=== PATIENT | male | born 1945 | race Caucasian/White ===

== ENCOUNTER → 2017-06-16 11:23 | Outpatient (CLI) | payer MEDICARE, SELFPAY ==
[2017-06-16 13:08] LABS: PSA,Total - Annual Screen 3.41 ng/mL (0.00-4.00)
== END ==
PROVIDERS: Family Provider Family Medicine; PCP Family Medicine; Visit Provider Nurse Practitioner Adult Health
DX: Z12.5 Encounter for screening for malignant neoplasm of prostate (principal)
CPT/HCPCS: 36415; 84153; G0103

== ENCOUNTER → 2017-07-07 09:49 | Outpatient (CLI) | payer MEDICARE, SELFPAY ==
[2017-07-07 14:30] LABS: PSA,Total- Diagnostic 2.14 ng/mL (0.0-4.0)
== END ==
PROVIDERS: Family Provider Family Medicine; PCP Family Medicine; Visit Provider Nurse Practitioner Adult Health
DX: R97.20 Elevated prostate specific antigen [PSA] (principal)
CPT/HCPCS: 36415; 84153

== ENCOUNTER 2017-08-16 07:21 | Emergency (ER) | payer MEDICARE, SELFPAY ==
[2017-08-16 07:22] VITALS: BP 148/83; PULSE 76; RESP 17; TEMP 36.9; O2SAT 97; BMI 32.3
--- NOTE | 2017-08-16 07:33 | ED.RN ---
PT DENIES CP, SOB. LT CALF TEMPERATURE FEELS THE SAME THE RT LEG.
--- NOTE | 2017-08-16 07:35 | VDLE_ITS ---
Reason For Study: LLE SWELLING RIGHT LEFT CFV is compressible, spontaneous, phasic, GSV is normal. competent and demonstrates normal CFV is compressible, spontaneous, phasic, augmentation. competent, and demonstrates normal Procedure augmentation. Exam performed portable in ED. FV is compressible, spontaneous, phasic, The exam was diagnostic. competent and demonstrates normal A preliminary report was called and/or faxed augmentation. to ED. POP V is compressible, spontaneous, phasic, competent and demonstrates normal augmentation. T/P Trunk is compressible. PTV is compressible. LT PerV is compressible. Interpretation Summary Deep veins of the left lower extremity are patent and compressible segmentally. There is no evidence of left lower extremity deep vein thrombosis. Valvular competence appears intact within the proximal deep venous system on the left . The left greater saphenous vein appears patent and compressible segmentally. Ordering Physician: Alison Jacinto Referring Physician: Christelle Hernandez Performed By: Darline Newman, SANGEETA, RVT
--- NOTE | 2017-08-16 07:39 | ED.DCSUM_ITS ---
- ER Visit Summary Date of Service: 08/16/17 Chief Complaint: Left lower extremity pain History of Present Illness: The patient is a 72 M presenting with left lower extremity pain. Patient states this started yesterday. He has pain in his left calf with swelling. He denies any injury. He denies chest pain or shortness of breath. Denies recent travel. 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 He had arthroscopic knee surgery 2 months ago. Denies knee pain. Denies fever. Physical Examination: Vitals are stable. Patient is afebrile. Alert no acute distress. HEENT exam is unremarkable. Lungs are clear and equal bilaterally. Heart is regular rate and rhythm. Abdomen is soft nontender nondistended. Extremities left calf tenderness with mild swelling. Normal distal pulses. No warmth or erythema. Skin is warm and dry. No focal neurologic deficit. Remainder of exam is unremarkable. Emergency Department Course and Treatment: Ultrasound of the left lower extremity shows no evidence of DVT. Patient does state he does a lot of stretching. He is advised to ice and elevate. Advised to follow-up with his primary care physician. Advised to return to ED if worsening complaints. Disposition: Discharge home Impression: Left lower extremity pain This note was generated with [employer] dictation software. It may contain incorrect words, spelling, and punctuation that were not noted in review of the chart prior to signing ED Disposition - Plan for ED Patient: Chief Complaint: Lower Extremity Injury Referrals: Feliciano Vega MD [Primary Care Provider] -
--- NOTE | 2017-08-16 08:33 | ED.RN ---
PT AMBULATED TO ED ROOM FROM TRIAGE. WHILE IN ROOM 6 PT NEEDED TO USE THE RESTROOM, RN GAVE PT NONSLIP SOCKS. WAS IRRITATED BECAUSE PT WALKED TO THE RESTROOM. 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 THIS RN DID EXPLAIN TO THE PT THAT IF HE NEEDED A URINAL TO LET STAFF KNOW.
--- NOTE | 2017-08-16 08:41 | ED.RN ---
PT REFUSED A BLANKET AT THIS TIME. LET PT'S KNOW THAT THE BLANKETS ARE IN THE CABINET IF HE DECIDES HE NEEDS ONE, HOWEVER THIS NURSE DID JUST PUT A BLANKET ON THE BED RAIL.
[2017-08-16 08:47] VITALS: BP 144/79; PULSE 66; O2SAT 98
--- NOTE | 2017-08-16 09:07 | NURSING ---
[employer] CALLED [facility]. THEY ARE ON THEIR WAY
--- NOTE | 2017-08-16 09:15 | ED.RN ---
pt ambulated to the restroom. pt previously encourage to let staff know if he needed a urinal. pt did not ask for assistance to restroom or a urinal.
--- NOTE | 2017-08-16 09:36 | ED.RN ---
VOICE HER DISAPPOINTMENT THAT THEY ARE WAITING FOR [facility].
--- NOTE | 2017-08-16 09:54 | NURSING ---
[facility] IN ROOM
--- NOTE | 2017-08-16 11:26 | ED.DEP ---
ED Disposition - Plan for ED Patient: Chief Complaint: Lower Extremity Injury Instructions: ED Strain Muscle Ext Referrals: Feliciano Vega MD [Primary Care Provider] -
== END 2017-08-16 11:30 | disposition home or self-care (01) ==
PROVIDERS: Emergency Provider Emergency Medicine; Family Provider Family Medicine; PCP Family Medicine
DX: M79.662 Pain in left lower leg (principal); I11.0 Hypertensive heart disease with heart failure; I50.9 Heart failure, unspecified; E78.00 Pure hypercholesterolemia, unspecified; Z79.82 Long term (current) use of aspirin; Z79.899 Other long term (current) drug therapy
CPT/HCPCS: 93971; 99282

== ENCOUNTER → 2018-04-27 16:51 | Outpatient (CLI) | payer MEDICARE, SELFPAY ==
--- OUTSIDE RECORDS SUMMARY | 2018-06-30 04:33 | XMS RPT_ITS ---
:1945 Author Organization OH[facility] Care Team Providers Name Role Phone JAYLA FLORIAN Referring Unavailable JAYLA FLORIAN Attending Unavailable ESTEFANY ROME (GAL) Attending Unavailable JAYLA FLORIAN Referring Unavailable LINO CABELLO Admitting Unavailable LINO CABELLO Attending Unavailable JAYLA FLORIAN Referring Unavailable KARL PÉREZ Attending Unavailable KARL PÉREZ Referring Unavailable JAYLA FLORIAN Referring Unavailable JAYLA FLORIAN Attending Unavailable Christelle Hernandez Attending Unavailable Christelle Hernandez Referring Unavailable Christelle Hernandez Attending Unavailable Christelle Hernandez Referring Unavailable Shawntak, Virgie Primary Care Unavailable Christelle Hernandez Attending Unavailable Christelle Hernandez Referring Unavailable Shawntak, Virgie Primary Care Unavailable Christelle Hernandez Attending Unavailable Christelle Hernandez Referring Unavailable Kontak, Virgie Primary Care Unavailable Shawntak, Virgie Primary Care Unavailable Alison Jacinto Attending Unavailable PROBLEMS PROBLEMS DATE TYPE CONDITION / CODE ATTENDING STATUS SOURCE 04/09/2018 Active Encounter for NA Active [facility] screening for Main Junior malignant neoplasm Repository of prostate / Z12.5(ICD-10) 02/26/2011 Active Hematuria, NA Active [facility] unspecified / Main Junior R31.9(ICD-10) Repository 04/09/2018 Active Urinary tract NA Active [facility] infection, site not Main Junior specified / Repository N39.0(ICD-10) 05/20/2017 Active Encounter for DESTINEY, Active [facility] screening for LINO T Main Junior malignant neoplasm Repository of colon / Z12.11(ICD-10) 05/09/2017 Active Unknown / JAYLA FLORIAN Active [facility] UNK(Unknown) R Main Junior Repository 02/15/2013 Active Essential (primary) NA Active [facility] hypertension / Main Junior I10(ICD-10) Repository 08/12/2005 Active Mixed hyperlipidemia NA Active [facility] / E78.2(ICD-10) Main Junior Repository PROCEDURES PROCEDURES No Procedure Records FoundRESULTS RESULTS PROGRESS Observed: 04/28/2018 Status: COMPLETED Source: [place] 4:03 PM [facility] HNO ID: [id number] Author: Jayla Florian Service: (none) Author Type: Physician Type: Progress Notes Filed: 04/28/2018 4:11 PM Note Text: Chief Complaint Patient presents with: Yearly Exam HPI Marshal Blue is a 72 year old male who presents here today for follow-up of several problems. Hypertension. Getting along pretty well. adherent to current regimen without side effects from medication. No current symptoms. Patient denies any exertional chest pain, dyspnea, palpitations, syncope, orthopnea, edema or paroxysmal nocturnal dyspnea. He has been plagued with urinary symptoms, couple of urinary infections and 3 antibiotics now. He's had a visit with the nurse practitioner at [facility]'s urology office in [place]. Christelle Hernandez. She says his prostate feels okay. Had a urine culture that showed less than 50,000 Escherichia coli, another that showed skin ramona. His PSA was high on most recent check. There has been gross blood in the urine and he has a pending CT scan and cystoscopy as he understands. 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 Sleep apnea, stable Past medical history, appointments, medications, allergies reviewed. Previous Medical History PAST MEDICAL HISTORY Diagnosis Date - Achilles bursitis or tendinitis 05/11/01 - Allergic rhinitis, cause unspecified - Benign neoplasm of colon - Diverticulosis of colon (without mention of hemorrhage) - Essential hypertension, benign - Other and unspecified hyperlipidemia - Personal history of colonic polyps Colon polyps - Snoring - Unspecified asthma, with status asthmaticus Previous Surgical History PAST SURGICAL HISTORY Procedure Laterality Date - CARPAL TUNNEL Right 06/2015 - COLONOSCOP W/ OR W/O [facility] SPEC 05/16/03 Colonoscopy-polyps removed - COLONOSCOP W/ OR W/O [facility] SPEC 12/19/2011 Colonoscopy - COLONOSCOP W/ OR W/O [facility] SPEC 05/20/2017 adenomatous polyps, repeat in 5 years - COLONOSCOPY W/BX 08/04/06 - LASIK 2000 bilateral - OTHER 03/21/15 complete shoulder replacement R - REMOVAL OF TONSILS,<12 Y/O Tonsillectomy - VASECTOMY Bilateral 1988 Family History FAMILY HISTORY Problem Relation Age of Onset - Hypertension Mother - other (macular degeneration) Mother - Hypertension Father - Heart Father - other (macular degeneration) Father - other (glaucoma) Brother Patient Allergies ALLERGIES Allergen Reactions - Ciprofloxacin Swelling - Milk Rash Current Medications Current Outpatient Prescriptions on File Prior to Visit: simvastatin (ZOCOR) 40 mg tablet TAKE 1 TABLET BY MOUTH EVERYDAY AT BEDTIME losartan (COZAAR) 50 mg tablet Take 1 tablet by mouth once daily. B2/VIT A,C AND E/LUT/ZEAXANTH/MN (ICAPS ORAL) Take by mouth. psyllium Husk (FIBER-CAPS) 0.52 gram capsule Take 1 capsule by mouth once daily. ASPIRIN 81 MG TAB Take one(1) tablet daily. meloxicam (MOBIC) 15 mg tablet No current facility-administered medications on file prior to visit. Social History Social History Marital status: Spouse name: Ashlie Years of education: Number of children: 2 Occupational History Occupation Employer Comment [employer] Social History Main Topics Smoking status: Former Smoker Packs/day: 2.00 Years: 10.00 Types: Cigarettes Quit date: 04/07/1987 Smokeless tobacco: Never Used Alcohol use: Yes Comment: 1-2 drinks per month Drug use: No Sexual activity: Yes Partners with: Female Social History Narrative Retired. ROS: General: Feels well, no weight changes, fever, chills. HEENT: No sinus congestion, earache, sore throat. Cardiac: No chest pain, palpitations, shortness of breath Resp: No cough, wheeze. GI: No reflux symptoms, food intolerance, bowel changes. : See history of present illness MS: No pain or joint complaints. PHYSICAL EXAMINATION BP 127/77 (BP Site: Left Arm, BP Position: Sitting, BP Cuff Size: Large Adult) Pulse 67 Temp 36.1 ?C (96.9 ?F) Resp 17 Ht 185.4 cm (6' 1) Wt 113.4 kg (250 lb 1.6 oz) BMI 33.00 kg/m? General: Alert and oriented, no distress, pleasant and cooperative. Heart: Regular, normal S1 and S2, no murmurs, rubs, or gallops Lungs: Clear to auscultation bilaterally Abdomen: Benign Extremities: Feet/ankles without edema, posterior tibial pulses full and symmetrical Skin with numerous keratoses, none of these appear worrisome. Health Maintenance List ABDOMINAL AORTIC ANEURYSM SCREENING TOPIC due on 08/08/2011 ANNUAL PCP TEAM CHRONIC DISEASE VISIT due on 05/09/2018 BP CONTROLLED (<130/80) due on 04/28/2019 DIABETES SCREEN due on 04/09/2021 COLORECTAL CANCER SCREENING,SEE MODIFIER due on 05/20/2022 DTAP,TDAP,TD(4 - Td) due on 02/15/2023 LIPID SCREEN due on 04/09/2023 ADULT PREVNAR-13 Completed INFLUENZA Completed HEPATITIS C SCREENING Completed PNEUMOVAX AGE 65 AND OVER WITH 5YR LOOKBACK Completed Data reviewed Lab Results Component Value Date/Time CHOL 128 04/09/2018 10:43 AM HDL 27 (L) 04/09/2018 10:43 AM LDL 69 04/09/2018 10:43 AM HBA1C 5.9 (A) 04/28/2018 11:39 AM HBA1C 5.9 (H) 06/26/2016 09:54 AM PSA 4.23 (H) 04/09/2018 10:43 AM PSA 1.88 05/22/2016 03:49 PM Assessment/Plan: (R73.9) Hyperglycemia (primary encounter diagnosis) Comment: Not previously diagnosed with diabetes Plan: HEMOGLOBIN A1C (POC) The hemoglobin A1c as above, 5.9%, stable. He is cautioned to watch the carbohydrates. (I10) Essential hypertension, benign Comment: BP control is adequate on current regimen Plan: Hydrochlorothiazide 12.5 mg capsule Continue (R31.0) Gross hematuria Comment: Discussion on this in of his enlarged prostate, elevated PSA, urinary tract infection. Constellation of events suggests some urinary retention stagnating urine from an enlarged prostate. The blood in the urine must be investigated to rule out bladder and/or renal cell cancer. I concur with Dr. Johnson planned CT scan and cystoscopy Plan: Follow-up with urology (N40.1, N13.8) BPH with obstruction/lower urinary tract symptoms Comment: As above Plan: Follow through (R97.20) Elevated prostate specific antigen (PSA) Comment: As above, prostate cancer possible Plan: Keep follow-up with urology (G47.33) Obstructive sleep apnea Comment: Stable Plan: Maintain Rx (E78.2) Mixed hyperlipidemia Comment: Stable on medication Plan: Continue Signed Prescriptions Disp Refills Hydrochlorothiazide 12.5 mg capsule 90 capsule 3 Sig: Take 1 capsule by mouth once daily. THAI: No tamsulosin ER (FLOMAX) 0.4 mg cap 90 capsule 3 Sig: Take 1 capsule by mouth once daily. THAI: No RTO: Annual if all is well. Otherwise as needed based on symptoms. He is encouraged to his consider a flu shot. He has not had one and cannot really explain why Jayla Florian MD CNOV Observed: 04/28/2018 Status: COMPLETED Source: [place] 11:00 AM [facility] REPOSITORY Office Visit (FPWADS) MARSHAL BLUE ([id number]) 1945 M Date Time Provider Department 04/28/18 11:00 AM JAYLA FLORIAN During your visit today, we recorded the following information about you: Temperature Pulse Respiration Blood pressure 96.9 degrees 67/minute 17/minute 127/77 Weight Height 113.4 kg 1.854 m Jayla Florian MD 04/28/2018 4:11 PM Signed Chief Complaint Patient presents with: Yearly Exam HPI Marshal Blue is a 72 year old male who presents here today for follow-up of several problems. Hypertension. Getting along pretty well. adherent to current regimen without side effects from medication. No current symptoms. Patient denies any exertional chest pain, dyspnea, palpitations, syncope, orthopnea, edema or paroxysmal nocturnal dyspnea. He has been plagued with urinary symptoms, couple of urinary infections and 3 antibiotics now. He's had a visit with the nurse practitioner at [facility]'s urology office in [place]. Christelle Hernandez. She says his prostate feels okay. Had a urine culture that showed less than 50,000 Escherichia coli, another that showed skin ramona. His PSA was high on most recent check. There has been gross blood in the urine and he has a pending CT scan and cystoscopy as he understands. 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 Sleep apnea, stable Past medical history, appointments, medications, allergies reviewed. Previous Medical History PAST MEDICAL HISTORY Diagnosis Date - Achilles bursitis or tendinitis 05/11/01 - Allergic rhinitis, cause unspecified - Benign neoplasm of colon - Diverticulosis of colon (without mention of hemorrhage) - Essential hypertension, benign - Other and unspecified hyperlipidemia - Personal history of colonic polyps Colon polyps - Snoring - Unspecified asthma, with status asthmaticus Previous Surgical History PAST SURGICAL HISTORY Procedure Laterality Date - CARPAL TUNNEL Right 06/2015 - COLONOSCOP W/ OR W/O [facility] SPEC 05/16/03 Colonoscopy-polyps removed - COLONOSCOP W/ OR W/O [facility] SPEC 12/19/2011 Colonoscopy - COLONOSCOP W/ OR W/O [facility] SPEC 05/20/2017 adenomatous polyps, repeat in 5 years - COLONOSCOPY W/BX 08/04/06 - TAE 2000 bilateral - OTHER 03/21/15 complete shoulder replacement R - REMOVAL OF TONSILS,<12 Y/O Tonsillectomy - VASECTOMY Bilateral 1988 Family History FAMILY HISTORY Problem Relation Age of Onset - Hypertension Mother - other (macular degeneration) Mother - Hypertension Father - Heart Father - other (macular degeneration) Father - other (glaucoma) Brother Patient Allergies ALLERGIES Allergen Reactions - Ciprofloxacin Swelling - Milk Rash Current Medications Current Outpatient Prescriptions on File Prior to Visit: simvastatin (ZOCOR) 40 mg tablet TAKE 1 TABLET BY MOUTH EVERYDAY AT BEDTIME losartan (COZAAR) 50 mg tablet Take 1 tablet by mouth once daily. B2/VIT A,C AND E/LUT/ZEAXANTH/MN (ICAPS ORAL) Take by mouth. psyllium Husk (FIBER-CAPS) 0.52 gram capsule Take 1 capsule by mouth once daily. ASPIRIN 81 MG TAB Take one(1) tablet daily. meloxicam (MOBIC) 15 mg tablet No current facility-administered medications on file prior to visit. Social History Social History Marital status: Spouse name: Ashlie Years of education: Number of children: 2 Occupational History Occupation Employer Comment [employer] Social History Main Topics Smoking status: Former Smoker Packs/day: 2.00 Years: 10.00 Types: Cigarettes Quit date: 04/07/1987 Smokeless tobacco: Never Used Alcohol use: Yes Comment: 1-2 drinks per month Drug use: No Sexual activity: Yes Partners with: Female Social History Narrative Retired. ROS: General: Feels well, no weight changes, fever, chills. HEENT: No sinus congestion, earache, sore throat. Cardiac: No chest pain, palpitations, shortness of breath Resp: No cough, wheeze. GI: No reflux symptoms, food intolerance, bowel changes. : See history of present illness MS: No pain or joint complaints. PHYSICAL EXAMINATION BP 127/77 (BP Site: Left Arm, BP Position: Sitting, BP Cuff Size: Large Adult) Pulse 67 Temp 36.1 ?C (96.9 ?F) Resp 17 Ht 185.4 cm (6' 1) Wt 113.4 kg (250 lb 1.6 oz) BMI 33.00 kg/m? General: Alert and oriented, no distress, pleasant and cooperative. Heart: Regular, normal S1 and S2, no murmurs, rubs, or gallops Lungs: Clear to auscultation bilaterally Abdomen: Benign Extremities: Feet/ankles without edema, posterior tibial pulses full and symmetrical Skin with numerous keratoses, none of these appear worrisome. Health Maintenance List ABDOMINAL AORTIC ANEURYSM SCREENING TOPIC due on 08/08/2011 ANNUAL PCP TEAM CHRONIC DISEASE VISIT due on 05/09/2018 BP CONTROLLED (<130/80) due on 04/28/2019 DIABETES SCREEN due on 04/09/2021 COLORECTAL CANCER SCREENING,SEE MODIFIER due on 05/20/2022 DTAP,TDAP,TD(4 - Td) due on 02/15/2023 LIPID SCREEN due on 04/09/2023 ADULT PREVNAR-13 Completed INFLUENZA Completed HEPATITIS C SCREENING Completed PNEUMOVAX AGE 65 AND OVER WITH 5YR LOOKBACK Completed Data reviewed Lab Results Component Value Date/Time CHOL 128 04/09/2018 10:43 AM HDL 27 (L) 04/09/2018 10:43 AM LDL 69 04/09/2018 10:43 AM HBA1C 5.9 (A) 04/28/2018 11:39 AM HBA1C 5.9 (H) 06/26/2016 09:54 AM PSA 4.23 (H) 04/09/2018 10:43 AM PSA 1.88 05/22/2016 03:49 PM Assessment/Plan: (R73.9) Hyperglycemia (primary encounter diagnosis) Comment: Not previously diagnosed with diabetes Plan: HEMOGLOBIN A1C (POC) The hemoglobin A1c as above, 5.9%, stable. He is cautioned to watch the carbohydrates. (I10) Essential hypertension, benign Comment: BP control is adequate on current regimen Plan: Hydrochlorothiazide 12.5 mg capsule Continue (R31.0) Gross hematuria Comment: Discussion on this in of his enlarged prostate, elevated PSA, urinary tract infection. Constellation of events suggests some urinary retention stagnating urine from an enlarged prostate. The blood in the urine must be investigated to rule out bladder and/or renal cell cancer. I concur with Dr. Johnson planned CT scan and cystoscopy Plan: Follow-up with urology (N40.1, N13.8) BPH with obstruction/lower urinary tract symptoms Comment: As above Plan: Follow through (R97.20) Elevated prostate specific antigen (PSA) Comment: As above, prostate cancer possible Plan: Keep follow-up with urology (G47.33) Obstructive sleep apnea Comment: Stable Plan: Maintain Rx (E78.2) Mixed hyperlipidemia Comment: Stable on medication Plan: Continue Signed Prescriptions Disp Refills Hydrochlorothiazide 12.5 mg capsule 90 capsule 3 Sig: Take 1 capsule by mouth once daily. THAI: No tamsulosin ER (FLOMAX) 0.4 mg cap 90 capsule 3 Sig: Take 1 capsule by mouth once daily. THAI: No RTO: Annual if all is well. Otherwise as needed based on symptoms. He is encouraged to his consider a flu shot. He has not had one and cannot really explain why Jayla Florian MD Referring Provider: SELF [200] Allergies As of Date: 04/28/2018 Noted Allergy Reaction CIPROFLOXACIN 01/11/2015 7 - Swelling MILK 02/12/2005 2 - Rash Date Reviewed: 04/28/2018 Reviewed by: Magdalena Guadarrama Ma - Fully Assessed Reason for Visit: Yearly Exam [187] Primary Visit Diagnosis:Hyperglycemia [R73.9] Other Visit Diagnoses:Essential hypertension, benign [I10] Gross hematuria [R31.0] BPH with obstruction/lower urinary tract symptoms [N40.1, N13.8] Elevated prostate specific antigen (PSA) [R97.20] Obstructive sleep apnea [G47.33] Mixed hyperlipidemia [E78.2] Order(s):Hydrochlorothiazide 12.5 mg capsuleTake 1 capsule by mouth once daily.Disp: 90 capsuleRfl: 3 tamsulosin ER (FLOMAX) 0.4 mg capTake 1 capsule by mouth once daily.Disp: 90 capsuleRfl: 3 HEMOGLOBIN A1C (POC) [[id number]] Order #: [id number] #:[id number] Prescriptions as of 04/28/2018 Sig: HYDROCHLOROTHIAZIDE 12.5 MG C* Take 1 capsule by mouth once * TAMSULOSIN 0.4 MG CAPSULE Take 1 capsule by mouth once * SIMVASTATIN 40 MG TABLET TAKE 1 TABLET BY MOUTH EVERYD* LOSARTAN 50 MG TABLET Take 1 tablet by mouth once d* ICAPS ORAL Take by mouth. PSYLLIUM HUSK 0.52 GRAM CAPSU* Take 1 capsule by mouth once * * ASPIRIN 81 MG TABLET Take one(1) tablet daily. MELOXICAM 15 MG TABLET Problem List As Of Date 04/28/2018 Noted Resolved MIXED HYPERLIPIDEMIA [E78.2] INVALID FOR* Essential hypertension, benign [I10] INVALID FOR* More... PERS HX COLONIC POLYPS [Z86.010] INVALID FOR* ALLERGIC RHINITIS NOS [J30.9] INVALID FOR* IMPAIRED FASTING GLUCOSE [R73.01] INVALID FOR* Obstructive Sleep Apnea [G47.33] INVALID FOR* More... Screening for other and unspecified genitourina*INVALID FOR* BPH with obstruction/lower urinary tract sympto*INVALID FOR* Frequency [[id number]] INVALID FOR* Nocturia [R35.1] INVALID FOR* Prostatitis [N41.9] INVALID FOR* Straining on urination [R39.16] INVALID FOR* Urgency of urination [R39.15] INVALID FOR* Hematuria [R31.9] INVALID FOR* Arthritis of shoulder region, right, degenerati*INVALID FOR* Diverticulosis of colon (without mention of hem*INVALID FOR* Benign neoplasm of colon [D12.6] INVALID FOR* Urinary tract infection [N39.0] INVALID FOR* 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, N13.8] INVALID FOR* Elevated prostate specific antigen (PSA) [R97.2*INVALID FOR* Prescriptions ordered this encounter Disp Refills Start End HYDROCHLOROTHIAZIDE 12.5 MG CAPSULE 90 c* 3 04/28/2018 Route: ORAL Sig: Take 1 capsule by mouth once daily. TAMSULOSIN 0.4 MG CAPSULE 90 c* 3 04/28/2018 Route: ORAL Sig: Take 1 capsule by mouth once daily. Medications Discontinued During This Encounter Hydrochlorothiazide 12.5 mg capsule 90 c* 1 11/17/2017 04/28/2018 Sig: TAKE 1 CAPSULE BY MOUTH ONCE DAILY. Disc: Reason for discontinue is not on file. tamsulosin ER (FLOMAX) 0.4 mg cp24 90 c* 3 03/28/2017 04/28/2018 Sig: TAKE 1 CAPSULE EVERY DAY Disc: Reason for discontinue is not on file. Encounter Status:Closed by VIRGIE FLORIAN MD on 04/28/18 Observed: 04/27/2018 Status: F Source: [place] CULTURE, URINE 11:00 AM [facility] [place] REPOSITORY Urine Culture ORGANISM 1: Presumptive E. coli [place] Count 80,000-100,000 Presumptive E. coli: REACTION Ampicillin $ >=32 R Ampicillin/Sulbactam $ >=32 R Cefazolin $ 8 S Cefepime $ <=0.12 S Ceftazidime *NF <=1 S Ceftriaxone $ 0.5 S Ciprofloxacin $ <=0.25 S Ertapenim $$$ <=0.12 S ESBL NEG Gentamicin $ <=1 S Imipenem *NF <=0.25 S Levofloxacin $ <=0.12 S Nitrofurantoin $ <=16 S Piperacillin/Tazobactam $$ <=4 S Tobramycin $ <=1 S Trimethoprim/Sulfametho $ <=20 S (NF) indicates non-formulary drug at [facility]. Approval by Infectious Disease Specialist required before non-formulary drugs may be ordered and/or dispensed. Performed By: #### [id number] #### [facility] [address] [place], [address] OBSOLETE Observed: 04/22/2018 Status: COMPLETED Source: [place] 12:00 AM [facility] REPOSITORY Refill ([facility]) MARSHAL BLUE ([id number]) 1945 M Date Time Provider Department 04/22/18 JAYLA FLORIAN [facility] During your visit today, we recorded the following information about you: Magdalena Guadarrama Ma 04/22/2018 8:22 AM Signed Pharmacy verified in Epic Patient has been identified by name and date of : Yes Patient aware RX will be sent to pharmacy. No need to notify patient. Pharmacy phones for refill(s): Pending Prescriptions Disp Refills SIMVASTATIN 40 MG TABLET 90 tablet 1 Sig: TAKE 1 TABLET BY MOUTH EVERYDAY AT BEDTIME THAI: Yes Date of last office visit : 05/09/17 Date of next office visit : 04/28/18 Last 2 Encounter Wt Readings: Date: Wt: 04/02/2018 111.1 kg (245 lb) 03/22/2018 115.4 kg (254 lb 6.4 oz) Cholesterol: Triglyceride (mg/dL) Date Value 04/09/2018 160 HDL Cholesterol (mg/dL) Date Value 04/09/2018 27 LDL Cholesterol (mg/dL) Date Value 04/09/2018 69 ALT (U/L) Date Value 05/05/2017 48 Non HDL Cholesterol (mg/dL) Date Value 04/09/2018 101 Please advise. Magdalena Florian MD 04/23/2018 8:40 AM Signed The following approved medication requests have been transmitted electronically. Signed Prescriptions Disp Refills simvastatin (ZOCOR) 40 mg tablet 90 tablet 1 Sig: TAKE 1 TABLET BY MOUTH EVERYDAY AT BEDTIME THAI: No Authorizing Provider: JAYLA FLORIAN MD Allergies As of Date: 04/22/2018 Noted Allergy Reaction CIPROFLOXACIN 01/11/2015 7 - Swelling MILK 02/12/2005 2 - Rash Date Reviewed: 04/02/2018 Reviewed by: Maine Streeter LPN - Fully Assessed Reason for Visit: Refill Request [94] Visit Diagnosis:Mixed hyperlipidemia [E78.2] Order(s):simvastatin (ZOCOR) 40 mg tabletTAKE 1 TABLET BY MOUTH EVERYDAY AT BEDTIMEDisp: 90 tabletRfl: 1 Prescriptions as of 04/22/2018 Sig: SIMVASTATIN 40 MG TABLET TAKE 1 TABLET BY MOUTH EVERYD* LOSARTAN 50 MG TABLET Take 1 tablet by mouth once d* HYDROCHLOROTHIAZIDE 12.5 MG C* TAKE 1 CAPSULE BY MOUTH ONCE * MELOXICAM 15 MG TABLET TAMSULOSIN 0.4 MG CAPSULE TAKE 1 CAPSULE EVERY DAY ICAPS ORAL Take by mouth. PSYLLIUM HUSK 0.52 GRAM CAPSU* Take 1 capsule by mouth once * * ASPIRIN 81 MG TABLET Take one(1) tablet daily. Problem List As Of Date 04/22/2018 Noted Resolved MIXED HYPERLIPIDEMIA [E78.2] INVALID FOR* Essential hypertension, benign [I10] INVALID FOR* More... PERS HX COLONIC POLYPS [Z86.010] INVALID FOR* ALLERGIC RHINITIS NOS [J30.9] INVALID FOR* IMPAIRED FASTING GLUCOSE [R73.01] INVALID FOR* Obstructive Sleep Apnea [G47.33] INVALID FOR* More... Screening for other and unspecified genitourina*INVALID FOR* BPH with obstruction/lower urinary tract sympto*INVALID FOR* Frequency [[id number]] INVALID FOR* Nocturia [R35.1] INVALID FOR* Prostatitis [N41.9] INVALID FOR* Straining on urination [R39.16] INVALID FOR* Urgency of urination [R39.15] INVALID FOR* Hematuria [R31.9] INVALID FOR* Arthritis of shoulder region, right, degenerati*INVALID FOR* Diverticulosis of colon (without mention of hem*INVALID FOR* Benign neoplasm of colon [D12.6] INVALID FOR* Urinary tract infection [N39.0] INVALID FOR* 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, N13.8] INVALID FOR* Elevated prostate specific antigen (PSA) [R97.2*INVALID FOR* Prescriptions ordered this encounter Disp Refills Start End SIMVASTATIN 40 MG TABLET 90 t* 1 04/23/2018 Sig: TAKE 1 TABLET BY MOUTH EVERYDAY AT BEDTIME Medications Discontinued During This Encounter simvastatin (ZOCOR) 40 mg tablet 90 t* 1 10/17/2017 04/23/2018 Route: ORAL Sig: Take 1 tablet by mouth daily at bedtime. Disc: Reason for discontinue is not on file. Encounter Status:Closed by MAGDALENA GUADARRAMA MA on 04/23/18 BASIC METABOLIC PANL Collected: 04/09/2018 Status: F Source: [facility] 10:43 AM [facility] REPOSITORY TYPE CODE TESTS RESULT OUT OF REFERENCE UNITS RANGE LAB GLU 74-99 mg/dL High Glucose 116 Result Comment: The [place] Diabetes Association (ADA) provides guidance for cutoff values for fasting glucose and random glucose. The ADA defines fasting as no caloric intake for at least 8 hours. Fas ting plasma glucose results between 100 to 125 mg/dL indicate increased risk for diabetes (prediabetes). Fasting plasma glucose results greater than or equal to 126 mg/dL meet the criteria for diagnosis of diabetes. In the absence of unequivocal hyperglycemia, results should be confirmed by repeat testing. In a patient with classic symptoms of hyperglycemia or hyperglycemic crisis, random plasma glucose results greater than or equal to 200 mg/dL meet the criteria for diagnosis of diabetes. Reference: Standards of Medical Care in Diabetes 2016, [place] [employer] Association. Diabetes Care. 2016.39(Suppl 1). LAB BUN 9-24 mg/dL BUN 22 LAB CRET 0.73-1.22 mg/dL Creatinine 1.09 LAB NA 136-144 mmol/L Sodium 136 LAB K 3.7-5.1 mmol/L Potassium 4.2 LAB CL 97-105 mmol/L Chloride 100 LAB CO2 22-30 mmol/L CO2 25 LAB AGAP 9-18 mmol/L Anion Gap 11 LAB CA 8.5-10.2 mg/dL Calcium, Total 10.1 LAB GFRAA eGFR- Amer. >60 LAB GFRNAA . eGFR-All Other Races >60 Result Comment: eGFR (Estimated GFR) Units of measure: mL/min/1.73 meters squared eGFR is derived from the reexpressed MDRD Study equation using the following parameters: serum creatinine, age, gender and race. The creatinine assay has been calibrated to be traceable to IDMS. An eGFR <60 mL/min/1.73m2 for >3 months is consistent with chronic kidney disease. Refer to KDOQI guidelines for clinical interpretation. In patients with unstable renal function, e.g. those with acute kidney injury, the eGFR may not accurately reflect actual GFR. Performed By: #### BMP #### [facility] [address] [address] LIPID PANEL, BASIC Collected: 04/09/2018 Status: F Source: [place] 10:43 AM [facility] REPOSITORY TYPE CODE TESTS RESULT OUT OF REFERENCE UNITS RANGE LAB CHOL <200 mg/dL Cholesterol 128 Result Comment: <200 mg/dL, Desirable 200-239 mg/dL, Borderline high >239 mg/dL, High LAB TRIGLY <150 mg/dL Triglyceride High 160 Result Comment: <150 mg/dL, Normal 150-199 mg/dL, Borderline high 200-499 mg/dL, High >499 mg/dL, Very high LAB HDL >39 mg/dL HDL-Cholesterol Low 27 Result Comment: 40-59 mg/dL, Acceptable >59 mg/dL, High: Negative risk factor for coronary heart disease <40 mg/dL, Low: Positive risk factor for coronary heart disease LAB LDL <100 mg/dL LDL-Cholesterol 69 Result Comment: <100 mg/dL, Optimal 100-129 mg/dL, Near optimal/above optimal 130-159 mg/dL, Borderline high 160-189 mg/dL, High >189 mg/dL, Very high Secondary prevention optimal LDL Cholesterol levels are recommended to be < 70 mg/dL LAB NONHDL <130 mg/dL Non HDL Cholesterol 101 Result Comment: <130 mg/dL, Optimal 130-159 mg/dL, Near optimal/above optimal 160-189 mg/dL, Borderline high 190-219 mg/dL, High >219 mg/dL, Very high Secondary prevention optimal non HDL Cholesterol levels are recommended to be < 100 mg/dL LAB FT hrs Fasting Time 14 LAB VLDL <30 mg/dL High VLDL Cholesterol 32 LAB TCHDL <5.10 TC:HDL Ratio 4.74 LAB LDLHDL <2.54 High LDL:HDL Ratio 2.56 Result Comment: Reference: 1. National Cholesterol Education Program ATP III Guideline At-A-Glance Quick Desk Reference: National Heart, Lung, and Blood [place]. National Institutes of Health. 2001: NIH Publication No. 01-3305. 2. An International Atherosclerosis Society position paper: global recommendations for the management of dyslipidemia: executive summary, Atherosclerosis. 2014: 232(2):410-413. Performed By: #### LIPB, PSAS1 #### [facility] [address], [place] [address] PSA, SCREENING Collected: 04/09/2018 Status: F Source: [place] 10:[address] [facility] REPOSITORY TYPE CODE TESTS RESULT OUT OF REFERENCE UNITS RANGE LAB PSAS 0.00-2.59 ng/mL PSA, High Screening 4.23 Result Comment: Total PSA test methodology used is the Electrochemiluminescence Immunoassay. For an individual patient, the significance of a PSA level should be interpreted in a broad clinical context, including age, race, family history, digital rectal exam, prostate size, results of prior te sting (prostate biopsy, free PSA, PCA3), and use of 5-alpha reductase inhibitors. Considering the high incidence of asymptomatic cancer in the general population that may not pose an ultimate risk to a patient, the decision to recommend urological evaluation or prostate biopsy should be individualized after consideration of all these factors. REFERENCE: Justo Mullen M.D., M.P.H., Virgil Bourne M.D., Ph.D., Asif Ortiz M.D., Deanna Ramos M.P.H., Carey Riley Sc.D. Effect of Verification Bias on Screening for Prostate Cancer by Measurement of Prostatic Specific Antigen. N Engl J Med 2003,349:335-42. Performed By: #### LIPB, PSAS1 #### [facility] [employer] [address] [place], [place] [address] Observed: 04/02/2018 Status: F Source: [place] URINE CULTURE 12:47 PM [facility] REPOSITORY Sp. Request/Comment: - Best Practice Alert: To ensure optimal transport conditions and accurate culture results transfer urine specimens to childs top C and S preservative tube. Culture Result - <10,000 CFU/ml Lactose positive gram negative bacilli --> ABNORMAL ALERT Insignificant colony count. No further workup. --> ABNORMAL ALERT Performed By: #### URCUL #### [facility] [employer] [employer] [address] [address] PROGRESS Observed: 04/02/2018 Status: COMPLETED Source: [place] 12:17 PM [facility] REPOSITORY HNO ID: [id number] Author: Karl Pérez Service: (none) Author Type: Physician Type: Progress Notes Filed: 04/02/2018 12:39 PM Note Text: This note was created using Syncbakriter. 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 He had a history of prostatitis and recurrent urinary tract infection. He followed with Dr. Barakat/Natacha Hernandez for [facility]. He tended to have urinary tract infection after sinus infections. He was treated [address] Ortiz for sinus infection with amoxicillin. [place] [facility] [place] urinary tract infection symptoms. Culture was positive for E. Coli. 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 B2/VIT A,C AND E/LUT/ZEAXANTH/MN (ICAPS ORAL) Take by mouth. Hydrochlorothiazide 12.5 mg capsule TAKE 1 CAPSULE BY MOUTH ONCE DAILY. losartan (COZAAR) 50 mg tablet Take 1 tablet by mouth once daily. psyllium Husk (FIBER-CAPS) 0.52 gram capsule Take 1 capsule by mouth once daily. simvastatin (ZOCOR) 40 mg tablet Take 1 tablet by mouth daily at bedtime. tamsulosin ER (FLOMAX) 0.4 mg cp24 TAKE 1 CAPSULE EVERY DAY meloxicam (MOBIC) 15 mg tablet No current facility-administered medications for this visit. Review of Systems Constitutional: Negative. HENT: Negative. Gastrointestinal: Negative. Genitourinary: See HPI. Objective BP 136/80 (BP Site: Left Arm, BP Position: Sitting, BP Cuff Size: Large Adult) Pulse (!) 56 Temp 36.8 ?C (98.2 ?F) (Temporal Artery) Resp 12 Wt 111.1 kg (245 lb) BMI 32.32 kg/m? Physical Exam Constitutional: No distress. Abdominal: Soft. There is no tenderness. Genitourinary: Testes normal and penis normal. Component Latest Ref Rng AND Units 04/02/2018 GLUCOSE UA (POCT) Negative mg/dL Negative BILIRUBIN UA (POCT) Negative Negative KETONE UA (POCT) Negative mg/dL Negative SPECIFIC GRAVITY UA (POCT) 1.005 - 1.030 1.025 HEMOGLOBIN/BLOOD UA (POCT) Negative Large (A) PH UA (POCT) 4.5 - 8.0 5.5 PROTEIN UA (POCT) Negative mg/dL Trace (A) UROBILINOGEN UA (POCT) Normal E.U./dL 0.2 NITRITE UA (POCT) Negative Negative LEUKOCYTES UA (POCT) Negative Large (A) COLOR UA (POCT) Yellow CLARITY UA (POCT) Clear Assessment and Plan 1. Urinary tract infection without hematuria, site unspecified - ICD9: 599.0, ICD10: N39.0 (primary diagnosis) recurrent - UA DIP B/O - URINE CULTURE - UA DIP, URINE (POC) - BASIC METABOLIC PNL - SULFAMETHOXAZOLE 800 MG-TRIMETHOPRIM 160 MG TABLET Shared Medical Decision Making was done: Benefits: Medication may help UTI and prostatitis. Risks: Possible side effects were discussed including hyperkalemia. Possible interactions: with losartan. Warnings: n/a. Options: other antibiotics. Cost: generic. Duration: 14 days. - See UROLOGY sooner. 2. Hematuria, unspecified type - ICD9: 599.70, ICD10: R31.9 - URINE CULTURE - UA DIP, URINE (POC) - BASIC METABOLIC PNL - SULFAMETHOXAZOLE 800 MG-TRIMETHOPRIM 160 MG TABLET 3. Essential hypertension, benign - ICD9: 401.1, ICD10: I10 Informed of LOSARTAN recall. See printed instructions or information. Karl Pérez MD CNOV Observed: 04/02/2018 Status: COMPLETED Source: [place] 10:40 AM [facility] REPOSITORY Office Visit (INTMWS) MARSHAL BLUE ([id number]) 1945 M Date Time Provider Department 04/02/18 10:40 AM KARL PÉREZ INTMWS During your visit today, we recorded the following information about you: Temperature Pulse Respiration Blood pressure 98.2 degrees 56/minute 12/minute 136/80 Weight 111.1 kg Karl Pérez MD 04/02/2018 12:39 PM Signed This note was created using NoteWriter. 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 He had a history of prostatitis and recurrent urinary tract infection. He followed with Dr. Barakat/Natacha Hernandez for [facility]. He tended to have urinary tract infection after sinus infections. He was treated [address] Ortiz for sinus infection with amoxicillin. He then [place] [facility] [place] urinary tract infection symptoms. Culture was positive for E. Coli. 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 B2/VIT A,C AND E/LUT/ZEAXANTH/MN (ICAPS ORAL) Take by mouth. Hydrochlorothiazide 12.5 mg capsule TAKE 1 CAPSULE BY MOUTH ONCE DAILY. losartan (COZAAR) 50 mg tablet Take 1 tablet by mouth once daily. psyllium Husk (FIBER-CAPS) 0.52 gram capsule Take 1 capsule by mouth once daily. simvastatin (ZOCOR) 40 mg tablet Take 1 tablet by mouth daily at bedtime. tamsulosin ER (FLOMAX) 0.4 mg cp24 TAKE 1 CAPSULE EVERY DAY meloxicam (MOBIC) 15 mg tablet No current facility-administered medications for this visit. Review of Systems Constitutional: Negative. HENT: Negative. Gastrointestinal: Negative. Genitourinary: See HPI. Objective BP 136/80 (BP Site: Left Arm, BP Position: Sitting, BP Cuff Size: Large Adult) Pulse (!) 56 Temp 36.8 ?C (98.2 ?F) (Temporal Artery) Resp 12 Wt 111.1 kg (245 lb) BMI 32.32 kg/m? Physical Exam Constitutional: No distress. Abdominal: Soft. There is no tenderness. Genitourinary: Testes normal and penis normal. Component Latest Ref Rng AND Units 04/02/2018 GLUCOSE UA (POCT) Negative mg/dL Negative BILIRUBIN UA (POCT) Negative Negative KETONE UA (POCT) Negative mg/dL Negative SPECIFIC GRAVITY UA (POCT) 1.005 - 1.030 1.025 HEMOGLOBIN/BLOOD UA (POCT) Negative Large (A) PH UA (POCT) 4.5 - 8.0 5.5 PROTEIN UA (POCT) Negative mg/dL Trace (A) UROBILINOGEN UA (POCT) Normal E.U./dL 0.2 NITRITE UA (POCT) Negative Negative LEUKOCYTES UA (POCT) Negative Large (A) COLOR UA (POCT) Yellow CLARITY UA (POCT) Clear Assessment and Plan 1. Urinary tract infection without hematuria, site unspecified - ICD9: 599.0, ICD10: N39.0 (primary diagnosis) recurrent - UA DIP B/O - URINE CULTURE - UA DIP, URINE (POC) - BASIC METABOLIC PNL - SULFAMETHOXAZOLE 800 MG-TRIMETHOPRIM 160 MG TABLET Shared Medical Decision Making was done: Benefits: Medication may help UTI and prostatitis. Risks: Possible side effects were discussed including hyperkalemia. Possible interactions: with losartan. Warnings: n/a. Options: other antibiotics. Cost: generic. Duration: 14 days. - See UROLOGY sooner. 2. Hematuria, unspecified type - ICD9: 599.70, ICD10: R31.9 - URINE CULTURE - UA DIP, URINE (POC) - BASIC METABOLIC PNL - SULFAMETHOXAZOLE 800 MG-TRIMETHOPRIM 160 MG TABLET 3. Essential hypertension, benign - ICD9: 401.1, ICD10: I10 Informed of LOSARTAN recall. See printed instructions or information. MD Karl He MD 04/02/2018 12:33 PM Addendum See Aidee Degroot sooner for blood in urine, recurrent urinary tract infection. Follow a low potassium diet while on antibiotic as this can interact with losartan. Check with your pharmacy if you are affected by losartan recall. Referring Provider: SELF [[id number]] Allergies As of Date: 04/02/2018 Noted Allergy Reaction CIPROFLOXACIN 01/11/2015 7 - Swelling MILK 02/12/2005 2 - Rash Date Reviewed: 04/02/2018 Reviewed by: Maine Streeter LPN - Fully Assessed Reason for Visit: Recheck [92] Primary Visit Diagnosis:Urinary tract infection without hematuria, site unspecified [N39.0] Other Visit Diagnoses:Hematuria, unspecified type [R31.9] Essential hypertension, benign [I10] Order(s):UA DIP B/O [[id number]] Order #: [id number] URINE CULTURE [SQURCUL] Order #: [id number] UA DIP, URINE (POC) [[id number]] Order #: [id number]. #:[id number] BASIC METABOLIC PNL [SQBMP] Order #: [id number] FUTURE sulfamethoxazole-trimethoprim (BACTRIM DS) 800-160 mg per tabletTake 1 tablet by mouth twice daily for 14 days.Disp: 28 tabletRfl: 0 Prescriptions as of 04/02/2018 Sig: * ASPIRIN 81 MG TABLET Take one(1) tablet daily. ICAPS ORAL Take by mouth. HYDROCHLOROTHIAZIDE 12.5 MG C* TAKE 1 CAPSULE BY MOUTH ONCE * LOSARTAN 50 MG TABLET Take 1 tablet by mouth once d* PSYLLIUM HUSK 0.52 GRAM CAPSU* Take 1 capsule by mouth once * SIMVASTATIN 40 MG TABLET Take 1 tablet by mouth daily * TAMSULOSIN 0.4 MG CAPSULE TAKE 1 CAPSULE EVERY DAY MELOXICAM 15 MG TABLET SULFAMETHOXAZOLE 800 MG-TRIME* Take 1 tablet by mouth twice * Problem List As Of Date 04/02/2018 Noted Resolved MIXED HYPERLIPIDEMIA [E78.2] INVALID FOR* Essential hypertension, benign [I10] INVALID FOR* More... PERS HX COLONIC POLYPS [Z86.010] INVALID FOR* ALLERGIC RHINITIS NOS [J30.9] INVALID FOR* IMPAIRED FASTING GLUCOSE [R73.01] INVALID FOR* Obstructive Sleep Apnea [G47.33] INVALID FOR* More... Screening for other and unspecified genitourina*INVALID FOR* BPH with obstruction/lower urinary tract sympto*INVALID FOR* Frequency [CYJ5199] INVALID FOR* Nocturia [R35.1] INVALID FOR* Prostatitis [N41.9] INVALID FOR* Straining on urination [R39.16] INVALID FOR* Urgency of urination [R39.15] INVALID FOR* Hematuria [R31.9] INVALID FOR* Arthritis of shoulder region, right, degenerati*INVALID FOR* Diverticulosis of colon (without mention of hem*INVALID FOR* Benign neoplasm of colon [D12.6] INVALID FOR* Urinary tract infection [N39.0] INVALID FOR* 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, N13.8] INVALID FOR* Elevated prostate specific antigen (PSA) [R97.2*INVALID FOR* Other instructions from your clinician: See Aidee Degroot soonbaldo for blood in urine, recurrent urinary tract infection. Follow a low potassium diet while on antibiotic as this can interact with losartan. Check with your pharmacy if you are affected by losartan recall. Prescriptions ordered this encounter Disp Refills Start End SULFAMETHOXAZOLE 800 MG-TRIMETHOPRIM* 28 t* 0 04/02/2018 04/16/2018 Cmt: Ok to give generic equivalent Route: ORAL Sig: Take 1 tablet by mouth twice daily for 14 days. Encounter Status:Closed by KARL PÉREZ MD on 04/02/18 Observed: 03/22/2018 Status: F Source: [place] URINE CULTURE 10:20 AM [facility] REPOSITORY Sp. Request/Comment: - Specimen received in preservative Culture Result - 10,000 - <50,000 CFU/ml Escherichia coli --> ABNORMAL ALERT ORGANISM: Escherichia coli METHOD: Minimum inhibitory concentration(Vitek) Antibiotic Interp MEERA Status Ampicillin RESISTANT >=32 F Gentamicin SUSCEPTIBLE <=1 F Trimeth sulfameth SUSCEPTIBLE <=20 F Cefazolin SUSCEPTIBLE 8 F CLSI breakpoints for therapy of uncomplicated UTI's due to E.coli, K.pneumoniae, and P.mirabilis were applied and may be used to predict the activity of oral agents(cefaclor, cefdinir, cefpodoxime, cefp rozil, cefuroxime, cephalexin, loracarbef). Ciprofloxacin SUSCEPTIBLE <=0.25 F Nitrofurantoin SUSCEPTIBLE <=16 F Cefepime SUSCEPTIBLE <=1 F Piperacillin/Tazobac SUSCEPTIBLE <=4 F Ampicillin Sulbact RESISTANT >=32 F Ceftriaxone SUSCEPTIBLE <=1 F Meropenem SUSCEPTIBLE <=0.25 F Ertapenem SUSCEPTIBLE <=0.5 F Performed By: #### URCUL #### [facility] [address] [address] PROGRESS Observed: 03/22/2018 Status: COMPLETED Source: [place] 10:05 AM [facility] REPOSITORY HNO ID: [id number] Author: Kim Singer Service: (none) Author Type: Nurse Practitioner Type: Progress Notes Filed: 03/22/2018 10:22 AM Note Text: Subjective The history is provided by the patient. No health aid was used. 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 This started 2 months ago. He is also having post nasal drainage. He is also having burning and frequency with urination, and small amounts. He taken amoxicillin with short term relief of the sinus infection since . This was prescribed by Dr. Ortiz. He states voiding is painful, sinus pressure when leaning forward. He has h/o sinusisitis, allergic rhinitis, and asthma BP 130/84 Pulse 77 Temp 37.7 ?C (99.8 ?F) (Tympanic) Resp 16 Wt 115.4 kg (254 lb 6.4 oz) BMI 33.56 kg/m? PAST MEDICAL HISTORY Diagnosis Date - Achilles bursitis or tendinitis 05/11/01 - Allergic rhinitis, cause unspecified - Benign neoplasm of colon - Diverticulosis of colon (without mention of hemorrhage) - Essential hypertension, benign - Other and unspecified hyperlipidemia - Personal history of colonic polyps Colon polyps - Snoring - Unspecified asthma, with status asthmaticus I have confirmed and edited as necessary, the [facility] Review of Systems Constitutional: Negative for chills and fever. HENT: Positive for congestion and sinus pain. Negative for ear pain and sore throat. Respiratory: Positive for cough (from post nasal drip). Negative for sputum production, shortness of breath and wheezing. Gastrointestinal: Negative for abdominal pain. Genitourinary: Positive for dysuria, frequency and urgency. Negative for flank pain and hematuria. Musculoskeletal: Negative for myalgias. Neurological: Negative for headaches (sinus). Objective Physical Exam Constitutional: He is well-developed, well-nourished, and in no distress. HENT: Head: Normocephalic and atraumatic. Right Ear: Tympanic membrane, external ear and ear canal normal. Left Ear: Tympanic membrane, external ear and ear canal normal. Nose: Mucosal edema and rhinorrhea present. Right sinus exhibits maxillary sinus tenderness. Right sinus exhibits no frontal sinus tenderness. Left sinus exhibits maxillary sinus tenderness. Left sinus exhibits no frontal sinus tenderness. Mouth/Throat: Uvula is midline and mucous membranes are normal. Posterior oropharyngeal edema and posterior oropharyngeal erythema present. No oropharyngeal exudate or tonsillar abscesses. Cardiovascular: Normal rate, regular rhythm and normal heart sounds. Pulmonary/Chest: Effort normal and breath sounds normal. He has no decreased breath sounds. He has no wheezes. He has no rhonchi. He has no rales. Abdominal: Soft. Normal appearance and bowel sounds are normal. He exhibits no abdominal bruit, no pulsatile midline mass and no mass. There is no hepatosplenomegaly. There is no tenderness. There is no rigidity, no rebound, no guarding, no CVA tenderness, no tenderness at McBurney's point and negative Contreras's sign. Lymphadenopathy: Head (right side): No submental, no submandibular, no tonsillar and no preauricular adenopathy present. Head (left side): No submental, no submandibular, no tonsillar and no preauricular adenopathy present. He has no cervical adenopathy. Right cervical: No superficial cervical adenopathy present. Left cervical: No superficial cervical adenopathy present. Nursing note and vitals reviewed. Component Latest Ref Rng AND Units 03/22/2018 GLUCOSE UA (POCT) Negative mg/dL Negative BILIRUBIN UA (POCT) Negative Small (A) KETONE UA (POCT) Negative mg/dL 15 (A) SPECIFIC GRAVITY UA (POCT) 1.005 - 1.030 >=1.030 HEMOGLOBIN/BLOOD UA (POCT) Negative Large (A) PH UA (POCT) 4.5 - 8.0 5.5 PROTEIN UA (POCT) Negative mg/dL >=300 (A) UROBILINOGEN UA (POCT) Normal E.U./dL 0.2 NITRITE UA (POCT) Negative Positive (A) LEUKOCYTES UA (POCT) Negative Small (A) COLOR UA (POCT) Dark yellow CLARITY UA (POCT) Clear ASSESSMENT/PLAN: 1. Acute lower UTI - ICD9: 599.0, ICD10: N39.0 (primary diagnosis) acute - Send urine for culture - Begin treatment with Keflex for 10 days (placed on keflex for uti and sinusitis) - Patient education for prevention given - CEPHALEXIN 500 MG CAPSULE 2. Dysuria - ICD9: 788.1, ICD10: R30.0 Urinary tract infection (UTI) We will send the urine for culture, which shows us what organism, if any, we are treating. If we need to change the antibiotic coverage, you will receive a call in 48-72 hours. * Seek medical care immediately, call 911, or go to ER if you have high fevers, severe flank or low back pain, blood in your urine. * Follow up with primary care provider if symptoms persist or worsen. - UA DIP, URINE (POC) - URINE CULTURE 3. Acute non-recurrent maxillary sinusitis - ICD9: 461.0, ICD10: J01.00 - Will begin treatment with as per antibiotic as written, see orders - Stop amoxicillin, start keflex - Supportive care with plenty of fluids, rest, and analgesia prn. - -Increase fluid intake. Try to drink at least 8 glasses of non caffeinated fluids daily. --Rest as much as possible. -Do the nasal saline irrigation at least 2 x day to relieve nasal mucous and congestion: brands include Jose Med, Simply saline, [place] nasal spray, or even the generic store brand one is ok. Take the entire course of antibiotics as prescribed. DO NOT stop taking it early, even if you are feeling better. -Practice good hygiene, wash hands frequently. -Monitor for signs of worsening infection: increased temperature, pain in face, ear pain or headaches or increase in nasal congestion/mucous that is not improving. -Educated patient on side effects of medication. - CEPHALEXIN 500 MG CAPSULE Flonase 1 spray each nostril two times a day. Diagnosis and treatment plan were discussed and questions were answered to the patient's satisfaction. Pt acknowledged understanding of concepts and follow up plan. Specific signs and symptoms that would indicate the need for higher level of care were discussed in detail warranting prompt ER evaluation. Kim Singer APRN.VAISHNAVI CNOV Observed: 03/22/2018 Status: COMPLETED Source: [place] 9:45 AM [facility] REPOSITORY Office Visit ([facility]) MARSHAL BLUE ([id number]) 1945 M Date Time Provider Department 03/22/18 9:45 AM KIM SINGER (VAISHNAVI) [facility] During your visit today, we recorded the following information about you: Temperature Pulse Respiration Blood pressure 99.8 degrees 77/minute 16/minute 130/84 Weight 115.4 kg Kim Singer APRN.CNP 03/22/2018 10:22 AM Signed Subjective The history is provided by the patient. No health aid was used. 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 This started 2 months ago. He is also having post nasal drainage. He is also having burning and frequency with urination, and small amounts. He taken amoxicillin with short term relief of the sinus infection since . This was prescribed by Dr. Ortiz. He states voiding is painful, sinus pressure when leaning forward. He has h/o sinusisitis, allergic rhinitis, and asthma BP 130/84 Pulse 77 Temp 37.7 ?C (99.8 ?F) (Tympanic) Resp 16 Wt 115.4 kg (254 lb 6.4 oz) BMI 33.56 kg/m? PAST MEDICAL HISTORY Diagnosis Date - Achilles bursitis or tendinitis 05/11/01 - Allergic rhinitis, cause unspecified - Benign neoplasm of colon - Diverticulosis of colon (without mention of hemorrhage) - Essential hypertension, benign - Other and unspecified hyperlipidemia - Personal history of colonic polyps Colon polyps - Snoring - Unspecified asthma, with status asthmaticus I have confirmed and edited as necessary, the [facility] Review of Systems Constitutional: Negative for chills and fever. HENT: Positive for congestion and sinus pain. Negative for ear pain and sore throat. Respiratory: Positive for cough (from post nasal drip). Negative for sputum production, shortness of breath and wheezing. Gastrointestinal: Negative for abdominal pain. Genitourinary: Positive for dysuria, frequency and urgency. Negative for flank pain and hematuria. Musculoskeletal: Negative for myalgias. Neurological: Negative for headaches (sinus). Objective Physical Exam Constitutional: He is well-developed, well-nourished, and in no distress. HENT: Head: Normocephalic and atraumatic. Right Ear: Tympanic membrane, external ear and ear canal normal. Left Ear: Tympanic membrane, external ear and ear canal normal. Nose: Mucosal edema and rhinorrhea present. Right sinus exhibits maxillary sinus tenderness. Right sinus exhibits no frontal sinus tenderness. Left sinus exhibits maxillary sinus tenderness. Left sinus exhibits no frontal sinus tenderness. Mouth/Throat: Uvula is midline and mucous membranes are normal. Posterior oropharyngeal edema and posterior oropharyngeal erythema present. No oropharyngeal exudate or tonsillar abscesses. Cardiovascular: Normal rate, regular rhythm and normal heart sounds. Pulmonary/Chest: Effort normal and breath sounds normal. He has no decreased breath sounds. He has no wheezes. He has no rhonchi. He has no rales. Abdominal: Soft. Normal appearance and bowel sounds are normal. He exhibits no abdominal bruit, no pulsatile midline mass and no mass. There is no hepatosplenomegaly. There is no tenderness. There is no rigidity, no rebound, no guarding, no CVA tenderness, no tenderness at McBurney's point and negative Contreras's sign. Lymphadenopathy: Head (right side): No submental, no submandibular, no tonsillar and no preauricular adenopathy present. Head (left side): No submental, no submandibular, no tonsillar and no preauricular adenopathy present. He has no cervical adenopathy. Right cervical: No superficial cervical adenopathy present. Left cervical: No superficial cervical adenopathy present. Nursing note and vitals reviewed. Component Latest Ref Rng AND Units 03/22/2018 GLUCOSE UA (POCT) Negative mg/dL Negative BILIRUBIN UA (POCT) Negative Small (A) KETONE UA (POCT) Negative mg/dL 15 (A) SPECIFIC GRAVITY UA (POCT) 1.005 - 1.030 >=1.030 HEMOGLOBIN/BLOOD UA (POCT) Negative Large (A) PH UA (POCT) 4.5 - 8.0 5.5 PROTEIN UA (POCT) Negative mg/dL >=300 (A) UROBILINOGEN UA (POCT) Normal E.U./dL 0.2 NITRITE UA (POCT) Negative Positive (A) LEUKOCYTES UA (POCT) Negative Small (A) COLOR UA (POCT) Dark yellow CLARITY UA (POCT) Clear ASSESSMENT/PLAN: 1. Acute lower UTI - ICD9: 599.0, ICD10: N39.0 (primary diagnosis) acute - Send urine for culture - Begin treatment with Keflex for 10 days (placed on keflex for uti and sinusitis) - Patient education for prevention given - CEPHALEXIN 500 MG CAPSULE 2. Dysuria - ICD9: 788.1, ICD10: R30.0 Urinary tract infection (UTI) We will send the urine for culture, which shows us what organism, if any, we are treating. If we need to change the antibiotic coverage, you will receive a call in 48-72 hours. * Seek medical care immediately, call 911, or go to ER if you have high fevers, severe flank or low back pain, blood in your urine. * Follow up with primary care provider if symptoms persist or worsen. - UA DIP, URINE (POC) - URINE CULTURE 3. Acute non-recurrent maxillary sinusitis - ICD9: 461.0, ICD10: J01.00 - Will begin treatment with as per antibiotic as written, see orders - Stop amoxicillin, start keflex - Supportive care with plenty of fluids, rest, and analgesia prn. - -Increase fluid intake. Try to drink at least 8 glasses of non caffeinated fluids daily. --Rest as much as possible. -Do the nasal saline irrigation at least 2 x day to relieve nasal mucous and congestion: brands include Jose Med, Simply saline, Anson nasal spray, or even the generic store brand one is ok. Take the entire course of antibiotics as prescribed. DO NOT stop taking it early, even if you are feeling better. -Practice good hygiene, wash hands frequently. -Monitor for signs of worsening infection: increased temperature, pain in face, ear pain or headaches or increase in nasal congestion/mucous that is not improving. -Educated patient on side effects of medication. - CEPHALEXIN 500 MG CAPSULE Flonase 1 spray each nostril two times a day. Diagnosis and treatment plan were discussed and questions were answered to the patient's satisfaction. Pt acknowledged understanding of concepts and follow up plan. Specific signs and symptoms that would indicate the need for higher level of care were discussed in detail warranting prompt ER evaluation. Kim Singer APRN.VAISHNAVI Singer APRN.CNP 03/22/2018 10:15 AM Signed ASSESSMENT/PLAN: 1. Acute lower UTI - ICD9: 599.0, ICD10: N39.0 (primary diagnosis) acute - Send urine for culture - Begin treatment with Keflex for 10 days - Patient education for prevention given - CEPHALEXIN 500 MG CAPSULE 2. Dysuria - ICD9: 788.1, ICD10: R30.0 Urinary tract infection (UTI) We will send the urine for culture, which shows us what organism, if any, we are treating. If we need to change the antibiotic coverage, you will receive a call in 48-72 hours. * Seek medical care immediately, call 911, or go to ER if you have high fevers, severe flank or low back pain, blood in your urine. * Follow up with primary care provider if symptoms persist or worsen. - UA DIP, URINE (POC) - URINE CULTURE 3. Acute non-recurrent maxillary sinusitis - ICD9: 461.0, ICD10: J01.00 - Will begin treatment with as per antibiotic as written, see orders - Stop amoxicillin, start keflex - Supportive care with plenty of fluids, rest, and analgesia prn. - -Increase fluid intake. Try to drink at least 8 glasses of non caffeinated fluids daily. --Rest as much as possible. -Do the nasal saline irrigation at least 2 x day to relieve nasal mucous and congestion: brands include Jose Med, Simply saline, Anson nasal spray, or even the generic store brand one is ok. Take the entire course of antibiotics as prescribed. DO NOT stop taking it early, even if you are feeling better. -Practice good hygiene, wash hands frequently. -Monitor for signs of worsening infection: increased temperature, pain in face, ear pain or headaches or increase in nasal congestion/mucous that is not improving. -Educated patient on side effects of medication. - CEPHALEXIN 500 MG CAPSULE Flonase 1 spray each nostril two times a day. Referring Provider: SELF [200] Allergies As of Date: 03/22/2018 Noted Allergy Reaction CIPROFLOXACIN 01/11/2015 7 - Swelling MILK 02/12/2005 2 - Rash Date Reviewed: 03/22/2018 Reviewed by: Kim BaSpaulding Rehabilitation HospitalChuck Singer - Fully Assessed Reason for Visit: Sinus Problem [99] UTI [116] Primary Visit Diagnosis:Acute lower UTI [N39.0] Other Visit Diagnoses:Dysuria [R30.0] Acute non-recurrent maxillary sinusitis [J01.00] Order(s):UA DIP, URINE (POC) [[id number]] Order #: [id number]. #:[id number] URINE CULTURE [SQURCUL] Order #: [id number] cephALEXin (KEFLEX) 500 mg capsuleTake 1 capsule by mouth three times daily for 10 days.Disp: 30 capsuleRfl: 0 Prescriptions as of 03/22/2018 Sig: * ASPIRIN 81 MG TABLET Take one(1) tablet daily. ICAPS ORAL Take by mouth. HYDROCHLOROTHIAZIDE 12.5 MG C* TAKE 1 CAPSULE BY MOUTH ONCE * LOSARTAN 50 MG TABLET Take 1 tablet by mouth once d* MELOXICAM 15 MG TABLET PSYLLIUM HUSK 0.52 GRAM CAPSU* Take 1 capsule by mouth once * SIMVASTATIN 40 MG TABLET Take 1 tablet by mouth daily * TAMSULOSIN 0.4 MG CAPSULE TAKE 1 CAPSULE EVERY DAY CEPHALEXIN 500 MG CAPSULE Take 1 capsule by mouth three* Problem List As Of Date 03/22/2018 Noted Resolved MIXED HYPERLIPIDEMIA [E78.2] INVALID FOR* Essential hypertension, benign [I10] INVALID FOR* More... PERS HX COLONIC POLYPS [Z86.010] INVALID FOR* ALLERGIC RHINITIS NOS [J30.9] INVALID FOR* IMPAIRED FASTING GLUCOSE [R73.01] INVALID FOR* Obstructive Sleep Apnea [G47.33] INVALID FOR* More... 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 Acute lower UTI - ICD9: 599.0, ICD10: N39.0 (primary diagnosis) acute - Send urine for culture - Begin treatment with Keflex for 10 days - Patient education for prevention given - CEPHALEXIN 500 MG CAPSULE 2. Dysuria - ICD9: 788.1, ICD10: R30.0 Urinary tract infection (UTI) We will send the urine for culture, which shows us what organism, if any, we are treating. If we need to change the antibiotic coverage, you will receive a call in 48-72 hours. * Seek medical care immediately, call 911, or go to ER if you have high fevers, severe flank or low back pain, blood in your urine. * Follow up with primary care provider if symptoms persist or worsen. - UA DIP, URINE (POC) - URINE CULTURE 3. Acute non-recurrent maxillary sinusitis - ICD9: 461.0, ICD10: J01.00 - Will begin treatment with as per antibiotic as written, see orders - Stop amoxicillin, start keflex - Supportive care with plenty of fluids, rest, and analgesia prn. - -Increase fluid intake. Try to drink at least 8 glasses of non caffeinated fluids daily. --Rest as much as possible. -Do the nasal saline irrigation at least 2 x day to relieve nasal mucous and congestion: brands include Jose Med, Simply saline, Anson nasal spray, or even the generic store brand one is ok. Take the entire course of antibiotics as prescribed. DO NOT stop taking it early, even if you are feeling better. -Practice good hygiene, wash hands frequently. -Monitor for signs of worsening infection: increased temperature, pain in face, ear pain or headaches or increase in nasal congestion/mucous that is not improving. -Educated patient on side effects of medication. - CEPHALEXIN 500 MG CAPSULE Flonase 1 spray each nostril two times a day. Prescriptions ordered this encounter Disp Refills Start End CEPHALEXIN 500 MG CAPSULE 20 c* 0 03/22/2018 03/22/2018 Route: ORAL Sig: Take 1 capsule by mouth twice daily for 10 days. Disc: Changing Therapy/Dosage Form CEPHALEXIN 500 MG CAPSULE 30 c* 0 03/22/2018 04/01/2018 Route: ORAL Sig: Take 1 capsule by mouth three times daily for 10 days. Medications Discontinued During This Encounter cephALEXin (KEFLEX) 500 mg capsule 20 c* 0 03/22/2018 03/22/2018 Route: ORAL Sig: Take 1 capsule by mouth twice daily for 10 days. Disc: Changing Therapy/Dosage Form Encounter Status:Closed by KIM SINGER CNP on 03/22/18 PROGRESS Observed: 12/08/2017 Status: COMPLETED Source: [place] 1:03 PM [facility] REPOSITORY O ID: [id number] Author: Shawna Avelar) Service: (none) Author Type: Nurse Practitioner Type: Progress Notes Filed: 12/08/2017 1:24 PM Note Text: Subjective HPI HPI Marshal Blue is a 72 year old male who presents today for CC of sinus congestion, drainage, ear pain. This started over weeks ago. Has tried otc medications without relief. Symptoms are worsened by nothing. Risk factors hx of sinus infection. PAST MEDICAL HISTORY Diagnosis Date - Achilles bursitis or tendinitis 05/11/01 - Allergic rhinitis, cause unspecified - Benign neoplasm of colon - Diverticulosis of colon (without mention of hemorrhage) - Essential hypertension, benign - Other and unspecified hyperlipidemia - Personal history of colonic polyps Colon polyps - Snoring - Unspecified asthma, with status asthmaticus PAST SURGICAL HISTORY Procedure Laterality Date - CARPAL TUNNEL Right 06/2015 - COLONOSCOP W/ OR W/O [facility] SPEC 05/16/03 Colonoscopy-polyps removed - COLONOSCOP W/ OR W/O [facility]RS SPEC 12/19/2011 Colonoscopy - COLONOSCOP W/ OR W/O [facility] SPEC 05/20/2017 adenomatous polyps, repeat in 5 years - COLONOSCOPY W/BX 08/04/06 - LASIK 2000 bilateral - OTHER 03/21/15 complete shoulder replacement R - REMOVAL OF TONSILS,<12 Y/O Tonsillectomy - VASECTOMY Bilateral 1988 ALLERGIES Ciprofloxacin; Milk MEDICATIONS Hydrochlorothiazide 12.5 mg capsule TAKE 1 CAPSULE BY MOUTH ONCE DAILY. simvastatin (ZOCOR) 40 mg tablet Take 1 tablet by mouth daily at bedtime. tamsulosin ER (FLOMAX) 0.4 mg cp24 TAKE 1 CAPSULE EVERY DAY losartan (COZAAR) 50 mg tablet TAKE 1 TABLET BY MOUTH ONCE DAILY. B2/VIT A,C AND E/LUT/ZEAXANTH/MN (ICAPS ORAL) Take by mouth. psyllium Husk (FIBER-CAPS) 0.52 gram capsule Take 1 capsule by mouth once daily. ASPIRIN 81 MG TAB Take one(1) tablet daily. benzonatate (TESSALON PERLE) 100 mg capsule Take 1-2 capsules by mouth three times daily as needed. meloxicam (MOBIC) 15 mg tablet FAMILY HISTORY Problem Relation Age of Onset - Hypertension Mother - other (macular degeneration) Mother - Hypertension Father - Heart Father - other (macular degeneration) Father - other (glaucoma) Brother Social History Substance Use Topics - Smoking status: Former Smoker Packs/day: 2.00 Years: 10.00 Types: Cigarettes Quit date: 04/07/1987 - Smokeless tobacco: Never Used - Alcohol use Yes Comment: 1-2 drinks per month Review of Systems Constitutional: Negative for chills, fever and weight loss. HENT: Positive for congestion. Negative for ear pain, nosebleeds and sore throat. Respiratory: Negative for cough, shortness of breath and wheezing. Musculoskeletal: Negative for neck pain. Objective Blood pressure 120/68, pulse 76, temperature 36.4 ?C (97.5 ?F), temperature source Tympanic, resp. rate 16, weight 108.9 kg (240 lb). Physical Exam Constitutional: He is oriented to person, place, and time and well-developed, well-nourished, and in no distress. Non-toxic appearance. He does not have a sickly appearance. No distress. HENT: Head: Normocephalic and atraumatic. Right Ear: Hearing, external ear and ear canal normal. Tympanic membrane is erythematous. Tympanic membrane is not perforated and not bulging. Left Ear: Hearing, external ear and ear canal normal. Tympanic membrane is erythematous. Tympanic membrane is not perforated and not bulging. Nose: Nose normal. Mouth/Throat: Uvula is midline, oropharynx is clear and moist and mucous membranes are normal. Eyes: Pupils are equal, round, and reactive to light. Conjunctivae and lids are normal. Right eye exhibits no discharge. Left eye exhibits no discharge. No scleral icterus. Neck: Trachea normal and normal range of motion. Neck supple. Cardiovascular: Normal rate, regular rhythm and normal heart sounds. Pulmonary/Chest: Effort normal and breath sounds normal. Lymphadenopathy: He has no cervical adenopathy. Neurological: He is alert and oriented to person, place, and time. Skin: No rash noted. He is not diaphoretic. ASSESSMENT/PLAN: 1. Bacterial sinusitis - ICD9: 473.9, 041.9, ICD10: J32.9, B96.89 - Will begin treatment with Augmentin 875 mg PO BID for 10 days - Supportive care with plenty of fluids, rest, and analgesia prn. - Follow up in 3-5 days if symptoms persist or worsen. -discussed use of nasal steroid - AMOXICILLIN 875 MG-POTASSIUM CLAVULANATE 125 MG TABLET Prescription instructions reviewed with patient as applicable. Patient advised if symptoms do not improve or if symptoms worsen sooner, to contact the office for further evaluation by their primary care physician. Potential red flag symptoms discussed with the patient. Reviewed appropriate action plan to take if red flag symptoms occur. Patient agreeable to treatment plan. Shawna Reid APRN.CNP CNOV Observed: 12/08/2017 Status: COMPLETED Source: [place] 12:30 PM [facility] REPOSITORY Office Visit ([facility]) MIRZAMARSHAL Jacqueline ([id number]) 1945 M Date Time Provider Department 12/08/17 12:30 PM SHAWNA REID (VAISHNAVI) [facility] During your visit today, we recorded the following information about you: Temperature Pulse Respiration Blood pressure 97.5 degrees 76/minute 16/minute 120/68 Weight 108.9 kg Shawna Reid APRN.CNP 12/08/2017 1:24 PM Signed Subjective HPI HPI Marshal Blue is a 72 year old male who presents today for CC of sinus congestion, drainage, ear pain. This started over weeks ago. Has tried otc medications without relief. Symptoms are worsened by nothing. Risk factors hx of sinus infection. PAST MEDICAL HISTORY Diagnosis Date - Achilles bursitis or tendinitis 05/11/01 - Allergic rhinitis, cause unspecified - Benign neoplasm of colon - Diverticulosis of colon (without mention of hemorrhage) - Essential hypertension, benign - Other and unspecified hyperlipidemia - Personal history of colonic polyps Colon polyps - Snoring - Unspecified asthma, with status asthmaticus PAST SURGICAL HISTORY Procedure Laterality Date - CARPAL TUNNEL Right 06/2015 - COLONOSCOP W/ OR W/O [facility] SPEC 05/16/03 Colonoscopy-polyps removed - COLONOSCOP W/ OR W/O [facility] SPEC 12/19/2011 Colonoscopy - COLONOSCOP W/ OR W/O BRS SPEC 05/20/2017 adenomatous polyps, repeat in 5 years - COLONOSCOPY W/BX 08/04/06 - LASIK 2000 bilateral - OTHER 03/21/15 complete shoulder replacement R - REMOVAL OF TONSILS,<12 Y/O Tonsillectomy - VASECTOMY Bilateral 1988 ALLERGIES Ciprofloxacin; Milk MEDICATIONS Hydrochlorothiazide 12.5 mg capsule TAKE 1 CAPSULE BY MOUTH ONCE DAILY. simvastatin (ZOCOR) 40 mg tablet Take 1 tablet by mouth daily at bedtime. tamsulosin ER (FLOMAX) 0.4 mg cp24 TAKE 1 CAPSULE EVERY DAY losartan (COZAAR) 50 mg tablet TAKE 1 TABLET BY MOUTH ONCE DAILY. B2/VIT A,C AND E/LUT/ZEAXANTH/MN (ICAPS ORAL) Take by mouth. psyllium Husk (FIBER-CAPS) 0.52 gram capsule Take 1 capsule by mouth once daily. ASPIRIN 81 MG TAB Take one(1) tablet daily. benzonatate (TESSALON PERLE) 100 mg capsule Take 1-2 capsules by mouth three times daily as needed. meloxicam (MOBIC) 15 mg tablet FAMILY HISTORY Problem Relation Age of Onset - Hypertension Mother - other (macular degeneration) Mother - Hypertension Father - Heart Father - other (macular degeneration) Father - other (glaucoma) Brother Social History Substance Use Topics - Smoking status: Former Smoker Packs/day: 2.00 Years: 10.00 Types: Cigarettes Quit date: 04/07/1987 - Smokeless tobacco: Never Used - Alcohol use Yes Comment: 1-2 drinks per month Review of Systems Constitutional: Negative for chills, fever and weight loss. HENT: Positive for congestion. Negative for ear pain, nosebleeds and sore throat. Respiratory: Negative for cough, shortness of breath and wheezing. Musculoskeletal: Negative for neck pain. Objective Blood pressure 120/68, pulse 76, temperature 36.4 ?C (97.5 ?F), temperature source Tympanic, resp. rate 16, weight 108.9 kg (240 lb). Physical Exam Constitutional: He is oriented to person, place, and time and well-developed, well-nourished, and in no distress. Non-toxic appearance. He does not have a sickly appearance. No distress. HENT: Head: Normocephalic and atraumatic. Right Ear: Hearing, external ear and ear canal normal. Tympanic membrane is erythematous. Tympanic membrane is not perforated and not bulging. Left Ear: Hearing, external ear and ear canal normal. Tympanic membrane is erythematous. Tympanic membrane is not perforated and not bulging. Nose: Nose normal. Mouth/Throat: Uvula is midline, oropharynx is clear and moist and mucous membranes are normal. Eyes: Pupils are equal, round, and reactive to light. Conjunctivae and lids are normal. Right eye exhibits no discharge. Left eye exhibits no discharge. No scleral icterus. Neck: Trachea normal and normal range of motion. Neck supple. Cardiovascular: Normal rate, regular rhythm and normal heart sounds. Pulmonary/Chest: Effort normal and breath sounds normal. Lymphadenopathy: He has no cervical adenopathy. Neurological: He is alert and oriented to person, place, and time. Skin: No rash noted. He is not diaphoretic. ASSESSMENT/PLAN: 1. Bacterial sinusitis - ICD9: 473.9, 041.9, ICD10: J32.9, B96.89 - Will begin treatment with Augmentin 875 mg PO BID for 10 days - Supportive care with plenty of fluids, rest, and analgesia prn. - Follow up in 3-5 days if symptoms persist or worsen. -discussed use of nasal steroid - AMOXICILLIN 875 MG-POTASSIUM CLAVULANATE 125 MG TABLET Prescription instructions reviewed with patient as applicable. Patient advised if symptoms do not improve or if symptoms worsen sooner, to contact the office for further evaluation by their primary care physician. Potential red flag symptoms discussed with the patient. Reviewed appropriate action plan to take if red flag symptoms occur. Patient agreeable to treatment plan. Shawna Reid APRN.VAISHNAVI Reid APRN.CNP 12/08/2017 1:21 PM Signed SINUSITIS: You have sinusitis, an infection of the sinus cavities around the nose. This infection usually follows a respiratory illness; it can also be related to allergies, changes in atmospheric pressure (flying, diving), or anything that blocks nasal drainage. Symptoms include: headache, facial pain, a thick nasal discharge, congestion, and cough. The treatment includes antibiotic therapy, increasing oral fluids, and pain medication if needed. Nose spray decongestants (Afrin, Chang- Synephrine) and oral decongestants may be needed to reduce congestion and drainage. Rarely the sinus must be irrigated to remove the infected material. Sinusitis can lead to serious complications by spreading to other areas such as the eye or brain. Please call your doctor or return here right away if you have any of the following more serious symptoms: - Unusual swelling around the eye or trouble seeing. - Increasing pain, severe headache, or toothache. - Nausea, vomiting, or unusual drowsiness. Referring Provider: SELF [200] Allergies As of Date: 12/08/2017 Noted Allergy Reaction CIPROFLOXACIN 01/11/2015 7 - Swelling MILK 02/12/2005 2 - Rash Date Reviewed: 12/08/2017 Reviewed by: Shawna (Field Trainer) - Fully Assessed Reason for Visit: Nasal Congestion [235] Cmt: drainage, ears plugged x 1 week Primary Visit Diagnosis:Bacterial sinusitis [J32.9, B96.89] Order(s):amoxicillin-clavulanic acid (AUGMENTIN) 875-125 mg per tabletTake 1 tablet by mouth twice daily for 10 days.Disp: 20 tabletRfl: 0 Prescriptions as of 12/08/2017 Sig: HYDROCHLOROTHIAZIDE 12.5 MG C* TAKE 1 CAPSULE BY MOUTH ONCE * SIMVASTATIN 40 MG TABLET Take 1 tablet by mouth daily * TAMSULOSIN 0.4 MG CAPSULE TAKE 1 CAPSULE EVERY DAY LOSARTAN 50 MG TABLET TAKE 1 TABLET BY MOUTH ONCE D* ICAPS ORAL Take by mouth. PSYLLIUM HUSK 0.52 GRAM CAPSU* Take 1 capsule by mouth once * * ASPIRIN 81 MG TABLET Take one(1) tablet daily. AMOXICILLIN 875 MG-POTASSIUM * Take 1 tablet by mouth twice * MELOXICAM 15 MG TABLET Problem List As Of Date 12/08/2017 Noted Resolved MIXED HYPERLIPIDEMIA [E78.2] INVALID FOR* Essential hypertension, benign [I10] INVALID FOR* More... PERS HX COLONIC POLYPS [Z86.010] INVALID FOR* ALLERGIC RHINITIS NOS [J30.9] INVALID FOR* IMPAIRED FASTING GLUCOSE [R73.01] INVALID FOR* Obstructive Sleep Apnea [G47.33] INVALID FOR* More... Screening for other and unspecified genitourina*INVALID FOR* BPH with obstruction/lower urinary tract sympto*INVALID FOR* Frequency [BSM9805] INVALID FOR* Nocturia [R35.1] INVALID FOR* Prostatitis [N41.9] INVALID FOR* Straining on urination [R39.16] INVALID FOR* Urgency of urination [R39.15] INVALID FOR* Hematuria [R31.9] INVALID FOR* Arthritis of shoulder region, right, degenerati*INVALID FOR* Diverticulosis of colon (without mention of hem*INVALID FOR* Benign neoplasm of colon [D12.6] INVALID FOR* Urinary tract infection [N39.0] INVALID FOR* 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, N13.8] INVALID FOR* Elevated prostate specific antigen (PSA) [R97.2*INVALID FOR* Other instructions from your clinician: SINUSITIS: You have sinusitis, an infection of the sinus cavities around the nose. This infection usually follows a respiratory illness; it can also be related to allergies, changes in atmospheric pressure (flying, diving), or anything that blocks nasal drainage. Symptoms include: headache, facial pain, a thick nasal discharge, congestion, and cough. The treatment includes antibiotic therapy, increasing oral fluids, and pain medication if needed. Nose spray decongestants (Afrin, Chang-Synephrine) and oral decongestants may be needed to reduce congestion and drainage. Rarely the sinus must be irrigated to remove the infected material. Sinusitis can lead to serious complications by spreading to other areas such as the eye or brain. Please call your doctor or return here right away if you have any of the following more serious symptoms: - Unusual swelling around the eye or trouble seeing. - Increasing pain, severe headache, or toothache. - Nausea, vomiting, or unusual drowsiness. Prescriptions ordered this encounter Disp Refills Start End AMOXICILLIN 875 MG-POTASSIUM CLAVULA* 20 t* 0 12/08/2017 12/18/2017 Route: ORAL Sig: Take 1 tablet by mouth twice daily for 10 days. Medications Discontinued During This Encounter benzonatate (TESSALON PERLE) 100 mg * 30 c* 0 05/21/2017 12/08/2017 Route: ORAL Sig: Take 1-2 capsules by mouth three times daily as needed. Patient not taking: Reported on 12/08/2017 Disc: Reason for discontinue is not on file. Encounter Status:Closed by SHAWNA REID CNP on 12/08/17 VENOUS DUPLEX LOWER Observed: 08/16/2017 Status: F Source: [place] EXTREMITY 7:13 PM [facility] [place] REPOSITORY [facility] Cardiovascular Services [address] [address] Venous Duplex US, Unilateral 08/16/17956 MR#: [id number] Acct: [id number] Name: MARSHAL BLUE Rep #: [id number] : 1945 72 From: Toy Rivera MD Attending Dr: Status: DEP ER Ordering Dr: Alison Jacinto MD Date: 08/16/17 Location: ED Sex: M C Admitted: Reason For Study: LLE SWELLING RIGHT LEFT CFV is compressible, spontaneous, phasic, GSV is normal. competent and demonstrates normal CFV is compressible, spontaneous, phasic, augmentation. competent, and demonstrates normal Procedure augmentation. Exam performed portable in ED. FV is compressible, spontaneous, phasic, The exam was diagnostic. competent and demonstrates normal A preliminary report was called and/or faxed augmentation. to ED. POP V is compressible, spontaneous, phasic, competent and demonstrates normal augmentation. T/P Trunk is compressible. PTV is compressible. LT PerV is compressible. Interpretation Summary Deep veins of the left lower extremity are patent and compressible segmentally. There is no evidence of left lower extremity deep vein thrombosis. Valvular competence appears intact within the proximal deep venous system on the left . The left greater saphenous vein appears patent and compressible segmentally. Ordering Physician: Alison Jacinto Referring Physician: Christelle Hernandez Performed By: Darline Newman, MARLOCS, RVT 08/16/171912 Date Toy Rivera MD CC: Alison Jacinto MD; Virgie Florian MD Date Dictated: 08/16/1757 Date Transcribed: 08/16/171912 Visualization Developer: Signed EMERGENCY DEPARTMENT Observed: 08/16/2017 Status: F Source: [place] SUMMARY 3:48 PM [facility] [place] REPOSITORY [facility] Medical Records Department [address] [place] [address] Emergency Department Summary 08/16/17 0737 MR#: [id number] Acct: [id number] Name: MARSHAL BLUE Rep #: [id number] : 1945 72 From: Alison Jacinto MD PCP: Virgie Florian MD Status: DEP ER - ER Visit Summary Date of Service: 08/16/17 Chief Complaint: Left lower extremity pain History of Present Illness: The patient is a 72 M presenting with left lower extremity pain. Patient states this started yesterday. He has pain in his left calf with swelling. He denies any injury. He denies chest pain or shortness of breath. Denies recent travel. 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 He had arthroscopic knee surgery 2 months ago. Denies knee pain. Denies fever. Physical Examination: Vitals are stable. Patient is afebrile. Alert no acute distress. HEENT exam is unremarkable. Lungs are clear and equal bilaterally. Heart is regular rate and rhythm. Abdomen is soft nontender nondistended. Extremities left calf tenderness with mild swelling. Normal distal pulses. No warmth or erythema. Skin is warm and dry. No focal neurologic deficit. Remainder of exam is unremarkable. Emergency Department Course and Treatment: Ultrasound of the left lower extremity shows no evidence of DVT. Patient does state he does a lot of stretching. He is advised to ice and elevate. Advised to follow-up with his primary care physician. Advised to return to ED if worsening complaints. Disposition: Discharge home Impression: Left lower extremity pain This note was generated with nuevoStage dictation software. It may contain incorrect words, spelling, and punctuation that were not noted in review of the chart prior to signing ED Disposition - Plan for ED Patient: Chief Complaint: Lower Extremity Injury Referrals: Virgie Florian MD [Primary Care Provider] - What to do if you have Problems For any increased pain, shortness of breath, bleeding, nausea or vomiting, chest pain, or any unexpected problems, contact your Primary Care Provider. Call [facility] ([phone]) or report to the closest Emergency Room. Call 911 if necessary. 08/16/17 1548 <Electronically signed by Alison Jacinto MD> Date Alison Jacinto MD Cosigner Signature (If Indicated): Date CC: Virgie Florian MD DISCHARGE INSTRUCTION Observed: 08/16/2017 Status: F Source: [place] 11:26 AM [facility] [place] REPOSITORY [facility] Medical Records Department [address] [place] [address] Discharge Instruction 08/16/171125 MR#: [id number] Acct: [id number] Name: MARSHAL BLUE Rep #: [id number] : 1945 72 From: Alison Jacinto MD PCP: Virgie Florian MD Status: REG ER ED Disposition - Plan for ED Patient: Chief Complaint: Lower Extremity Injury Instructions: ED Strain Muscle Ext Referrals: Virgie Florian MD [Primary Care Provider] - What to do if you have Problems For any increased pain, shortness of breath, bleeding, nausea or vomiting, chest pain, or any unexpected problems, contact your Primary Care Provider. Call [facility] ([phone]) or report to the closest Emergency Room. Call 911 if necessary. 08/16/17 1126 <Electronically signed by Alison Jacinto MD> Date Alison Jacinto MD Cosigner Signature (If Indicated): Date CC: Virgie Florian MD PSA,TOTAL- DIAGNOSTIC Collected: 07/07/2017 Status: F Source: [place] 9:55 AM [facility] [place] REPOSITORY TYPE CODE TESTS RESULT OUT OF RANGE REFERENCE UNITS LAB L501.9940 0.0-4.0 ng/mL PSA, Normal DIAGNOSTIC 2.14 Result Comment: This test was performed using the TPSA assay method for the Know[employer]ent chemistry system. Values obtained with different assay methods cannot be used interchangably. When changing PSA assays in the course of monitoring a patient, additional sequential testing should be carried out to confirm baseline values. Performed By: #### L501.9940 #### [facility] [address] [place], [address] PROGRESS Observed: 06/16/2017 Status: COMPLETED Source: [place] 12:27 PM [facility] HNO ID: [id number] Author: Kim Singer Service: (none) Author Type: Nurse Practitioner Type: Progress Notes Filed: 06/16/2017 12:46 PM Note Text: Subjective The history is provided by the patient. No health aid was used. HPI Marshal Blue is a 71 year old male who presents today for CC of no relief of sinus pressure. This started in May, he took Augmentin with 90% relief per patient. He is still having facial pain, on left, funny smell and taste to nasal drainage. Symptoms are worsened by lying down or bending down. He has tried no other treatment or medication. Risk factors none known. PMH sinusitis in past month BP 130/96 Pulse 68 Temp 36.4 ?C (97.5 ?F) (Left Tympanic) Resp 18 Wt 114.3 kg (252 lb) BMI 33.25 kg/m2 - recheck bp, 130/88 ALLERGIES Allergen Reactions - Ciprofloxacin Swelling - Milk Rash ACTIVE PROBLEM LIST Mixed Hyperlipidemia Essential Hypertension, Benign Personal History of Colonic Polyps Allergic Rhinitis, Cause Unspecified Impaired Fasting Glucose Obstructive Sleep Apnea Screening for Other and Unspecified Genitourinary Condition Bph With Obstruction/Lower Urinary Tract Symptoms Frequency Nocturia Prostatitis Straining On Urination Urgency of Urination Hematuria Arthritis of Shoulder Region, Right, Degenerative Diverticulosis of Colon (Without Mention of Hemorrhage) Benign Neoplasm of Colon Urinary Tract Infection Bph With Urinary Obstruction Elevated Prostate Specific Antigen (Psa) Family History Problem Relation Age of Onset - Hypertension Mother - macular degeneration [OTHER] Mother - Hypertension Father - Heart Father - macular degeneration [OTHER] Father - glaucoma [OTHER] Brother Social History Marital status: Spouse name: Ashlie Years of education: Number of children: 2 Occupational History Occupation Employer Comment [employer] Social History Main Topics Smoking status: Former Smoker Packs/day: 2.00 Years: 10.00 Types: Cigarettes Quit date: 04/07/1987 Smokeless status: Never Used Alcohol use: Yes Comment: 1-2 drinks per month Drug use: No Sexual activity: Yes Partners with: Female Social History Narrative Retired. Review of Systems Constitutional: Negative. Negative for chills, fever and malaise/fatigue. HENT: Positive for congestion and sinus pain. Negative for ear pain and sore throat. Post nasal drainage Respiratory: Negative for cough, sputum production, shortness of breath and wheezing. Cardiovascular: Negative for chest pain. Musculoskeletal: Negative for myalgias. Skin: Negative for rash. Neurological: Positive for headaches (sinus). Objective Physical Exam Constitutional: He is well-developed, well-nourished, and in no distress. HENT: Head: Normocephalic and atraumatic. Right Ear: External ear and ear canal normal. Tympanic membrane is not injected, not erythematous, not retracted and not bulging. A middle ear effusion (serous) is present. Left Ear: External ear and ear canal normal. Tympanic membrane is not injected, not erythematous, not retracted and not bulging. A middle ear effusion (serous) is present. Nose: Mucosal edema and rhinorrhea present. Right sinus exhibits maxillary sinus tenderness and frontal sinus tenderness. Left sinus exhibits maxillary sinus tenderness and frontal sinus tenderness. Mouth/Throat: Uvula is midline and mucous membranes are normal. Posterior oropharyngeal erythema present. No oropharyngeal exudate, posterior oropharyngeal edema or tonsillar abscesses. Eyes: Conjunctivae and EOM are normal. Pupils are equal, round, and reactive to light. Neck: Normal range of motion. Cardiovascular: Normal rate, regular rhythm and normal heart sounds. Pulmonary/Chest: Effort normal and breath sounds normal. No respiratory distress. He has no decreased breath sounds. He has no wheezes. He has no rhonchi. He has no rales. Lymphadenopathy: Head (right side): No submental, no submandibular, no tonsillar, no preauricular and no posterior auricular adenopathy present. Head (left side): No submental, no submandibular, no tonsillar, no preauricular and no posterior auricular adenopathy present. He has no cervical adenopathy. Right cervical: No posterior cervical adenopathy present. Left cervical: No posterior cervical adenopathy present. Right: No supraclavicular adenopathy present. Left: No supraclavicular adenopathy present. Skin: Skin is warm and dry. Psychiatric: Affect normal. Nursing note and vitals reviewed. ASSESSMENT/PLAN: 1. Acute recurrent pansinusitis - ICD9: 461.8, ICD10: J01.41 - Will begin treatment with Doxycline - The patient should also be given warm salt water gargles, throat lozenges and/or OTC throat spray as needed for the first 5- 7 days of treatment. - Supportive care with plenty of fluids, rest, and analgesia prn. - Follow up in one week if symptoms persist or worsen. - -Increase fluid intake. Try to drink at least 8 glasses of non caffeinated fluids daily. --Rest as much as possible. -Do the nasal saline irrigation at least 2 x day to relieve nasal mucous and congestion: brands include Jose Med, Simply saline, Anson nasal spray, or even the generic store brand one is ok. Take the entire course of antibiotics as prescribed. DO NOT stop taking it early, even if you are feeling better. -Practice good hygiene, wash hands frequently. -Monitor for signs of worsening infection: increased temperature, pain in face, ear pain or headaches or increase in nasal congestion/mucous that is not improving. -Educated patient on side effects of medication. Zyrtec 10 mg By mouth daily at bedtime Flonase or Nasonex 1 spray each nostril two times a day. - DOXYCYCLINE MONOHYDRATE 100 MG CAPSULE You can take an OTC probiotic such as Culturelle or Align to help with stomach upset/loose stool that you may get as a side effect of the antibiotic, don't take at the same time of antibiotic. * Seek medical care immediately, call 911, go to ER if you have chest pain, difficulty breathing, shortness of breath, inability to swallow. Diagnosis and treatment plan were discussed and questions were answered to the patient's satisfaction. Pt acknowledged understanding of concepts and follow up plan. Specific signs and symptoms that would indicate the need for higher level of care were discussed in detail warranting prompt ER evaluation. Kim Singer CNP CNOV Observed: 06/16/2017 Status: COMPLETED Source: [place] 12:00 PM [facility] REPOSITORY Office Visit ([facility]) MARSHAL BLUE ([id number]) 1945 M Date Time Provider Department 06/16/17 12:00 PM KIM SINGER (VAISHNAVI) [facility] During your visit today, we recorded the following information about you: Temperature Pulse Respiration Blood pressure 97.5 degrees 68/minute 18/minute 130/96 Weight 114.3 kg Kim Singer CNP 06/16/2017 12:46 PM Signed Subjective The history is provided by the patient. No health aid was used. HPI Marshal Blue is a 71 year old male who presents today for CC of no relief of sinus pressure. This started in May, he took Augmentin with 90% relief per patient. He is still having facial pain, on left, funny smell and taste to nasal drainage. Symptoms are worsened by lying down or bending down. He has tried no other treatment or medication. Risk factors none known. PMH sinusitis in past month BP 130/96 Pulse 68 Temp 36.4 ?C (97.5 ?F) (Left Tympanic) Resp 18 Wt 114.3 kg (252 lb) BMI 33.25 kg/m2 - recheck bp, 130/88 ALLERGIES Allergen Reactions - Ciprofloxacin Swelling - Milk Rash ACTIVE PROBLEM LIST Mixed Hyperlipidemia Essential Hypertension, Benign Personal History of Colonic Polyps Allergic Rhinitis, Cause Unspecified Impaired Fasting Glucose Obstructive Sleep Apnea Screening for Other and Unspecified Genitourinary Condition Bph With Obstruction/Lower Urinary Tract Symptoms Frequency Nocturia Prostatitis Straining On Urination Urgency of Urination Hematuria Arthritis of Shoulder Region, Right, Degenerative Diverticulosis of Colon (Without Mention of Hemorrhage) Benign Neoplasm of Colon Urinary Tract Infection Bph With Urinary Obstruction Elevated Prostate Specific Antigen (Psa) Family History Problem Relation Age of Onset - Hypertension Mother - macular degeneration [OTHER] Mother - Hypertension Father - Heart Father - macular degeneration [OTHER] Father - glaucoma [OTHER] Brother Social History Marital status: Spouse name: Ashlie Years of education: Number of children: 2 Occupational History Occupation Employer Comment [employer] Social History Main Topics Smoking status: Former Smoker Packs/day: 2.00 Years: 10.00 Types: Cigarettes Quit date: 04/07/1987 Smokeless status: Never Used Alcohol use: Yes Comment: 1-2 drinks per month Drug use: No Sexual activity: Yes Partners with: Female Social History Narrative Retired. Review of Systems Constitutional: Negative. Negative for chills, fever and malaise/fatigue. HENT: Positive for congestion and sinus pain. Negative for ear pain and sore throat. Post nasal drainage Respiratory: Negative for cough, sputum production, shortness of breath and wheezing. Cardiovascular: Negative for chest pain. Musculoskeletal: Negative for myalgias. Skin: Negative for rash. Neurological: Positive for headaches (sinus). Objective Physical Exam Constitutional: He is well-developed, well-nourished, and in no distress. HENT: Head: Normocephalic and atraumatic. Right Ear: External ear and ear canal normal. Tympanic membrane is not injected, not erythematous, not retracted and not bulging. A middle ear effusion (serous) is present. Left Ear: External ear and ear canal normal. Tympanic membrane is not injected, not erythematous, not retracted and not bulging. A middle ear effusion (serous) is present. Nose: Mucosal edema and rhinorrhea present. Right sinus exhibits maxillary sinus tenderness and frontal sinus tenderness. Left sinus exhibits maxillary sinus tenderness and frontal sinus tenderness. Mouth/Throat: Uvula is midline and mucous membranes are normal. Posterior oropharyngeal erythema present. No oropharyngeal exudate, posterior oropharyngeal edema or tonsillar abscesses. Eyes: Conjunctivae and EOM are normal. Pupils are equal, round, and reactive to light. Neck: Normal range of motion. Cardiovascular: Normal rate, regular rhythm and normal heart sounds. Pulmonary/Chest: Effort normal and breath sounds normal. No respiratory distress. He has no decreased breath sounds. He has no wheezes. He has no rhonchi. He has no rales. Lymphadenopathy: Head (right side): No submental, no submandibular, no tonsillar, no preauricular and no posterior auricular adenopathy present. Head (left side): No submental, no submandibular, no tonsillar, no preauricular and no posterior auricular adenopathy present. He has no cervical adenopathy. Right cervical: No posterior cervical adenopathy present. Left cervical: No posterior cervical adenopathy present. Right: No supraclavicular adenopathy present. Left: No supraclavicular adenopathy present. Skin: Skin is warm and dry. Psychiatric: Affect normal. Nursing note and vitals reviewed. ASSESSMENT/PLAN: 1. Acute recurrent pansinusitis - ICD9: 461.8, ICD10: J01.41 - Will begin treatment with Doxycline - The patient should also be given warm salt water gargles, throat lozenges and/or OTC throat spray as needed for the first 5-7 days of treatment. - Supportive care with plenty of fluids, rest, and analgesia prn. - Follow up in one week if symptoms persist or worsen. - -Increase fluid intake. Try to drink at least 8 glasses of non caffeinated fluids daily. --Rest as much as possible. -Do the nasal saline irrigation at least 2 x day to relieve nasal mucous and congestion: brands include Jose Med, Simply saline, Anson nasal spray, or even the generic store brand one is ok. Take the entire course of antibiotics as prescribed. DO NOT stop taking it early, even if you are feeling better. -Practice good hygiene, wash hands frequently. -Monitor for signs of worsening infection: increased temperature, pain in face, ear pain or headaches or increase in nasal congestion/mucous that is not improving. -Educated patient on side effects of medication. Zyrtec 10 mg By mouth daily at bedtime Flonase or Nasonex 1 spray each nostril two times a day. - DOXYCYCLINE MONOHYDRATE 100 MG CAPSULE You can take an OTC probiotic such as Culturelle or Align to help with stomach upset/loose stool that you may get as a side effect of the antibiotic, don't take at the same time of antibiotic. * Seek medical care immediately, call 911, go to ER if you have chest pain, difficulty breathing, shortness of breath, inability to swallow. Diagnosis and treatment plan were discussed and questions were answered to the patient's satisfaction. Pt acknowledged understanding of concepts and follow up plan. Specific signs and symptoms that would indicate the need for higher level of care were discussed in detail warranting prompt ER evaluation. VAISHNAVI Palomino CNP 06/16/2017 12:36 PM Signed ASSESSMENT/PLAN: 1. Acute recurrent pansinusitis - ICD9: 461.8, ICD10: J01.41 - Will begin treatment with Doxycline - The patient should also be given warm salt water gargles, throat lozenges and/or OTC throat spray as needed for the first 5-7 days of treatment. - Supportive care with plenty of fluids, rest, and analgesia prn. - Follow up in one week if symptoms persist or worsen. - -Increase fluid intake. Try to drink at least 8 glasses of non caffeinated fluids daily. --Rest as much as possible. -Do the nasal saline irrigation at least 2 x day to relieve nasal mucous and congestion: brands include Jose Med, Simply saline, Anson nasal spray, or even the generic store brand one is ok. Take the entire course of antibiotics as prescribed. DO NOT stop taking it early, even if you are feeling better. -Practice good hygiene, wash hands frequently. -Monitor for signs of worsening infection: increased temperature, pain in face, ear pain or headaches or increase in nasal congestion/mucous that is not improving. -Educated patient on side effects of medication. Zyrtec 10 mg By mouth daily at bedtime Flonase or Nasonex 1 spray each nostril two times a day. - DOXYCYCLINE MONOHYDRATE 100 MG CAPSULE You can take an OTC probiotic such as Culturelle or Align to help with stomach upset/loose stool that you may get as a side effect of the antibiotic, don't take at the same time of antibiotic. * Seek medical care immediately, call 911, go to ER if you have chest pain, difficulty breathing, shortness of breath, inability to swallow. Referring Provider: SELF [[id number]] Allergies As of Date: 06/16/2017 Noted Allergy Reaction CIPROFLOXACIN 01/11/2015 7 - Swelling MILK 02/12/2005 2 - Rash Date Reviewed: 06/16/2017 Reviewed by: Kim Singer - Fully Assessed Reason for Visit: Sinus Infection,frequent/recurring [1167] Primary Visit Diagnosis:Acute recurrent pansinusitis [J01.41] Order(s):doxycycline monohydrate (MONODOX) 100 mg capsuleTake 1 capsule by mouth twice daily for 10 days.Disp: 20 capsuleRfl: 0 Prescriptions as of 06/16/2017 Sig: DOXYCYCLINE MONOHYDRATE 100 M* Take 1 capsule by mouth twice* BENZONATATE 100 MG CAPSULE Take 1-2 capsules by mouth th* MELOXICAM 15 MG TABLET SIMVASTATIN 40 MG TABLET TAKE 1 TABLET BY MOUTH DAILY * HYDROCHLOROTHIAZIDE 12.5 MG C* TAKE 1 CAPSULE BY MOUTH ONCE * TAMSULOSIN 0.4 MG CAPSULE TAKE 1 CAPSULE EVERY DAY LOSARTAN 50 MG TABLET TAKE 1 TABLET BY MOUTH ONCE D* ICAPS ORAL Take by mouth. PSYLLIUM HUSK 0.52 GRAM CAPSU* Take 1 capsule by mouth once * * ASPIRIN 81 MG TABLET Take one(1) tablet daily. Problem List As Of Date 06/16/2017 Noted Resolved MIXED HYPERLIPIDEMIA [E78.2] INVALID FOR* Essential hypertension, benign [I10] INVALID FOR* More... PERS HX COLONIC POLYPS [Z86.010] INVALID FOR* ALLERGIC RHINITIS NOS [J30.9] INVALID FOR* IMPAIRED FASTING GLUCOSE [R73.01] INVALID FOR* Obstructive Sleep Apnea [G47.33] INVALID FOR* More... 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 Acute recurrent pansinusitis - ICD9: 461.8, ICD10: J01.41 - Will begin treatment with Doxycline - The patient should also be given warm salt water gargles, throat lozenges and/or OTC throat spray as needed for the first 5-7 days of treatment. - Supportive care with plenty of fluids, rest, and analgesia prn. - Follow up in one week if symptoms persist or worsen. - -Increase fluid intake. Try to drink at least 8 glasses of non caffeinated fluids daily. --Rest as much as possible. -Do the nasal saline irrigation at least 2 x day to relieve nasal mucous and congestion: brands include Jose Med, Simply saline, [place]son nasal spray, or even the generic store brand one is ok. Take the entire course of antibiotics as prescribed. DO NOT stop taking it early, even if you are feeling better. -Practice good hygiene, wash hands frequently. -Monitor for signs of worsening infection: increased temperature, pain in face, ear pain or headaches or increase in nasal congestion/mucous that is not improving. -Educated patient on side effects of medication. Zyrtec 10 mg By mouth daily at bedtime Flonase or Nasonex 1 spray each nostril two times a day. - DOXYCYCLINE MONOHYDRATE 100 MG CAPSULE You can take an OTC probiotic such as Culturelle or Align to help with stomach upset/loose stool that you may get as a side effect of the antibiotic, don't take at the same time of antibiotic. * Seek medical care immediately, call 911, go to ER if you have chest pain, difficulty breathing, shortness of breath, inability to swallow. Prescriptions ordered this encounter Disp Refills Start End DOXYCYCLINE MONOHYDRATE 100 MG CAPSU* 20 c* 0 06/16/2017 06/26/2017 Route: ORAL Sig: Take 1 capsule by mouth twice daily for 10 days. Encounter Status:Closed by KIM SINGER CNP on 06/16/17 PSA,TOTAL - ANNUAL Collected: 06/16/2017 Status: F Source: [place] SCREEN 11:30 AM [facility] [place] REPOSITORY TYPE CODE TESTS RESULT OUT OF RANGE REFERENCE UNITS LAB L501.9910 0.00-4.00 ng/mL Normal PSA,TOT 3.41 SCREEN Result Comment: This test was performed using the TPSA assay method for the [employer] chemistry system. Values obtained with different assay methods cannot be used interchangably. When changing PSA assays in the course of monitoring a patient, additional sequential testing should be carried out to confirm baseline values. Performed By: #### [id number] #### [facility] [address] [place], [address] PROGRESS Observed: 05/21/2017 Status: COMPLETED Source: [place] 11:01 AM [facility] REPOSITORY HNO ID: [id number] Author: Edson (Vaishnavi) Umm Service: (none) Author Type: Nurse Practitioner Type: Progress Notes Filed: 05/21/2017 1:21 PM Note Text: HPI Patient is a reliable 71 year old male here today for a 3 week day history of nasal congestion, cough and sore throat. Patient states cough is worse in the morning and at night. States throat pain is worse in the morning and at night. Denies know fever. Has tried OTC medications with little relief. Nothing makes it better. Feels like it is getting worse. No other concerns at this time. Review of Systems Constitutional: Positive for chills and malaise/fatigue. Negative for fever. HENT: Positive for congestion, ear pain and sore throat. Respiratory: Positive for cough. Negative for sputum production, shortness of breath and wheezing. Cardiovascular: Negative. Gastrointestinal: Negative for nausea and vomiting. Musculoskeletal: Negative for myalgias. Neurological: Positive for headaches (sinus pressure). Endo/Heme/Allergies: Negative for environmental allergies. All other systems reviewed and are negative. PAST MEDICAL HISTORY Diagnosis Date - Achilles bursitis or tendinitis 05/11/01 - Allergic rhinitis, cause unspecified - Benign neoplasm of colon - Diverticulosis of colon (without mention of hemorrhage) - Essential hypertension, benign - Other and unspecified hyperlipidemia - Personal history of colonic polyps Colon polyps - Snoring - Unspecified asthma, with status asthmaticus PAST SURGICAL HISTORY Procedure Laterality Date - CARPAL TUNNEL Right 06/2015 - COLONOSCOP W/ OR W/O BRS SPEC 05/16/03 Colonoscopy-polyps removed - COLONOSCOP W/ OR W/O BRSH SPEC 12/19/2011 Colonoscopy - COLONOSCOP W/ OR W/O BRS SPEC 05/20/2017 Colonoscopy - COLONOSCOPY W/BX 08/04/06 - LASIK 2000 bilateral - OTHER 03/21/15 complete shoulder replacement R - REMOVAL OF TONSILS,<12 Y/O Tonsillectomy - VASECTOMY Bilateral 1989 ALLERGIES Ciprofloxacin; Milk MEDICATIONS meloxicam (MOBIC) 15 mg tablet simvastatin (ZOCOR) 40 mg tablet TAKE 1 TABLET BY MOUTH DAILY AT BEDTIME. Hydrochlorothiazide 12.5 mg capsule TAKE 1 CAPSULE BY MOUTH ONCE DAILY. tamsulosin ER (FLOMAX) 0.4 mg cp24 TAKE 1 CAPSULE EVERY DAY losartan (COZAAR) 50 mg tablet TAKE 1 TABLET BY MOUTH ONCE DAILY. B2/VIT A,C AND E/LUT/ZEAXANTH/MN (ICAPS ORAL) Take by mouth. psyllium Husk (FIBER-CAPS) 0.52 gram capsule Take 1 capsule by mouth once daily. ASPIRIN 81 MG TAB Take one(1) tablet daily. FAMILY HISTORY Problem Relation Age of Onset - Hypertension Mother - macular degeneration [OTHER] Mother - Hypertension Father - Heart Father - macular degeneration [OTHER] Father - glaucoma [OTHER] Brother Social History Substance Use Topics - Smoking status: Former Smoker Packs/day: 2.00 Years: 10.00 Types: Cigarettes Quit date: 04/07/1987 - Smokeless tobacco: Never Used - Alcohol use Yes Comment: 1-2 drinks per month BP 130/78 Pulse 70 Temp 37 ?C (98.6 ?F) (Tympanic) Resp 16 Wt 112.9 kg (249 lb) BMI 32.85 kg/m2 Physical Exam Constitutional: He is well-developed, well-nourished, and in no distress. Vital signs are normal. Mildly ill. HENT: Head: Normocephalic and atraumatic. Right Ear: Tympanic membrane, external ear and ear canal normal. Left Ear: Tympanic membrane, external ear and ear canal normal. Nose: Mucosal edema and rhinorrhea present. Right sinus exhibits maxillary sinus tenderness and frontal sinus tenderness. Left sinus exhibits maxillary sinus tenderness and frontal sinus tenderness. Mouth/Throat: Uvula is midline, oropharynx is clear and moist and mucous membranes are normal. No oropharyngeal exudate, posterior oropharyngeal edema or posterior oropharyngeal erythema. Neck: Neck supple. Cardiovascular: Normal rate, regular rhythm and normal heart sounds. Pulmonary/Chest: Effort normal and breath sounds normal. He has no wheezes. He has no rales. Lymphadenopathy: Head (right side): No submental, no submandibular and no tonsillar adenopathy present. Head (left side): No submental, no submandibular and no tonsillar adenopathy present. He has no cervical adenopathy. Submandibular fullness. Neurological: He is alert. Skin: Skin is warm and dry. Nursing note and vitals reviewed. ASSESSMENT/PLAN: 1. Acute sinusitis, recurrence not specified, unspecified location - ICD9: 461.9, ICD10: J01.90 - Will begin treatment with as per antibiotic as written, see orders - The patient should also be given OTC cough and cold meds as needed and warm salt water gargles, throat lozenges and/or OTC throat spray as needed for the first 5-7 days of treatment. - Supportive care with plenty of fluids, rest, and analgesia prn. - Follow up in 3-5 days if symptoms persist or worsen. - AMOXICILLIN 875 MG-POTASSIUM CLAVULANATE 125 MG TABLET - BENZONATATE 100 MG CAPSULE Prescription instructions reviewed with patient as applicable. Patient advised if symptoms do not improve or if symptoms worsen sooner, to contact their primary care physician. Potential red flag symptoms discussed with the patient. Reviewed appropriate action plan to take if red flag symptoms occur. Patient agreeable to treatment plan. Edson Salomon CNP NURSING PROG Observed: 05/20/2017 Status: COMPLETED Source: [place] 7:50 AM [facility] REPOSITORY HNO ID: [id number] Author: Zena Davies RN Service: Nursing Author Type: Registered Nurse Type: Nursing Progress Note Filed: 05/20/2017 7:58 AM Note Text: Home via wheelchair with . NURSING PROG Observed: 05/20/2017 Status: COMPLETED Source: [place] 7:50 AM [facility] REPOSITORY HNO ID: [id number] Author: Zena Davies RN Service: Nursing Author Type: Registered Nurse Type: Nursing Progress Note Filed: 05/20/2017 8:00 AM Note Text: Patient did not experience a fall prior to discharge. Patient did not experience a burn prior to discharge. Zena Davies RN NURSING PROG Observed: 05/20/2017 Status: COMPLETED Source: [place] 7:43 AM [facility] REPOSITORY HNO ID: [id number] Author: Zena Davies RN Service: Nursing Author Type: Registered Nurse Type: Nursing Progress Note Filed: 05/20/2017 7:44 AM Note Text: Dressing to go home, at his side. NURSING PROG Observed: 05/20/2017 Status: COMPLETED Source: [place] 7:40 AM [facility] REPOSITORY HNO ID: [id number] Author: Zena BaRn) TRINY Davies Service: Nursing Author Type: Registered Nurse Type: Nursing Progress Note Filed: 05/20/2017 7:43 AM Note Text: Dr to visit patient, no complaints, all safety maintained. PT ED Observed: 05/20/2017 Status: COMPLETED Source: [place] 7:32 AM [facility] REPOSITORY HNO ID: [id number] Author: Zena BaRn) TRINY Davies Service: Nursing Author Type: Registered Nurse Type: Patient Education Filed: 05/20/2017 7:33 AM Note Text: POST OP LEARNING RESPONSE INSTRUCTION PROVIDED TO: Patient and family member METHOD OF INSTRUCTION: Individual instruction Written instruction - handouts Verbal instruction PATIENT / FAMILY RESPONSE: Information received as demonstrated by interest and questions FOLLOW-UP PLAN: Patient instructed to call with any further issues SUPPLEMENTAL MATERIAL: None REFERRAL (RECOMMENDATION): None Electronically Signed By: Zena Davies RN In Department: AMBULATORY SURGERY PT ED Observed: 05/20/2017 Status: COMPLETED Source: [place] 7:10 AM [facility] REPOSITORY HNO ID: [id number] Author: Zena BaRn) TRINY Davies Service: Nursing Author Type: Registered Nurse Type: Patient Education Filed: 05/20/2017 7:32 AM Note Text: Received in recovery room, abd soft, resting left side, no complaints , all safety maintained. NURSING PROG Observed: 05/20/2017 Status: COMPLETED Source: [place] 7:09 AM [facility] REPOSITORY HNO ID: [id number] Author: Silke BaRnChuck Paniagua RN Service: Nursing Author Type: Registered Nurse Type: Nursing Progress Note Filed: 05/20/2017 7:09 AM Note Text: Preoperative order for IV Antibiotic Prophylaxis is N/A. Patient did not experience a fall within the Intraoperative procedural area. Patient did not experience a burn within the Intraoperative procedural area. Silke Paniagua RN NURSING PROG Observed: 05/20/2017 Status: COMPLETED Source: [place] 6:42 AM [facility] REPOSITORY HNO ID: [id number] Author: Glenny BaRnChuck Linares RN Service: (none) Author Type: Registered Nurse Type: Nursing Progress Note Filed: 05/20/2017 6:43 AM Note Text: [facility] PRE-OP NURSING HAND OFF NOTE SBAR Hand off given to Silke Paniagua RN. Hand off was communicated verbally and at the patient's bedside and all questions were answered. FALLS/QUINTERO Patient did not experience a fall within the Preoperative area. Patient did not experience a burn within the Preoperative area. Glenny Linares RN HISTORY PHYSICAL Observed: 05/20/2017 Status: COMPLETED Source: [place] 6:39 AM [facility] REPOSITORY HNO ID: [id number] Author: Lino Cabello Service: General Surgery Author Type: Physician Type: HANDP Filed: 05/20/2017 6:39 AM Note Text: HISTORY AND PHYSICAL ? Marshal Blue 1945 ? REFERRING PHYSICIAN: Jayla Florian MD ? CHIEF COMPLAINT: Post Op (Consult colonoscopy) ? HPI: The patient is a 71 year old male referred for endoscopy. Marshal notes a personal history of colon polyps and is due for follow-up screening colonoscopy, last was done by Dr. Contreras in 2011 with adenomatous polyps removed at that time. He denies any change in bowel habits, weight changes, blood in stools, black tarry stools or abdominal pain. He denies any family history of colon issues. The patient notes no history of upper GI complaints. He denies any problems with sedation in the past. ? ? ? PAST?MEDICAL?HISTORY PAST MEDICAL HISTORY Diagnosis Date - Achilles bursitis or tendinitis 05/11/01 - Allergic rhinitis, cause unspecified ? - Benign neoplasm of colon ? - Diverticulosis of colon (without mention of hemorrhage) ? - Essential hypertension, benign ? - Other and unspecified hyperlipidemia ? - Personal history of colonic polyps ? ? Colon polyps - Unspecified asthma, with status asthmaticus ? ? ? PAST?SURGICAL?HISTORY PAST SURGICAL HISTORY Procedure Laterality Date - CARPAL TUNNEL Right 06/2015 - COLONOSCOP W/ OR W/O BRSH SPEC ? 05/16/03 ? Colonoscopy-polyps removed - COLONOSCOP W/ OR W/O BRSH SPEC ? 12/19/2011 ? Colonoscopy - COLONOSCOPY W/BX ? 08/04/06 - LASIK ? 1999 ? bilateral - OTHER ? 03/21/15 ? complete shoulder replacement R - REMOVAL OF TONSILS,<12 Y/O ? ? ? Tonsillectomy - VASECTOMY Bilateral 1988 ? ? ? CURRENT?MEDICATIONS ? Current Outpatient Prescriptions: simvastatin (ZOCOR) 40 mg tablet TAKE 1 TABLET BY MOUTH DAILY AT BEDTIME. Hydrochlorothiazide 12.5 mg capsule TAKE 1 CAPSULE BY MOUTH ONCE DAILY. tamsulosin ER (FLOMAX) 0.4 mg cp24 TAKE 1 CAPSULE EVERY DAY losartan (COZAAR) 50 mg tablet TAKE 1 TABLET BY MOUTH ONCE DAILY. B2/VIT A,C AND E/LUT/ZEAXANTH/MN (ICAPS ORAL) Take by mouth. psyllium Husk (FIBER-CAPS) 0.52 gram capsule Take 1 capsule by mouth once daily. ASPIRIN 81 MG TAB Take one(1) tablet daily. meloxicam (MOBIC) 15 mg tablet ? ? No current facility-administered medications for this visit. ? ALLERGIES: Ciprofloxacin; Milk ? PERSONAL HISTORY: SOCIAL?HISTORY Social History Marital status: Spouse name: Ashlie Years of education: Number of children: 2 ? Occupational History Occupation Employer Comment [employer] ? Social History Main Topics Smoking status: Former Smoker Packs/day: 2.00 Years: 10.00 Types: Cigarettes Quit date: 04/07/1987 Smokeless status: Never Used Alcohol use: Yes Comment: 1-2 drinks per month Drug use: No Sexual activity: Yes Partners with: Female ? Social History Narrative Retired. ? ? FAMILY HISTORY: FAMILY?HISTORY FAMILY HISTORY Problem Relation Age of Onset - Hypertension Father ? - Heart Father ? - Hypertension Mother ? - glaucoma [Other] [OTHER] Brother ? - macular degeneration [Other] [OTHER] Mother ? - macular degeneration [Other] [OTHER] Father ? REVIEW OF SYSTEMS GENERAL: No weight loss, malaise or fevers HEENT: Negative for frequent or significant headaches, No changes in hearing or vision, no nose bleeds or other nasal problems NECK: Negative for lumps, goiter, pain and significant neck swelling GI: No nausea, vomiting, or diarrhea SKIN: Negative for lesions, rash, and itching ? PHYSICAL EXAMINATION: ? General: The patient is 71 year old male, well nourished, well hydrated in no acute distress. The patient is oriented to time, place, and person. ? VITALS: Blood pressure 148/82, pulse 68. There is no height or weight on file to calculate BMI. ? HEENT: Normal cephalic, ataumatic, pupils are equally round, sclera are anicteric, mucous membranes are moist, oropharynx is clear. Neck has no masses, asymmetry or lymphadenopathy. ? Respiratory: Clear to auscultation and percussion. Normal respiratory excursion and pattern. ? Cardiac: Examination is regular rate and rhythm. ? Abdominal exam: Soft, nontender, with no palpable masses. No hepatosplenomegaly. No palpable hernias. ? Rectal exam: exam deferred ? Extremities: no clubbing, cyanosis or edema. No adenopathy. ? Other: ? LABORATORY VALUES: As Noted ? RADIOLOGIC STUDIES: As Noted ? Assessment IMPRESSION: encounter for screening colonoscopy ? PLAN: We will plan for screening colonoscopy with one of the surgeons. We discussed the risks and benefits of the planned endoscopy. I have informed the patient that complications can occur including failure to complete the endoscopy and perforation. The patient had the opportunity to ask questions concerning the planned endoscopy. My staff has also explained the procedure to the patient in understandable terms and has given the patient printed material concerning the procedure. The patient freely consents to surgery. ? I plan to use golytely bowel preparation for endoscopy-orders placed by PCP ? Diagnoses: (Z12.11) Encounter for screening for malignant neoplasm of colon (primary encounter diagnosis) ? My findings have been communicated to Dr. Florian via shared medical record. This note will be forwarded to Dr. Jayla Florian MD. ?? Return to Clinic: The patient is instructed to follow-up with me 1 week post operatively. ? I spent 25 minutes in the visit, with more than 50% of the total osve-ze-euim time of the visit in counseling / coordination of care Estefany Rome PA-C PT ED Observed: 05/20/2017 Status: COMPLETED Source: [place] 6:[address] [facility] REPOSITORY HNO ID: [id number] Author: Glenny Mckeon) TRINY Linares Service: (none) Author Type: Registered Nurse Type: Patient Education Filed: 05/20/2017 6:19 AM Note Text: Discharge Instructions were reviewed pre-operatively with the patient. All questions and concerns were addressed. Glenny Linares RN PRE OP LEARNING ASSESSMENT PROCEDURE/SURGERY: GI PROCEDURES: Colonoscopy READINESS TO LEARN COGNITIVE ABILITY: Alert and oriented MOTIVATION TO LEARN: Interested FAMILY SUPPORT: Unable to assess - Family not present PATIENT LEARNS BEST BY: Multiple Methods FACTORS AFFECTING LEARNING: None PHYSICAL LIMITATIONS AFFECTING LEARNING: None Electronically Signed By: Glenny Linares RN In Department: AMBULATORY SURGERY SURGICAL PATHOLOGY Observed: 05/20/2017 Status: F Source: [place] 12:[address] [facility] REPOSITORY Specimen originated from [facility] Specimen #: [id number] Submitting Physician: LINO CABELLO ([id number]) FINAL DIAGNOSIS 1. Colon, cecum, polypectomy - Tubular adenoma. 2. Colon, sigmoid, polypectomy - Tubular adenoma. /gp 05/22/2017 Randy Silver M.D. (Electronic Signature) SPECIMEN SUBMITTED A: CECUM POLYP B: SIGMOID COLON POLYP CLINICAL DATA Z12.11 HOT SNARE GROSS DESCRIPTION A. Received in formalin is one piece of casillas, soft tissue measuring 0.4 x 0.2 x 0.2 cm. Totally submitted in one cassette. B. Received in formalin are three pieces of casillas, soft tissue aggregating to 0.7 x 0.2 x 0.1 cm. Totally submitted in one cassette. Gross examination performed at [facility], [address] [place] [address] 05/20/2017 10:25:10 PM Date of Report: 05/22/2017 Date of Procedure: 05/20/2017 Date of Receipt: 05/20/2017 Submitted by: LINO CABELLO ([id number]) Location: [facility] Diagnostic interpretation performed at [place] [address]. PROGRESS Observed: 05/15/2017 Status: COMPLETED Source: [place] 9:[address] [facility] REPOSITORY HNO ID: [id number] Author: Estefany Rome (Pa) Service: (none) Author Type: Physician Milieu Technician Type: Progress Notes Filed: 05/15/2017 2:57 PM Note Text: HISTORY AND PHYSICAL Marshal Blue 1945 REFERRING PHYSICIAN: Jayla Florian MD CHIEF COMPLAINT: Post Op (Consult colonoscopy) HPI: The patient is a 71 year old male referred for endoscopy. Marshal notes a personal history of colon polyps and is due for follow-up screening colonoscopy, last was done by Dr. Contreras in 2011 with adenomatous polyps removed at that time. He denies any change in bowel habits, weight changes, blood in stools, black tarry stools or abdominal pain. He denies any family history of colon issues. The patient notes no history of upper GI complaints. He denies any problems with sedation in the past. PAST MEDICAL HISTORY Diagnosis Date - Achilles bursitis or tendinitis 05/11/01 - Allergic rhinitis, cause unspecified - Benign neoplasm of colon - Diverticulosis of colon (without mention of hemorrhage) - Essential hypertension, benign - Other and unspecified hyperlipidemia - Personal history of colonic polyps Colon polyps - Unspecified asthma, with status asthmaticus PAST SURGICAL HISTORY Procedure Laterality Date - CARPAL TUNNEL Right 06/2015 - COLONOSCOP W/ OR W/O [facility] SPEC 05/16/03 Colonoscopy-polyps removed - COLONOSCOP W/ OR W/O [facility] SPEC 12/19/2011 Colonoscopy - COLONOSCOPY W/BX 08/04/06 - LASIK 2000 bilateral - OTHER 03/21/15 complete shoulder replacement R - REMOVAL OF TONSILS,<12 Y/O Tonsillectomy - VASECTOMY Bilateral 1988 Current Outpatient Prescriptions: simvastatin (ZOCOR) 40 mg tablet TAKE 1 TABLET BY MOUTH DAILY AT BEDTIME. Hydrochlorothiazide 12.5 mg capsule TAKE 1 CAPSULE BY MOUTH ONCE DAILY. tamsulosin ER (FLOMAX) 0.4 mg cp24 TAKE 1 CAPSULE EVERY DAY losartan (COZAAR) 50 mg tablet TAKE 1 TABLET BY MOUTH ONCE DAILY. B2/VIT A,C AND E/LUT/ZEAXANTH/MN (ICAPS ORAL) Take by mouth. psyllium Husk (FIBER-CAPS) 0.52 gram capsule Take 1 capsule by mouth once daily. ASPIRIN 81 MG TAB Take one(1) tablet daily. meloxicam (MOBIC) 15 mg tablet No current facility-administered medications for this visit. ALLERGIES: Ciprofloxacin; Milk PERSONAL HISTORY: Social History Marital status: Spouse name: Ashlie Years of education: Number of children: 2 Occupational History Occupation Employer Comment [employer] Social History Main Topics Smoking status: Former Smoker Packs/day: 2.00 Years: 10.00 Types: Cigarettes Quit date: 04/07/1987 Smokeless status: Never Used Alcohol use: Yes Comment: 1-2 drinks per month Drug use: No Sexual activity: Yes Partners with: Female Social History Narrative Retired. FAMILY HISTORY: FAMILY HISTORY Problem Relation Age of Onset - Hypertension Father - Heart Father - Hypertension Mother - glaucoma [Other] [OTHER] Brother - macular degeneration [Other] [OTHER] Mother - macular degeneration [Other] [OTHER] Father REVIEW OF SYSTEMS GENERAL: No weight loss, malaise or fevers HEENT: Negative for frequent or significant headaches, No changes in hearing or vision, no nose bleeds or other nasal problems NECK: Negative for lumps, goiter, pain and significant neck swelling GI: No nausea, vomiting, or diarrhea SKIN: Negative for lesions, rash, and itching PHYSICAL EXAMINATION: General: The patient is 71 year old male, well nourished, well hydrated in no acute distress. The patient is oriented to time, place, and person. VITALS: Blood pressure 148/82, pulse 68. There is no height or weight on file to calculate BMI. HEENT: Normal cephalic, ataumatic, pupils are equally round, sclera are anicteric, mucous membranes are moist, oropharynx is clear. Neck has no masses, asymmetry or lymphadenopathy. Respiratory: Clear to auscultation and percussion. Normal respiratory excursion and pattern. Cardiac: Examination is regular rate and rhythm. Abdominal exam: Soft, nontender, with no palpable masses. No hepatosplenomegaly. No palpable hernias. Rectal exam: exam deferred Extremities: no clubbing, cyanosis or edema. No adenopathy. Other: LABORATORY VALUES: As Noted RADIOLOGIC STUDIES: As Noted Assessment IMPRESSION: encounter for screening colonoscopy PLAN: We will plan for screening colonoscopy with one of the surgeons. We discussed the risks and benefits of the planned endoscopy. I have informed the patient that complications can occur including failure to complete the endoscopy and perforation. The patient had the opportunity to ask questions concerning the planned endoscopy. My staff has also explained the procedure to the patient in understandable terms and has given the patient printed material concerning the procedure. The patient freely consents to surgery. I plan to use golytely bowel preparation for endoscopy-orders placed by PCP Diagnoses: (Z12.11) Encounter for screening for malignant neoplasm of colon (primary encounter diagnosis) My findings have been communicated to Dr. Florian via shared medical record. This note will be forwarded to Dr. Jayla Florian MD. Return to Clinic: The patient is instructed to follow-up with me 1 week post operatively. I spent 25 minutes in the visit, with more than 50% of the total [id number]-ao-rfnx time of the visit in counseling / coordination of care Estefany Rome PA-C HOSP Observed: 05/15/2017 Status: COMPLETED Source: [place] 12:00 AM [facility] REPOSITORY Patient:Marshal Blue MRN: <[id number]> Height:6' 1(1.854 m) Weight:259 lb 0.7 oz (117.5 kg) Outpatient Medications as of 05/20/17: meloxicam (MOBIC) 15 mg tablet simvastatin (ZOCOR) 40 mg tablet Hydrochlorothiazide 12.5 mg capsule tamsulosin ER (FLOMAX) 0.4 mg cp24 losartan (COZAAR) 50 mg tablet B2/VIT A,C AND E/LUT/ZEAXANTH/MN (ICAPS ORAL) psyllium Husk (FIBER-CAPS) 0.52 gram capsule ASPIRIN 81 MG TAB Admission/Clinic Administered Medications as of 05/20/17: lactated ringers infusion Problem List: Mixed hyperlipidemia [E78.2] Essential hypertension, benign [I10] Personal history of colonic polyps [Z86.010] Allergic rhinitis, cause unspecified [J30.9] Impaired fasting glucose [R73.01] Obstructive sleep apnea [G47.33] Screening for other and unspecified genitourinary condition [Z13.89] BPH with obstruction/lower urinary tract symptoms [N40.1, N13.8] Frequency [FGN4395] Nocturia [R35.1] Prostatitis [N41.9] Straining on urination [R39.16] Urgency of urination [R39.15] Hematuria [R31.9] Arthritis of shoulder region, right, 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] Diverticulosis of colon (without mention of hemorrhage) [K57.30] Benign neoplasm of colon [D12.6] Urinary tract infection [N39.0] 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, N13.8] Elevated prostate specific antigen (PSA) [R97.20] Allergies: Ciprofloxacin Milk Date Verified: 05/20/17 Lab Values Lab Value Units Date High Low POTA* 4.2 mmol/L 05/05/2017 5.1 3.7 Progress Notes ([facility]): Mo Juarez Surg Coord 05/15/2017 2:29 PM Signed 05-20-2017 Patient scheduled colon ASC Mo Juarez Surg Coord Progress Notes ([facility]): Estefany Rome PA-C 05/15/2017 2:57 PM Signed HISTORY AND PHYSICAL Marshal Phillips Mirza 1945 REFERRING PHYSICIAN: Jayla Florian MD CHIEF COMPLAINT: Post Op (Consult colonoscopy) HPI: The patient is a 71 year old male referred for endoscopy. Marshal notes a personal history of colon polyps and is due for follow-up screening colonoscopy, last was done by Dr. Contreras in 2011 with adenomatous polyps removed at that time. He denies any change in bowel habits, weight changes, blood in stools, black tarry stools or abdominal pain. He denies any family history of colon issues. The patient notes no history of upper GI complaints. He denies any problems with sedation in the past. PAST MEDICAL HISTORY Diagnosis Date - Achilles bursitis or tendinitis 05/11/01 - Allergic rhinitis, cause unspecified - Benign neoplasm of colon - Diverticulosis of colon (without mention of hemorrhage) - Essential hypertension, benign - Other and unspecified hyperlipidemia - Personal history of colonic polyps Colon polyps - Unspecified asthma, with status asthmaticus PAST SURGICAL HISTORY Procedure Laterality Date - CARPAL TUNNEL Right 06/2015 - COLONOSCOP W/ OR W/O [facility] SPEC 05/16/03 Colonoscopy-polyps removed - COLONOSCOP W/ OR W/O [facility] SPEC 12/19/2011 Colonoscopy - COLONOSCOPY W/BX 08/04/06 - LASIK 1999 bilateral - OTHER 03/21/15 complete shoulder replacement R - REMOVAL OF TONSILS,<12 Y/O Tonsillectomy - VASECTOMY Bilateral 1988 Current Outpatient Prescriptions: simvastatin (ZOCOR) 40 mg tablet TAKE 1 TABLET BY MOUTH DAILY AT BEDTIME. Hydrochlorothiazide 12.5 mg capsule TAKE 1 CAPSULE BY MOUTH ONCE DAILY. tamsulosin ER (FLOMAX) 0.4 mg cp24 TAKE 1 CAPSULE EVERY DAY losartan (COZAAR) 50 mg tablet TAKE 1 TABLET BY MOUTH ONCE DAILY. B2/VIT A,C AND E/LUT/ZEAXANTH/MN (ICAPS ORAL) Take by mouth. psyllium Husk (FIBER-CAPS) 0.52 gram capsule Take 1 capsule by mouth once daily. ASPIRIN 81 MG TAB Take one(1) tablet daily. meloxicam (MOBIC) 15 mg tablet No current facility-administered medications for this visit. ALLERGIES: Ciprofloxacin; Milk PERSONAL HISTORY: Social History Marital status: Spouse name: Ashlie Years of education: Number of children: 2 Occupational History Occupation Employer Comment [employer] Social History Main Topics Smoking status: Former Smoker Packs/day: 2.00 Years: 10.00 Types: Cigarettes Quit date: 04/07/1987 Smokeless status: Never Used Alcohol use: Yes Comment: 1-2 drinks per month Drug use: No Sexual activity: Yes Partners with: Female Social History Narrative Retired. FAMILY HISTORY: FAMILY HISTORY Problem Relation Age of Onset - Hypertension Father - Heart Father - Hypertension Mother - glaucoma [Other] [OTHER] Brother - macular degeneration [Other] [OTHER] Mother - macular degeneration [Other] [OTHER] Father REVIEW OF SYSTEMS GENERAL: No weight loss, malaise or fevers HEENT: Negative for frequent or significant headaches, No changes in hearing or vision, no nose bleeds or other nasal problems NECK: Negative for lumps, goiter, pain and significant neck swelling GI: No nausea, vomiting, or diarrhea SKIN: Negative for lesions, rash, and itching PHYSICAL EXAMINATION: General: The patient is 71 year old male, well nourished, well hydrated in no acute distress. The patient is oriented to time, place, and person. VITALS: Blood pressure 148/82, pulse 68. There is no height or weight on file to calculate BMI. HEENT: Normal cephalic, ataumatic, pupils are equally round, sclera are anicteric, mucous membranes are moist, oropharynx is clear. Neck has no masses, asymmetry or lymphadenopathy. Respiratory: Clear to auscultation and percussion. Normal respiratory excursion and pattern. Cardiac: Examination is regular rate and rhythm. Abdominal exam: Soft, nontender, with no palpable masses. No hepatosplenomegaly. No palpable hernias. Rectal exam: exam deferred Extremities: no clubbing, cyanosis or edema. No adenopathy. Other: LABORATORY VALUES: As Noted RADIOLOGIC STUDIES: As Noted Assessment IMPRESSION: encounter for screening colonoscopy PLAN: We will plan for screening colonoscopy with one of the surgeons. We discussed the risks and benefits of the planned endoscopy. I have informed the patient that complications can occur including failure to complete the endoscopy and perforation. The patient had the opportunity to ask questions concerning the planned endoscopy. My staff has also explained the procedure to the patient in understandable terms and has given the patient printed material concerning the procedure. The patient freely consents to surgery. I plan to use golytely bowel preparation for endoscopy-orders placed by PCP Diagnoses: (Z12.11) Encounter for screening for malignant neoplasm of colon (primary encounter diagnosis) My findings have been communicated to Dr. Florian via shared medical record. This note will be forwarded to Dr. Jayla Florian MD. Return to Clinic: The patient is instructed to follow-up with me 1 week post operatively. I spent 25 minutes in the visit, with more than 50% of the total lvfr-va-zsnb time of the visit in counseling / coordination of care Estefany Rome PA-C PROGRESS Observed: 05/12/2017 Status: COMPLETED Source: [place] 2:02 PM [facility] REPOSITORY HNO ID: [id number] Author: Grazyna Conway Service: (none) Author Type: (none) Type: Progress Notes Filed: 05/12/2017 2:16 PM Note Text: Scheduled patient for a colonoscopy consult with Estefany Rome on 05/15/2017 Grazyna Conway PROGRESS Observed: 05/09/2017 Status: COMPLETED Source: [place] 11:05 AM [facility] REPOSITORY HNO ID: [id number] Author: Nick Merino Service: (none) Author Type: (none) Type: Progress Notes Filed: 05/12/2017 7:38 AM Note Text: PROGRESS Observed: 05/09/2017 Status: COMPLETED Source: [place] 10:43 AM [facility] REPOSITORY HNO ID: [id number] Author: Nick Merino Service: (none) Author Type: (none) Type: Progress Notes Filed: 05/12/2017 7:38 AM Note Text: WSTR OPEN ACCESS QUESTIONNAIRE 1. Are you or could you be ? No 2. Are you currently having any stomach/gastrointestinal issues at this time such as constipation, diarrhea, abdominal pain, rectal bleeding etc? No 3. Do you have an implanted device such as a defibrillator, pacemaker, Cardiac Stent or deep brain stimulation device? No 4. Do you have any new or past cardiac (heart) or pulmonary (lung) issues? No 5. Is the patient's BMI 40 or greater? No:Body mass index is 34.17 kg/(m2).. Last Wt 05/09/17 : 117.5 kg (259 lb) Last Ht 05/09/17 : 185.4 cm (6' 1) 6. Have you had difficulty with prior sedations or complications with other procedures? No 7. Have you had difficulty with anesthesia previously re: ? Difficult intubation? No ? Other difficulty or allergic reaction to anesthesia other than post op N/V? No 8. Do you currently use oxygen or a breathing machine at night? Yes / use of CPAP at night 9. Do you take any narcotics, depression or anti-Anxiety medications or 3 or more prescription drugs on a daily basis? Yes / zocor, hydrochlorithiazide, flomax, losartan 10. Do you use any illegal or recreational drugs? No 11. Have you been hospitalized in the past 6 weeks? No 12. Are you on dialysis or have Chronic Kidney Disease? No 13. Have you been diagnosed with chronic liver disease such as hepatitis or cirrhosis? No 14. Do you have a seizure disorder? No 15. Do you have difficulty swallowing? No 16. Do you have ulcerative colitis or Crohn's disease? No 17. Do you take any Blood thinners, including Aspirin or fish oil? YES:baby aspirin daily 18. Do you have any blood disorders (re:hemophiliac)? No 19. Are you Diabetic? No 20. Any other important health information we should be made aware of prior to your colonoscopy? No Checklist: Prior to closing the encounter: ? Complete questionnaire: Yes ? Confirm Prep order has been Ordered/Pended: Yes. ? Patient's procedure could be delayed if not given the script for the prep. Please ensure the prep is escripted to pharmacy or printed. Instructions for the prep will print upon filing or pending this smartset. ? Please send all open access questionnaires to [facility] Sched Pool #[id number] PROGRESS Observed: 05/09/2017 Status: COMPLETED Source: [place] 10:[address] [facility] REPOSITORY HNO ID: [id number] Author: Jayla Florian Service: (none) Author Type: Physician Type: Progress Notes Filed: 05/12/2017 7:38 AM Note Text: Chief Complaint Patient presents with: Physical: cough, sore throat, back pain, congestion - 2 days HPI Marshal Blue is a 71 year old male who presents here today for annual physical. He feels ill past few days. Stuffy head. [facility] chills. Arthroscopic surgery on the L knee. Meniscal tear. Dr Aguilar. BPH> Dr Gonzalez moved. Symptoms controlled. Due for colonoscopy , agreeable to f/u for this. 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 Preop clearance. He's had no problems with anesthtetic. Patient denies any exertional chest pain, dyspnea, palpitations, syncope, orthopnea, edema or paroxysmal nocturnal dyspnea. Past medical history, appointments, medications, allergies reviewed. Previous Medical History PAST MEDICAL HISTORY Diagnosis Date - Achilles bursitis or tendinitis 05/11/01 - Allergic rhinitis, cause unspecified - Benign neoplasm of colon - Diverticulosis of colon (without mention of hemorrhage) - Essential hypertension, benign - Other and unspecified hyperlipidemia - Personal history of colonic polyps Colon polyps - Unspecified asthma, with status asthmaticus Previous Surgical History PAST SURGICAL HISTORY Procedure Laterality Date - COLONOSCOP W/ OR W/O [facility] SPEC 05/16/03 Colonoscopy-polyps removed - COLONOSCOP W/ OR W/O [facility] SPE[facility] 12/19/2011 Colonoscopy - COLONOSCOPY W/BX 08/04/06 - LASIK 2000 bilateral - OTHER 03/21/15 complete shoulder replacement R - REMOVAL OF TONSILS,<12 Y/O Tonsillectomy - VASECTOMY Bilateral 1988 Family History FAMILY HISTORY Problem Relation Age of Onset - Hypertension Father - Heart Father - Hypertension Mother - glaucoma [Other] [OTHER] Brother - macular degeneration [Other] [OTHER] Mother - macular degeneration [Other] [OTHER] Father Patient Allergies ALLERGIES Allergen Reactions - Ciprofloxacin Swelling - Milk Rash Current Medications Current Outpatient Prescriptions on File Prior to Visit: simvastatin (ZOCOR) 40 mg tablet TAKE 1 TABLET BY MOUTH DAILY AT BEDTIME. Hydrochlorothiazide 12.5 mg capsule TAKE 1 CAPSULE BY MOUTH ONCE DAILY. tamsulosin ER (FLOMAX) 0.4 mg cp24 TAKE 1 CAPSULE EVERY DAY losartan (COZAAR) 50 mg tablet TAKE 1 TABLET BY MOUTH ONCE DAILY. B2/VIT A,C AND E/LUT/ZEAXANTH/MN (ICAPS ORAL) Take by mouth. psyllium Husk (FIBER-CAPS) 0.52 gram capsule Take 1 capsule by mouth once daily. ASPIRIN 81 MG TAB Take one(1) tablet daily. No current facility-administered medications on file prior to visit. Social History Social History Marital status: Spouse name: Ashlie Years of education: Number of children: 2 Occupational History Occupation Employer Comment [employer] Social History Main Topics Smoking status: Former Smoker Packs/day: 2.00 Years: 10.00 Types: Cigarettes Quit date: 04/07/1987 Smokeless status: Never Used Alcohol use: Yes Comment: 1-2 drinks per month Drug use: No Sexual activity: Yes Partners with: Female Social History Narrative Retired. ROS: General: Feels well, no weight changes, fever, chills. HEENT: See HPI. sinus congestion, no earache, sl sore throat. Cardiac: No chest pain, palpitations, shortness of breath Resp: sl cough, no wheeze. GI: No reflux symptoms, food intolerance, bowel changes. : No urinary frequency, dysuria. MS: see HPI L knee. No other pain or joint complaints. PHYSICAL EXAMINATION BP 139/64 Pulse 80 Ht 185.4 cm (6' 1) Wt 117.5 kg (259 lb) SpO2 98% BMI 34.17 kg/m2 General: Alert and oriented, no distress, pleasant and cooperative. Ears normal. Throat and pharynx normal. Neck supple. No adenopathy or masses in the neck or supraclavicular regions. Sinuses non tender. Clear post nasal drainage. Heart: Regular, normal S1 and S2, no murmurs, rubs, or gallops Lungs: Clear to auscultation bilaterally Abdomen: Benign Extremities: Feet/ankles without edema, posterior tibial pulses full and symmetrical Health Maintenance List INFLUENZA(1) due on 12/06/2016 COLORECTAL CANCER SCREENING,SEE MODIFIER due on 12/18/2016 DIABETES SCREEN due on 05/05/2020 LIPID SCREEN due on 05/05/2022 TETANUS due on 02/15/2023 PROSTATE CANCER SCREENING DISCUSSION Completed ADULT PREVNAR-13 Completed HEPATITIS C SCREENING Completed PNEUMOVAX AGE 65 AND OVER WITH 5YR LOOKBACK Completed Data reviewed Lab Results Component Value Date/Time CHOL 138 05/05/2017 09:49 AM HDL 25 (L) 05/05/2017 09:49 AM LDL 74 05/05/2017 09:49 AM HBA1C 5.9 (H) 06/26/2016 09:54 AM PSA 1.88 05/22/2016 03:49 PM Assessment/Plan: (M23.207) Old tear of meniscus of left knee, unspecified meniscus, unspecified tear type (primary encounter diagnosis) Comment: surgery pending Plan: ok for surgery (I10) Essential hypertension, benign Comment: well controlled. Plan: ECG COMPLETE W INTERPRETATION (E78.2) Mixed hyperlipidemia Comment: well controlled. Low hdl Plan: (J06.9) URI, acute Comment: viral , should be self limited. Plan: he'll advise if not resolving (Z12.11) Special screening for malignant neoplasms, colon Comment: due Plan: COLONOSCOPY SCRN NOT HIGH RISK He'll secheudle for this after radha (Z01.818) Preoperative clearance Comment: recent labs, EKG OK Plan: OK surgery Signed Prescriptions Disp Refills peg 3350-electrolytes (COLYTE) 240-22.72-6.72 -5.84 gram solution 4000 mL 0 Sig: Take 4,000 mL by mouth one time only for 1 dose. RTO: routine f/u Jayla Florian MD CNOV Observed: 05/09/2017 Status: COMPLETED Source: [place] 10:00 AM [facility] REPOSITORY Office Visit (FPWADS) MARSHAL BLUE ([id number]) 1945 M Date Time Provider Department 05/09/17 10:00 AM JAYLA FLORIAN During your visit today, we recorded the following information about you: Pulse Blood pressure Weight Height 80/minute 139/64 117.5 kg 1.854 m Jayla Florian MD 05/12/2017 7:38 AM Signed Chief Complaint Patient presents with: Physical: cough, sore throat, back pain, congestion - 2 days HPI Marshal Blue is a 71 year old male who presents here today for annual physical. He feels ill past few days. Stuffy head. [facility] chills. Arthroscopic surgery on the L knee. Meniscal tear. Dr Aguilar. BPHANDgt; Dr Gonzalez moved. Symptoms controlled. Due for colonoscopy , agreeable to f/u for this. 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 Preop clearance. He's had no problems with anesthtetic. Patient denies any exertional chest pain, dyspnea, palpitations, syncope, orthopnea, edema or paroxysmal nocturnal dyspnea. Past medical history, appointments, medications, allergies reviewed. Previous Medical History PAST MEDICAL HISTORY Diagnosis Date - Achilles bursitis or tendinitis 05/11/01 - Allergic rhinitis, cause unspecified - Benign neoplasm of colon - Diverticulosis of colon (without mention of hemorrhage) - Essential hypertension, benign - Other and unspecified hyperlipidemia - Personal history of colonic polyps Colon polyps - Unspecified asthma, with status asthmaticus Previous Surgical History PAST SURGICAL HISTORY Procedure Laterality Date - COLONOSCOP W/ OR W/O [facility] SPEC 05/16/03 Colonoscopy-polyps removed - COLONOSCOP W/ OR W/O [facility] SPEC 12/19/2011 Colonoscopy - COLONOSCOPY W/BX 08/04/06 - LASIK 2000 bilateral - OTHER 03/21/15 complete shoulder replacement R - REMOVAL OF TONSILS,ANDlt;13 Y/O Tonsillectomy - VASECTOMY Bilateral 1988 Family History FAMILY HISTORY Problem Relation Age of Onset - Hypertension Father - Heart Father - Hypertension Mother - glaucoma [Other] [OTHER] Brother - macular degeneration [Other] [OTHER] Mother - macular degeneration [Other] [OTHER] Father Patient Allergies ALLERGIES Allergen Reactions - Ciprofloxacin Swelling - Milk Rash Current Medications Current Outpatient Prescriptions on File Prior to Visit: simvastatin (ZOCOR) 40 mg tablet TAKE 1 TABLET BY MOUTH DAILY AT BEDTIME. Hydrochlorothiazide 12.5 mg capsule TAKE 1 CAPSULE BY MOUTH ONCE DAILY. tamsulosin ER (FLOMAX) 0.4 mg cp24 TAKE 1 CAPSULE EVERY DAY losartan (COZAAR) 50 mg tablet TAKE 1 TABLET BY MOUTH ONCE DAILY. B2/VIT A,C ANDamp; E/LUT/ZEAXANTH/MN (ICAPS ORAL) Take by mouth. psyllium Husk (FIBER-CAPS) 0.52 gram capsule Take 1 capsule by mouth once daily. ASPIRIN 81 MG TAB Take one(1) tablet daily. No current facility-administered medications on file prior to visit. Social History Social History Marital status: Spouse name: Ashlie Years of education: Number of children: 2 Occupational History Occupation Employer Comment [employer] Social History Main Topics Smoking status: Former Smoker Packs/day: 2.00 Years: 10.00 Types: Cigarettes Quit date: 04/07/1987 Smokeless status: Never Used Alcohol use: Yes Comment: 1-2 drinks per month Drug use: No Sexual activity: Yes Partners with: Female Social History Narrative Retired. ROS: General: Feels well, no weight changes, fever, chills. HEENT: See HPI. sinus congestion, no earache, sl sore throat. Cardiac: No chest pain, palpitations, shortness of breath Resp: sl cough, no wheeze. GI: No reflux symptoms, food intolerance, bowel changes. : No urinary frequency, dysuria. MS: see HPI L knee. No other pain or joint complaints. PHYSICAL EXAMINATION BP 139/64 Pulse 80 Ht 185.4 cm (6' 1ANDquot;) Wt 117.5 kg (259 lb) SpO2 98% BMI 34.17 kg/m2 General: Alert and oriented, no distress, pleasant and cooperative. Ears normal. Throat and pharynx normal. Neck supple. No adenopathy or masses in the neck or supraclavicular regions. Sinuses non tender. Clear post nasal drainage. Heart: Regular, normal S1 and S2, no murmurs, rubs, or gallops Lungs: Clear to auscultation bilaterally Abdomen: Benign Extremities: Feet/ankles without edema, posterior tibial pulses full and symmetrical Health Maintenance List INFLUENZA(1) due on 12/06/2016 COLORECTAL CANCER SCREENING,SEE MODIFIER due on 12/18/2016 DIABETES SCREEN due on 05/05/2020 LIPID SCREEN due on 05/05/2022 TETANUS due on 02/15/2023 PROSTATE CANCER SCREENING DISCUSSION Completed ADULT PREVNAR-13 Completed HEPATITIS C SCREENING Completed PNEUMOVAX AGE 65 AND OVER WITH 5YR LOOKBACK Completed Data reviewed Lab Results Component Value Date/Time CHOL 138 05/05/2017 09:49 AM HDL 25 (L) 05/05/2017 09:49 AM LDL 74 05/05/2017 09:49 AM HBA1C 5.9 (H) 06/26/2016 09:54 AM PSA 1.88 05/22/2016 03:49 PM Assessment/Plan: (M23.207) Old tear of meniscus of left knee, unspecified meniscus, unspecified tear type (primary encounter diagnosis) Comment: surgery pending Plan: ok for surgery (I10) Essential hypertension, benign Comment: well controlled. Plan: ECG COMPLETE W INTERPRETATION (E78.2) Mixed hyperlipidemia Comment: well controlled. Low hdl Plan: (J06.9) URI, acute Comment: viral , should be self limited. Plan: he'll advise if not resolving (Z12.11) Special screening for malignant neoplasms, colon Comment: due Plan: COLONOSCOPY SCRN NOT HIGH RISK He'll secheudle for this after radha (Z01.818) Preoperative clearance Comment: recent labs, EKG OK Plan: OK surgery Signed Prescriptions Disp Refills peg 3350-electrolytes (COLYTE) 240-22.72-6.72 -5.84 gram solution 4000 mL 0 Sig: Take 4,000 mL by mouth one time only for 1 dose. RTO: routine f/u MD Nick Weir 05/12/2017 7:38 AM Signed [facility] OPEN ACCESS QUESTIONNAIRE 1. Are you or could you be ? No 2. Are you currently having any stomach/gastrointestinal issues at this time such as constipation, diarrhea, abdominal pain, rectal bleeding etc? No 3. Do you have an implanted device such as a defibrillator, pacemaker, Cardiac Stent or deep brain stimulation device? No 4. Do you have any new or past cardiac (heart) or pulmonary (lung) issues? No 5. Is the patient's BMI 40 or greater? No:Body mass index is 34.17 kg/(m2).. Last Wt 05/09/17 : 117.5 kg (259 lb) Last Ht 05/09/17 : 185.4 cm (6' 1ANDquot;) 6. Have you had difficulty with prior sedations or complications with other procedures? No 7. Have you had difficulty with anesthesia previously re: ? Difficult intubation? No ? Other difficulty or allergic reaction to anesthesia other than post op N/V? No 8. Do you currently use oxygen or a breathing machine at night? Yes / use of CPAP at night 9. Do you take any narcotics, depression or anti-Anxiety medications or 3 or more prescription drugs on a daily basis? Yes / zocor, hydrochlorithiazide, flomax, losartan 10. Do you use any illegal or recreational drugs? No 11. Have you been hospitalized in the past 6 weeks? No 12. Are you on dialysis or have Chronic Kidney Disease? No 13. Have you been diagnosed with chronic liver disease such as hepatitis or cirrhosis? No 14. Do you have a seizure disorder? No 15. Do you have difficulty swallowing? No 16. Do you have ulcerative colitis or Crohn's disease? No 17. Do you take any Blood thinners, including Aspirin or fish oil? YES:baby aspirin daily 18. Do you have any blood disorders (re:hemophiliac)? No 19. Are you Diabetic? No 20. Any other important health information we should be made aware of prior to your colonoscopy? No Checklist: Prior to closing the encounter: ? Complete questionnaire: Yes ? Confirm Prep order has been Ordered/Pended: Yes. ? Patient's procedure could be delayed if not given the script for the prep. Please ensure the prep is escripted to pharmacy or printed. Instructions for the prep will print upon filing or pending this smartset. ? Please send all open access questionnaires to [facility] Sched Pool #[id number] Nick Merino 05/09/2017 11:05 AM Addendum Health Information For Patients and the Community How to Prepare for Your Colonoscopy Using Golytely, Nulytely, Trilyte or Colyte Preparations IMPORTANT - Please Read These Instructions at Least 2 Weeks Before Your Colonoscopy [facility] Instructions: ?Your bowel must be empty so that your doctor can clearly view your colon. Follow all of the instructions in this handout EXACTLY as they are written. If you do NOT follow the directions for when to start drinking the bowel preparation (see next page), your colonoscopy WILL be cancelled. ?Do NOT eat any solid food the ENTIRE day before your colonoscopy. ?Buy your bowel preparation at least 5 days before your colonoscopy. ?Do NOT mix the solution until the day before your colonoscopy. Designated Flow Manager on the Day of Your Exam A responsible family member or friend MUST come with you to your colonoscopy and REMAIN in the endoscopy area until you are discharged! You are NOT ALLOWED to drive, take a taxi or bus, or leave the Endoscopy Center ALONE. If you do not have a responsible hole digger truck driver (family member or friend) with you to take you home, your exam cannot be done with sedation and will be cancelled. Medications Some of the medicines you take may need to be stopped or adjusted before your colonoscopy. You MUST call the doctor who ordered any of the following medicines at least 2 weeks before your colonoscopy. ?Blood thinners -- such as Coumadin? (warfarin), Plavix? (clopidogrel), Ticlid? (ticlopidine hydrochloride), Agrylin? (anagrelide), Xarelto? (Rivaroxaban), Pradaxa? (Dabigatran), Eliquis? (Apixaban), and Effient? (Prasugrel). ?Insulin or diabetes pills. Please call the doctor that monitors your glucose levels. Your insulin dosage may need to be adjusted due to the diet restrictions required with this bowel preparation. (Please bring your diabetes medicines with you on the day of your procedure.) If you take aspirin, take it and ALL other medications prescribed by your doctor. On the day of your colonoscopy, take your medications with a sip of water. Revised 05/2016 1 Five (5) Days Before Your Colonoscopy ?Do NOT take medicines that stop diarrhea -- such as Imodium?, Kaopectate?, or Pepto Bismol?. ?Do NOT take fiber supplements -- such as Metamucil?, Citrucel?, or Perdiem?. ?Do NOT take products that contain iron -- such as multi-vitamins -- (the label lists what is in the products). ?Do NOT take vitamin E. Buy the prescription bowel preparation solution at your local pharmacy or drugstore pharmacy. Three (3) Days Before Your Colonoscopy Do NOT eat high-fiber foods -- such as popcorn, beans, seeds (flax, sunflower, quinoa), multigrain bread, nuts, salad/vegetables, or fresh and dried fruit. One (1) Day Before Your Colonoscopy Only drink clear liquids the ENTIRE DAY before your colonoscopy. Do NOT eat any solid foods. Drink at least 8 ounces of clear liquids every hour after waking up. The clear liquids you can drink include: ?water, apple, or white grape juice; broth; coffee or tea (without milk or creamer); clear carbonated beverages such as bharti onur or lemon-kotlik soda; Gatorade? or other sports drinks (not red); Gerson-Aid? or other flavored drinks (not red). You may eat plain jello or other gelatins (not red) or popsicles (not red). Do NOT drink alcohol on the day before or the day of the procedure. 2 Revised 05/2016 When to Mix and Drink Your Bowel Prep Follow the instructions on the label. After mixing, place the solution in the refrigerator for a couple of hours before drinking. You may add the flavor packet that came with the bowel preparation. DO NOT add ice, sugar or any flavorings to the solution. Evening Before Your Colonoscopy ?Start drinking the bowel preparation at 6 PM the evening before your colonoscopy. Drink an 8-oz glass of bowel preparation every 10 minutes. You must finish drinking the solution by 9 PM the night before your scheduled procedure. ?You may continue to drink clear liquids only until midnight. Do NOT eat or drink ANYTHING after midnight the night before your procedure or your procedure may be cancelled. This is for your safety and will reduce the risk of having any food or liquid in your stomach move into your lungs (aspiration) during a procedure. If you take aspirin, take it and ALL other prescribed medicines with a sip of water on the day of your colonoscopy. Contact Information: If you are unable to keep your appointment or have any questions about the instructions, please call the facility where the procedure is being performed. Call between the hours of 8:00 AM and 5:00 PM. If you are calling after 5:00 PM, please call Nurse security controls assessor at [phone]. [facility] [address] [address] Index # [id number] Revised 05/2016 3 Colonoscopy Procedure Overview Please Read Prior to the Procedure What is a Colonoscopy A colonoscopy is an outpatient procedure in which the inside of the large intestine (colon and rectum) is examined. A colonoscopy is commonly used to evaluate gastrointestinal symptoms, such as rectal and intestinal bleeding, abdominal pain, or changes in bowel habits. Colonoscopies are also performed in individuals without symptoms to check for colorectal polyps or cancer. A screening colonoscopy is recommended for anyone 50 years of age and older, and for anyone with parents, siblings or children with a history of colorectal cancer or polyps. What Happens Before a Colonoscopy To have a successful colonoscopy, your bowel must be empty so that your physician can clearly view the colon. To do this, it is very important to read and follow all of the instructions given to you at least 2 weeks BEFORE your exam. If your bowel is not empty, your colonoscopy will not be successful and may have to be repeated. If you feel nauseated or vomit while taking the bowel preparation, wait 30 minutes before drinking more fluid and start with small sips of solution. Some activity (such as walking) or a few soda crackers may help decrease the nausea you are feeling. If the nausea persists, please contact nurse data processing consultant at [phone]. You may experience skin irritation around the anus due to the passage of liquid stools. To prevent and treat skin irritation, you should: ?Apply Vaseline? or Desitin? ointment to the skin around the anus before drinking the bowel preparation medications. These products can be purchased at any drugstore. ?Wipe the skin after each bowel movement with disposable wet wipes instead of toilet paper. These are found in the toilet paper area of the store. ?Sit in a bathtub filled with warm water for 10 to 15 minutes after you finish passing a stool; after soaking, blot the skin dry with a soft cloth, apply Vaseline? or Desitin? ointment to the anal area, and place a cotton ball just outside your anus to absorb leaking fluid. What Happens During a Colonoscopy During a colonoscopy, an experienced physician uses a colonoscope (a long, flexible instrument about 1/2 inch in diameter) to view the lining of the colon. The colonoscope is inserted into the rectum and advanced through the large intestine. If necessary during a colonoscopy, small amounts of tissue can be removed for analysis (a biopsy) and polyps can be identified and entirely removed. In many cases, a colonoscopy allows accurate diagnosis and treatment of colorectal problems without the need for a major operation. Revised 05/2016 5 ?You are asked to wear a hospital gown and an IV will be started. ?You are given a pain reliever and a sedative intravenously (in your vein). You will feel relaxed and somewhat drowsy. ?You will lie on your left side, with your knees drawn up towards your chest. ?A small amount of air is used to expand the colon so the physician can see the colon sherman. ?You may feel mild cramping during the procedure. Cramping can be reduced by taking slow, deep breaths. ?The colonoscope is slowly withdrawn while the lining of your bowel is carefully examined. ?The procedure lasts from 30 minutes to 1 hour. What Happens After a Colonoscopy ?You will stay in a recovery room for observation until you are ready for discharge. ?You may feel some cramping or a sensation of having gas, but this quickly passes. ?If sedation has been given, a responsible family member or friend must drive you home. ?Avoid alcohol, driving, and operating machinery for 24 hours following the procedure. ?Unless otherwise instructed, you may immediately return to your normal diet. We recommend you wait until the day after your procedure to resume normal activities. ?If polyps were removed or a biopsy was taken, the physician performing your colonoscopy will tell you when it is safe to resume taking your blood thinners. ?If a biopsy was taken or a polyp was removed, you may notice a little amount of rectal bleeding for 1 to 2 days after the procedure. If you have a large amount of rectal bleeding, high or persistent fevers, or severe abdominal pain within the next 2 weeks, please go to your local emergency room and call the physician who performed your exam. 6 Revised 05/2016 ?Copyright 1940-0539 The [facility]. All rights reserved. Revised 05/2016 Health Information For Patients and the Community How to Prepare for Your Colonoscopy Using Golytely, Nulytely, Trilyte or Colyte Preparations IMPORTANT - Please Read These Instructions at Least 2 Weeks Before Your Colonoscopy [facility] Instructions: ?Your bowel must be empty so that your doctor can clearly view your colon. Follow all of the instructions in this handout EXACTLY as they are written. If you do NOT follow the directions for when to start drinking the bowel preparation (see next page), your colonoscopy WILL be cancelled. ?Do NOT eat any solid food the ENTIRE day before your colonoscopy. ?Buy your bowel preparation at least 5 days before your colonoscopy. ?Do NOT mix the solution until the day before your colonoscopy. Designated Flow Manager on the Day of Your Exam A responsible family member or friend MUST come with you to your colonoscopy and REMAIN in the endoscopy area until you are discharged! You are NOT ALLOWED to drive, take a taxi or bus, or leave the Endoscopy Center ALONE. If you do not have a responsible hole digger truck driver (family member or friend) with you to take you home, your exam cannot be done with sedation and will be cancelled. Medications Some of the medicines you take may need to be stopped or adjusted before your colonoscopy. You MUST call the doctor who ordered any of the following medicines at least 2 weeks before your colonoscopy. ?Blood thinners -- such as Coumadin? (warfarin), Plavix? (clopidogrel), Ticlid? (ticlopidine hydrochloride), Agrylin? (anagrelide), Xarelto? (Rivaroxaban), Pradaxa? (Dabigatran), Eliquis? (Apixaban), and Effient? (Prasugrel). ?Insulin or diabetes pills. Please call the doctor that monitors your glucose levels. Your insulin dosage may need to be adjusted due to the diet restrictions required with this bowel preparation. (Please bring your diabetes medicines with you on the day of your procedure.) If you take aspirin, take it and ALL other medications prescribed by your doctor. On the day of your colonoscopy, take your medications with a sip of water. Revised 05/2016 1 Five (5) Days Before Your Colonoscopy ?Do NOT take medicines that stop diarrhea -- such as Imodium?, Kaopectate?, or Pepto Bismol?. ?Do NOT take fiber supplements -- such as Metamucil?, Citrucel?, or Perdiem?. ?Do NOT take products that contain iron -- such as multi-vitamins -- (the label lists what is in the products). ?Do NOT take vitamin E. Buy the prescription bowel preparation solution at your local pharmacy or drugstore pharmacy. Three (3) Days Before Your Colonoscopy Do NOT eat high-fiber foods -- such as popcorn, beans, seeds (flax, sunflower, quinoa), multigrain bread, nuts, salad/vegetables, or fresh and dried fruit. One (1) Day Before Your Colonoscopy Only drink clear liquids the ENTIRE DAY before your colonoscopy. Do NOT eat any solid foods. Drink at least 8 ounces of clear liquids every hour after waking up. The clear liquids you can drink include: ?water, apple, or white grape juice; broth; coffee or tea (without milk or creamer); clear carbonated beverages such as bharti onur or lemon-kotlik soda; Gatorade? or other sports drinks (not red); Gerson-Aid? or other flavored drinks (not red). You may eat plain jello or other gelatins (not red) or popsicles (not red). Do NOT drink alcohol on the day before or the day of the procedure. 2 Revised 05/2016 When to Mix and Drink Your Bowel Prep Follow the instructions on the label. After mixing, place the solution in the refrigerator for a couple of hours before drinking. You may add the flavor packet that came with the bowel preparation. DO NOT add ice, sugar or any flavorings to the solution. Evening Before Your Colonoscopy ?Start drinking the bowel preparation at 6 PM the evening before your colonoscopy. Drink an 8-oz glass of bowel preparation every 10 minutes. You must finish drinking the solution by 9 PM the night before your scheduled procedure. ?You may continue to drink clear liquids only until midnight. Do NOT eat or drink ANYTHING after midnight the night before your procedure or your procedure may be cancelled. This is for your safety and will reduce the risk of having any food or liquid in your stomach move into your lungs (aspiration) during a procedure. If you take aspirin, take it and ALL other prescribed medicines with a sip of water on the day of your colonoscopy. Contact Information: If you are unable to keep your appointment or have any questions about the instructions, please call the facility where the procedure is being performed. Call between the hours of 8:00 AM and 5:00 PM. If you are calling after 5:00 PM, please call Nurse security controls assessor at [phone]. [facility] [address] [address] Index # [id number] Revised 05/2016 3 Colonoscopy Procedure Overview Please Read Prior to the Procedure What is a Colonoscopy A colonoscopy is an outpatient procedure in which the inside of the large intestine (colon and rectum) is examined. A colonoscopy is commonly used to evaluate gastrointestinal symptoms, such as rectal and intestinal bleeding, abdominal pain, or changes in bowel habits. Colonoscopies are also performed in individuals without symptoms to check for colorectal polyps or cancer. A screening colonoscopy is recommended for anyone 50 years of age and older, and for anyone with parents, siblings or children with a history of colorectal cancer or polyps. What Happens Before a Colonoscopy To have a successful colonoscopy, your bowel must be empty so that your physician can clearly view the colon. To do this, it is very important to read and follow all of the instructions given to you at least 2 weeks BEFORE your exam. If your bowel is not empty, your colonoscopy will not be successful and may have to be repeated. If you feel nauseated or vomit while taking the bowel preparation, wait 30 minutes before drinking more fluid and start with small sips of solution. Some activity (such as walking) or a few soda crackers may help decrease the nausea you are feeling. If the nausea persists, please contact nurse data processing consultant at [phone]. You may experience skin irritation around the anus due to the passage of liquid stools. To prevent and treat skin irritation, you should: ?Apply Vaseline? or Desitin? ointment to the skin around the anus before drinking the bowel preparation medications. These products can be purchased at any drugstore. ?Wipe the skin after each bowel movement with disposable wet wipes instead of toilet paper. These are found in the toilet paper area of the store. ?Sit in a bathtub filled with warm water for 10 to 15 minutes after you finish passing a stool; after soaking, blot the skin dry with a soft cloth, apply Vaseline? or Desitin? ointment to the anal area, and place a cotton ball just outside your anus to absorb leaking fluid. What Happens During a Colonoscopy During a colonoscopy, an experienced physician uses a colonoscope (a long, flexible instrument about 1/2 inch in diameter) to view the lining of the colon. The colonoscope is inserted into the rectum and advanced through the large intestine. If necessary during a colonoscopy, small amounts of tissue can be removed for analysis (a biopsy) and polyps can be identified and entirely removed. In many cases, a colonoscopy allows accurate diagnosis and treatment of colorectal problems without the need for a major operation. Revised 05/2016 5 ?You are asked to wear a hospital gown and an IV will be started. ?You are given a pain reliever and a sedative intravenously (in your vein). You will feel relaxed and somewhat drowsy. ?You will lie on your left side, with your knees drawn up towards your chest. ?A small amount of air is used to expand the colon so the physician can see the colon sherman. ?You may feel mild cramping during the procedure. Cramping can be reduced by taking slow, deep breaths. ?The colonoscope is slowly withdrawn while the lining of your bowel is carefully examined. ?The procedure lasts from 30 minutes to 1 hour. What Happens After a Colonoscopy ?You will stay in a recovery room for observation until you are ready for discharge. ?You may feel some cramping or a sensation of having gas, but this quickly passes. ?If sedation has been given, a responsible family member or friend must drive you home. ?Avoid alcohol, driving, and operating machinery for 24 hours following the procedure. ?Unless otherwise instructed, you may immediately return to your normal diet. We recommend you wait until the day after your procedure to resume normal activities. ?If polyps were removed or a biopsy was taken, the physician performing your colonoscopy will tell you when it is safe to resume taking your blood thinners. ?If a biopsy was taken or a polyp was removed, you may notice a little amount of rectal bleeding for 1 to 2 days after the procedure. If you have a large amount of rectal bleeding, high or persistent fevers, or severe abdominal pain within the next 2 weeks, please go to your local emergency room and call the physician who performed your exam. 6 Revised 05/2016 ?Copyright [id number] The [facility]. All rights reserved. Revised 05/2016 Health Information For Patients and the Community How to Prepare for Your Colonoscopy Using Golytely, Nulytely, Trilyte or Colyte Preparations IMPORTANT - Please Read These Instructions at Least 2 Weeks Before Your Colonoscopy [facility] Instructions: ?Your bowel must be empty so that your doctor can clearly view your colon. Follow all of the instructions in this handout EXACTLY as they are written. If you do NOT follow the directions for when to start drinking the bowel preparation (see next page), your colonoscopy WILL be cancelled. ?Do NOT eat any solid food the ENTIRE day before your colonoscopy. ?Buy your bowel preparation at least 5 days before your colonoscopy. ?Do NOT mix the solution until the day before your colonoscopy. Designated Flow Manager on the Day of Your Exam A responsible family member or friend MUST come with you to your colonoscopy and REMAIN in the endoscopy area until you are discharged! You are NOT ALLOWED to drive, take a taxi or bus, or leave the Endoscopy Center ALONE. If you do not have a responsible hole digger truck driver (family member or friend) with you to take you home, your exam cannot be done with sedation and will be cancelled. Medications Some of the medicines you take may need to be stopped or adjusted before your colonoscopy. You MUST call the doctor who ordered any of the following medicines at least 2 weeks before your colonoscopy. ?Blood thinners -- such as Coumadin? (warfarin), Plavix? (clopidogrel), Ticlid? (ticlopidine hydrochloride), Agrylin? (anagrelide), Xarelto? (Rivaroxaban), Pradaxa? (Dabigatran), Eliquis? (Apixaban), and Effient? (Prasugrel). ?Insulin or diabetes pills. Please call the doctor that monitors your glucose levels. Your insulin dosage may need to be adjusted due to the diet restrictions required with this bowel preparation. (Please bring your diabetes medicines with you on the day of your procedure.) If you take aspirin, take it and ALL other medications prescribed by your doctor. On the day of your colonoscopy, take your medications with a sip of water. Revised 05/2016 1 Five (5) Days Before Your Colonoscopy ?Do NOT take medicines that stop diarrhea -- such as Imodium?, Kaopectate?, or Pepto Bismol?. ?Do NOT take fiber supplements -- such as Metamucil?, Citrucel?, or Perdiem?. ?Do NOT take products that contain iron -- such as multi-vitamins -- (the label lists what is in the products). ?Do NOT take vitamin E. Buy the prescription bowel preparation solution at your local pharmacy or drugstore pharmacy. Three (3) Days Before Your Colonoscopy Do NOT eat high-fiber foods -- such as popcorn, beans, seeds (flax, sunflower, quinoa), multigrain bread, nuts, salad/vegetables, or fresh and dried fruit. One (1) Day Before Your Colonoscopy Only drink clear liquids the ENTIRE DAY before your colonoscopy. Do NOT eat any solid foods. Drink at least 8 ounces of clear liquids every hour after waking up. The clear liquids you can drink include: ?water, apple, or white grape juice; broth; coffee or tea (without milk or creamer); clear carbonated beverages such as bharti onur or lemon-kotlik soda; Gatorade? or other sports drinks (not red); Gerson-Aid? or other flavored drinks (not red). You may eat plain jello or other gelatins (not red) or popsicles (not red). Do NOT drink alcohol on the day before or the day of the procedure. 2 Revised 05/2016 When to Mix and Drink Your Bowel Prep Follow the instructions on the label. After mixing, place the solution in the refrigerator for a couple of hours before drinking. You may add the flavor packet that came with the bowel preparation. DO NOT add ice, sugar or any flavorings to the solution. Evening Before Your Colonoscopy ?Start drinking the bowel preparation at 6 PM the evening before your colonoscopy. Drink an 8-oz glass of bowel preparation every 10 minutes. You must finish drinking the solution by 9 PM the night before your scheduled procedure. ?You may continue to drink clear liquids only until midnight. Do NOT eat or drink ANYTHING after midnight the night before your procedure or your procedure may be cancelled. This is for your safety and will reduce the risk of having any food or liquid in your stomach move into your lungs (aspiration) during a procedure. If you take aspirin, take it and ALL other prescribed medicines with a sip of water on the day of your colonoscopy. Contact Information: If you are unable to keep your appointment or have any questions about the instructions, please call the facility where the procedure is being performed. Call between the hours of 8:00 AM and 5:00 PM. If you are calling after 5:00 PM, please call Nurse security controls assessor at [phone]. [facility] [address] [place] [id number] Index # [id number] Revised 05/2016 3 Colonoscopy Procedure Overview Please Read Prior to the Procedure What is a Colonoscopy A colonoscopy is an outpatient procedure in which the inside of the large intestine (colon and rectum) is examined. A colonoscopy is commonly used to evaluate gastrointestinal symptoms, such as rectal and intestinal bleeding, abdominal pain, or changes in bowel habits. Colonoscopies are also performed in individuals without symptoms to check for colorectal polyps or cancer. A screening colonoscopy is recommended for anyone 50 years of age and older, and for anyone with parents, siblings or children with a history of colorectal cancer or polyps. What Happens Before a Colonoscopy To have a successful colonoscopy, your bowel must be empty so that your physician can clearly view the colon. To do this, it is very important to read and follow all of the instructions given to you at least 2 weeks BEFORE your exam. If your bowel is not empty, your colonoscopy will not be successful and may have to be repeated. If you feel nauseated or vomit while taking the bowel preparation, wait 30 minutes before drinking more fluid and start with small sips of solution. Some activity (such as walking) or a few soda crackers may help decrease the nausea you are feeling. If the nausea persists, please contact nurse data processing consultant at [phone]. You may experience skin irritation around the anus due to the passage of liquid stools. To prevent and treat skin irritation, you should: ?Apply Vaseline? or Desitin? ointment to the skin around the anus before drinking the bowel preparation medications. These products can be purchased at any drugstore. ?Wipe the skin after each bowel movement with disposable wet wipes instead of toilet paper. These are found in the toilet paper area of the store. ?Sit in a bathtub filled with warm water for 10 to 15 minutes after you finish passing a stool; after soaking, blot the skin dry with a soft cloth, apply Vaseline? or Desitin? ointment to the anal area, and place a cotton ball just outside your anus to absorb leaking fluid. What Happens During a Colonoscopy During a colonoscopy, an experienced physician uses a colonoscope (a long, flexible instrument about 1/2 inch in diameter) to view the lining of the colon. The colonoscope is inserted into the rectum and advanced through the large intestine. If necessary during a colonoscopy, small amounts of tissue can be removed for analysis (a biopsy) and polyps can be identified and entirely removed. In many cases, a colonoscopy allows accurate diagnosis and treatment of colorectal problems without the need for a major operation. Revised 05/2016 5 ?You are asked to wear a hospital gown and an IV will be started. ?You are given a pain reliever and a sedative intravenously (in your vein). You will feel relaxed and somewhat drowsy. ?You will lie on your left side, with your knees drawn up towards your chest. ?A small amount of air is used to expand the colon so the physician can see the colon sherman. ?You may feel mild cramping during the procedure. Cramping can be reduced by taking slow, deep breaths. ?The colonoscope is slowly withdrawn while the lining of your bowel is carefully examined. ?The procedure lasts from 30 minutes to 1 hour. What Happens After a Colonoscopy ?You will stay in a recovery room for observation until you are ready for discharge. ?You may feel some cramping or a sensation of having gas, but this quickly passes. ?If sedation has been given, a responsible family member or friend must drive you home. ?Avoid alcohol, driving, and operating machinery for 24 hours following the procedure. ?Unless otherwise instructed, you may immediately return to your normal diet. We recommend you wait until the day after your procedure to resume normal activities. ?If polyps were removed or a biopsy was taken, the physician performing your colonoscopy will tell you when it is safe to resume taking your blood thinners. ?If a biopsy was taken or a polyp was removed, you may notice a little amount of rectal bleeding for 1 to 2 days after the procedure. If you have a large amount of rectal bleeding, high or persistent fevers, or severe abdominal pain within the next 2 weeks, please go to your local emergency room and call the physician who performed your exam. 6 Revised 05/2016 ?Copyright 6060-3184 [facility]. All rights reserved. Revised 05/2016 Nick Merino 05/12/2017 7:38 AM Signed Grazyna Conway 05/12/2017 2:16 PM Signed Scheduled patient for a colonoscopy consult with Estefany Rome on 05/15/2017 Grazyna Conway Referring Provider: SELF [[id number]] Allergies As of Date: 05/09/2017 Noted Allergy Reaction CIPROFLOXACIN 01/11/2015 7 - Swelling MILK 02/12/2005 2 - Rash Date Reviewed: 05/09/2017 Reviewed by: Nick Merino - Fully Assessed Reason for Visit: Physical [83] Cmt: cough, sore throat, back pain, congestion - 2 days Reason For Visit History Recorded Primary Visit Diagnosis:Old tear of meniscus of left knee, unspecified meniscus, unspecified tear type [M23.207] Other Visit Diagnoses:Essential hypertension, benign [I10] Mixed hyperlipidemia [E78.2] URI, acute [J06.9] Special screening for malignant neoplasms, colon [Z12.11] Preoperative clearance [Z01.818] Order(s):ECG COMPLETE W INTERPRETATION [ECG01] Order #: [id number] FUTURE [] peg 3350-electrolytes (COLYTE) 240-22.72-6.72 -5.84 gram solutionTake 4,000 mL by mouth one time only for 1 dose.Disp: 4000 mLRfl: 0 COLONOSCOPY SCRN NOT HIGH RISK [[id number]] Order #: [id number] FUTURE COLONOSCOPY SCRN NOT HIGH RISK [[id number]] Order #: [id number]. #:[id number] DIAGNOSTIC (FOR REMOTE [facility] USE) [SQRPSA] Order #: [id number] Prescriptions as of 05/09/2017 Sig: SIMVASTATIN 40 MG TABLET TAKE 1 TABLET BY MOUTH DAILY * HYDROCHLOROTHIAZIDE 12.5 MG C* TAKE 1 CAPSULE BY MOUTH ONCE * TAMSULOSIN 0.4 MG CAPSULE TAKE 1 CAPSULE EVERY DAY LOSARTAN 50 MG TABLET TAKE 1 TABLET BY MOUTH ONCE D* ICAPS ORAL Take by mouth. PSYLLIUM HUSK 0.52 GRAM CAPSU* Take 1 capsule by mouth once * * ASPIRIN 81 MG TABLET Take one(1) tablet daily. PEG 3350 240 GRAM-ELECTROLYTE* Take 4,000 mL by mouth one ti* Problem List As Of Date 05/09/2017 Noted Resolved MIXED HYPERLIPIDEMIA [E78.2] INVALID FOR* Essential hypertension, benign [I10] INVALID FOR* More... PERS HX COLONIC POLYPS [Z86.010] INVALID FOR* ALLERGIC RHINITIS NOS [J30.9] INVALID FOR* IMPAIRED FASTING GLUCOSE [R73.01] INVALID FOR* Obstructive Sleep Apnea [G47.33] INVALID FOR* More... 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 Follow all of the instructions in this handout EXACTLY as they are written. If you do NOT follow the directions for when to start drinking the bowel preparation (see next page), your colonoscopy WILL be cancelled. ?Do NOT eat any solid food the ENTIRE day before your colonoscopy. ?Buy your bowel preparation at least 5 days before your colonoscopy. ?Do NOT mix the solution until the day before your colonoscopy. Designated Flow Manager on the Day of Your Exam A responsible family member or friend MUST come with you to your colonoscopy and REMAIN in the endoscopy area until you are discharged! You are NOT ALLOWED to drive, take a taxi or bus, or leave the Endoscopy Center ALONE. If you do not have a responsible hole digger truck driver (family member or friend) with you to take you home, your exam cannot be done with sedation and will be cancelled. Medications Some of the medicines you take may need to be stopped or adjusted before your colonoscopy. You MUST call the doctor who ordered any of the following medicines at least 2 weeks before your colonoscopy. ?Blood thinners -- such as Coumadin? (warfarin), Plavix? (clopidogrel), Ticlid? (ticlopidine hydrochloride), Agrylin? (anagrelide), Xarelto? (Rivaroxaban), Pradaxa? (Dabigatran), Eliquis? (Apixaban), and Effient? (Prasugrel). ?Insulin or diabetes pills. Please call the doctor that monitors your glucose levels. Your insulin dosage may need to be adjusted due to the diet restrictions required with this bowel preparation. (Please bring your diabetes medicines with you on the day of your procedure.) If you take aspirin, take it and ALL other medications prescribed by your doctor. On the day of your colonoscopy, take your medications with a sip of water. Revised 05/2016 1 Five (5) Days Before Your Colonoscopy ?Do NOT take medicines that stop diarrhea -- such as Imodium?, Kaopectate?, or Pepto Bismol?. ?Do NOT take fiber supplements -- such as Metamucil?, Citrucel?, or Perdiem?. ?Do NOT take products that contain iron -- such as multi- vitamins -- (the label lists what is in the products). ?Do NOT take vitamin E. Buy the prescription bowel preparation solution at your local pharmacy or drugstore pharmacy. Three (3) Days Before Your Colonoscopy Do NOT eat high-fiber foods -- such as popcorn, beans, seeds (flax, sunflower, quinoa), multigrain bread, nuts, salad/vegetables, or fresh and dried fruit. One (1) Day Before Your Colonoscopy Only drink clear liquids the ENTIRE DAY before your colonoscopy. Do NOT eat any solid foods. Drink at least 8 ounces of clear liquids every hour after waking up. The clear liquids you can drink include: ?water, apple, or white grape juice; broth; coffee or tea (without milk or creamer); clear carbonated beverages such as bharti onur or lemon-kotlik soda; Gatorade? or other sports drinks (not red); Gerson-Aid? or other flavored drinks (not red). You may eat plain jello or other gelatins (not red) or popsicles (not red). Do NOT drink alcohol on the day before or the day of the procedure. 2 Revised 05/2016 When to Mix and Drink Your Bowel Prep Follow the instructions on the label. After mixing, place the solution in the refrigerator for a couple of hours before drinking. You may add the flavor packet that came with the bowel preparation. DO NOT add ice, sugar or any flavorings to the solution. Evening Before Your Colonoscopy ?Start drinking the bowel preparation at 6 PM the evening before your colonoscopy. Drink an 8-oz glass of bowel preparation every 10 minutes. You must finish drinking the solution by 9 PM the night before your scheduled procedure. ?You may continue to drink clear liquids only until midnight. Do NOT eat or drink ANYTHING after midnight the night before your procedure or your procedure may be cancelled. This is for your safety and will reduce the risk of having any food or liquid in your stomach move into your lungs (aspiration) during a procedure. If you take aspirin, take it and ALL other prescribed medicines with a sip of water on the day of your colonoscopy. Contact Information: If you are unable to keep your appointment or have any questions about the instructions, please call the facility where the procedure is being performed. Call between the hours of 8:00 AM and 5:00 PM. If you are calling after 5:00 PM, please call Nurse security controls assessor at [phone]. [facility] [address] [address] Index # [id number] Revised 05/2016 3 Colonoscopy Procedure Overview Please Read Prior to the Procedure What is a Colonoscopy A colonoscopy is an outpatient procedure in which the inside of the large intestine (colon and rectum) is examined. A colonoscopy is commonly used to evaluate gastrointestinal symptoms, such as rectal and intestinal bleeding, abdominal pain, or changes in bowel habits. Colonoscopies are also performed in individuals without symptoms to check for colorectal polyps or cancer. A screening colonoscopy is recommended for anyone 50 years of age and older, and for anyone with parents, siblings or children with a history of colorectal cancer or polyps. What Happens Before a Colonoscopy To have a successful colonoscopy, your bowel must be empty so that your physician can clearly view the colon. To do this, it is very important to read and follow all of the instructions given to you at least 2 weeks BEFORE your exam. If your bowel is not empty, your colonoscopy will not be successful and may have to be repeated. If you feel nauseated or vomit while taking the bowel preparation, wait 30 minutes before drinking more fluid and start with small sips of solution. Some activity (such as walking) or a few soda crackers may help decrease the nausea you are feeling. If the nausea persists, please contact nurse data processing consultant at [phone]. You may experience skin irritation around the anus due to the passage of liquid stools. To prevent and treat skin irritation, you should: ?Apply Vaseline? or Desitin? ointment to the skin around the anus before drinking the bowel preparation medications. These products can be purchased at any drugstore. ?Wipe the skin after each bowel movement with disposable wet wipes instead of toilet paper. These are found in the toilet paper area of the store. ?Sit in a bathtub filled with warm water for 10 to 15 minutes after you finish passing a stool; after soaking, blot the skin dry with a soft cloth, apply Vaseline? or Desitin? ointment to the anal area, and place a cotton ball just outside your anus to absorb leaking fluid. What Happens During a Colonoscopy During a colonoscopy, an experienced physician uses a colonoscope (a long, flexible instrument about 1/2 inch in diameter) to view the lining of the colon. The colonoscope is inserted into the rectum and advanced through the large intestine. If necessary during a colonoscopy, small amounts of tissue can be removed for analysis (a biopsy) and polyps can be identified and entirely removed. In many cases, a colonoscopy allows accurate diagnosis and treatment of colorectal problems without the need for a major operation. Revised 05/2016 5 ?You are asked to wear a hospital gown and an IV will be started. ?You are given a pain reliever and a sedative intravenously (in your vein). You will feel relaxed and somewhat drowsy. ?You will lie on your left side, with your knees drawn up towards your chest. ?A small amount of air is used to expand the colon so the physician can see the colon sherman. ?You may feel mild cramping during the procedure. Cramping can be reduced by taking slow, deep breaths. ?The colonoscope is slowly withdrawn while the lining of your bowel is carefully examined. ?The procedure lasts from 30 minutes to 1 hour. What Happens After a Colonoscopy ?You will stay in a recovery room for observation until you are ready for discharge. ?You may feel some cramping or a sensation of having gas, but this quickly passes. ?If sedation has been given, a responsible family member or friend must drive you home. ?Avoid alcohol, driving, and operating machinery for 24 hours following the procedure. ?Unless otherwise instructed, you may immediately return to your normal diet. We recommend you wait until the day after your procedure to resume normal activities. ?If polyps were removed or a biopsy was taken, the physician performing your colonoscopy will tell you when it is safe to resume taking your blood thinners. ?If a biopsy was taken or a polyp was removed, you may notice a little amount of rectal bleeding for 1 to 2 days after the procedure. If you have a large amount of rectal bleeding, high or persistent fevers, or severe abdominal pain within the next 2 weeks, please go to your local emergency room and call the physician who performed your exam. 6 Revised 05/2016 ?Copyright 4590-1819 [facility]. All rights reserved. Revised 05/2016 Health Information For Patients and the Community How to Prepare for Your Colonoscopy Using Golytely, Nulytely, Trilyte or Colyte Preparations IMPORTANT - Please Read These Instructions at Least 2 Weeks Before Your Colonoscopy [facility] Instructions: ?Your bowel must be empty so that your doctor can clearly view your colon. Follow all of the instructions in this handout EXACTLY as they are written. If you do NOT follow the directions for when to start drinking the bowel preparation (see next page), your colonoscopy WILL be cancelled. ?Do NOT eat any solid food the ENTIRE day before your colonoscopy. ?Buy your bowel preparation at least 5 days before your colonoscopy. ?Do NOT mix the solution until the day before your colonoscopy. Designated Flow Manager on the Day of Your Exam A responsible family member or friend MUST come with you to your colonoscopy and REMAIN in the endoscopy area until you are discharged! You are NOT ALLOWED to drive, take a taxi or bus, or leave the [facility] Center ALONE. If you do not have a responsible hole digger truck driver (family member or friend) with you to take you home, your exam cannot be done with sedation and will be cancelled. Medications Some of the medicines you take may need to be stopped or adjusted before your colonoscopy. You MUST call the doctor who ordered any of the following medicines at least 2 weeks before your colonoscopy. ?Blood thinners -- such as Coumadin? (warfarin), Plavix? (clopidogrel), Ticlid? (ticlopidine hydrochloride), Agrylin? (anagrelide), Xarelto? (Rivaroxaban), Pradaxa? (Dabigatran), Eliquis? (Apixaban), and Effient? (Prasugrel). ?Insulin or diabetes pills. Please call the doctor that monitors your glucose levels. Your insulin dosage may need to be adjusted due to the diet restrictions required with this bowel preparation. (Please bring your diabetes medicines with you on the day of your procedure.) If you take aspirin, take it and ALL other medications prescribed by your doctor. On the day of your colonoscopy, take your medications with a sip of water. Revised 05/2016 1 Five (5) Days Before Your Colonoscopy ?Do NOT take medicines that stop diarrhea -- such as Imodium?, Kaopectate?, or Pepto Bismol?. ?Do NOT take fiber supplements -- such as Metamucil?, Citrucel?, or Perdiem?. ?Do NOT take products that contain iron -- such as multi- vitamins -- (the label lists what is in the products). ?Do NOT take vitamin E. Buy the prescription bowel preparation solution at your local pharmacy or drugstore pharmacy. Three (3) Days Before Your Colonoscopy Do NOT eat high-fiber foods -- such as popcorn, beans, seeds (flax, sunflower, quinoa), multigrain bread, nuts, salad/vegetables, or fresh and dried fruit. One (1) Day Before Your Colonoscopy Only drink clear liquids the ENTIRE DAY before your colonoscopy. Do NOT eat any solid foods. Drink at least 8 ounces of clear liquids every hour after waking up. The clear liquids you can drink include: ?water, apple, or white grape juice; broth; coffee or tea (without milk or creamer); clear carbonated beverages such as bharti onur or lemon-kotlik soda; Gatorade? or other sports drinks (not red); Gerson-Aid? or other flavored drinks (not red). You may eat plain jello or other gelatins (not red) or popsicles (not red). Do NOT drink alcohol on the day before or the day of the procedure. 2 Revised 05/2016 When to Mix and Drink Your Bowel Prep Follow the instructions on the label. After mixing, place the solution in the refrigerator for a couple of hours before drinking. You may add the flavor packet that came with the bowel preparation. DO NOT add ice, sugar or any flavorings to the solution. Evening Before Your Colonoscopy ?Start drinking the bowel preparation at 6 PM the evening before your colonoscopy. Drink an 8-oz glass of bowel preparation every 10 minutes. You must finish drinking the solution by 9 PM the night before your scheduled procedure. ?You may continue to drink clear liquids only until midnight. Do NOT eat or drink ANYTHING after midnight the night before your procedure or your procedure may be cancelled. This is for your safety and will reduce the risk of having any food or liquid in your stomach move into your lungs (aspiration) during a procedure. If you take aspirin, take it and ALL other prescribed medicines with a sip of water on the day of your colonoscopy. Contact Information: If you are unable to keep your appointment or have any questions about the instructions, please call the facility where the procedure is being performed. Call between the hours of 8:00 AM and 5:00 PM. If you are calling after 5:00 PM, please call Nurse security controls assessor at [phone]. [facility] [address] [address] Index # [id number] Revised 05/2016 3 Colonoscopy Procedure Overview Please Read Prior to the Procedure What is a Colonoscopy A colonoscopy is an outpatient procedure in which the inside of the large intestine (colon and rectum) is examined. A colonoscopy is commonly used to evaluate gastrointestinal symptoms, such as rectal and intestinal bleeding, abdominal pain, or changes in bowel habits. Colonoscopies are also performed in individuals without symptoms to check for colorectal polyps or cancer. A screening colonoscopy is recommended for anyone 50 years of age and older, and for anyone with parents, siblings or children with a history of colorectal cancer or polyps. What Happens Before a Colonoscopy To have a successful colonoscopy, your bowel must be empty so that your physician can clearly view the colon. To do this, it is very important to read and follow all of the instructions given to you at least 2 weeks BEFORE your exam. If your bowel is not empty, your colonoscopy will not be successful and may have to be repeated. If you feel nauseated or vomit while taking the bowel preparation, wait 30 minutes before drinking more fluid and start with small sips of solution. Some activity (such as walking) or a few soda crackers may help decrease the nausea you are feeling. If the nausea persists, please contact nurse data processing consultant at [phone]. You may experience skin irritation around the anus due to the passage of liquid stools. To prevent and treat skin irritation, you should: ?Apply Vaseline? or Desitin? ointment to the skin around the anus before drinking the bowel preparation medications. These products can be purchased at any drugstore. ?Wipe the skin after each bowel movement with disposable wet wipes instead of toilet paper. These are found in the toilet paper area of the store. ?Sit in a bathtub filled with warm water for 10 to 15 minutes after you finish passing a stool; after soaking, blot the skin dry with a soft cloth, apply Vaseline? or Desitin? ointment to the anal area, and place a cotton ball just outside your anus to absorb leaking fluid. What Happens During a Colonoscopy During a colonoscopy, an experienced physician uses a colonoscope (a long, flexible instrument about 1/2 inch in diameter) to view the lining of the colon. The colonoscope is inserted into the rectum and advanced through the large intestine. If necessary during a colonoscopy, small amounts of tissue can be removed for analysis (a biopsy) and polyps can be identified and entirely removed. In many cases, a colonoscopy allows accurate diagnosis and treatment of colorectal problems without the need for a major operation. Revised 05/2016 5 ?You are asked to wear a hospital gown and an IV will be started. ?You are given a pain reliever and a sedative intravenously (in your vein). You will feel relaxed and somewhat drowsy. ?You will lie on your left side, with your knees drawn up towards your chest. ?A small amount of air is used to expand the colon so the physician can see the colon sherman. ?You may feel mild cramping during the procedure. Cramping can be reduced by taking slow, deep breaths. ?The colonoscope is slowly withdrawn while the lining of your bowel is carefully examined. ?The procedure lasts from 30 minutes to 1 hour. What Happens After a Colonoscopy ?You will stay in a recovery room for observation until you are ready for discharge. ?You may feel some cramping or a sensation of having gas, but this quickly passes. ?If sedation has been given, a responsible family member or friend must drive you home. ?Avoid alcohol, driving, and operating machinery for 24 hours following the procedure. ?Unless otherwise instructed, you may immediately return to your normal diet. We recommend you wait until the day after your procedure to resume normal activities. ?If polyps were removed or a biopsy was taken, the physician performing your colonoscopy will tell you when it is safe to resume taking your blood thinners. ?If a biopsy was taken or a polyp was removed, you may notice a little amount of rectal bleeding for 1 to 2 days after the procedure. If you have a large amount of rectal bleeding, high or persistent fevers, or severe abdominal pain within the next 2 weeks, please go to your local emergency room and call the physician who performed your exam. 6 Revised 05/2016 ?Copyright 6544-8029 [facility]. All rights reserved. Revised 05/2016 Health Information For Patients and the Community How to Prepare for Your Colonoscopy Using Golytely, Nulytely, Trilyte or Colyte Preparations IMPORTANT - Please Read These Instructions at Least 2 Weeks Before Your Colonoscopy [place] Instructions: ?Your bowel must be empty so that your doctor can clearly view your colon. Follow all of the instructions in this handout EXACTLY as they are written. If you do NOT follow the directions for when to start drinking the bowel preparation (see next page), your colonoscopy WILL be cancelled. ?Do NOT eat any solid food the ENTIRE day before your colonoscopy. ?Buy your bowel preparation at least 5 days before your colonoscopy. ?Do NOT mix the solution until the day before your colonoscopy. Designated Flow Manager on the Day of Your Exam A responsible family member or friend MUST come with you to your colonoscopy and REMAIN in the endoscopy area until you are discharged! You are NOT ALLOWED to drive, take a taxi or bus, or leave the Endoscopy Center ALONE. If you do not have a responsible hole digger truck driver (family member or friend) with you to take you home, your exam cannot be done with sedation and will be cancelled. Medications Some of the medicines you take may need to be stopped or adjusted before your colonoscopy. You MUST call the doctor who ordered any of the following medicines at least 2 weeks before your colonoscopy. ?Blood thinners -- such as Coumadin? (warfarin), Plavix? (clopidogrel), Ticlid? (ticlopidine hydrochloride), Agrylin? (anagrelide), Xarelto? (Rivaroxaban), Pradaxa? (Dabigatran), Eliquis? (Apixaban), and Effient? (Prasugrel). ?Insulin or diabetes pills. Please call the doctor that monitors your glucose levels. Your insulin dosage may need to be adjusted due to the diet restrictions required with this bowel preparation. (Please bring your diabetes medicines with you on the day of your procedure.) If you take aspirin, take it and ALL other medications prescribed by your doctor. On the day of your colonoscopy, take your medications with a sip of water. Revised 05/2016 1 Five (5) Days Before Your Colonoscopy ?Do NOT take medicines that stop diarrhea -- such as Imodium?, Kaopectate?, or Pepto Bismol?. ?Do NOT take fiber supplements -- such as Metamucil?, Citrucel?, or Perdiem?. ?Do NOT take products that contain iron -- such as multi- vitamins -- (the label lists what is in the products). ?Do NOT take vitamin E. Buy the prescription bowel preparation solution at your local pharmacy or drugstore pharmacy. Three (3) Days Before Your Colonoscopy Do NOT eat high-fiber foods -- such as popcorn, beans, seeds (flax, sunflower, quinoa), multigrain bread, nuts, salad/vegetables, or fresh and dried fruit. One (1) Day Before Your Colonoscopy Only drink clear liquids the ENTIRE DAY before your colonoscopy. Do NOT eat any solid foods. Drink at least 8 ounces of clear liquids every hour after waking up. The clear liquids you can drink include: ?water, apple, or white grape juice; broth; coffee or tea (without milk or creamer); clear carbonated beverages such as bharti onur or lemon-kotlik soda; Gatorade? or other sports drinks (not red); Gerson-Aid? or other flavored drinks (not red). You may eat plain jello or other gelatins (not red) or popsicles (not red). Do NOT drink alcohol on the day before or the day of the procedure. 2 Revised 05/2016 When to Mix and Drink Your Bowel Prep Follow the instructions on the label. After mixing, place the solution in the refrigerator for a couple of hours before drinking. You may add the flavor packet that came with the bowel preparation. DO NOT add ice, sugar or any flavorings to the solution. Evening Before Your Colonoscopy ?Start drinking the bowel preparation at 6 PM the evening before your colonoscopy. Drink an 8-oz glass of bowel preparation every 10 minutes. You must finish drinking the solution by 9 PM the night before your scheduled procedure. ?You may continue to drink clear liquids only until midnight. Do NOT eat or drink ANYTHING after midnight the night before your procedure or your procedure may be cancelled. This is for your safety and will reduce the risk of having any food or liquid in your stomach move into your lungs (aspiration) during a procedure. If you take aspirin, take it and ALL other prescribed medicines with a sip of water on the day of your colonoscopy. Contact Information: If you are unable to keep your appointment or have any questions about the instructions, please call the facility where the procedure is being performed. Call between the hours of 8:00 AM and 5:00 PM. If you are calling after 5:00 PM, please call Nurse security controls assessor at [phone]. [facility] [address] [address] Index # [id number] Revised 05/2016 3 Colonoscopy Procedure Overview Please Read Prior to the Procedure What is a Colonoscopy A colonoscopy is an outpatient procedure in which the inside of the large intestine (colon and rectum) is examined. A colonoscopy is commonly used to evaluate gastrointestinal symptoms, such as rectal and intestinal bleeding, abdominal pain, or changes in bowel habits. Colonoscopies are also performed in individuals without symptoms to check for colorectal polyps or cancer. A screening colonoscopy is recommended for anyone 50 years of age and older, and for anyone with parents, siblings or children with a history of colorectal cancer or polyps. What Happens Before a Colonoscopy To have a successful colonoscopy, your bowel must be empty so that your physician can clearly view the colon. To do this, it is very important to read and follow all of the instructions given to you at least 2 weeks BEFORE your exam. If your bowel is not empty, your colonoscopy will not be successful and may have to be repeated. If you feel nauseated or vomit while taking the bowel preparation, wait 30 minutes before drinking more fluid and start with small sips of solution. Some activity (such as walking) or a few soda crackers may help decrease the nausea you are feeling. If the nausea persists, please contact nurse data processing consultant at [phone]. You may experience skin irritation around the anus due to the passage of liquid stools. To prevent and treat skin irritation, you should: ?Apply Vaseline? or Desitin? ointment to the skin around the anus before drinking the bowel preparation medications. These products can be purchased at any drugstore. ?Wipe the skin after each bowel movement with disposable wet wipes instead of toilet paper. These are found in the toilet paper area of the store. ?Sit in a bathtub filled with warm water for 10 to 15 minutes after you finish passing a stool; after soaking, blot the skin dry with a soft cloth, apply Vaseline? or Desitin? ointment to the anal area, and place a cotton ball just outside your anus to absorb leaking fluid. What Happens During a Colonoscopy During a colonoscopy, an experienced physician uses a colonoscope (a long, flexible instrument about 1/2 inch in diameter) to view the lining of the colon. The colonoscope is inserted into the rectum and advanced through the large intestine. If necessary during a colonoscopy, small amounts of tissue can be removed for analysis (a biopsy) and polyps can be identified and entirely removed. In many cases, a colonoscopy allows accurate diagnosis and treatment of colorectal problems without the need for a major operation. Revised 05/2016 5 ?You are asked to wear a hospital gown and an IV will be started. ?You are given a pain reliever and a sedative intravenously (in your vein). You will feel relaxed and somewhat drowsy. ?You will lie on your left side, with your knees drawn up towards your chest. ?A small amount of air is used to expand the colon so the physician can see the colon sherman. ?You may feel mild cramping during the procedure. Cramping can be reduced by taking slow, deep breaths. ?The colonoscope is slowly withdrawn while the lining of your bowel is carefully examined. ?The procedure lasts from 30 minutes to 1 hour. What Happens After a Colonoscopy ?You will stay in a recovery room for observation until you are ready for discharge. ?You may feel some cramping or a sensation of having gas, but this quickly passes. ?If sedation has been given, a responsible family member or friend must drive you home. ?Avoid alcohol, driving, and operating machinery for 24 hours following the procedure. ?Unless otherwise instructed, you may immediately return to your normal diet. We recommend you wait until the day after your procedure to resume normal activities. ?If polyps were removed or a biopsy was taken, the physician performing your colonoscopy will tell you when it is safe to resume taking your blood thinners. ?If a biopsy was taken or a polyp was removed, you may notice a little amount of rectal bleeding for 1 to 2 days after the procedure. If you have a large amount of rectal bleeding, high or persistent fevers, or severe abdominal pain within the next 2 weeks, please go to your local emergency room and call the physician who performed your exam. 6 Revised 05/2016 ?Copyright 7204-3336 [facility]. All rights reserved. Revised 05/2016 Prescriptions ordered this encounter Disp Refills Start End PEG 3350 240 GRAM-ELECTROLYTES 22.72* 4000* 0 05/09/2017 05/09/2017 Route: ORAL Sig: Take 4,000 mL by mouth one time only for 1 dose. Follow-up and Disposition History Recorded Encounter Status:Closed by VIRGIE FLORIAN MD on 05/12/17 COMP METABOLIC PANEL Collected: 05/05/2017 Status: F Source: LARAMIE 9:[address] [facility] REPOSITORY TYPE CODE TESTS RESULT OUT OF REFERENCE UNITS RANGE LAB TP 6.3-8.0 g/dL Protein, Total 7.9 LAB ALB 3.9-4.9 g/dL Albumin 4.7 LAB CA 8.5-10.2 mg/dL Calcium, Total 9.9 LAB TBIL 0.2-1.3 mg/dL Bilirubin, Total 0.7 LAB ALKP 36-108 U/L Alkaline Phosphatase 64 LAB AST 14-40 U/L AST 24 LAB GLU 74-99 mg/dL Glucose High 125 Result Comment: The [place] Diabetes Association (ADA) provides guidance for cutoff values for fasting glucose and random glucose. The ADA defines fasting as no caloric intake for at least 8 hours. Fas ting plasma glucose results between 100 to 125 mg/dL indicate increased risk for diabetes (prediabetes). Fasting plasma glucose results greater than or equal to 126 mg/dL meet the criteria for diagnosis of diabetes. In the absence of unequivocal hyperglycemia, results should be confirmed by repeat testing. In a patient with classic symptoms of hyperglycemia or hyperglycemic crisis, random plasma glucose results greater than or equal to 200 mg/dL meet the criteria for diagnosis of diabetes. Reference: Standards of Medical Care in Diabetes 2016, [place] Diabetes Association. Diabetes Care. 2016.39(Suppl 1). LAB BUN 9-24 mg/dL BUN 18 LAB CRET 0.73-1.22 mg/dL Creatinine 0.91 LAB NA 136-144 mmol/L Sodium 137 LAB K 3.7-5.1 mmol/L Potassium 4.2 LAB CL 97-105 mmol/L Chloride 100 LAB CO2 22-30 mmol/L CO2 24 LAB AGAP 9-18 mmol/L Anion Gap 13 LAB ALT 10-54 U/L ALT 48 LAB GFRAA eGFR- Amer. >60 LAB GFRNAA . eGFR-All Other Races >60 Result Comment: eGFR (Estimated GFR) Units of measure: mL/min/1.73 meters squared eGFR is derived from the reexpressed MDRD Study equation using the following parameters: serum creatinine, age, gender and race. The creatinine assay has been calibrated to be traceable to IDMS. An eGFR <60 mL/min/1.73m2 for >3 months is consistent with chronic kidney disease. Refer to KDOQI guidelines for clinical interpretation. In patients with unstable renal function, e.g. those with acute kidney injury, the eGFR may not accurately reflect actual GFR. Performed By: #### CMP, LIPB #### [facility] [address] [address] LIPID PANEL, BASIC Collected: 05/05/2017 Status: F Source: [place]ARAMIE 9:[address] [facility] REPOSITORY TYPE CODE TESTS RESULT OUT OF REFERENCE UNITS RANGE LAB CHOL <200 mg/dL Cholesterol 138 Result Comment: <200 mg/dL, Desirable 200-239 mg/dL, Borderline high >239 mg/dL, High LAB TRIGLY <150 mg/dL Triglyceride High 197 Result Comment: <150 mg/dL, Normal 150-199 mg/dL, Borderline high 200-499 mg/dL, High >499 mg/dL, Very high LAB HDL >39 mg/dL HDL-Cholesterol Low 25 Result Comment: 40-59 mg/dL, Acceptable >59 mg/dL, High: Negative risk factor for coronary heart disease <40 mg/dL, Low: Positive risk factor for coronary heart disease LAB LDL <100 mg/dL LDL-Cholesterol 74 Result Comment: <100 mg/dL, Optimal 100-129 mg/dL, Near optimal/above optimal 130-159 mg/dL, Borderline high 160-189 mg/dL, High >189 mg/dL, Very high Secondary prevention optimal LDL Cholesterol levels are recommended to be < 70 mg/dL LAB NONHDL <130 mg/dL Non HDL Cholesterol 113 Result Comment: <130 mg/dL, Optimal 130-159 mg/dL, Near optimal/above optimal 160-189 mg/dL, Borderline high 190-219 mg/dL, High >219 mg/dL, Very high Secondary prevention optimal non HDL Cholesterol levels are recommended to be < 100 mg/dL LAB FT hrs Fasting Time 12 LAB VLDL <30 mg/dL High VLDL Cholesterol 39 LAB TCHDL <5.10 High TC:HDL Ratio 5.52 LAB LDLHDL <2.54 High LDL:HDL Ratio 2.96 Result Comment: Reference: 1. National Cholesterol Education Program ATP III Guideline At-A-Glance Quick Desk Reference: National Heart, Lung, and Blood [place]. National Institutes of Health. 2001: NIH Publication No. 01-3305. 2. An International Atherosclerosis Society position paper: global recommendations for the management of dyslipidemia: executive summary, Atherosclerosis. 2014: 232(2):410-413. Performed By: #### CMP, LIPB #### [facility] [address] [address] ALLERGIES ALLERGIES DATE TYPE / CODE NAME / CODE REACTION SEVERITY SOURCE 08/16/2017 Drug ciprofloxacin Swelling Unknown [place] Allergy/416 HCl/[id number](RXNO Community 392890([facility] ED CT) Repository 08/16/2017 Drug Milk Containing Other Unknown [place] Allergy/416 Products/[id number] Community 810853([facility] ED CT) Repository 08/16/2017 Drug ciprofloxacin/F0060 Swelling Unknown [place] Allergy/416 45845(RXNORM) Community 288345([facility] ED CT) Repository 01/11/2015 DRUG CIPROFLOXACIN SWELLING [facility] INGREDI/419 Main [place] 407142([facility] Repository ED CT) 02/12/2005 Animal/4201 CATS ITCHING [facility] [address]([facility] D CT) Repository 02/12/2005 Food/462792 MILK RASH [facility] 000([facility] CT) Repository ENCOUNTERS ENCOUNTERS ADMIT/DISCHARGE ACCOUNT ADMITTING ENCOUNTER LOCATION SOURCE NUMBER CLASS 04/30/2018 [id number] Ambulatory [facility] ing:CT Repository 04/28/2018/04/29/19 [id number] Ambulatory [address] Main Junior Repository 04/27/2018 [id number] Ambulatory [facility] ing:LABSPEC Repository 04/09/2018/04/09/19 [id number] Ambulatory [place] [facility] Main Junior Repository 04/09/2018/04/09/19 [id number] Ambulatory [place] [facility] Main Junior Repository 04/02/2018/04/03/20 [id number] Ambulatory [address] Main Junior Repository 03/22/2018/03/24/20 [id number] Ambulatory [address] Junior Repository 12/08/2017/12/11/19 [id number] Ambulatory [address] Repository 08/16/2017/08/17/19 [id number] Emergency [address] ing:ED Repository 07/07/2017 [id number] Ambulatory [facility] ing:LAB Repository 06/16/2017/06/18/19 [id number] Ambulatory [address] Main Junior Repository 06/16/2017 [id number] Ambulatory [facility] ing:LAB Repository 05/21/2017/05/21/19 [id number] Ambulatory [address] Junior Repository 05/20/2017/05/20/19 [id number] DESTINEY Ambulatory [address] Main Junior Repository 05/15/2017/05/16/19 [id number] Ambulatory [address] Main Junior Repository 05/09/2017/05/12/19 [id number] Ambulatory [address] Main Junior Repository 05/05/2017/05/05/19 [id number] Ambulatory [address] Repository PAYERS PAYERS ENCOUNTER GUARANTOR PAYER SUBSCRIBER SOURCE 04/30/2018 MARSHAL [id number] Insurance:ASYA RODRIGUEZ: Community [place] MEDICARE [place]icy [id number] Number: Repository [id number]: [phone]) [id number] [phone] () Date:8028-26-22WW [id number] [place] [address]TP: 04/30/2018 Secondary NOT GIVENUNK [place] Insurance:SELF PAY [facility] Number: Effective Repository Date:2018-04-27 04/27/2018 MARSHAL D Primary MARSHAL D [place] [id number] Insurance:ANTHEM ELFRANCEDOB: Community [place] MEDICARE PPOPolicy [id number] Number: Repository [phone]: [phone]) [id number] [phone] () Date:6170-20-67NT [address], [place] [address]BS: 04/27/2018 Secondary NOT GIVENUNK [place] Insurance:SELF PAY [facility] Number: Effective Repository Date:2018-04-27 08/16/2017 MARSHAL D Primary MARSHAL D [place] [id number] Insurance:ANTHEM ELFRANCEDOB: Community [place] MEDICARE [facility] [id number] Number: Repository [phone]: [phone]) [id number] [phone] () Date:4337-67-01YX [id number] [place] [address] 16[address]LL: 08/16/2017 Secondary NOT GIVENUNK [place] Insurance:SELF PAY [facility] Number: Effective Repository Date:2017-08-16 07/07/2017 MARSHAL D Primary MARSHAL D [place] [id number] Insurance:ANTHEM MIRZADOB: Community [place] MEDICARE OPolicy [id number] Number: Repository [phone]: [phone]) [id number] [phone] () Date:0970-42-83ED [id number] [place] [address]YP: 07/07/2017 Secondary NOT GIVENUNK [place] Insurance:SELF PAY [facility] Number: Effective Repository Date:2017-07-07 06/16/2017 Marshal [id number] Primary Marshal ElgesDOB: [place] Insurance:ANTHEM [id number] [place] [facility] PPOPolicy Hospital [id number]: [phone] Number: Repository [phone] (HP) [id number] Date:2694-13-57[address], [place] [address]YR: 06/16/2017 Secondary NOT GIVENUNK [place] Insurance:SELF PAY [facility] Number: Effective Repository Date:2017-06-16
== END ==
PROVIDERS: Referring Provider Nurse Practitioner Adult Health; Visit Provider Nurse Practitioner Adult Health
DX: R31.9 Hematuria, unspecified (principal)
CPT/HCPCS: 87086; 87088; 87186

== ENCOUNTER → 2018-06-23 11:02 | Outpatient (CLI) | payer MEDICARE, SELFPAY ==
[2018-06-23 11:42] LABS: PSA,Total- Diagnostic 3.69 ng/mL (0.0-4.0)
== END ==
PROVIDERS: Family Provider Family Medicine; PCP Family Medicine; Referring Provider Nurse Practitioner Adult Health; Visit Provider Nurse Practitioner Adult Health
DX: R97.20 Elevated prostate specific antigen [PSA] (principal)
CPT/HCPCS: 36415; 84153

== ENCOUNTER → 2018-07-15 | Outpatient (CLI) | payer MEDICARE, SELFPAY | END | disposition home or self-care (01) | LOC: LABSPEC 15:44 | PROVIDERS: Family Provider Family Medicine; PCP Family Medicine; Referring Provider Otolaryngology Otolaryngology/Facial Plastic Surgery; Visit Provider Otolaryngology Otolaryngology/Facial Plastic Surgery | DX: J32.9 Chronic sinusitis, unspecified (principal) | CPT/HCPCS: 87070; 87205 ==

== ENCOUNTER → 2018-07-29 | Outpatient (CLI) | payer MEDICARE, SELFPAY | END | disposition home or self-care (01) | LOC: LAB 12:34 | PROVIDERS: Family Provider Family Medicine; PCP Family Medicine; Referring Provider Nurse Practitioner Adult Health; Visit Provider Nurse Practitioner Adult Health | DX: R31.9 Hematuria, unspecified (principal) | CPT/HCPCS: 87086 ==

== ENCOUNTER → 2018-08-03 | Outpatient (CLI) | payer MEDICARE, SELFPAY ==
--- NOTE | 2018-08-03 07:23 | CT_ITS ---
STUDY: CT ABDOMEN AND PELVIS WITH AND WITHOUT CONTRAST REASON FOR EXAM: Male, 72 years old. Gross hematuria. Increasing urinary tract infections in the last 2 years. RADIATION DOSAGE (If Supplied By Facility): CTDIvol = ( 30.02 ) mGy, DLP = ( 4010.01 ) mGycm TECHNIQUE: Transaxial images were obtained from the dome of the diaphragm to the symphysis pubis without oral contrast. 100mL IV Isovue 300 was administered. Sagittal and coronal images were reconstructed. Individualized dose optimization techniques were used for this CT. COMPARISON: Prior comparison studies are not available for review at this time. FINDINGS: The visualized lung bases are unremarkable. The visualized portions of the heart are within normal limits. Normal liver. Normal gallbladder and extrahepatic biliary system. Normal spleen. Normal pancreas. Normal bilateral adrenal glands. There is a right-sided renal cyst measuring approximately 3.3 cm in greatest dimension. Normal left kidney. Normal visualized stomach. There is no evidence for dilated bowel, ascites or pneumoperitoneum. Small bowel has a grossly normal appearance. Also stool is visible in the ascending colon and transverse colon with relative nondistention of the ascending colon. There are scattered colonic diverticula. There is mild abnormal thickening of the sherman of sigmoid colon possibly related to diverticulosis. The appendix is visualized and appears normal. There is mild atherosclerotic calcification of the abdominal aorta with elongation and tortuosity, but without a demonstrated aneurysm. Normal inferior vena cava. Normal retroperitoneum. Normal urinary bladder. There is enlargement of the prostate gland. Normal abdominal wall. There are diffuse degenerative changes of the visualized lumbar spine. CT/CT Abd/Pelvis W/WO Contrast IMPRESSION: 1. No CT evidence of acute intra-abdominal disease. 2. Right-sided renal cyst. 3. Mild enlargement of the prostate. Electronically Signed: Andreina Juarez MD at 20:39 EDT , Service support ,
[2018-08-03 07:45] LABS: EGFR FINGERSTICK > 60.0000 mL/min (>60)
== END | disposition home or self-care (01) ==
PROVIDERS: Family Provider Family Medicine; PCP Family Medicine; Referring Provider Nurse Practitioner Adult Health; Visit Provider Nurse Practitioner Adult Health
DX: R31.9 Hematuria, unspecified (principal)
CPT/HCPCS: 74178; Q9967

== ENCOUNTER → 2018-08-10 | Outpatient (CLI) | payer MEDICARE, SELFPAY ==
--- NOTE | 2018-08-10 12:21 | EKG12_ITS ---
Test Reason : PRE-OP Blood Pressure : / mmHG Vent. Rate : 057 BPM Atrial Rate : 057 BPM P-R Int : 164 ms QRS Dur : 102 ms QT Int : 406 ms P-R-T Axes : 039 016 026 degrees QTc Int : 395 ms Sinus bradycardia Otherwise normal ECG Confirmed by AZUL JOSHUA, PHUONG ([id number]), website/blog editor ESTEFANY MOSQUERA ([id number]) on 08/11/2018 1:34:50 PM Referred By: Twan Barakat Confirmed By:PHUONG LIANG MD
[2018-08-10 12:28] LABS: Hemoglobin 14.6 g/dl (13.0-16.5); Mean Corp Hgb Conc 33.2 g/gl (32-36); Mean Corpuscular Hgb 29.9 pg (27.0-32.0); Mean Corpuscular Volume 90.2 fL (80-94); Mean Platelet Vol. 10.2 fl (6.2-12.0); Platelet Count 252 K/mm3 (150-450); RBC Distribution Width CV 13.7 % (11.6-14.6); RBC Distribution Width SD 44.9 fl (35.1-43.9); Red Blood Count 4.88 M/mm3 (4.6-6.2); White Blood Count 9.8 K/mm3 (4.4-11.0)
[2018-08-10 12:29] LABS: Scan Indicated on CBC? Y/N NO
[2018-08-10 12:58] LABS: Anion Gap 2 (5-15); BUN 21 mg/dL (7-18); BUN/Creat Ratio 23.3 RATIO (10-20); Calcium,Total 9.5 mg/dL (8.5-10.1); Chloride 107 mmol/L (98-107); EST Glomerular Filtration Rate 88 mL/min (>60); Est Glom Filt Rate - Afr Amer 107 mL/min (>60); Glucose 109 mg/dL (74-106); Potassium 4.3 mmol/L (3.5-5.1); Sodium Level 138 mmol/L (136-145)
== END | disposition home or self-care (01) ==
LOC: LAB 12:02
PROVIDERS: Family Provider Family Medicine; PCP Family Medicine; Referring Provider Urology; Visit Provider Urology
DX: N20.0 Calculus of kidney (principal)
CPT/HCPCS: 36415; 80048; 85027; 93005

== ENCOUNTER 2019-09-09 12:10 | Emergency (ER) | payer MEDICARE, SELFPAY ==
[2019-09-09 12:13] VITALS: BP 126/81; PULSE 62; RESP 17; TEMP 36.5; O2SAT 97; O2SAT 98; BMI 32.3
--- NOTE | 2019-09-09 12:35 | EKG12_ITS ---
Test Reason : SOB Blood Pressure : / mmHG Vent. Rate : 052 BPM Atrial Rate : 052 BPM P-R Int : 182 ms QRS Dur : 100 ms QT Int : 412 ms P-R-T Axes : 033 003 013 degrees QTc Int : 383 ms Sinus bradycardia Otherwise normal ECG Confirmed by AZUL JOSHUA, PHUONG ([id number]), legal editor ESTEFANY MOSQUERA ([id number]) on 09/13/2019 1:33:45 PM Referred By: KARLA Confirmed By:PHUONG LIANG MD
--- NOTE | 2019-09-09 13:08 | ED.DCSUM_ITS ---
History of Present Illness Chief Complaint: Shortness of Breath Informant: Patient Onset: Weeks Activity at onset: Exertion Timing: Intermittent Quality: Dyspnea on exertion. Negative for: Orthopnea, PND, Wheezing Current Severity: Mild Maximum Severity: Moderate Worsened by: Exertion Relieved by: Rest Narrative: Patient is a 74-year-old male with history of hypertension, AIXA, hyperlipidemia and BPH presenting with worsening shortness of breath. Patient states for the past month or so he has had progressively worsening dyspnea on exertion. States it began a year he was going to the gym regularly and was able to ride a bike hard for 30 minutes not get winded. He states now he can even walk up a ramp without starting to feel out of breath. He also feels that there is a tightness in his chest. He denies any swelling of his legs. He denies any history of DVT or PE. He denies any associated chest pain. He denies any wheezing. He is also concerned because his was diagnosed with pneumonia 1 week ago. He is not sure if he might be carrier or something else going on. He denies any associated orthopnea. He denies any fever or chills. He notes he has had a little bit of a dry cough that was worse today. It is nonproductive. No other complaints at this time. He did have a x-ray by his PCP yesterday was not sure what it showed. Past Medical History - Allergies and Home Meds Allergies/Adverse Reactions: Allergies ciprofloxacin [From Cipro] Allergy (Verified 09/09/19 12:11) Swelling ciprofloxacin HCl [From Cipro] Allergy (Verified 09/09/19 12:11) Swelling Milk Containing Products Adverse Reaction (Verified 09/09/19 12:11) Other ECZEMA Primary Care Physician: Feliciano Vega MD [Primary Care Provider] - Past Medical History: - - AIXA, hypertension, hyperlipidemia, BPH Surgical History: noncontributory Smoking Status: Former smoker Review of Systems General: Denies: Chills, Fever, Sweats Eyes: Denies: Visual changes - bilaterally, Diplopia ENT: Denies: Rhinorrhea, Sore throat Cardiovascular: Denies: Chest pain, Palpitations Respiratory: Reports: Dyspnea, Cough, Dyspnea on exertion. Denies: Sputum, Orthopnea, Paroxysmal nocturnal dyspnea Gastrointestinal: Denies: Abdominal pain, Nausea, Vomiting, Diarrhea, Melena, Hematochezia Genitourinary: Denies: Dysuria, Hematuria, Frequency Musculoskeletal: Denies: Back pain, Extremity Pain Skin: Denies: Rash, Wounds Neurological: Denies: Headache, Weakness, Numbness Physical Exam Vital Signs/Narrative: Vital Signs Temp Pulse Resp BP Pulse Ox 09/09/19 12:13 97.7 F L 62 17 126/81 H 97 Inital Vital Signs reviewed: Yes General: Well nourished, Well developed, No Acute Distress Head: Normocephalic, Atraumatic Eyes: Perrl, EOMI ENT: Moist mucous membranes, No rhinorrhea, TM's clear Neck: Supple, Nontender, No JVD Cardiovascular: Regular rate, Regular rhythm, No murmurs Respiratory: No distress, CTA bilaterally, Chest nontender. Negative for: Rales, Rhonchi, Wheezing, Decreased Air Movement, Chest tenderness Abdomen: Soft, Nontender, Nondistended, Normal bowel sounds Back: Nontender, Normal Inspection Extremities: Nontender, No edema. Negative for: Edema Skin: Normal color, No rash Neurological: Alert, Oriented x3, Cranial nerves II-XII grossly intact, Normal Strength, Normal Sensation Psychological: Normal affect, Normal Mood Diagnostic/Tx/Re-eval Chest X-Ray - ED: 1 View, Read by ED Physician, Read by Radiologist, No Acute Disease Clinical Impression(s) from Imaging Studies Chest X-Ray 09/09/19 13:15 IMPRESSION: No acute abnormality is seen. Electronically Signed: Arya Yeimi, at 13:34 EDT , Service support , Laboratory Data 09/09/19 09/09/19 09/09/19 13:41 13:41 13:41 WBC 8.8 RBC 4.59 L Hgb 13.6 Hct 41.8 MCV 91.1 MCH 29.6 MCHC 32.5 RDW Std Deviation 46.1 H RDW Coeff of Angelica 13.7 Plt Count 265 MPV 10.4 Immature Gran % (Auto) 0.300 Neut % (Auto) 56.6 Lymph % (Auto) 29.0 [place] % (Auto) 10.2 H Eos % (Auto) 3.4 Baso % (Auto) 0.5 Absolute Neuts (auto) 5.0 Absolute Lymphs (auto) 2.56 Nucleated RBC % 0 D-Dimer Quant (PE/DVT) 0.35 Sodium 139 Potassium 4.0 Chloride 107 Carbon Dioxide 27.0 Anion Gap 5 BUN 21 H Creatinine 0.86 Estim Creat Clear Calc 86.46 Est GFR (MDRD) Af Amer 112 Est GFR (MDRD) Non-Af 92 BUN/Creatinine Ratio 24.3 H Glucose 111 H Calcium 9.5 Troponin I < 0.015 - Rhythm Strip Rhythm Strip: Sinus Rhythm Rate: 52 Ectopy: None - EKG Initial EKG Interpretation: Sinus Bradycardia, - - Sinus bradycardia at a rate of 52Normal intervalsNormal axisNonspecific T wave inversion lead IIICompared to prior EKG on 08/10/2018 patient has no acute changes - Medical Decision Making Patient is a 74-year-old male presenting with worsening dyspnea on exertion. Physical exam is benign. He has normal vital signs. He does not have any desaturation with ambulation. No wheezing, crackles or other findings on physical exam. No signs of fluid overload. Because patient is over the age of 50 I did check a d-dimer as I cannot PERC him out. Given that his has had pneumonia and he has now developed a cough I did consult O who approved a COVID swab. This is pending. Chest x-ray does not show any acute infiltrate. Dimer is negative. Troponin is negative. No significant electrolyte abnormalities or abnormalities with CBC. I am not sure exactly what is causing his symptoms however I think he is stable for outpatient follow-up. Patient is counseled that he will require an outpatient stress test likely and needs to discuss his symptoms with his primary care doctor. I do not think he requires admission at this time. As long as his BN P comes back in a normal range patient will be discharged home. His COVID swab is still pending. Patient is agreeable this plan. Patient is counseled on signs and symptoms requiring return to the emergency room. Patient verbalizes agreement and understand this plan. Patient discharged home in stable and improved condition. ED Disposition - Plan for ED Patient: Disposition: Home or Assisted Living Diagnosis: Dyspnea, Person under investigation for COVID-19 Instructions: ED Dyspnea Referrals: Feliciano Vega MD [Primary Care Provider] - Additional Instructions: Please follow up with with your primary care doctor for further evaluate of your shortness of breath. Your COVID test is pending. There is no signs of infection or pneumonia at this time. No signs of a blood clot or acute strain on the heart. Please self quarantine while your COVID test is running. Please discuss possibility of a stress test with your primary care doctor for further evaluation of your shortness of breath.
--- NOTE | 2019-09-09 13:15 | RAD_ITS ---
STUDY: X-RAY CHEST REASON FOR EXAM: Male, 74 years old. SOB X1 MONTH TECHNIQUE: Single AP portable view of the chest. COMPARISON: None. FINDINGS: The lungs are clear and expanded. There is no demonstrated pleural abnormality. Normal size heart. Normal mediastinum and nikkie. Normal visualized pulmonary arteries. There is atherosclerotic calcification of the aortic arch with tortuosity. There are diffuse degenerative changes of the visualized thoracic spine. Prior right shoulder replacement. Degenerative changes of the left shoulder joint. There is no demonstrated abnormality of the visualized soft tissue structures of the upper abdomen. RAD/Chest 1 View (Portable) IMPRESSION: No acute abnormality is seen. Electronically Signed: Arya Jalloh, at 13:34 EDT , Service support ,
[2019-09-09 13:47] VITALS: BP 126/81; PULSE 62; RESP 17; TEMP 36.5; O2SAT 100; O2SAT 98
[2019-09-09 13:48] VITALS: O2SAT 100
[2019-09-09 14:00] LABS: Absolute Lymphocyte Count 2.56 X10^3/uL (0.83-4.51); Basophil# 0.04 X10^3/uL; Basophil% 0.5 % (0-1); Eosinophils% 3.4 % (0-5); Hematocrit 41.8 % (40-54); Hemoglobin 13.6 g/dL (13.0-16.5); Lymphocyte # 2.56 X10^3/ul (4.0); Mean Corp Hgb Conc 32.5 g/dL (32-36); Mean Corpuscular Hgb 29.6 pg (27.0-32.0); Mean Corpuscular Volume 91.1 fL (80-94); Mean Platelet Vol. 10.4 fl (6.2-12.0); Monocyte% 10.2 % (0-10); NRBC Flagged by Analyzer 0 % (0-5); Neutrophil # 5.01 X10^3/uL (2.7-7.7); Neutrophil % 56.6 % (47-70); Platelet Count 265 K/mm3 (150-450); RBC Distribution Width CV 13.7 % (11.6-14.6); RBC Distribution Width SD 46.1 fl (35.1-43.9); Red Blood Count 4.59 M/mm3 (4.6-6.2); White Blood Count 8.8 K/mm3 (4.4-11.0)
[2019-09-09 14:07] LABS: D-Dimer Quantitative (DVT/PE) 0.35 FEU/ug/m (0.27-0.49)
[2019-09-09 14:12] LABS: Anion Gap 5 (5-15); BUN 21 mg/dL (7-18); BUN/Creat Ratio 24.3 RATIO (10-20); Calcium,Total 9.5 mg/dL (8.5-10.1); Chloride 107 mmol/L (98-107); Creatinine, Serum 0.86 mg/dL (0.70-1.30); EST Glomerular Filtration Rate 92 mL/min (>60); Est Glom Filt Rate - Afr Amer 112 mL/min (>60); Estimated Creatinine Clearance 86.46 ml/min; Glucose 111 mg/dL (74-106); Sodium Level 139 mmol/L (136-145)
[2019-09-09 14:24] LABS: BNP,B-Type NATRIURETIC PEPTIDE 42.9 pg/mL (0-100)
[2019-09-09 14:41] VITALS: BP 118/74; PULSE 61; RESP 18; O2SAT 98
== END 2019-09-09 14:43 | disposition home or self-care (01) ==
PROVIDERS: Emergency Provider Emergency Medicine; PCP Family Medicine
DX: R06.00 Dyspnea, unspecified (principal); E78.5 Hyperlipidemia, unspecified; N40.0 Benign prostatic hyperplasia without lower urinary tract symptoms; G47.33 Obstructive sleep apnea (adult) (pediatric); I10 Essential (primary) hypertension; Z79.899 Other long term (current) drug therapy; Z87.891 Personal history of nicotine dependence; Z20.828 Contact with and (suspected) exposure to other viral communicable diseases
CPT/HCPCS: 71045; 80048; 83880; 84484; 85025; 85379; 87635; 93005; 99285; G2023; A4216; U0003

== ENCOUNTER → 2019-10-25 | Outpatient (CLI) | payer MEDICARE, SELFPAY ==
[2019-10-25 12:59] LABS: PSA,Total- Diagnostic 1.41 ng/mL (0.0-4.0)
== END | disposition home or self-care (01) ==
LOC: LAB 12:02
PROVIDERS: PCP Family Medicine; Referring Provider Urology; Visit Provider Urology
DX: R97.20 Elevated prostate specific antigen [PSA] (principal)
CPT/HCPCS: 36415; 84153

== ENCOUNTER → 2020-11-07 10:54 | Outpatient (CLI) | payer MEDICARE, SELFPAY ==
[2020-11-07 11:57] LABS: PSA,Total - Annual Screen 0.99 ng/mL (0.00-4.00)
== END ==
PROVIDERS: PCP Family Medicine; Visit Provider Nurse Practitioner Adult Health
DX: Z12.5 Encounter for screening for malignant neoplasm of prostate (principal)
CPT/HCPCS: 36415; 84153; G0103

== ENCOUNTER → 2021-11-13 | Outpatient (CLI) | payer MEDICARE, SELFPAY ==
[2021-11-13 12:03] LABS: PSA,Total- Diagnostic 1.02 ng/mL (0.0-4.0)
== END | disposition home or self-care (01) ==
LOC: LAB 11:03
PROVIDERS: PCP Family Medicine; Visit Provider Urology
DX: N40.1 Benign prostatic hyperplasia with lower urinary tract symptoms (principal)
CPT/HCPCS: 36415; 84153

== ENCOUNTER → 2021-11-23 | Outpatient (CLI) | payer MEDICARE, SELFPAY ==
--- NOTE | 2021-11-23 13:35 | CT_ITS ---
STUDY: CT ABDOMEN AND PELVIS WITHOUT CONTRAST REASON FOR EXAM: Male, 76 years old. HEMATURIA, UNSPECIFIED RADIATION DOSAGE (If Supplied By Facility): CTDIvol = ( 18.77 ) mGy, DLP = ( 1027.25 ) mGycm TECHNIQUE: Transaxial images were obtained from the dome of the diaphragm to the symphysis pubis without oral contrast, and without intravenous contrast. Sagittal and coronal images were reconstructed. Individualized dose optimization techniques were used for this CT. COMPARISON: Comparison is made with prior study dated 08/03/2018. FINDINGS: The visualized lung bases are unremarkable. Coronary artery calcification. Normal liver. The gallbladder is contracted. Normal spleen. Normal pancreas. Normal bilateral adrenal glands. There is a 3.2 cm cyst in the lateral midportion of the right kidney. There is a 6.4 mm nonobstructive calculus in the midpole calyx of the right kidney posteriorly. This also evidence of a 1.1 cm calculus in the lower pole calyx of the right kidney. There is a 3.6 cm x 3.8 cm solid mass arising from the inferior medial aspect of the right kidney. Correlation with IV contrast and/or ultrasound recommended. Mild degree of left hydronephrosis due to a 5 mm calculus in the proximal portion of the left ureter. Normal visualized stomach. Normal small intestine. There are multiple colonic diverticula consistent with diverticulosis. The appendix is visualized and appears normal. There is diffuse atherosclerotic calcification of the abdominal aorta and its major visceral branches, without a demonstrated aneurysm. Normal inferior vena cava. There is borderline retroperitoneal lymphadenopathy with enlarged nodes no greater than 10mm in the short axis diameter. Normal urinary bladder. There is enlargement of the prostate gland. Prostate measures 3.5 cm x 5.1 cm. This causes indentation of the bladder base. Normal abdominal wall. There are diffuse degenerative changes of the visualized lumbar spine. CT/Abdomen/Pelvis without Cont IMPRESSION: 5 mm calculus in the proximal portion of the left ureter causing mild degree of left hydronephrosis. Nonobstructive right intrarenal calculi. Solid mass in the anterior medial portion of the left kidney. Correlation with the enhanced CT scan or ultrasound is recommended. Electronically Signed: Arya Jalloh MD at 14:00 EDT ,
== END | disposition home or self-care (01) ==
LOC: CT 13:31
PROVIDERS: PCP Family Medicine; Visit Provider Urology
DX: R31.9 Hematuria, unspecified (principal)
CPT/HCPCS: 74176

== ENCOUNTER → 2021-11-27 | Outpatient (CLI) | payer MEDICARE, SELFPAY ==
--- NOTE | 2021-11-27 10:21 | RAD_ITS ---
STUDY: X-RAY - ABDOMEN/PELVIS REASON FOR EXAM: Male, 76 years old. Urinary calculi. TECHNIQUE: Two AP supine views of the abdomen and pelvis. COMPARISON: CT the abdomen and pelvis, 11/23/2021. FINDINGS: Normal visualized lung bases. There is an unremarkable bowel gas pattern. There is no demonstrated free abdominal air. The visualized liver, spleen and kidneys are grossly normal in size and morphology. Patency is a calcification in the mid to lower calyx of the right kidney. The small or more superior calcification is thought obscured by bowel gas. The left UPJ calculus is not appreciated in. It is not seen along the course of the ureter. Stable phleboliths in the pelvis. Stable degenerative changes lumbar spine RAD/Abdomen Single View IMPRESSION: Visualization of the larger right renal calculus. The smaller calculus in the upper pole of the right kidney as well as the left UPJ calculus are not visualized. Electronically Signed: Gabriel Fowler DO at 21:47 EDT ,
== END | disposition home or self-care (01) ==
LOC: RAD 10:06
PROVIDERS: PCP Family Medicine; Referring Provider Urology; Visit Provider Urology
DX: N20.2 Calculus of kidney with calculus of ureter (principal); Z87.442 Personal history of urinary calculi
CPT/HCPCS: 74018

== ENCOUNTER 2021-11-28 12:39 | Day surgery (SDC) | payer MEDICARE, SELFPAY ==
[2021-11-28 13:12] VITALS: BP 126/79; PULSE 71; RESP 16; TEMP 36.5; O2SAT 96; BMI 31.6
[2021-11-28] MEDS: Lactated Ringers 1,000 ML 15 ML IV ×2 (13:22→15:32)
[2021-11-28] MEDS: Cefazolin 2 GM in 0.9% Normal Saline 100 ML IV (15:46)
--- NOTE | 2021-11-28 16:25 | PCM.HP.STD ---
HPI - General General Date of Service: 11/28/21 Chief Complaint: Left kidney stones HPI Narrative MARSHAL BLUE, is a 76 M who presents severe left renal colic and peers have a stone in the distal ureter a plan for shockwave lithotripsy and stent placement left side [facility] Medical History (Updated 11/27/21 @ 13:14 by Haritha Santamaria) Arthritis Asthma Back pain CPAP (continuous positive airway pressure) dependence Former smoker High cholesterol History of rheumatic fever Hx of open-angle glaucoma Hypertension Sleep apnea Wears hearing aid Wears partial dentures Home Medications hydrochlorothiazide 12.5 mg capsule 12.5 mg PO DAILY 03/08/15 [History Last Taken 08/16/17] simvastatin 40 mg tablet 40 mg PO QHS 03/08/15 [History Last Taken 08/15/17] tamsulosin 0.4 mg capsule 0.4 mg PO DAILY 03/08/15 [History Last Taken 08/16/17] acetaminophen 325 mg tablet (Tylenol) 650 mg PO Q6H PRN PRN PAIN ##0 03/22/15 [Rx Last Taken 08/16/17] finasteride 5 mg tablet 5 mg PO DAILY 09/09/19 [History Last Taken Unknown] sertraline 25 mg tablet 25 mg PO DAILY 09/09/19 [History Last Taken Unknown] ascorbic acid (vitamin C) 500 mg tablet (Vitamin C) 500 mg PO DAILY 11/27/21 [History Last Taken Unknown] cholecalciferol (vitamin D3) 25 mcg (1,000 unit) tablet (Vitamin D3) 25 mcg PO DAILY 11/27/21 [History Last Taken Unknown] losartan 50 mg tablet 50 mg PO DAILY 11/27/21 [History Last Taken 11/28/21 50 mg] lutein 20 mg tablet 20 mg PO DAILY 11/27/21 [History Last Taken Unknown] omega-3 fatty acids 1,000 mg PO DAILY 11/27/21 [History Last Taken Unknown] vitamins A,C,B-jdww-qsgdmv 14,320 unit-226 mg-200 unit capsule (PreserVision AREDS) 1 cap PO BID 11/27/21 [History Last Taken Unknown] allopurinol 100 mg tablet 100 mg PO DAILY #30 tabs 11/28/21 [Rx Last Taken Unknown] cephalexin 500 mg tablet 500 mg PO TID #15 tabs 11/28/21 [Rx Last Taken Unknown] ibuprofen 600 mg tablet 600 mg PO Q6H PRN fever or pain #20 tabs 11/28/21 [Rx Last Taken Unknown] potassium citrate 15 mEq (1,620 mg) tablet,extended release (Urocit-K 15) 30 meq PO BID #60 tabs 11/28/21 [Rx Last Taken Unknown] Allergy/AdvReac Type Severity Reaction Status Date / Time ciprofloxacin [From Cipro] Allergy Swelling Verified 11/28/21 13:11 ciprofloxacin HCl Allergy Swelling Verified 11/28/21 13:11 [From Cipro] Milk Containing Products AdvReac Other Verified 11/28/21 13:11 Surgical History (Updated 11/27/21 @ 13:14 by Haritha Santamaria) History of carpal tunnel surgery of right wrist History of total shoulder replacement History of vasectomy Hx of colonoscopy Hx of cystostomy Hx of knee surgery Hx of LASIK Hx of sinus surgery Hx of tonsillectomy Social History Smoking Status: Former smoker Vital Signs Vital Signs Vital Signs: 11/28/21 13:12 11/28/21 13:12 Temperature 97.7 F L Temperature Source Temporal Pulse Rate 71 Respiratory Rate 16 Respiratory Pattern Normal Blood Pressure 126/79 H Blood Pressure Mean 94 Blood Pressure Source Monitor Blood Pressure Position Sitting Blood Pressure Location Left Arm Pulse Ox 96 Oxygen Delivery Method Room Air Weight Weight: 109 kg Body Mass Index (BMI) 31.6
--- NOTE | 2021-11-28 16:26 | DCINST_ITS ---
Discharge Instructions Diet Discharge Diet: No restrictions, Light diet - advance as tolerated and Soft diet Activity Discharge Activity: Return to Normal Activity Follow Up Care Test Results: Test results from this visit will be discussed in further detail at your follow- up appointment, if applicable. Discharge Plan Admission Primary Reason for Your Visit: kidney stones left side Attending Provider: Twan Barakat Primary Care Provider: Feliciano Vega Discharge Orders/Prescriptions Prescriptions: New potassium citrate [Urocit-K 15] 15 mEq tablet extended release 30 meq PO BID Qty: 60 11RF allopurinol 100 mg tablet 100 mg PO DAILY Qty: 30 11RF ibuprofen 600 mg tablet 600 mg PO Q6H PRN (Reason: fever or pain) Qty: 20 0RF cephalexin 500 mg tablet 500 mg PO TID Qty: 15 0RF No Action simvastatin 40 MG tablet 40 mg PO QHS Label Comments: cholesterol tamsulosin 0.4 MG capsule 0.4 mg PO DAILY Label Comments: urine flow hydrochlorothiazide 12.5 MG capsule 12.5 mg PO DAILY Label Comments: blood pressure acetaminophen [Tylenol] 325 MG tablet 650 mg PO Q6H PRN PRN (Reason: PAIN) Qty: 0 0RF Label Comments: pain sertraline 25 MG tablet 25 mg PO DAILY finasteride 5 MG tablet 5 mg PO DAILY losartan 50 mg tablet 50 mg PO DAILY ascorbic acid (vitamin C) [Vitamin C] 500 mg Tablet 500 mg PO DAILY Fish Oil Capsule 1,000 mg PO DAILY cholecalciferol (vitamin D3) [Vitamin D3] 25 mcg (1,000 unit) Tablet 25 mcg PO DAILY PreserVision AREDS 14,320-226-200 [id number] Capsule 1 cap PO BID lutein 20 mg Tablet 20 mg PO DAILY Rx Instructions: give with meal/snack Referrals / Follow Up: Feliciano Vega MD [Primary Care Provider] - Twan Barakat MD [Med Staff - Active Staff] - Disposition Disposition (needs filled in before D/C Order can be placed): Home, Self Care
--- NOTE | 2021-11-28 16:26 | PCM.OPRPT ---
Report of Operation Date of Procedure: 11/28/21 Pre-Operative Diagnosis: Left ureteral calculi suspected uric acid stones Post-Operative Diagnosis: Same Surgery/Procedure Performed:: Cystoscopy left stent placement and left ESWL Description of Surgical Findings:: Patient presents to the hospital for treatment of a kidney stone with shockwave lithotripsy. In the preoperative area and x-ray was done to confirm the location of the stone, very difficult to see suspect left uric acid stones. The x-ray was reviewed and the stone location was reviewed. In the preoperative setting I spoke with the patient regarding the treatment of the stone how the treatment would be conducted and the expectations after surgery. The patient understands there is a risk of bleeding and infection. Also discussed the very rare risk of hematoma or damage to the kidney. We also discussed the risk that the shockwave machine will fail to break the stone adequately and that the patient may need other surgical procedures. We also discussed the possibility that the patient may need a stent after the procedure. After reviewing the procedure with the patient, the patient is signed the consent form all the patient's questions were addressed and was taken back to the operating room for treatment of a kidney stone. Patient was taken back to the operating room, patient was identified by the nursing staff, we identified the side of the treatment and the patient side of treatment had been marked by my initials. The patient underwent general anesthetic and was placed supine on the lithotripter table. We then used fluoroscopy to identify the location of the stone in the distal left ureter. The urethra and genitals were prepped and draped in usual sterile fashion. Using a 21 [place] rigid cystourethroscope the entire length of the urethra was normal then went into the bladder. Identified the trigone the left and right ureteral orifice. I then cannulated the Left orifice, I could feel the stones in the distal left ureter, appeare to looke like uric acid stone, I then advanced a wire up into the kidney. I then backloaded a 5 [place] open ended catheter over the wire and injected contrast to delineate the anatomy. After the retrograde was performed I then used fluoroscopic images and guidance to advanced a wire up into the kidney and over the 0.038 glidewire I advanced a 6 [place] by 26 cm double pigtail stent. I then pulled the 0.038 Glidewire off and the stent coiled in the kidney bladder good position. The bladder was then drained.We then positioned the patient under the lithotripter and we used triangulation technique to identify the location of the stone in the distal left ureter and then we made sure that the stone was engaged in the F2 focal point of F2 Donier lithoprior machine. Once the patient was positioned appropriately and the stone was identified and placed in the F2 focal point of the lithotripter machine we then proceeded with shockwave lithotripsy. In the beginning the shockwave was delivered at a rate of 90 shocks per minute, we monitor the EKG for any ectopy. The power was slowly increased to 5 kV and subsequently at the 7 kV. We then proceeded with the treatment we move the therapy had around during the treatment to make sure the stone stayed in the F2 focal point during the entire treatment and after 3000 shockwaves were delivered to the stone under fluoroscopic guidance the treatment was completed. The patient was given instructions to call the office to make an a follow-up appointment with an xray to evaluate the success of the treatment, pateint understands that its possible the stones may need another procedure.At this point the patient's anesthetic was reversed patient was extubated and taken back to the PACU in stable condition. I will see him next week for cysto stent removal, also plan to get a repeat CT scan because of concern about a mass in the right kidney seen on recent ct scan. Surgeon: Twan Barakat Type of Anesthesia: General Drains: stent left Admit VTE Documentation VTE Present on Admission: No VTE Mechan Device Prophylaxis: SCD's
[2021-11-28 17:00] VITALS: BP 126/79; BP 149/79; PULSE 61; RESP 12; TEMP 36.2; O2SAT 92
[2021-11-28 17:15] VITALS: BP 126/79; BP 141/69; PULSE 56; RESP 16; O2SAT 96
[2021-11-28 17:30] VITALS: BP 126/79; BP 148/69; PULSE 60; RESP 16; TEMP 36.6; O2SAT 96
[2021-11-28 17:56] VITALS: BP 126/79
== END 2021-11-28 17:57 | disposition home or self-care (01) ==
LOC: SDC 12:40 → AC 12:41
PROVIDERS: PCP Family Medicine; Referring Provider Urology; Visit Provider Urology
PROC: (CPT 50590; principal; 2021-11-28 14:35)
DX: N20.2 Calculus of kidney with calculus of ureter (principal); I10 Essential (primary) hypertension; E78.00 Pure hypercholesterolemia, unspecified; G47.30 Sleep apnea, unspecified; Z79.899 Other long term (current) drug therapy; Z87.891 Personal history of nicotine dependence
CPT/HCPCS: 00873; J7120; C1726; C1769; C2617; J2405

== ENCOUNTER → 2021-12-03 | Outpatient (CLI) | payer MEDICARE, SELFPAY ==
--- NOTE | 2021-12-03 12:48 | CT_ITS ---
STUDY: CT ABDOMEN AND PELVIS WITH CONTRAST REASON FOR EXAM: Male, 76 years old. Right renal carcinoma. Hypertension. RADIATION DOSAGE (If Supplied By Facility): CTDIvol = ( 18.21 ) mGy, DLP = ( 1251.35 ) mGycm TECHNIQUE: Transaxial images were obtained from the dome of the diaphragm to the symphysis pubis without oral contrast. IV 100mL [id number]-[id number] was administered. Sagittal and coronal images were reconstructed. Individualized dose optimization techniques were used for this CT. COMPARISON: Comparison is made with prior study dated 11/23/2021. FINDINGS: The visualized lung bases are unremarkable. Coronary artery calcification. There is decreased attenuation of the liver consistent with steatosis. Normal gallbladder and extrahepatic biliary system. Normal spleen. Normal pancreas. Normal bilateral adrenal glands. There is a 3.2 cm x 3.3 cm x 3.6 cm heterogeneous enhancing mass in the inferior medial aspect of the right kidney. Stable 3.4 cm x 3.7 cm cyst in the anterior lateral aspect of the right kidney. Stable appearance of the right intrarenal nonobstructive calculi. There is evidence of a left-sided double-J stent catheter with the proximal tip in the left renal pelvis and distal tip in the urinary bladder. Mild degree of left hydronephrosis. Normal visualized stomach. Normal small intestine. There are multiple colonic diverticula consistent with diverticulosis. The appendix is visualized and appears normal. There is diffuse atherosclerotic calcification of the abdominal aorta and its major visceral branches, without a demonstrated aneurysm. Normal inferior vena cava. Normal retroperitoneum. Normal urinary bladder. There is enlargement of the prostate gland. It measures 4.7 cm x 5.7 cm. This causes indentation of the bladder base. Normal abdominal wall. There are diffuse degenerative changes of the visualized lumbar spine. CT/Abdomen/Pelvis W IV Cont ONLY IMPRESSION: 3.2 cm x 3.3 cm x 3.6 cm heterogeneous enhancing mass in the inferior medial aspect of the right kidney. A neoplastic process should be ruled out. Stable right renal cyst and nonobstructive intrarenal calculi. A left-sided double-J stent catheter is seen. Mild degree of left hydronephrosis. Prostatic enlargement. Electronically Signed: Arya Jalloh MD at 13:40 EDT ,
[2021-12-03 13:16] LABS: CREATININE FINGERSTICK < 0.9 mg/dL (0.70-1.30)
== END | disposition home or self-care (01) ==
LOC: CT 12:46
PROVIDERS: PCP Family Medicine; Referring Provider Urology; Visit Provider Urology
DX: D49.511 Neoplasm of unspecified behavior of right kidney (principal)
CPT/HCPCS: 74177; Q9967

== ENCOUNTER 2022-01-04 18:36 | Inpatient (IN) | payer MEDICARE, SELFPAY ==
[2021-12-27 11:18] LABS: Hematocrit 40.2 % (40-54); Hemoglobin 13.6 g/dL (13.0-16.5); Mean Corp Hgb Conc 33.8 g/dL (32-36); Mean Corpuscular Hgb 30.2 pg (27.0-32.0); Mean Corpuscular Volume 89.3 fL (80-94); Mean Platelet Vol. 10.4 fl (6.2-12.0); Platelet Count 236 K/mm3 (150-450); RBC Distribution Width SD 45.3 fl (35.1-43.9); White Blood Count 9.2 K/mm3 (4.4-11.0)
[2021-12-27 11:45] LABS: Anion Gap 7 (5-15); BUN 17 mg/dL (7-18); BUN/Creat Ratio 18.1 RATIO (10-20); Calcium,Total 9.6 mg/dL (8.5-10.1); Chloride 106 mmol/L (98-107); Creatinine, Serum 0.94 mg/dL (0.70-1.30); EST Glomerular Filtration Rate 83 mL/min (>60); Est Glom Filt Rate - Afr Amer 100 mL/min (>60); Glucose 127 mg/dL (74-106); Sodium Level 138 mmol/L (136-145)
[2022-01-04] VITALS (11 sets, daily range): BP systolic 112–182; BP diastolic 57–86; PULSE 56–105; RESP 4–16; TEMP 35.8–36.9; O2SAT 44–100; BMI 32.1; BMI 32.9
--- NOTE | 2022-01-04 | IMM_PTH ---
PATIENT: MARSHAL BLUE LOC: MS3 U#:[id number] AGE/SX: 76/M ROOM: [place] RE01/04/[address]: Dr. Twan Barakat MD : 1945 BED: 1 DIS: 01/08/2022 SPEC #: [id number] RECD: 01/08/22 13:44 STATUS: ITZ REQ #: [id number] SLICK: 01/04/22 00:[address]: Twan Barakat DEPT: IMMUNOHISTOCHEMISTRY RECD BY: Prachi Chacon ENTERED: 01/08/22 13:46 SP TYPE: IMMUNO OTHR DR: Dr. Feliciano Vega MD Tissues: Right kidney Procedures: RCC (add) E-CAD (initial) CD10 (add) CK20 (add) CK7 (add) Vimentin (add) Pankeratin (add) S-100 (add) PHYSICIAN & INSTITUTION [address] [address] SPECIMEN INFORMATION: Tissue Source: Right kidney tumor and stones Clinical Info: Neoplasm of right kidney Specimen Number: [id number] #5 CPT code: 59277, 34128 x7 METHODOLOGY: Deparaffinized sections of prefer/formalin-fixed tissue or PAP/DQ stained slides are incubated with monoclonal/polyclonal antibodies/oligonucleotide probes. Localization is made via biotin free immunoperoxidase method. Appropriate controls are performed and reacted as expected. Results on target cell population are indicated in the following table: RESULTS: ANTIBODY / CLONE RESULT Block 5 E-Cad (ECH-6) positive AE1-3 (AE1/AE3/PCK26) positive CK7 (OV-TL12/30) negative CK20 (KS20.8) negative Vimentin (V9) negative S-100 (4C4.9) negative RCC (PN-15) negative CD10 (56C6) negative These tests were developed and their performance characteristics determined by [facility]. They may not have been cleared or approved by the U.S. Food and Drug Administration. The FDA has determined that such clearance or approval is not necessary. The above immunohistochemical/dualISH markers are ordered and reviewed by the Pathologist. INTERPRETATION: Right kidney, partial nephrectomy: Consistent with oncocytoma. AM:ольга 01/10/2022 Case has been reviewed in consultation with Dr. Amin who concurs with the above diagnosis. IDC:ERMA
[2022-01-04] MEDS: Lactated Ringers 1,000 ML 15 ML IV ×2 (11:36→15:00)
--- NOTE | 2022-01-04 12:03 | HP.PCM_ITS ---
HPI - General General Date of Service: 01/04/22 HPI Narrative MARSHAL BLUE, is a 76 M who presents for a right partial nephrectomy. [facility] Medical History (Updated 12/26/21 @ 11:17 by Ngoc Gandara) Arthritis Asthma Back pain Cancer CPAP (continuous positive airway pressure) dependence Former smoker High cholesterol History of rheumatic fever Hx of open-angle glaucoma Hypertension Wears hearing aid Wears partial dentures Home Medications hydrochlorothiazide 12.5 mg capsule 12.5 mg PO DAILY 03/08/15 [History Last Taken 01/03/22] simvastatin 40 mg tablet 40 mg PO QHS 03/08/15 [History Last Taken 01/03/22] tamsulosin 0.4 mg capsule 0.4 mg PO DAILY 03/08/15 [History Last Taken 01/03/22] acetaminophen 325 mg tablet (Tylenol) 650 mg PO Q6H PRN PRN PAIN ##0 03/22/15 [Rx Last Taken 01/03/22] finasteride 5 mg tablet 5 mg PO DAILY 09/09/19 [History Last Taken 01/03/22] sertraline 25 mg tablet 25 mg PO DAILY 09/09/19 [History Last Taken 01/03/22] ascorbic acid (vitamin C) 500 mg tablet (Vitamin C) 500 mg PO DAILY 11/27/21 [History Last Taken 01/03/22] cholecalciferol (vitamin D3) 25 mcg (1,000 unit) tablet (Vitamin D3) 25 mcg PO DAILY 11/27/21 [History Last Taken 01/03/22] losartan 50 mg tablet 50 mg PO DAILY 11/27/21 [History Last Taken 01/04/22 08:30] lutein 20 mg tablet 20 mg PO DAILY 11/27/21 [History Last Taken 01/03/22] omega-3 fatty acids 1,000 mg PO DAILY 11/27/21 [History Last Taken 01/03/22] vitamins A,C,R-jvpq-amvwwo 14,320 unit-226 mg-200 unit capsule (PreserVision AREDS) 1 cap PO BID 11/27/21 [History Last Taken 01/03/22] allopurinol 100 mg tablet 100 mg PO DAILY #30 tabs 11/28/21 [Rx Last Taken 01/03/22] ibuprofen 600 mg tablet 600 mg PO Q6H PRN fever or pain #20 tabs 11/28/21 [Rx Last Taken 01/03/22] potassium citrate 15 mEq (1,620 mg) tablet,extended release (Urocit-K 15) 30 meq PO BID #60 tabs 11/28/21 [Rx Last Taken 01/03/22] Allergy/AdvReac Type Severity Reaction Status Date / Time ciprofloxacin [From Cipro] Allergy Swelling Verified 01/04/22 11:25 ciprofloxacin HCl Allergy Swelling Verified 01/04/22 11:25 [From Cipro] Milk Containing Products AdvReac Other Verified 01/04/22 11:25 Surgical History (Updated 12/26/21 @ 11:17 by Ngoc Gandara) History of carpal tunnel surgery of right wrist History of total shoulder replacement History of ureteroscopy History of vasectomy Hx of colonoscopy Hx of cystostomy Hx of knee surgery Hx of LASIK Hx of oral surgery Hx of sinus surgery Hx of tonsillectomy Social History Smoking Status: Former smoker Vital Signs Vital Signs Vital Signs: 01/04/22 11:26 01/04/22 11:26 Temperature 98.1 F Temperature Source Temporal Pulse Rate 56 L Respiratory Rate 16 Respiratory Pattern Normal Blood Pressure 127/57 H Blood Pressure Mean 80 Blood Pressure Source Monitor Blood Pressure Position Semi-Fowlers Pulse Ox 100 Oxygen Delivery Method Room Air Weight Weight: 110.4 kg Body Mass Index (BMI) 32.1 Results Lab / Micro Data Result Diagrams: 12/27/21 10:28 12/27/21 10:28 Labs: Laboratory Results - last 24 hr 12/27/21 10:30: Blood Type Cancelled, A1 Antigen Typing Cancelled, Rho(D) Type Cancelled, Antibody Screen Cancelled, Crossmatch See Detail
--- NOTE | 2022-01-04 12:56 | DCINST_ITS ---
Discharge Instructions Diet Discharge Diet: No restrictions, Light diet - advance as tolerated and Soft diet Activity Discharge Activity: Return to Normal Activity, May Not Drive and May Shower Follow Up Care Please Follow Up With: Twan Barakat MD When: 2 weeks for follow up Test Results: Test results from this visit will be discussed in further detail at your follow- up appointment, if applicable. Discharge Plan Admission Primary Reason for Your Visit: partial nephrectomy Attending Provider: Twan Barakat Primary Care Provider: Feliciano Vega Instructions Patient Instructions: Nephrectomy Dc Discharge Orders/Prescriptions Prescriptions: New oxycodone-acetaminophen 5-325 mg tablet 1 tab PO Q4H PRN (Reason: pain) 7 Days Qty: 20 0RF docusate sodium [Colace] 100 mg capsule 100 mg PO BID Qty: 20 0RF Continued simvastatin 40 MG tablet 40 mg PO QHS Label Comments: cholesterol tamsulosin 0.4 MG capsule 0.4 mg PO DAILY Label Comments: urine flow hydrochlorothiazide 12.5 MG capsule 12.5 mg PO DAILY Label Comments: blood pressure acetaminophen [Tylenol] 325 MG tablet 650 mg PO Q6H PRN PRN (Reason: PAIN) Qty: 0 0RF Label Comments: pain sertraline 25 MG tablet 25 mg PO DAILY finasteride 5 MG tablet 5 mg PO DAILY losartan 50 mg tablet 50 mg PO DAILY ascorbic acid (vitamin C) [Vitamin C] 500 mg Tablet 500 mg PO DAILY omega-3 fatty acids Capsule 1,000 mg PO DAILY cholecalciferol (vitamin D3) [Vitamin D3] 25 mcg (1,000 unit) Tablet 25 mcg PO DAILY PreserVision AREDS 14,320-226-200 zbnr-kg-wrwj Capsule 1 cap PO BID lutein 20 mg Tablet 20 mg PO DAILY Rx Instructions: give with meal/snack potassium citrate [Urocit-K 15] 15 mEq tablet extended release 30 meq PO BID Qty: 60 11RF allopurinol 100 mg tablet 100 mg PO DAILY Qty: 30 11RF ibuprofen 600 mg tablet 600 mg PO Q6H PRN (Reason: fever or pain) Qty: 20 0RF Referrals / Follow Up: Feliciano Vega MD [Primary Care Provider] - Twan Barakat MD [Med Staff - Active Staff] - Disposition Disposition (needs filled in before D/C Order can be placed): Home, Self Care
--- NOTE | 2022-01-04 13:00 | KI_PTH ---
PATIENT: MARSHAL BLUE LOC: MS3 U#:[id number] AGE/SX: 76/M ROOM: [facility] [place] RE01/04/[address]: Dr. Twan Barakat MD : 1945 BED: 1 DIS: 01/08/2022 SPEC #: [id number] RECD: 01/07/22 11:09 STATUS: ITZ FRENCH #: [id number] SLICK: 01/04/22 13:[address]: Twan Barakat DEPT: SURGICAL PATHOLOGY RECD BY: Laly Kerr ENTERED: 01/07/22 13:21 SP TYPE: KIDNEY BX OTHR DR: Dr. Feliciano Vega MD Tissues: Kidney, NOS Procedures: Surgery Specimen Level V HEADER OPERATION: Laparoscopic robotic right partial nephrectomy PRE-OP DIAGNOSIS: Neoplasm of right kidney TISSUE SUBMITTED: Right kidney tumor and stones MICROSCOPIC DIAGNOSIS Right kidney, partial nephrectomy: Oncocytic neoplasm consistent with oncocytoma. See comment. AM:ольга 01/08/2022 COMMENT Immunohistochemistry ([id number]) supports the above diagnosis. The lesion appears to have been completely excised. Case has been reviewed in consultation with Dr. Amin who concurs with the above diagnosis. IDC:ERMA MICROSCOPIC DESCRIPTION Slides are reviewed. GROSS DESCRIPTION Received in fixative is one container labeled with the patient's name and designated right kidney tumor and stones. The specimen consists of a partial nephrectomy specimen weighing 32 gm and measuring 6 x 3.5 x 3 cm. The specimen is partially sectioned. The resection margins are inked as follows: capsular surface with perirenal adipose tissue ? black, renal parenchymal margin ? blue. Sections reveal a hemorrhagic mass measuring 4 x 3 x 2.5 cm. The mass appears to be completely excised. No stones are identified in the container. Bookkeeping Machine Mechanic sections are submitted in six cassettes. / ERMA:ольга 01/07/2022 TC:1 CPT: 79841
[2022-01-04] MEDS: Cefazolin 2 GM in 0.9% Normal Saline 100 ML IV (13:04)
--- NOTE | 2022-01-04 18:15 | PCM.OPRPT ---
Report of Operation Date of Procedure: 01/04/22 Pre-Operative Diagnosis: Right renal mass and also right kidney stones Surgery/Procedure Performed:: Laparoscopic robotic assisted partial nephrectomy, and also open pyelolithotomy removal of stones from kidney Description of Surgical Findings:: Is a 76-year-old male presented to my office for follow-up on his kidney stones when in reviewing of his CAT scan he was found to have a mass in the right kidney and slowly enlarging this mass was recognized on prior CAT scan we discussed that. Recommended we proceed with a robotic partial nephrectomy at the same time I anticipate that I can get into the collecting system and he is got several stones in the right kidney were also remove the stones at the same time if possible. Patient was taken back to the operating room at a smooth induction of general anesthesia he was placed supine on the table he underwent endotracheal intubation Metz catheter was placed he had secured IV access. He was then placed in lateral flank position for approach to the left kidney robotically. I made a small incision in the abdomen and inflated the peritoneal cavity with CO2 gas placed my camera trocar right arm trocar left arm trocar and second left arm trocar I then placed an air seal port we then used sharp scissors to dissect some adhesions on the anterior abdominal wall that is causing blockage of the visualization visualization of the ports once these were removed and then I docked the robot. Patient had a lot of intraperitoneal fat did make the case somewhat difficult for started off by reflecting the colon off the kidney reflecting the colon off the sidewall once was done successfully mobilized the colon completely off the right kidney then I identified the ureter I then went lower down to this and identified the gonadal vessel I did not take the gonadal vessel but I then then elevated the kidney up and then using the fourth arm to hold the kidney up I slowly dissected toward the hilum took a long time to go to the hilum because a lot of fat tissue very careful dissection try to make sure that I do not injure any critical structures eventually I found the renal vein and renal artery I dissected out the renal artery and renal vein completely I put a vessel loop around the renal artery. After the hilum was dissected out I then went up with a ultrasound and went to the kidney and started ultrasound in the kidney but he had a lot of fat in the kidney a lot of dense fat that was adhered to the kidney very difficult to dissect this fat off the kidney took a long time to dissect the fat off the kidney to find the kidney parenchyma and then the tumor was in quite a difficult location it was posterior and it was a midpole and the tumor went as deep to the collecting system. Eventually after long dissection and mobilized entire kidney I was able to find the tumor and then I marked out the edges and then marked out my approach for removing this tumor the artery was clamped with 2 vessels and then I resected around the edges of the tumor using a margin went deep as I was going deep I got into the collecting system as expected I came across 2 stones the 1 stone was about 16 mm in size and the other stone was about 8 mm in size both the stones were removed. One of the stones was lost in the abdomen. I told the family about the stone that was lost in the abdomen no consequence of that told the patient there is no reason to worry about that. We then resected the tumor completely put the tumor in an Endo Catch bag and then put the other stone that we did still have an Endo Catch bag and then we proceeded with the closure of the site that was resected I closed the collecting system with a 3-0 Vicryl and then I closed the site of the resection with bolsters using 0 Vicryl 0 Vicryl reknot free technique bolstering to make sure that we closed the site also making sure that I did not injure the ureter or any other critical critical structures I was near the area is very close to the hilum as I was reclosing the kidney. After the closure was done clamp time was about 30 minutes I then unclamped the renal artery good blood flow to the kidney was seen and there was no bleeding from the resection site. We then irrigated copiously sucked out fluid from the abdomen there was about a 350 cc blood loss. We then extracted the tumor and the stone from the umbilicus and then we closed all the ports I did leave a drain in next to the kidney because at the close a collecting system just in case there was a urine leak the patient anesthetic was reversed he was taken back to PACU in good condition I went spoke to the family let them know about the resection of the tumor the tumor was removed completely also of note I removed both the kidney stones from his kidney. IV fluids about 2500 L of crystalloid 350 of blood loss. In the case was about 4 hours long. Surgeon: Twan Barakat Type of Anesthesia: General Specimen's removed: tumor and stones Drains: KINGSLEY metz Admit VTE Documentation VTE Present on Admission: No VTE Mechan Device Prophylaxis: SCD's VTE Pharm Prophylaxis ordered?: No
[2022-01-04] MEDS: 0.9% Saline Lock 10 ML Syringe IV (20:36)
[2022-01-04] MEDS: Ondansetron 4 MG/2 ML Vial IV (20:36)
[2022-01-04] MEDS: Lactated Ringers 1,000 ML 150 ML IV (20:43)
[2022-01-04] MEDS: Acetaminophen 325 MG Tablet PO (21:58)
[2022-01-04] MEDS: Tamsulosin HCl 0.4 MG Capsule PO (21:59)
[2022-01-04] MEDS: Atorvastatin Calcium 20 MG Tablet PO (22:00)
[2022-01-04] MEDS: Docusate Sodium 100 MG Capsule 200 MG PO (22:00)
[2022-01-04] MEDS: Multivitamin (Healthy Eyes) Capsule 1 CAP PO (22:00)
[2022-01-05] VITALS (9 sets, daily range): BP systolic 102–113; BP diastolic 58–67; PULSE 78–87; RESP 16–18; TEMP 36.4–36.9; O2SAT 91–97
[2022-01-05] MEDS: 0.9% Saline Lock 10 ML Syringe IV (00:20)
[2022-01-05] MEDS: Ketorolac 15 MG/ML Vial IV ×2 (00:20→05:53)
[2022-01-05] MEDS: Lactated Ringers 1,000 ML 150 ML IV (03:47)
[2022-01-05 04:23] LABS: Hemoglobin 10.2 g/dL (13.0-16.5); Mean Corp Hgb Conc 32.9 g/dL (32-36); Mean Corpuscular Hgb 29.8 pg (27.0-32.0); Mean Corpuscular Volume 90.6 fL (80-94); Mean Platelet Vol. 10.2 fl (6.2-12.0); Platelet Count 298 K/mm3 (150-450); RBC Distribution Width SD 45.9 fl (35.1-43.9); Red Blood Count 3.42 M/mm3 (4.6-6.2); White Blood Count 14.1 K/mm3 (4.4-11.0)
[2022-01-05 04:36] LABS: Anion Gap 9 (5-15); BUN 20 mg/dL (7-18); BUN/Creat Ratio 12.8 RATIO (10-20); Calcium,Total 8.7 mg/dL (8.5-10.1); Chloride 106 mmol/L (98-107); Creatinine, Serum 1.56 mg/dL (0.70-1.30); EST Glomerular Filtration Rate 46 mL/min (>60); Est Glom Filt Rate - Afr Amer 56 mL/min (>60); Estimated Creatinine Clearance 46.24 ml/min; Glucose 174 mg/dL (74-106); Potassium 4.8 mmol/L (3.5-5.1); Sodium Level 138 mmol/L (136-145)
[2022-01-05] MEDS: Acetaminophen 325 MG Tablet PO (05:56)
--- NOTE | 2022-01-05 08:17 | PN.URO_ITS ---
Subjective Subjective Status post right partial nephrectomy for very deep complicated tumor at the resected tumor and also at the close the collecting system he does have blood in the urine which is expected surgical drain is in place mostly oozing around it for now we will watch it but if it continues I may put a stitch to reinforce it to stop the oozing around the drain. Probably would advance him to full liquid diet today out of bed walking a little bit and and there is room may be. Clinically stable. Objective Data Objective Data Vital Signs: Vital Signs Temp Pulse Resp BP Pulse Ox O2 Del Method O2 Flow Rate 98.0 F 87 18 102/60 95 Room Air 3 01/05/22 07:50 01/05/22 07:50 01/05/22 07:50 01/05/22 07:50 01/05/22 07:50 01/05/22 07:50 01/05/22 07:40 Oxygen Flow Rate (L/min) 3 Oxygen Delivery Method Room Air Weight: 113.2 kg Body Mass Index (BMI) 32.9 Intake & Output: Intake and Output for Last 24 Hours 01/03/22 01/04/22 01/05/22 23:59 23:59 23:59 Intake Total 1110 / 1110 1000 / 1000 Output Total 435 / 815 780 / 780 Balance 675 / 295 220 / 220 Lab / Micro Data Result Diagrams: 01/05/22 04:17 01/05/22 04:17 Labs: Laboratory Results - last 24 hr 12/27/21 10:30: Blood Type Cancelled, A1 Antigen Typing Cancelled, Rho(D) Type Cancelled, Antibody Screen Cancelled, Crossmatch See Detail 01/05/22 04:17: WBC 14.1 H, RBC 3.42 L, Hgb 10.2 L, Hct 31.0 L, MCV 90.6, MCH 29 .8, MCHC 32.9, RDW Std Deviation 45.9 H, RDW Coeff of Angelica 14.0, Plt Count 298, MPV 10.2 01/05/22 04:17: Sodium 138, Potassium 4.8, Chloride 106, Carbon Dioxide 23.0, Anion Gap 9, BUN 20 H, Creatinine 1.56 H, Estim Creat Clear Calc 46.24, Est GFR (MDRD) Af Amer 56 L, Est GFR (MDRD) Non-Af 46 L, BUN/Creatinine Ratio 12.8, Glucose 174 H, Calcium 8.7 Physical Exam Const alert and oriented x3 General Appearance: cooperative HEENT normocephalic, head/scalp atraumatic, EAC's normal and TM's normal bilaterally Eyes PERRL and EOMs intact bilaterally Pupil: sluggish Neck no lymphadenopathy, supple and no JVD General: trachea midline Lymph Lymphatic: no lymphadenopathy noted, lymphedema and lymphadenopathy Resp normal respiratory effort, normal air movement and clear to auscultation bilaterally Cardio regular rate, regular rhythm and peripheral pulses 2+ throughout GI soft to palpation, non-tender and non-distended Extremity normal capillary refill and no clubbing, cyanosis or edema General Extremity: no tenderness to palpation of joints or extremities Skin no rashes or lesions noted General Skin Exam: turgor normal Lesions: no lesions Rashes: no rashes Neuro CN's II-XII intact bilaterally Speech: speech normal Motor Exam: strength 5/5 throughout; Negative for general weakness Psych thought process normal, cooperative and affect normal Appearance: appropriate
[2022-01-05] MEDS: HYDROcodone Bitartrate/Apap 5/325 Tablet PO ×2 (10:24→21:00)
[2022-01-05] MEDS: Lactated Ringers 1,000 ML 125 ML IV ×2 (10:24→16:48)
[2022-01-05] MEDS: Sertraline 50 MG Tablet 25 MG PO (10:28)
[2022-01-05] MEDS: Allopurinol 100 MG Tablet PO (10:29)
[2022-01-05] MEDS: Multivitamin (Healthy Eyes) Capsule 1 CAP PO ×2 (10:29→21:00)
[2022-01-05] MEDS: Docusate Sodium 100 MG Capsule 200 MG PO ×2 (10:29→21:00)
--- NOTE | 2022-01-05 13:00 | CASEMGMT ---
RN MELODY Assessment: Face to Face with pt for initial transition planning/care coordination assessment. RN CM introduced self and role at [facility], pt voices understanding and consents to assessment. Pt is A/O x4 and answers all questions appropriately at this time. present at bedside and did not like RN CM asking questions. Care providers, pharmacy, and demographics verified/updated. Admitting Dx: lap robotic partial nephrectomy PCP:Gary Specialists:Yuval, uro; Angel, pulm; Ben, ENT Preferred Pharmacy: [facility] Insurance: [employer] [facility] Prescription Benefit: yes LW/HPOA: Pt states she is the DPOA and she does not want it on file at [facility] as this is personal matters. Confirmed with her that she was speaking of DPOA for healthcare and she states she was. LNOK: Ashlie Jj, Living Arrangements: Pt lives with in a single story house with 2-3 steps to enter without a rail. Pt reports he is I in ADL's and denies concerns at home. Transportation: Pt drives self and denies concerns with transportation. DME/HHC/SNF: Pt has a CPAP at home, denies hx of HHC or SNF stays. Pt states no concerns with going home at time of dc. Pt states no further concerns/needs. CM to follow. Advised pt to ask CM if any further question/concerns/needs arise, voices understanding. Pt Goal: Home Plan: Home
[2022-01-05] MEDS: Tamsulosin HCl 0.4 MG Capsule PO (16:48)
[2022-01-05] MEDS: Atorvastatin Calcium 20 MG Tablet PO (21:00)
[2022-01-06] VITALS (8 sets, daily range): BP systolic 101–137; BP diastolic 61–77; PULSE 77–95; RESP 18; TEMP 36.8–37.4; O2SAT 92–98
[2022-01-06] MEDS: Lactated Ringers 1,000 ML 125 ML IV (00:07)
[2022-01-06 05:18] LABS: Hemoglobin 7.4 g/dL (13.0-16.5); Mean Corp Hgb Conc 32.2 g/dL (32-36); Mean Corpuscular Hgb 29.5 pg (27.0-32.0); Mean Corpuscular Volume 91.6 fL (80-94); Mean Platelet Vol. 10.8 fl (6.2-12.0); Platelet Count 195 K/mm3 (150-450); RBC Distribution Width CV 14.3 % (11.6-14.6); RBC Distribution Width SD 47.4 fl (35.1-43.9); Red Blood Count 2.51 M/mm3 (4.6-6.2); White Blood Count 12.8 K/mm3 (4.4-11.0)
[2022-01-06 05:40] LABS: Anion Gap 6 (5-15); BUN 23 mg/dL (7-18); BUN/Creat Ratio 14.3 RATIO (10-20); Calcium,Total 8.8 mg/dL (8.5-10.1); Chloride 105 mmol/L (98-107); Creatinine, Serum 1.61 mg/dL (0.70-1.30); EST Glomerular Filtration Rate 45 mL/min (>60); Est Glom Filt Rate - Afr Amer 54 mL/min (>60); Glucose 141 mg/dL (74-106); Potassium 4.5 mmol/L (3.5-5.1); Sodium Level 138 mmol/L (136-145)
--- NOTE | 2022-01-06 08:07 | PCM.PN.GU ---
Subjective Subjective Postoperative day #2, KINGSLEY out is still a little high low bloody but decreasing, urine output is good, hemoglobin is low this is a little bit of surgical anemia and some delusional anemia from those IV fluids aggressive hydration. Passing gas. Will advance to regular diet, Hep-Lock IV fluids, DC Preston, out of bed and ambulate, may look at meds to see which one to hold for his blood pressure. Objective Data Objective Data Vital Signs: Vital Signs Temp Pulse Resp BP Pulse Ox O2 Del Method O2 Flow Rate 98.3 F 77 18 101/61 94 Nasal Cannula 2 01/06/22 05:00 01/06/22 05:00 01/06/22 05:00 01/06/22 05:00 01/06/22 05:00 01/06/22 05:00 01/06/22 05:00 Oxygen Flow Rate (L/min) 2 Oxygen Delivery Method Nasal Cannula Weight: 113.2 kg Body Mass Index (BMI) 32.9 Intake & Output: Intake and Output for Last 24 Hours 01/04/22 01/05/22 01/06/22 23:59 23:59 23:59 Intake Total 1110 / 1110 4198.5 / 4798.5 Output Total 435 / 815 1480 / 2585 2265 / 2265 Balance 675 / 295 2718.5 / 2213.5 -253.92 / -253.92 Lab / Micro Data Result Diagrams: 01/06/22 04:35 01/06/22 04:35 Labs: Laboratory Results - last 24 hr 01/06/22 04:35: WBC 12.8 H, RBC 2.51 L, Hgb 7.4 L, Hct 23.0 L, MCV 91.6, MCH 29.5, MCHC 32.2, RDW Std Deviation 47.4 H, RDW Coeff of Angelica 14.3, Plt Count 195, MPV 10.8 01/06/22 04:35: Sodium 138, Potassium 4.5, Chloride 105, Carbon Dioxide 27.0, Anion Gap 6, BUN 23 H, Creatinine 1.61 H, Estim Creat Clear Calc 44.80, Est GFR (MDRD) Af Amer 54 L, Est GFR (MDRD) Non-Af 45 L, BUN/Creatinine Ratio 14.3, Glucose 141 H, Calcium 8.8
[2022-01-06] MEDS: Docusate Sodium 100 MG Capsule 200 MG PO ×2 (11:22→21:45)
[2022-01-06] MEDS: Allopurinol 100 MG Tablet PO (11:23)
[2022-01-06] MEDS: Sertraline 50 MG Tablet 25 MG PO (11:23)
[2022-01-06] MEDS: Multivitamin (Healthy Eyes) Capsule 1 CAP PO ×2 (11:23→21:45)
[2022-01-06] MEDS: hydroCHLOROthiazide 12.5mg 12.5 MG PO (11:23)
[2022-01-06] MEDS: Tamsulosin HCl 0.4 MG Capsule PO (18:10)
[2022-01-06] MEDS: HYDROcodone Bitartrate/Apap 5/325 Tablet PO (21:44)
[2022-01-06] MEDS: Atorvastatin Calcium 20 MG Tablet PO (21:44)
[2022-01-07] VITALS (8 sets, daily range): BP systolic 125–148; BP diastolic 61–85; PULSE 73–87; RESP 16–19; TEMP 36.6–37.2; O2SAT 95–100
[2022-01-07 05:29] LABS: Hemoglobin 7.3 g/dL (13.0-16.5); Mean Corp Hgb Conc 33.2 g/dL (32-36); Mean Corpuscular Hgb 30.3 pg (27.0-32.0); Mean Corpuscular Volume 91.3 fL (80-94); Mean Platelet Vol. 10.6 fl (6.2-12.0); Platelet Count 200 K/mm3 (150-450); RBC Distribution Width CV 14.1 % (11.6-14.6); RBC Distribution Width SD 47.7 fl (35.1-43.9); Red Blood Count 2.41 M/mm3 (4.6-6.2); White Blood Count 15.2 K/mm3 (4.4-11.0)
[2022-01-07 06:14] LABS: Anion Gap 7 (5-15); BUN 22 mg/dL (7-18); BUN/Creat Ratio 16.1 RATIO (10-20); Calcium,Total 9.2 mg/dL (8.5-10.1); Chloride 104 mmol/L (98-107); Creatinine, Serum 1.37 mg/dL (0.70-1.30); EST Glomerular Filtration Rate 54 mL/min (>60); Est Glom Filt Rate - Afr Amer 65 mL/min (>60); Estimated Creatinine Clearance 52.65 ml/min; Glucose 151 mg/dL (74-106); Potassium 4.1 mmol/L (3.5-5.1); Sodium Level 139 mmol/L (136-145)
--- NOTE | 2022-01-07 07:48 | PCM.PN.GU ---
Subjective Subjective Postoperative day #3 status post a right partial nephrectomy for a very difficult deep tumor, he does have a low hemoglobin probably acute blood loss anemia from surgery for repeat partial nephrectomy but currently no signs of active bleeding his hemoglobin is stable last 2 days blood pressure has been stable, KINGSLEY drain removed Preston catheter is out he is on a regular diet. Plan monitoring for 1 more day tomorrow we will check a blood count if the blood count stays stable or goes up a little bit then will discharge home. Objective Data Objective Data Vital Signs: Vital Signs Temp Pulse Resp BP Pulse Ox O2 Del Method O2 Flow Rate 98.4 F 74 18 125/83 H 97 Nasal Cannula 2 01/07/22 04:48 01/07/22 04:48 01/07/22 04:48 01/07/22 04:48 01/07/22 04:48 01/07/22 07:39 01/07/22 07:39 Oxygen Flow Rate (L/min) 2 Oxygen Delivery Method Nasal Cannula Weight: 113.2 kg Body Mass Index (BMI) 32.9 Intake & Output: Intake and Output for Last 24 Hours 01/05/22 01/06/22 01/07/22 23:59 23:59 23:59 Intake Total 4198.5 / 4798.5 4211.08 / 4211.08 200 / 200 Output Total 1480 / 2585 3235 / 3235 7 / 7 Balance 2718.5 / 2213.5 976.08 / 976.08 193 / 193 Lab / Micro Data Result Diagrams: 01/07/22 04:44 01/07/22 04:44 Labs: Laboratory Results - last 24 hr 01/07/22 04:44: WBC 15.2 H, RBC 2.41 L, Hgb 7.3 L, Hct 22.0 L, MCV 91.3, MCH 30.3, MCHC 33.2, RDW Std Deviation 47.7 H, RDW Coeff of Angelica 14.1, Plt Count 200, MPV 10.6 01/07/22 04:44: Sodium 139, Potassium 4.1, Chloride 104, Carbon Dioxide 28.0, Anion Gap 7, BUN 22 H, Creatinine 1.37 H, Estim Creat Clear Calc 52.65, Est GFR (MDRD) Af Amer 65, Est GFR (MDRD) Non-Af 54 L, BUN/Creatinine Ratio 16.1, Glucose 151 H, Calcium 9.2
--- NOTE | 2022-01-07 08:25 | NURSING ---
0800-DR COVINGTON IN AND REMOVED KINGSLYE DRAIN. STERI STRIPS AND DRSG APPLIED BY THIS NURSE PER DR COVINGTON'S V.O
[2022-01-07] MEDS: Docusate Sodium 100 MG Capsule 200 MG PO ×2 (09:30→21:16)
[2022-01-07] MEDS: Multivitamin (Healthy Eyes) Capsule 1 CAP PO ×2 (09:30→21:16)
[2022-01-07] MEDS: Sertraline 50 MG Tablet 25 MG PO (09:30)
[2022-01-07] MEDS: hydroCHLOROthiazide 12.5mg 12.5 MG PO (09:31)
[2022-01-07] MEDS: Allopurinol 100 MG Tablet PO (09:31)
--- NOTE | 2022-01-07 15:08 | CASEMGMT ---
Social Work SW in to validate AD with pt. Pt , Ashlie also present in the room. SW informed that LW/HCPOA documents are not on file with [facility]. SW informed if able pt or pt can bring in copies to be added to pt file. Pt declined, stated we do not want them on file. Pt stated, if we need them we will bring them when the time is right. RICKY Combs
[2022-01-07] MEDS: Tamsulosin HCl 0.4 MG Capsule PO (17:49)
[2022-01-07] MEDS: Atorvastatin Calcium 20 MG Tablet PO (21:16)
[2022-01-08 02:12] VITALS: BP 145/78; PULSE 76; RESP 16; TEMP 36.9; O2SAT 95
[2022-01-08 02:13] VITALS: BP 145/78; PULSE 76; RESP 16; TEMP 36.9; O2SAT 95
[2022-01-08 06:33] LABS: Hematocrit 21.9 % (40-54); Hemoglobin 7.1 g/dL (13.0-16.5); Mean Corp Hgb Conc 32.4 g/dL (32-36); Mean Corpuscular Volume 92.4 fL (80-94); Platelet Count 227 K/mm3 (150-450); RBC Distribution Width CV 14.2 % (11.6-14.6); RBC Distribution Width SD 47.7 fl (35.1-43.9); Red Blood Count 2.37 M/mm3 (4.6-6.2)
[2022-01-08 07:09] LABS: Anion Gap 6 (5-15); BUN 25 mg/dL (7-18); Calcium,Total 9.2 mg/dL (8.5-10.1); Chloride 105 mmol/L (98-107); Creatinine, Serum 1.19 mg/dL (0.70-1.30); EST Glomerular Filtration Rate 63 mL/min (>60); Est Glom Filt Rate - Afr Amer 77 mL/min (>60); Estimated Creatinine Clearance 60.62 ml/min; Glucose 129 mg/dL (74-106); Potassium 3.6 mmol/L (3.5-5.1); Sodium Level 140 mmol/L (136-145)
[2022-01-08 07:30] VITALS: BP 144/77; PULSE 69; RESP 16; TEMP 36.6; O2SAT 96
[2022-01-08 07:38] VITALS: BP 144/77; PULSE 67; RESP 16; TEMP 36.6; O2SAT 96
--- NOTE | 2022-01-08 07:38 | PCM.DC.SUM ---
Providers Date of Admission: 01/04/22 Date of Discharge: 01/08/22 Primary Care Physician: Dr. Feliciano Vega MD Reason For Visit: LAP ROBOTIC PARTIAL NEPHRECTOMY Medications at Discharge Home Medications hydrochlorothiazide 12.5 mg capsule 12.5 mg PO DAILY 03/08/15 simvastatin 40 mg tablet 40 mg PO QHS 03/08/15 tamsulosin 0.4 mg capsule 0.4 mg PO DAILY 03/08/15 acetaminophen 325 mg tablet (Tylenol) 650 mg PO Q6H PRN PRN PAIN ##0 03/22/15 finasteride 5 mg tablet 5 mg PO DAILY 09/09/19 sertraline 25 mg tablet 25 mg PO DAILY 09/09/19 ascorbic acid (vitamin C) 500 mg tablet (Vitamin C) 500 mg PO DAILY 11/27/21 cholecalciferol (vitamin D3) 25 mcg (1,000 unit) tablet (Vitamin D3) 25 mcg PO DAILY 11/27/21 losartan 50 mg tablet 50 mg PO DAILY 11/27/21 lutein 20 mg tablet 20 mg PO DAILY 11/27/21 omega-3 fatty acids 1,000 mg PO DAILY 11/27/21 vitamins A,C,H-vtxa-diovqq 14,320 unit-226 mg-200 unit capsule (PreserVision AREDS) 1 cap PO BID 11/27/21 allopurinol 100 mg tablet 100 mg PO DAILY #30 tabs 11/28/21 ibuprofen 600 mg tablet 600 mg PO Q6H PRN fever or pain #20 tabs 11/28/21 potassium citrate 15 mEq (1,620 mg) tablet,extended release (Urocit-K 15) 30 meq PO BID #60 tabs 11/28/21 docusate sodium 100 mg capsule (Colace) 100 mg PO BID #20 caps 01/04/22 oxycodone-acetaminophen 5 mg-325 mg tablet 1 tab PO Q4H PRN pain 7 days #20 tabs 01/04/22 Hospital Course Summary of Care Provided Hospital Course: 76-year-old male who had 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 Patient will go home today he can take Percocet I Tylenol etc. [id number] for pain control stool softeners he is a regular diet he is a bit ambulating and strong and he will go home and follow-up with me in the office in about 7 to 10 days for checkup. Weight / BMI Weight Weight: 113.2 kg Body Mass Index (BMI) 32.9 ABG / Lab / Microbiology Data Result Diagrams: 01/08/22 06:18 01/08/22 06:18 Laboratory: Laboratory Results - last 24 hr 12/27/21 10:30: Blood Type Cancelled, A1 Antigen Typing Cancelled, Rho(D) Type Cancelled, Antibody Screen Cancelled, Crossmatch See Detail 01/08/22 06:18: WBC 13.0 H, RBC 2.37 L, Hgb 7.1 L, Hct 21.9 L, MCV 92.4, MCH 30.0, MCHC 32.4, RDW Std Deviation 47.7 H, RDW Coeff of Angelica 14.2, Plt Count 227, MPV 10.0 01/08/22 06:18: Sodium 140, Potassium 3.6, Chloride 105, Carbon Dioxide 29.0, Anion Gap 6, BUN 25 H, Creatinine 1.19, Estim Creat Clear Calc 60.62, Est GFR (MDRD) Af Amer 77, Est GFR (MDRD) Non-Af 63, BUN/Creatinine Ratio 21.0 H, Glucose 129 H, Calcium 9.2 D/C Instructions Discharge Diet: No restrictions, Light diet - advance as tolerated and Soft diet Please Follow Up With: Twan Barakat MD When: 2 weeks for follow up Meaningful Use Info Meaningful Use Diagnoses (Choose all that apply): None applicable Discharge Plan Admission Admit Date/Time: 01/04/22 18:36 Primary Reason for Your Visit: partial nephrectomy Attending Provider: Twan Barakat Primary Care Provider: Feliciano Vega Instructions Patient Instructions: Nephrectomy Dc Discharge Orders/Prescriptions Prescriptions: New oxycodone-acetaminophen 5-325 mg tablet 1 tab PO Q4H PRN (Reason: pain) 7 Days Qty: 20 0RF docusate sodium [Colace] 100 mg capsule 100 mg PO BID Qty: 20 0RF Continued simvastatin 40 MG tablet 40 mg PO QHS Label Comments: cholesterol tamsulosin 0.4 MG capsule 0.4 mg PO DAILY Label Comments: urine flow hydrochlorothiazide 12.5 MG capsule 12.5 mg PO DAILY Label Comments: blood pressure acetaminophen [Tylenol] 325 MG tablet 650 mg PO Q6H PRN PRN (Reason: PAIN) Qty: 0 0RF Label Comments: pain sertraline 25 MG tablet 25 mg PO DAILY finasteride 5 MG tablet 5 mg PO DAILY losartan 50 mg tablet 50 mg PO DAILY ascorbic acid (vitamin C) [Vitamin C] 500 mg Tablet 500 mg PO DAILY omega-3 fatty acids Capsule 1,000 mg PO DAILY cholecalciferol (vitamin D3) [Vitamin D3] 25 mcg (1,000 unit) Tablet 25 mcg PO DAILY PreserVision AREDS 14,320-226-200 moaw-rw-nlva Capsule 1 cap PO BID lutein 20 mg Tablet 20 mg PO DAILY Rx Instructions: give with meal/snack potassium citrate [Urocit-K 15] 15 mEq tablet extended release 30 meq PO BID Qty: 60 11RF allopurinol 100 mg tablet 100 mg PO DAILY Qty: 30 11RF ibuprofen 600 mg tablet 600 mg PO Q6H PRN (Reason: fever or pain) Qty: 20 0RF Referrals / Follow Up: Feliciano Vega MD [Primary Care Provider] - Twan Barakat MD [Med Staff - Active Staff] - Disposition Discharge Orders: Discharge Patient (Routine); Ordered 01/08/22 Ordered By: Dr. Twan Barakat
[2022-01-08] MEDS: Docusate Sodium 100 MG Capsule 200 MG PO (09:05)
[2022-01-08] MEDS: Sertraline 50 MG Tablet 25 MG PO (09:05)
[2022-01-08] MEDS: hydroCHLOROthiazide 12.5mg 12.5 MG PO (09:05)
[2022-01-08] MEDS: Multivitamin (Healthy Eyes) Capsule 1 CAP PO (09:05)
[2022-01-08] MEDS: Allopurinol 100 MG Tablet PO (09:06)
[2022-01-08 09:48] VITALS: O2SAT 96
--- NOTE | 2022-01-08 10:23 | PHA.DC.MR ---
Pharmacy Service has performed discharge medication reconciliation for this patient. The patient's discharge medication list was reviewed for discrepancies and discrepancies were resolved. Medication education papers prepared, patient already discharged when counseling was attempted. Home Medications hydrochlorothiazide 12.5 mg capsule 12.5 mg PO DAILY 03/08/15 simvastatin 40 mg tablet 40 mg PO QHS 03/08/15 tamsulosin 0.4 mg capsule 0.4 mg PO DAILY 03/08/15 acetaminophen 325 mg tablet (Tylenol) 650 mg PO Q6H PRN PRN PAIN ##0 03/22/15 finasteride 5 mg tablet 5 mg PO DAILY 09/09/19 sertraline 25 mg tablet 25 mg PO DAILY 09/09/19 ascorbic acid (vitamin C) 500 mg tablet (Vitamin C) 500 mg PO DAILY 11/27/21 cholecalciferol (vitamin D3) 25 mcg (1,000 unit) tablet (Vitamin D3) 25 mcg PO DAILY 11/27/21 losartan 50 mg tablet 50 mg PO DAILY 11/27/21 lutein 20 mg tablet 20 mg PO DAILY 11/27/21 omega-3 fatty acids 1,000 mg PO DAILY 11/27/21 vitamins A,C,C-xjku-hpwhli 14,320 unit-226 mg-200 unit capsule (PreserVision AREDS) 1 cap PO BID 11/27/21 allopurinol 100 mg tablet 100 mg PO DAILY #30 tabs 11/28/21 ibuprofen 600 mg tablet 600 mg PO Q6H PRN fever or pain #20 tabs 11/28/21 potassium citrate 15 mEq (1,620 mg) tablet,extended release (Urocit-K 15) 30 meq PO BID #60 tabs 11/28/21 docusate sodium 100 mg capsule (Colace) 100 mg PO BID #20 caps 01/04/22 oxycodone-acetaminophen 5 mg-325 mg tablet 1 tab PO Q4H PRN pain 7 days #20 tabs 01/04/22
== END 2022-01-08 10:45 | disposition home or self-care (01) | DRG 657 ==
LOC: SDC 20:04 → MS3 01-05 16:15
PROVIDERS: Anesthesiology; Admitting Provider Urology; PCP Family Medicine; Referring Provider Urology; Visit Provider Urology
PROC: 0TB04ZZ Excision of Right Kidney, Percutaneous Endoscopic Approach (ICD-10-PCS; CPT 50543; principal; 2022-01-04 12:40)
DX: D30.01 Benign neoplasm of right kidney (principal); D62 Acute posthemorrhagic anemia; N17.9 Acute kidney failure, unspecified; E78.00 Pure hypercholesterolemia, unspecified; I10 Essential (primary) hypertension; N20.0 Calculus of kidney; Z87.891 Personal history of nicotine dependence; Z79.899 Other long term (current) drug therapy
CPT/HCPCS: 36415; 80048; 85027; 86850; 86900; 86901; 86920; 88305; 88307; 88341; 88342; 93005; J7120; A4216; J2405

== ENCOUNTER → 2023-03-06 | Outpatient (CLI) | payer MEDICARE, SELFPAY ==
[2023-03-06 12:10] LABS: Hematocrit 43.6 % (40-54); Mean Corp Hgb Conc 32.1 g/dL (32-36); Mean Corpuscular Hgb 29.8 pg (27.0-32.0); Mean Corpuscular Volume 92.8 fL (80-94); Mean Platelet Vol. 10.3 fl (6.2-12.0); Platelet Count 247 K/mm3 (150-450); RBC Distribution Width CV 13.9 % (11.6-14.6); RBC Distribution Width SD 48.1 fl (35.1-43.9); White Blood Count 9.7 K/mm3 (4.4-11.0)
[2023-03-06 12:29] LABS: Anion Gap 6 (5-15); BUN 20 mg/dL (7-18); BUN/Creat Ratio 17.4 RATIO (10-20); Calcium,Total 9.4 mg/dL (8.5-10.1); Chloride 105 mmol/L (98-107); Creatinine, Serum 1.15 mg/dL (0.70-1.30); EST Glomerular Filtration Rate 66 mL/min (>60); Est Glom Filt Rate - Afr Amer 79 mL/min (>60); Glucose 123 mg/dL (74-106); PSA,Total - Annual Screen 2.25 ng/mL (0.00-4.00); Potassium 4.2 mmol/L (3.5-5.1); Sodium Level 139 mmol/L (136-145); Uric Acid 6.5 mg/dL (3.5-7.2)
== END | disposition home or self-care (01) ==
PROVIDERS: PCP Family Medicine; Referring Provider Urology; Visit Provider Urology
DX: Z12.5 Encounter for screening for malignant neoplasm of prostate (principal); Z87.442 Personal history of urinary calculi; N40.1 Benign prostatic hyperplasia with lower urinary tract symptoms; R97.20 Elevated prostate specific antigen [PSA]
CPT/HCPCS: 36415; 80048; 84153; 84550; 85027; G0103

== ENCOUNTER 2023-07-03 09:30 | Outpatient (RCR) | payer MEDICARE, SELFPAY ==
--- NOTE | 2023-06-25 14:13 | HP.PTEVAL_ITS ---
Patient's Visit Information Visit Information Visit Information: MARSHAL BLUE is a 77 year old M referred to Physical Therapy by Dr. Feliciano Gordon MD with a diagnosis of SPONDYLOSIS WITHOUT MYELOPATHY OR RADICULOPATHY ,INTERVERTEBRAL DISC DEG. Date of Evaluation: 06/25/23 Physical Therapist: Milo Okeefe, PT, Cert MDT, OCS Visit Plan Frequency: 2x /Week Duration: 4 Weeks Plan: PT INTERVENTIONS DLS ,POSTURAL EX'S , LE FLEXABILITY AND MODALITIES NEEDED Subjective Subjective: This 77 y/o male presents to physical therapy with lumbar pain. Patient has had back pain many years . Patient was shoveling snow in April pain increase lumbar region with legs symptoms. Currently patient has occasional pain in right leg with weakness. Patient seen Dr Peraza did x-rays showed subtle L4-5 grade 1 spondylolisthesis without any significant instability. Multilevel facet arthrosis and disc degeneration noticed. Dr Peraza recommended PT and pain management and plan to do 1st epidural injection in ~ 1 week. Aggravating factors bending ,lifting ,walking and standing and hard chair. Alleviating factors sitting and heat. Bowel/bladder -. Coughing/sneezing-. Denies paresthesia/tingling . Patient pain affects sleeping. Patient pain affects QOL and function . 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 Patient has no h/o trauma. Patient goals to decrease pain. SOCIAL: VOCATION: retired Pain Bilateral Back: Pain Intensity (Out of 10): 3 Pain Intensity Range: 10 Objective Objective: POSTURE: mild forward posture forward posture PALAPTION: unremarkable SYMMETRIES: align FLEXABILITY: hamstrings min/mod tight MMT: quads/hams 4/5 ,hip flexion 4-/5 ,ankle 4/5 LUMBAR ROM: flexion mod loss ,extension mod-severe loss ,side glides mod loss Special Tests L/S Slump test left side: Negative L/S Slump test right side: Negative L/S Left Straight Leg Raise: Negative L/S Right Straight Leg Raise: Negative Lumbar Standing: Flexion - Mechanical Response: No effect Lumbar Standing: Flexion - Symptoms During Testing: Increases Lumbar Standing: Flexion - Symptoms After Testing: No worse Lumbar Standing: Extension - Mechanical Response: No effect Lumbar Standing: Extension - Symptoms During Testing: Increases Lumbar Standing: Extension - Symptoms After Testing: No effect Lumbar Standing: Right Side Glides - Mechanical Response: No effect Lumbar Standing: Right Side [place] - Symptoms During Testing: No effect Lumbar Standing: Right Side [place] - Symptoms After Testing: No effect Lumbar Standing: Left Side [place] - Mechanical Response: No effect Lumbar Standing: Left Side [place] - Symptoms During Testing: No effect Lumbar Standing: Left Side [place] - Symptoms After Testing: No effect Balance/Special Test Scores Oswestry Low Back Score: 30 Goals Goal 1:: Patient to be I with HEP back Goal Time Frame: 4-6 Weeks Goal 2:: Patient to improve lumbar ROM for function of recovery to put on and tie shoes Goal Time Frame: 4-6 Weeks Goal 3:: Patient to improve back oswestry score by 5 point to improve function Goal Time Frame: 4-6 Weeks Goal 4:: Patient to demonstrate 50% improvement with less pain and improved function Goal Time Frame: 4-6 Weeks Goal 5:: Patient will be able to perform ADL and housework tasks with min limiations Goal Time Frame: 4-6 Weeks Rehabilitation Potential Physical Therapy Diagnosis: This patient has lumbar pain worse with walking and standing increases with positioning and motion testing thus recommend from PT Rehabilitation Potential: Good Anticipated Interventions Patient/Client Instruction: Educate patient on: Condition and Plan of Care For the Purpose of:: To decrease pain, To increase ROM, To improve muscle performance and motor function, To improve ability to perform ADL's, To increase tolerance to activity/condition/position, To improve ability of physical actions for home/community/work/leisure, To improve health of tissue, To decrease soft tissue restriction and To increase flexibility/ROM Therapeutic Exercise to Include: Strength training, Body mechanics, Postural training, Flexibilty training and Dynamic Lumbar Stabilization For the Purpose of:: To decrease pain, To decrease swelling/inflammation, To increase oxygenation perfusion, To improve ability to perform ADL's, To increase tolerance to activity/condition/position, To improve ability of physical actions for home/community/work/leisure, To improve health of tissue, To decrease soft tissue restriction and To increase flexibility/ROM TENS: Yes IF ES: Yes Cryotherapy (ice pack, ice massage): Yes Thermo therapy (hot pack): Yes Ultrasound (thermal/non thermal): Yes For the Purpose of:: To decrease pain, To increase ROM, To improve health of tissue and To decrease soft tissue restriction Text: Thank you for the opportunity to evaluate your patient. For Medicare and Medicare HMO plans, please review the plan of care and approve it. It will need to be FAXED BACK to us at [phone] for Medicare purposes. For Medicare only, by signing this I certify the plan of care. Please let me know if there are questions or concerns regarding this plan of care. Physician Signature: Date:
--- NOTE | 2023-07-29 15:27 | HP.PT.NRP ---
Patient Information Patient Information: MARSHAL BLUE was seen in my office for initial evaluation on 06/25/23. The following Plan of Care was established for this patient: POC Established Initial Frequency: 2x /Week Initial Duration: 4 Weeks Anticipated Interventions Patient/Client Instruction: Educate patient on: Condition and Plan of Care For the Purpose of:: To decrease pain, To increase ROM, To improve muscle performance and motor function, To improve ability to perform ADL's, To increase tolerance to activity/condition/position, To improve ability of physical actions for home/community/work/leisure, To improve health of tissue, To decrease soft tissue restriction and To increase flexibility/ROM Therapeutic Exercise to Include: Strength training, Body mechanics, Postural training, Flexibilty training and Dynamic Lumbar Stabilization For the Purpose of:: To decrease pain, To decrease swelling/inflammation, To increase oxygenation perfusion, To improve ability to perform ADL's, To increase tolerance to activity/condition/position, To improve ability of physical actions for home/community/work/leisure, To improve health of tissue, To decrease soft tissue restriction and To increase flexibility/ROM TENS: Yes IF ES: Yes Cryotherapy (ice pack, ice massage): Yes Thermo therapy (hot pack): Yes Ultrasound (thermal/non thermal): Yes For the Purpose of:: To decrease pain, To increase ROM, To improve health of tissue and To decrease soft tissue restriction Last Seen Last Seen: This patient was last seen in our office . Pertinent comments regarding their Physical therapy will appear below: Patient seen for PT for lumbar radiculopathy focus on DLS and postural ex's dong well d/c to HEP At this point I will be discontinuing this patient from physical therapy. I would be happy to see this patient again in the future if found appropriate by the physician. Thank you! Milo Okeefe, PT, Cert MDT, OCS Balance/Gait/Functional tests Balance/Special Test Scores Oswestry Low Back Score: 30
== END 2023-07-03 19:00 | disposition home or self-care (01) ==
LOC: PT 09:30
PROVIDERS: PCP Family Medicine; Referring Provider Anesthesiology Pain Medicine; Visit Provider Anesthesiology Pain Medicine
DX: M51.37 Other intervertebral disc degeneration, lumbosacral region (principal); M47.817 Spondylosis without myelopathy or radiculopathy, lumbosacral region
CPT/HCPCS: 97110; 97162

== ENCOUNTER → 2023-11-10 | Outpatient (CLI) | payer MEDICARE, SELFPAY ==
--- NOTE | 2023-11-10 07:30 | MRI_ITS ---
STUDY: MRI LUMBAR SPINE WITHOUT CONTRAST REASON FOR EXAM: Male, 78 years old. RADICULOPATHY TECHNIQUE: Standardized fat and water weighted pulse sequences were obtained in the sagittal and axial planes. COMPARISON: Lumbar spine x-rays May 07, 2023 FINDINGS: T12-L1: Normal endplates. Normal disc height, hydration and morphology. Normal bilateral facet joints. Normal central canal and bilateral lateral recesses. Normal bilateral intervertebral neural foramina. Normal lumbar lordosis. There is no substantial scoliosis. Normal conus medullaris that terminates at T12-L1 L1-2: Normal endplates. Normal disc height, hydration and morphology. Normal bilateral facet joints. Normal central canal and bilateral lateral recesses. Normal bilateral intervertebral neural foramina. L2-3: Anterior endplate spurring. Normal disc height, desiccation with minimal annular bulge and tiny central disc protrusion Normal bilateral facet joints. Normal central canal and bilateral lateral recesses. Normal bilateral intervertebral neural foramina. L3-4: Anterior endplate spurring. Normal disc height, hydration desiccation and minimal annular bulge. Facet arthropathy and thickening of the ligamenta flava slightly worse on the right Normal central canal and bilateral lateral recesses. Moderate left neural foraminal stenosis and moderate to severe narrowing on the right exaggerated by shortened pedicles. L4-5: Normal endplates. Normal disc height, hydration and minimal annular bulge. Facet arthropathy and thickening of ligamenta flava.. Normal central canal and bilateral lateral recesses. Moderate bilateral neural foraminal stenosis L5-S1: Normal endplates. Normal disc height, desiccation and minimal annular bulge with tiny central disc protrusion.. Facet arthropathy more pronounced on the left. Normal central canal and bilateral lateral recesses. Mild right neural foraminal stenosis and moderate stenosis on the left.. Normal visualized sacral ala. Normal visualized paraspinous soft tissue structures. No significant change since prior exam given inherent differences in imaging modality MRI/Spine Lumbar (Routine) IMPRESSION: No evidence for acute fracture or other significant bony pathology. Multilevel disc degeneration and spinal stenosis secondary to disc disease and bony hypertrophy most severe at L3-4 exaggerated by shortened pedicles Electronically Signed: Feliciano Piña MD at 17:54 EDT ,
== END | disposition home or self-care (01) ==
PROVIDERS: PCP Family Medicine; Referring Provider Anesthesiology Pain Medicine; Visit Provider Anesthesiology Pain Medicine
DX: M54.17 Radiculopathy, lumbosacral region (principal)
CPT/HCPCS: 72148

== ENCOUNTER → 2024-03-09 | Outpatient (CLI) | payer MEDICARE, SELFPAY ==
[2024-03-09 12:51] LABS: PSA,Total- Diagnostic 0.93 ng/mL (0.0-4.0)
== END | disposition home or self-care (01) ==
LOC: LAB 11:27
PROVIDERS: PCP Family Medicine; Referring Provider Nurse Practitioner; Visit Provider Nurse Practitioner
DX: R97.20 Elevated prostate specific antigen [PSA] (principal)
CPT/HCPCS: 36415; 84153

== ENCOUNTER 2025-03-02 20:14 | Emergency (ER) | payer MEDICARE, SELFPAY ==
[2025-03-02 20:15] VITALS: BP 159/69; PULSE 71; RESP 16; TEMP 36.6; O2SAT 98
--- NOTE | 2025-03-02 20:20 | RAD_ITS ---
EXAM: XR Left Tibia and Fibula, 2 Views CLINICAL INDICATION: PAIN TECHNIQUE: Frontal and lateral views of the left tibia and fibula. COMPARISON: No relevant prior studies available. FINDINGS: BONES/JOINTS: Moderate degenerative changes of the ankle joint. Subtle fracture can not be excluded. Small calcific density in the anterior soft tissue of the knee joint. This could be from injury of the indeterminate age. Correlation with point tenderness is recommended. No dislocation. SOFT TISSUES: Soft tissue swelling. No radiopaque foreign body. RAD/Tibia & Fibula 2 Views IMPRESSION: 1. Moderate degenerative changes of the ankle joint. Subtle fracture can not be excluded. 2. Soft tissue swelling. 3. Small calcific density in the anterior soft tissue of the knee joint. This could be from injury of the indeterminate age. Correlation with point tenderness is recommended. Reading Location: [id number]
--- OUTSIDE RECORDS SUMMARY | 2025-03-02 21:25 | XMS RPT_ITS | CCD ---
Author Organization [facility] Care Team Providers Care Barrel Maker Name Role Phone Jayla Florian MD Primary Care Provider [phone] Dr. Feliciano Florian Primary Care Provider Dr. Feliciano Florian Referring Provider Dr. Vikram Peraza Attending Provider Dr. Trev Reese Attending Provider Jayla Florian MD Primary Care Provider [phone] Luci Baxter Attending Unavailable Luci Baxter Referring Unavailable Feliciano Florian Primary Care Unavailable Feliciano Gordon Attending Unavailable Evan, Feliciano Referring Unavailable Gary, Feliciano Primary Care Unavailable Feliciano Gordon Attending Unavailable Evan, Feliciano Referring Unavailable Gary, Feliciano Primary Care Unavailable Gary, Feliciano Primary Care Unavailable Trev Reese Attending Unavailable Gary, Feliciano Primary Care Unavailable Feliciano Florian Referring Unavailable Vikram Peraza Attending Unavailable James BROACH SETTER.BIZTALK SOFTWARE DEVELOPER, Trish Unavailable JAYLA FLORIAN Attending Unavailable SELF Referring Unavailable JAYLA FLORIAN Primary Care Unavailable JAYLA FLORIAN Primary Care Unavailable DAYRON RODRIGUEZ Attending Unavailable JAYLA FLORIAN Primary Care Unavailable JONI LEAVITT Attending Unavailable JAYLA FLORIAN Referring Unavailable JAYLA FLORIAN Primary Care Unavailable Allergies Allergy Classification Reported Allergen(s) Allergy Type Date of Onset Reaction(s) Facility (20 sources) Cat; Translations: [CATS] Propensity to adverse reactions 5 Itching, Other: See Comments [facility] (20 sources) Ciprofloxacin; Translations: [CIPROFLOXACIN] Drug Allergy 5 Swelling [facility] Work Phone: (20 sources) cow milk allergenic extract; Translations: [MILK] Drug Allergy 5 Rash [facility] Work Phone: (9 sources) Ciprofloxacin; Translations: [ciprofloxacin HCl] Drug Allergy 0 Swelling [facility] (6 sources) Milk Containing Products Propensity to adverse reactions 0 Other [facility] Work Phone: (2 sources) Milk Containing Products (Dairy) Propensity to adverse reactions 2 Other [facility] (1 source) Ciprofloxacin Drug Allergy 4 [facility] (1 source) Milk Containing Products (Dairy) Drug allergy (disorder) 4 [facility] Medications Current Medications Medication Drug Class(es) Dates Sig (Normalized) Sig (Original) acetaminophen 325 mg oral tablet (8 sources) Start: 03-22-2015 take 2 tablets by mouth every six hours as needed Acetaminophen (Tylenol) 325 MG tablet Active 650 MG PO EVERY 6 HOURS NEEDED March 22, 2015 1:00am acetaminophen 325 mg / HYDROcodone bitartrate 5 mg oral tablet (1 source) Opioid Agonist Start: 05-14-2023 End: 05-19-2023 take 1 tablet by mouth every six hours as needed for pain HYDROcodone-acetam inophen (NORCO) 5-325 mg per tablet Indications: Chronic low back pain, unspecified back pain laterality, unspecified whether sciatica present Take 1 tablet by mouth every 6 hours as needed for pain for up to 5 days. 20 tablet 0 05/14/2023 05/19/2023 Active Comment on above: Take 1 tablet by ayaka th every 6 hours as needed for pain for up to 5 days. allopurinol 100 mg oral tablet (19 sources) Xanthine Oxidase Inhibitor Start: 11-28-2021 End: 04-24-2023 take 100 mg by mouth once daily Allopurinol Active 100 MG PO DAILY November 28, 2021 12:00am Comment on above: Take 1 tablet by ayaka th once daily. amoxicillin 875 mg / clavulanate 125 mg oral tablet (1 source) Penicillin-class Antibacterial Start: 05-15-2022 End: 05-20-2022 take 1 tablet by mouth twice daily amoxicillin-clavul anic acid (AUGMENTIN) 875-125 mg per tablet Indications: Acute non-recurrent sinusitis, unspecified location Take 1 tablet by mouth twice daily for 5 days. 10 tablet 0 05/15/2022 05/20/2022 Active Comment on above: Take 1 tablet by ayaka twice daily for 5 days. Antiarthritic Combination No.2 (Glucosamine-Chondr oitin) 900 mg tablet (1 source) Start: 05-07-2023 Antiarthritic Combination No.2 (Glucosamine-Chond roitin) 900 mg tablet Active MG PO May 07, 2023 1:00am ascorbic acid 500 mg oral tablet (8 sources) Vitamin C Start: 05-07-2023 take 2 tablets by mouth once daily Ascorbic Acid (Vitamin C) (Vitamin C) 500 mg tablet Active 1000 MG PO DAILY May 07, 2023 3:41pm Start: 11-27-2021 End: 05-07-2023 take 1 tablet by mouth once daily Ascorbic Acid (Vitamin C) (Vitamin C) 500 mg Tablet Discontinued 500 MG PO DAILY November 27, 2021 12:00am May 07, 2023 3:43pm B2/VIT A,C & E/LUT/ZEAXANTH/ MN (ICAPS ORAL) (20 sources) B2/VIT A,C & E/L UT/ZEAXANTH/MN (ICAPS ORAL) Take by mouth. Active B2/VIT A,C & E/L UT/ZEAXANTH/MN (ICAPS ORAL) Take by mouth. 0 Active Comment on above: Take by mouth. cephalexin 500 mg oral capsule (5 sources) Cephalosporin Antibacterial Start: End: take 1 capsule by mouth three times daily cephALEXin (KEFLEX) 500 mg capsule Take 1 capsule by mouth three times a day for 7 days. 21 capsule 0 08/31/2023 09/07/2023 Active Start: 11-28-2021 take 500 mg by mouth three times daily Cephalexin Active 500 MG PO THREE TIMES A DAY November 28, 2021 12:00am cholecalciferol, vitamin D3, (VITAMIN D3 ORAL) (20 sources) take 1 tablet by mouth once daily cholecalciferol, vitamin D3, (VITAMIN D3 ORAL) Take 1 tablet by mouth once daily. Active take 1 tablet by mouth once elena y cholecalciferol, vitamin D3, (VITAMIN D3 ORAL) Take 1 tablet by mouth once daily. 0 Active Comment on above: Take 1 tablet by ayaka once daily. doxycycline hyclate 100 mg oral tablet (1 source) Tetracycline-class Drug Start: 2024 End: 2024 take 1 tablet by mouth twice daily doxycycline (VIBRA-TABS) 100 mg tablet Take 1 tablet by mouth two times a day for 7 days. 14 tablet 09/22/2024 09/29/2024 Active finasteride 5 mg oral tablet (20 sources) 5-alpha Reductase Inhibitor Start: 2019 finasteride (PROSCAR) 5 mg tablet Take 5 mg by mouth. 09/09/2019 Active Comment on above: Take 5 mg by mouth. hydroCHLOROthiazide 12.5 mg oral capsule (20 sources) Thiazide Diuretic Start: 2014 End: 2023 take 1 capsule by mouth once daily hydroCHLOROthiazide 12.5 mg capsule Indications: Essential hypertension, benign Take 1 capsule by mouth once daily. 90 capsule 3 01/27/2024 Active Comment on above: TAKE 1 CAPSULE ONCE DAILY Take 1 capsule by mo [facility] once daily. ibuprofen 600 mg oral tablet (7 sources) Nonsteroidal Anti-inflammatory Drug Start: 2021 take 600 mg by mouth every six hours Ibuprofen Active 600 MG PO EVERY 6 HOURS November 28, 2021 12:00am lisinopril 20 mg oral tablet (1 source) Angiotensin Converting Enzyme Inhibitor Start: 2014 take 20 mg by mouth once daily Lisinopril Active 20 MG PO DAILY March 08, 2015 1:00am losartan potassium 50 mg oral tablet (20 sources) Angiotensin 2 Receptor Cesar Start: 2024 End: 2024 take 1 tablet by mouth once daily losartan (COZAAR) 50 mg tablet Take 1 tablet by mouth once daily for 14 days. 14 tablet 11/15/2024 11/29/2024 Active Start: 02-13-2021 End: 11-12-2024 take 1 tablet by mouth once daily losartan (COZAAR) 50 mg tablet Take 1 tablet by mouth once daily. 14 tablet 02/16/2024 11/12/2024 Discontinued Comment on above: Take 1 tablet by ayaka th once daily. TAKE 1 TABLET ONCE D AILY lutein 20 mg oral tablet (20 sources) Start: 11-27-2021 lutein 20 mg tab Take 20 mg by mouth. 11/27/2021 Active Comment on above: Take 20 mg by mouth. Wa-Dw-Mm-Vit W-Eoxaz-Igus-Zeax (Ocuvite Eye Plus Multi) 1 EACH tablet (1 source) Start: 03-08-2015 take 1 tablet by mouth once daily Za-Zt-Fy-Vit W-Rollr-Srxv-Zeax (Ocuvite Eye Plus Multi) 1 EACH tablet Active 1 EACH PO DAILY March 08, 2015 1:00am Corrigan-3 Fatty Acids (3 sources) Start: 11-27-2021 take 1000 mg by mouth once daily Corrigan-3 Fatty Acids Active 1000 MG PO DAILY November 26, 2021 11:00pm Start: 11-27-2021 take 1000 mg by mouth once staci ly Corrigan-3 Fatty Acids Active 1000 MG PO DAILY November 27, 2021 12:00am Corrigan-3 Fatty Acids (Fish Oil) Capsule (4 sources) Start: 11-27-2021 take 1 capsule by mouth once daily Corrigan-3 Fatty Acids (Fish Oil) Capsule Active 1000 MG PO DAILY November 27, 2021 12:00am potassium citrate 10 meq extended release oral tablet (20 sources) Start: 04-18-2022 take 10 mEq by mouth twice daily potassium citrate ER (UROCIT-K) 10 mEq (1,080 mg) Take 1,080 mg by mouth twice daily. 04/18/2022 Active Start: 11-28-2021 Potassium Citr ate (Urocit-K 15) 15 mEq tablet extended release Active 30 MEQ PO TWICE A DAY 60 November 28, 2021 12:00am Comment on above: Take 1,080 mg by ayaka th twice daily. predniSONE 20 mg oral tablet (1 source) Start: 09-22-2024 End: 10-02-2024 take 2 tablets by mouth once daily, then take 1 tablet by mouth once daily predniSONE (DELTASONE) 20 mg tablet Take 2 tablets by mouth once daily for 5 days, THEN 1 tablet once daily for 5 days. 15 tablet 09/22/2024 10/02/2024 Active psyllium 520 mg oral capsule (20 sources) Start: 08-10-2012 psyllium Husk 0.52 gram capsule Take 1 capsule by mouth once daily. 0 08/10/2012 Active Comment on above: Take 1 capsule by [facility] once daily. sertraline 50 mg oral tablet (20 sources) Serotonin Reuptake Inhibitor Start: 08-06-2023 take 1 tablet by mouth once daily sertraline (ZOLOFT) 50 mg tablet Take 1 tablet by mouth once daily. 90 tablet 3 08/06/2023 Active Start: 09-09-2019 End: 08-06-2023 take 1 tablet by mouth once daily sertraline (ZOLOFT) 25 mg tablet Indications: Adjustment disorder with mixed anxiety and depressed mood Take one tablet by mouth daily 90 tablet 3 01/24/2023 08/06/2023 Discontinued Comment on above: Take one tablet by [facility] daily simvastatin 40 mg oral tablet (20 sources) HMG-CoA Reductase Inhibitor Start: 03-08-20 End: 01-27-20 take 1 tablet by mouth once daily at bedtime simvastatin (ZOCOR) 40 mg tablet Indications: Mixed hyperlipidemia Take 1 tablet by mouth daily at bedtime. 90 tablet 3 01/27/2024 Active Comment on above: TAKE 1 TABLET DAILY AT BEDTIME Take 1 tablet by [facility] daily at bedtime. tamsulosin hydrochloride 0.4 mg oral capsule (20 sources) alpha-Adrenergic Cesar Start: 03-08-20 End: 09-22-19 take 1 capsule by mouth once daily tamsulosin (FLOMAX) 0.4 mg Take 1 capsule by mouth once daily. 90 capsule 3 09/21/2021 Active Comment on above: TAKE 1 CAPSULE ONCE DAILY Take 1 capsule by [facility] once daily. Vitamins A,C,D-Pqnh-Kosroh (Preservision Areds) [id number] daip-ws-[id number] Capsule (7 sources) Start: 11-28-19 take 1 capsule by mouth twice daily Vitamins A,C,W-Agco-Wxgwuv (Preservision Areds) [id number] fmuj-[id number] Capsule Active 1 CAP PO TWICE A DAY November 26, 2021 11:00pm Start: 11-27-2021 take 1 capsule by [facility] twice daily Vitamins A,C,E-Rnxv-Lmnpuw (Preservision Areds) [id number] covy-bj-wwdm Capsule Active 1 CAP PO TWICE A DAY November 27, 2021 12:00am Completed/Discontinued Medications Medication Drug Class(es) Dates Sig (Normalized) Sig (Original) acetaminophen 325 mg / oxyCODONE hydrochloride 5 mg oral tablet (3 sources) Opioid Agonist Start: 01-04-2022 End: 05-07-2023 take 1 tablet by mouth every four hours Oxycodone-Acetamino phen Discontinued 1 TABLET PO Q4H 24 10January 04, 2022 May 07, 2023 3:43pm calcium chloride 0.0014 meq/ml / potassium chloride 0.004 meq/ml / sodium chloride 0.103 meq/ml / sodium lactate 0.028 meq/ml injectable solution (1 source) Start: 10-16-2023 End: 10-16-2023 lactated ringers iv infusion cholecalciferol 0.025 mg oral tablet (7 sources) Vitamin D Start: 11-27-2021 End: 05-07-2023 take 1 tablet by mouth once daily Cholecalciferol (Vitamin D3) (Vitamin D3) 25 mcg (1,000 unit) Tablet Discontinued 25 MCG PO DAILY November 27, 2021 12:00am May 07, 2023 3:43pm cyclobenzaprine hydrochloride 10 mg oral tablet (20 sources) Muscle Relaxant Start: 10-23-2020 End: 01-27-2024 take 1 tablet by mouth three times daily as needed for muscle spasms cyclobenzaprine (FLEXERIL) 10 mg tablet Indications: Acute right-sided low back pain without sciatica Take 1 tablet by mouth three times daily as needed for muscle spasm. 30 tablet 10/23/2020 01/27/2024 Discontinued (Course of therapy completed) Comment on above: Take 1 tablet by ayaka th three times daily as needed for muscle spasm. diphenhydrAMINE (1 source) Histamine-1 Receptor Antagonist Start: 10-16-2023 End: 10-16-2023 diphenhydrAMINE 12.5-50 mg injection (BENADRYL) docusate sodium 100 mg oral capsule (3 sources) Start: 01-04-2022 End: 05-07-2023 take 1 capsule by mouth twice daily Docusate Sodium (Colace) 100 mg capsule Discontinued 100 MG PO TWICE A DAY January 04, 2022 12:00am May 07, 2023 3:43pm 1 ml fentaNYL 0.05 mg/ml injection (1 source) Opioid Agonist Start: 10-16-2023 End: 10-16-2023 fentaNYL 50 mcg/mL 25-100 mcg injection (SUBLIMAZE) fluticasone propionate 0.05 mg/actuat metered dose nasal spray (3 sources) Corticosteroid Start: 07-26-2019 End: 09-21-2021 take 2 spray(s) by mouth once daily fluticasone (FLONASE) 50 mcg/actuation nasal spray Indications: Bacterial sinusitis USE 2 SPRAYS IN EACH NOSTRIL ONCE DAILY. RINSE MOUTH AFTER USE. 16 mL 1 07/26/2019 09/21/2021 Discontinued (Other) Comment on above: USE 2 SPRAYS IN EACH NOSTRIL ONCE DAILY. RINSE MOUTH AFTER USE. 60 actuat fluticasone propionate 0.1 mg/actuat / salmeterol 0.05 mg/actuat dry powder inhaler (3 sources) Corticosteroid, beta2-Adrenergic Agonist Start: 02-21-2020 End: 09-21-2021 WIXELA INHUB 100-50 mcg/dose meloxicam 15 mg oral tablet (8 sources) Nonsteroidal Anti-inflammatory Drug Start: 03-08-2015 End: 03-22-2015 take 15 mg by mouth once daily Meloxicam Discontinued 15 MG PO DAILY March 08, 2015 1:00am March 22, 2015 8:46am 5 ml midazolam 1 mg/ml injection (1 source) Benzodiazepine Start: 10-16-2023 End: 10-16-2023 midazolam 1-5 mg injection (VERSED) Nunsr-7-ROJ-EPA-Fish Oil (FISH OIL) 1,000 mg (120 mg-180 mg) cap (15 sources) take 1 capsule by mouth once daily Cyjak-5-ZYZ-EPA-Fis h Oil (FISH OIL) 1,000 mg (120 mg-180 mg) cap Take 2 g by mouth once daily. 0 Active Comment on above: Take 2 g by mouth on ce daily. Ecdja-1-TFD-EPA-Fish Oil 1,000 mg (120 mg-180 mg) cap (20 sources) End: 01-27-2024 take 1 capsule by mouth once daily Xyfar-0-KBW-EPA-Fis h Oil 1,000 mg (120 mg-180 mg) cap Take 2 g by mouth once daily. 01/27/2024 Discontinued (Discontinued by Patient) take 1 capsule by mouth once staci ly Ydmhg-1-JKI-EPA-Fish Oil 1,000 mg (120 mg- 180 mg) cap Take 2 g by mouth once daily. Active take 1 capsule by mouth once staci ly Gnrmx-7-LZB-EPA-Fish Oil 1,000 mg (120 mg- 180 mg) cap Take 2 g by mouth once daily. 0 Active Comment on above: Take 2 g by mouth on ce daily. simethicone 66.7 mg/ml oral suspension (1 source) Start: 10-16-2023 End: 10-16-2023 simethicone 20-40 mg oral liquid (MYLICON) Problems Active Problems Problem Classification Problem Date Documented Date Episodic/Chronic Adjustment disorders (20 sources) Adjustment disorder with mixed anxiety and depressed mood; Translations: [Adjustment disorder with mixed anxiety and depressed mood] Onset: 06-29-2019 02-18-2020 Chronic Calculus of urinary tract (1 source) History of calculus of kidney; Translations: [Personal history of urinary calculi] 01-24-2023 Episodic Disorders of lipid metabolism (20 sources) Mixed hyperlipidemia; Translations: [Mixed hyperlipidemia] Onset: 08-12-2005 Chronic Diverticulosis and diverticulitis (20 sources) Diverticulosis of colon; Translations: [Diverticulosis of large intestine without perforation or abscess without bleeding] Onset: 12-19-2011 12-19-2011 Chronic Essential hypertension (20 sources) Benign essential hypertension; Translations: [Essential (primary) hypertension] Onset: 08-12-2005 04-02-2021 Chronic Hyperplasia of prostate (20 sources) Benign prostatic hypertrophy with outflow obstruction; Translations: [Benign prostatic hyperplasia with lower urinary tract symptoms] Onset: 02-26-2011 02-26-2011 Chronic Immunizations and screening for infectious disease (8 sources) Suspected disease caused by 2019-nCoV; Translations: [Person under investigation for COVID-19] 09-10-2019 Episodic Osteoarthritis (20 sources) Osteoarthritis of joint of right shoulder region; Translations: [Primary osteoarthritis, right shoulder] Onset: 04-15-2011 04-15-2011 Chronic Other acquired deformities (1 source) Lumbar spondylolisthesis; Translations: [Spondylolisthesis, lumbar region] 05-07-2023 Episodic Other acquired deformities (1 source) Spondylolisthesis, lumbar region; Translations: [Acquired spondylolisthesis] 05-07-2023 Episodic Other and unspecified benign neoplasm (1 source) Benign neoplasm of right kidney; Translations: [Benign neoplasm of right kidney] Episodic Other connective tissue disease (1 source) Triggering of digit; Translations: [Trigger finger, right middle finger] 01-24-2023 Episodic Other diseases of kidney and ureters (3 sources) Renal mass; Translations: [Other specified disorders of kidney and ureter] 01-04-2022 Chronic Other hereditary and degenerative nervous system conditions (1 source) Impaired cognition; Translations: [Mild cognitive impairment, so stated] Chronic Other infections; including parasitic (1 source) Personal history of other infectious and parasitic diseases; Translations: [History of 2019 novel coronavirus disease (COVID-19)] Episodic Other lower respiratory disease (8 sources) Dyspnea; Translations: [Dyspnea, unspecified] 09-10-2019 Episodic Other nutritional; endocrine; and metabolic disorders (9 sources) Obese class I; Translations: [Obesity, Class I, BMI 30-34.9] Onset: 01-27-2024 01-27-2024 Chronic Other upper respiratory disease (20 sources) Allergic rhinitis; Translations: [Allergic rhinitis, unspecified] Onset: 06-02-2006 06-02-2006 Chronic Other upper respiratory disease (1 source) Allergic rhinitis, unspecified; Translations: [Allergic rhinitis, unspecified seasonality, unspecified trigger] Onset: 07-21-2024 Chronic Other upper respiratory infections (2 sources) Chronic sinusitis; Translations: [Chronic sinusitis, unspecified] Onset: 09-22-2024 09-22-2024 Chronic Residual codes; unclassified (20 sources) Obstructive sleep apnea syndrome; Translations: [Obstructive sleep apnea (adult) (pediatric)] Onset: 07-17-2009 07-17-2009 Chronic Residual codes; unclassified (1 source) Obstructive sleep apnea (adult) (pediatric); Translations: [Obstructive sleep apnea on CPAP] Onset: 02-15-2025 Chronic Skin and subcutaneous tissue infections (1 source) Infection of skin; Translations: [Local infection of the skin and subcutaneous tissue, unspecified] 08-31-2023 Episodic Spondylosis; intervertebral disc disorders; other back problems (2 sources) Spondylosis without myelopathy or radiculopathy, lumbosacral region; Translations: [Other intervertebral disc degeneration, lumbosacral region] Onset: 08-19-2023 Chronic Unclassified (1 source) Low back pain, unspecified; Translations: [Low back pain, unspecified] Onset: 05-07-2023 Past or Other Problems Problem Classification Problem Date Documented Da te Episodic/Chronic Allergic reactions (2 sources) Allergic contact dermatitis; Translations: [Allergic contact dermatitis, unspecified cause] Onset: 09-22-2024 09-22-2024 Episodic Chronic obstructive pulmonary disease and bronchiectasis (1 source) Bronchitis, not specified as acute or chronic; Translations: [Sinobronchitis] Onset: 09-22-2024 Episodic Diabetes mellitus without complication (20 sources) Impaired fasting glycemia; Translations: [Impaired fasting glucose] Onset: 12-23-2007 Resolved: 01-27-2024 12-23-2007 Episodic Genitourinary symptoms and ill-defined conditions (20 sources) Nocturia; Translations: [Nocturia] Onset: 02-26-2011 Resolved: 01-27-2024 02-26-2011 Episodic Inflammatory conditions of male genital organs (20 sources) Prostatitis; Translations: [Inflammatory disease of prostate, unspecified] Onset: 02-26-2011 Resolved: 01-27-2024 02-26-2011 Episodic Other and unspecified benign neoplasm (20 sources) History of polyp of colon; Translations: [Personal history of colonic polyps] Onset: 06-02-2006 06-02-2006 Episodic Other and unspecified benign neoplasm (20 sources) Benign neoplasm of colon; Translations: [Benign neoplasm of colon, unspecified] Onset: 12-19-2011 12-19-2011 Episodic Other screening for suspected conditions (not mental disorders or infectious disease) (20 sources) Patient encounter status; Translations: [Encounter for screening for other disorder] Onset: 02-26-2011 Resolved: 01-27-2024 02-26-2011 Episodic Other upper respiratory infections (3 sources) Acute sinusitis; Translations: [Acute sinusitis, unspecified] Onset: 07-21-2024 Episodic Spondylosis; intervertebral disc disorders; other back problems (3 sources) Chronic low back pain; Translations: [Chronic low back pain, unspecified back pain laterality, unspecified whether sciatica present] Onset: 12-15-2023 05-14-2023 Episodic Unclassified (20 sources) Increased frequency of urination; Translations: [Frequency] Onset: 02-26-2011 Resolved: 01-27-2024 02-26-2011 Urinary tract infections (20 sources) Urinary tract infectious disease; Translations: [Urinary tract infection, site not specified] Onset: 01-17-2015 Resolved: 01-27-2024 01-17-2015 Episodic Results Test Name Value Interpretation Reference Range Facility [facility] 02-15-2025 [facility] Office Visit ([facility] ) MIRZAMARSHAL Phillips ([id number]) 1945 Date Time Provider Department 02/15/25 3:00 PM JAYLA FLORIAN During your visit today, we recorded the following information about you: Pulse Blood pressure Weight Height 68/minute 128/68 108 kg 1.854 m Jayla Florian MD 02/15/2025 5:11 PM Signed Marshal Blue is a 79 year old male here for a Medicare Wellness visit. Servando Blue is a 79-year-old male with a history of AIXA, allergies, and back pain, presenting for an annual wellness visit, with additional concerns about recent finger numbness and elevated blood glucose levels. Servando Blue is a 79-year-old male with a history of AIXA, allergies, and back pain, presenting for an annual wellness visit, with additional concerns about recent finger numbness and elevated blood glucose levels. Annual Wellness Exam: - Family history of diabetes in both parents during their 80s and 90s. - Two children with diabetes. - Exercises by mowing the grass twice a week and walking once a week. - Denies current gym attendance since -. - Recent travel to [place] for hiking. - Received flu shot at [facility]. - Reports occasional word-finding difficulties. - Denies significant bowel or bladder issues. - Has living will. AIXA: - Managed with CPAP x15 years. - Follows up with Dr. Milner twice a year. 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 - Considering retesting for dust mites. - Denies recent use of emergency inhaler. Back Pain: - Chronic back pain managed by Dr. Alfredo at [facility]. - Received steroid injections with minimal relief. - Underwent ablation 9 months ago, which provided more relief than steroids. - Recent severe sciatica episode after bending over, requiring use of a walker. Finger Numbness: - New onset numbness in fingers of both hands, noticed in the mornings over the past week. Prediabetes: - Concerned about recent blood glucose level of 142 mg/dL. - Recent A1c of 6.1%. Hypercalcemia: - Recent calcium level of 10.5 mg/dL. - Takes vitamin D supplementation during winter months. - On hydrochlorothiazide. Hyperlipidemia: - Managed with simvastatin. - Recent labs show low HDL levels. Medicare Health Risk Assessment General Health Good Exercise: Minutes/Day 50 min Exercise: Days/Week 1 day Alcohol: Daily Use 2-4 times a month Alcohol: Drinks/Day 1 or 2 Alcohol: 6 or more drinks Never Feel off balance Yes Concerns: Teeth/Dentures Yes Concerns: Sexual function No Troubled by feelings Irritable Frequency: Eating healthy diet Several days ADLs requiring help None of the above Safety precautions in home/vehicle Yes Smoke, vape, chews tobacco No Difficulty hearing Yes, I wear a hearing aid Difficulty seeing Yes Current Providers Specialists: I have reviewed specialist-related care of the patient in the medical record. Medical/Family history review Reviewed and updated problem list, medical/surgical/family /social history, medications, and allergies. Opioid use review Prescribed: No opioid use on file in the last 90 days Patient-reported: No opioid use on file in the last 90 days Depression screening PHQ-2 Score: 0 PHQ-9 Score: 4 Anxiety screening MAGALYS-2 Score: 0 MAGALYS-7 Score: 1 Cognitive screening Mini Cog Score: 5 Cognitive screening reviewed and No further action needed (score 3-5). Functional Observation Was the patient's Timed Up AND Go test unsteady or >= 12 seconds? No Advance Directives Patient did not wish or was not able to name a surrogate decision maker or provide an advance care plan Measurements BP 128/68 Pulse 68 Ht 185.4 cm (6' 1) Wt 108 kg (238 lb) SpO2 98% BMI 31.40 kg/m? . General: No acute distress. CV: Regular rate and rhythm, no murmurs. Resp: Lungs clear to auscultation bilaterally. Abd: No abnormalities noted. Assessment/Plan 1. Medicare annual wellness visit, subsequent (Z00.00) - Completed annual wellness visit. - Encouraged patient to provide copies of living will and advance directives for clinic records. - Discussed my planned senior care in approximately 2 years; advised patient to consider establishing care with a new provider in advance. - Follow-up in 1 year. 2. Mixed hyperlipidemia (E78.2) - LDL at goal; HDL remains low, which is a risk factor for heart disease. - Continue simvastatin as prescribed. - Discussed importance of regular exercise to help increase HDL levels. 3. Essential hypertension, benign (I10) - Blood pressure well controlled on current regimen. - Continue losartan as prescribed. - Advised patient to maintain adequate hydration. 4. Prediabetes (R73.03) - Glucose 142 mg/dL, A1c 6.1%. - Discussed importance of diet and exercise in preventing progression to diabetes. - Encouraged patient to avoid excessive (more content not included)... Normal [facility] Comprehensive metabolic 2000 panelon 01-11-2025 Albumin [Mass/Vol] 4.6 g/dL Normal 3.9-4.9 [facility] Comment on above: Order Comment: Edgar witt Type: BLOOD SPECIMEN Ordering Facility: [facility] Address: [address] [place] [address] Performed By: #### 2 4323-8 #### [facility] CLIA [id number] [address] [place] [address] [place] ALP [Catalytic activity/Vol] 87 U/L Normal 38-113 [facility] Comment on above: Order Comment: Speci men Type: BLOOD SPECIMEN Ordering Facility: [facility] Address: [address] [place] [address] Performed By: #### 2 4323-8 #### [facility] CLIA [id number] [address] [place] [address] [place] ALT [Catalytic activity/Vol] 17 U/L Normal 10-54 [facility] Comment on above: Order Comment: Speci men Type: BLOOD SPECIMEN Ordering Facility: [facility] Address: [address] [place] [address] Performed By: #### 2 4323-8 #### [facility] CLIA [id number] [address] [place] [address] [place] Anion gap [Moles/Vol] 14 mmol/L Normal 8-15 [facility] Comment on above: Order Comment: Speci men Type: BLOOD SPECIMEN Ordering Facility: [facility] Address: [address] [place] [address] Performed By: #### 2 4323-8 #### [facility] CLIA [id number] [address] [place] [address] [place] AST [Catalytic activity/Vol] 16 U/L Normal 14-40 [facility] Comment on above: Order Comment: Speci men Type: BLOOD SPECIMEN Ordering Facility: [facility] Address: [address] [place] [address] Performed By: #### 2 4323-8 #### [id number] [address] [place] [address] [place] Bilirubin [Mass/Vol] 0.8 mg/dL Normal 0.2-1.3 [facility] Comment on above: Order Comment: Speci men Type: BLOOD SPECIMEN Ordering Facility: [facility] Address: [address] [place] [address] Performed By: #### 2 4323-8 #### [facility] [id number] [address] [place] [address] [place] Calcium [Mass/Vol] 10.5 mg/dL High 8.5-10.2 [facility] Comment on above: Order Comment: Speci men Type: BLOOD SPECIMEN Ordering Facility: [facility] Address: [address] [place] [address] [place] [address] Performed By: #### 2 4323-8 #### [facility] CLIA [id number] [address] [place] [address] [place] Chloride [Moles/Vol] 104 mmol/L Normal 98-107 [facility] Comment on above: Order Comment: Speci men Type: BLOOD SPECIMEN Ordering Facility: [facility] Address: [address] [place] [address] Performed By: #### 2 4323-8 #### [facility] CLIA [id number] [address] [place] [address] [place] CO2 [Moles/Vol] 20 mmol/L Low 22-30 [facility] Comment on above: Order Comment: Speci men Type: BLOOD SPECIMEN Ordering Facility: [facility] Address: [address] [place] [address] Performed By: #### 2 4323-8 #### [facility] CLIA [id number] [address] [place] [address] [place] Creatinine [Mass/Vol] 0.95 mg/dL Normal 0.73-1.22 [facility] Comment on above: Order Comment: Speci men Type: BLOOD SPECIMEN Ordering Facility: [facility] Address: [address] [place] [address] Performed By: #### 2 4323-8 #### [facility] CLIA [id number] [address] [place] [address] [place] eGFRcr SerPlBld CKD-EPI 2020 82 mL/min/1.73m??? Normal >=60 [facility] Comment on above: Order Comment: Speci men Type: BLOOD SPECIMEN Ordering Facility: [facility] Address: [address] [place], [place] [address] Result Comment: Pati mated Glomerular Filtration Rate (eGFR) is calculated using the 2020 CKD-EPI creatinine equation. This equation utilizes serum creatinine, sex, and age as parameters. The creatinine assay has traceable calibration to isotope dilution-mass spectrometry. Refer to KDIGO guidelines for clinical interpretation. In patients with unstable renal function, e.g. those with acute kidney injury, the eGFR may not accurately reflect actual GFR. Performed By: #### 2 4323-8 #### [facility] CLIA [id number] [address] [place] [address] [place] Glucose [Mass/Vol] 142 mg/dL High 74-99 [facility] Comment on above: Order Comment: Edgar witt Type: BLOOD SPECIMEN Ordering Facility: [facility] Address: [address] [place] [address] Result Comment: The [place] Diabetes Association (ADA) provides guidance for cutoff values for fasting glucose and random glucose. The ADA defines fasting as no caloric intake for at least 8 hours. Fasting plasma glucose results between 100 to 125 [...] Standards of Medical Care in Diabetes 2016, [place] Diabetes Association. Diabetes Care. 2016.39(Suppl 1). Performed By: #### 2 4323-8 #### [facility] CLIA [id number] [address] [place] [address] [place] Potassium [Moles/Vol] 4.0 mmol/L Normal 3.7-5.1 [facility] Comment on above: Order Comment: Edgar witt Type: BLOOD SPECIMEN Ordering Facility: [facility] Address: [address] [place] [address] Performed By: #### 2 4323-8 #### [facility] CLIA [id number] [address] [place] [address] [place] Protein [Mass/Vol] 8.0 g/dL Normal 6.3-8.0 [facility] Comment on above: Order Comment: Speci men Type: BLOOD SPECIMEN Ordering Facility: [facility] Address: [address] [place] [address] Performed By: #### 2 4323-8 #### [facility] CLIA [id number] [address] [place] [address] [place] Sodium [Moles/Vol] 138 mmol/L Normal 136-144 [facility] Comment on above: Order Comment: Speci men Type: BLOOD SPECIMEN Ordering Facility: [facility] Address: [address] [place] [address] Performed By: #### 2 4323-8 #### [facility] CLIA [id number] [address] [place] [address] [place] Urea nitrogen [Mass/Vol] 22 mg/dL Normal 9-24 [facility] Comment on above: Order Comment: Speci men Type: BLOOD SPECIMEN Ordering Facility: [facility] Address: [address] [place] [address] Performed By: #### 2 4323-8 #### [facility] CLIA [id number] [address] [place] [address] [place] HbA1c (Bld)on 01-11-2025 Average glucose Estimated from glycated hemoglobin (Bld) [Mass/Vol] 128 mg/dL Normal [facility] Comment on above: Order Comment: Speci men Type: BLOOD SPECIMEN Ordering Facility: [facility] Address: [address] [place] [address] Result Comment: eAG: (Estimated average glucose) is a calculated value from HgbA1c and is entry level marketing representative of the average blood glucose level in the last 2-3 month period. Performed By: #### 5 5454-3 #### [facility] CLIA [id number] [address] [place] [address] [place] HbA1c (Bld) [Mass fraction] 6.1 % High 4.3-5.6 [facility] Comment on above: Order Comment: Speci men Type: BLOOD SPECIMEN Ordering Facility: [facility] Address: [address] [place] [address] Result Comment: Amer [place] Diabetes Association guidelines indicate that patients with HgbA1c in the range 5.7-6.4% are at increased risk for development of diabetes, and intervention by lifestyle modification may be beneficial. HgbA1c greater or equal to 6.5% is considered diagnostic of diabetes. Performed By: #### 5 5454-3 #### [facility] CLIA [id number] [address] [place] [address] [place] Lipid 1996 panelon 5 Cholesterol [Mass/Vol] 111 mg/dL Normal <200 [facility] Comment on above: Order Comment: Edgar miryam Type: BLOOD SPECIMEN Ordering Facility: [facility] Address: [address] [place] [address] Result Comment: <200 mg/dL, Desirable 200-239 mg/dL, Borderline high >239 mg/dL, High Performed By: #### 2 4331-1 #### [facility] CLIA [id number] [address] [place] [address] [place] [facility] CLIA [id number] [address] [place] [address] Cholesterol in HDL [Mass/Vol] 24 mg/dL Low >39 [facility] Comment on above: Order Comment: Yaronalyse witt Type: BLOOD SPECIMEN Ordering Facility: [facility] Address: [address] [place] [address] Result Comment: 40-5 9 mg/dL, Acceptable >59 mg/dL, High: Negative risk factor for coronary heart disease <40 mg/dL, Low: Positive risk factor for coronary heart disease Performed By: #### 2 4331-1 #### [facility] CLIA [id number] [address] [place], [place] [address] [place] [facility] CLIA [id number] [address] [place] [address] [place] Cholesterol in LDL [Mass/Vol] 55 mg/dL Normal <100 [facility] Comment on above: Order Comment: Edgar witt Type: BLOOD SPECIMEN Ordering Facility: [facility] Address: [address] [place] [address] Result Comment: <100 mg/dL, Optimal 100-129 mg/dL, Near optimal/above optimal 130-159 mg/dL, Borderline high 160-189 mg/dL, High >189 mg/dL, Very high Secondary prevention optimal LDL Cholesterol levels are recommended to be <70 mg/dL LDL cholesterol is calculated using the Harmon-NIH equation. Performed By: #### 2 4331-1 #### [facility] CLIA [id number] [address] [place] [address] [facility] [id number] [address] [place] [address] Cholesterol in LDL/Cholesterol in HDL [Mass ratio] 2.29 {ratio} Normal <2.54 [facility] Comment on above: Order Comment: Edgar witt Type: BLOOD SPECIMEN Ordering Facility: [facility] Address: [address] [place] [address] Result Comment: Christie dubon: 1. National Cholesterol Education Program ATP III Guideline At-A-Glance Quick Desk Reference: National Heart, Lung, and Blood [place]. National Institutes of Health. 2001: NIH Publication No. 01-3305. 2. An International Atherosclerosis Society position paper: global recommendations for the management of dyslipidemia: executive summary, Atherosclerosis. 2014: 232(2):410-413. Performed By: #### 2 4331-1 #### [facility] CLIA [id number] [address] [place] [id number] [place] [address] [place] Cholesterol in VLDL [Mass/Vol] 27 mg/dL Normal <30 [facility] Comment on above: Order Comment: Edgar witt Type: BLOOD SPECIMEN Ordering Facility: [facility] Address: [address] [place] [address] Performed By: #### 2 4331-1 #### [facility] CLIA [id number] [address] [place] [address] [place] [facility] CLIA [id number] [address] [place] [address] [place] Cholesterol non HDL [Mass/Vol] 87 mg/dL Normal <130 [facility] Comment on above: Order Comment: Speci men Type: BLOOD SPECIMEN Ordering Facility: [facility] Address: [address] [place] [address] Result Comment: <130 mg/dL, Optimal 130-159 mg/dL, Near optimal/above optimal 160-189 mg/dL, Borderline high 190-219 mg/dL, High >219 mg/dL, Very high Secondary prevention optimal non HDL Cholesterol levels are recommended to be <100 mg/dL Performed By: #### 2 4331-1 #### [facility] CLIA [id number] [address] [place] [address] [place] [facility] [id number] [place] [address] [place] Cholesterol.total/Chol esterol in HDL [Mass ratio] 4.63 {ratio} Normal <5.10 [facility] Comment on above: Order Comment: Speci men Type: BLOOD SPECIMEN Ordering Facility: [facility] Address: [address] [place] [address] Performed By: #### 2 4331-1 #### [facility] CLIA [id number] [address] [place] [address] [place] [id number] [place] [address] [place] FASTING TIME 12 hrs Normal [facility] Comment on above: Order Comment: Speci men Type: BLOOD SPECIMEN Ordering Facility: [facility] Address: [address] [place] [address] Performed By: #### 2 4331-1 #### [facility] CLIA [id number] [address] [place] [address] OF [facility] CLIA [id number] [address] [place] [address] Triglyceride [Mass/Vol] 190 mg/dL High <150 [facility] Comment on above: Order Comment: Speci men Type: BLOOD SPECIMEN Ordering Facility: [facility] Address: [address] [place] [address] Result Comment: <150 mg/dL, Normal 150-199 mg/dL, Borderline high 200-499 mg/dL, High >499 mg/dL, Very high Performed By: #### 2 4331-1 #### [facility] CLIA [id number] [address] [place] [address] CLIA [id number] [address] [place] [address] OF [facility] CNOVon 09-22-2024 CNOV Office Visit (UCWSTR ) MARSHAL BLUE ([id number]) 1945 M Date Time Provider Department 09/22/24 10:00 AM JONI LEAVITT [facility] During your visit today, we recorded the following information about you: Temperature Pulse Respiration Blood pressure 98.5 degrees 87/minute 18/minute 122/73 Weight 108.3 kg Joni Leavitt APRN.[employer]ELOPER 09/22/2024 10:17 AM Signed [facility] Subjective Marshal Phillips Mirza is a 79 year old male. Patient presents with: Cough: Chest congestion, ST x4 days Rash: L lower leg x1 week Patient is a 79-year-old male with a chronic history of allergies that presents with cough congestion sore throat body aches for the last 4 days. He states he is coughing up sputum. He also has a rash on bilateral lower legs that is linear and pustular. He states is terribly itchy he has used topical calamine and hydrocortisone with some relief. He denies any swelling of his hands and feet no fevers no chest pain or shortness of breath. Cough Associated symptoms include rhinorrhea and sore throat. Pertinent negatives include no chest pain, no shortness of breath and no wheezing. Rash Associated symptoms include congestion, coughing, rhinorrhea and a sore throat. Pertinent negatives include no fatigue, fever or shortness of breath. Review of Systems Constitutional: Negative for fatigue and fever. HENT: Positive for congestion, rhinorrhea, sinus pressure and sore throat. Respiratory: Positive for cough. Negative for shortness of breath and wheezing. Cardiovascular: Negative for chest pain, palpitations and leg swelling. Skin: Positive for rash. Objective BP 122/73 Pulse 87 Temp 36.9 ?C (98.5 ?F) Resp 18 Wt 108.3 kg (238 lb 12.1 oz) SpO2 97% BMI 31.51 kg/m? PAST MEDICAL HISTORY Diagnosis Date Achilles bursitis or tendinitis 05/11/2001 Allergic rhinitis, cause unspecified Arthritis Asthma (HCC) Benign neoplasm of colon Diverticulosis of colon (without mention of hemorrhage) Essential hypertension, benign Other and unspecified hyperlipidemia Personal history of colonic polyps Colon polyps Sleep apnea Snoring Unspecified asthma, with status asthmaticus PAST SURGICAL HISTORY Procedure Laterality Date CARPAL TUNNEL Right 06/2015 COLONOSCOPY FLX DX W/COLLJ SPEC WHEN PFRMD 05/16/2003 Colonoscopy-polyps removed COLONOSCOPY FLX DX W/COLLJ SPEC WHEN PFRMD 12/19/2011 Colonoscopy COLONOSCOPY FLX DX W/COLLJ SPEC WHEN PFRMD 05/20/2017 adenomatous polyps, repeat in 5 years COLONOSCOPY GEN ANES 09/11/2020 Repeat in 3 years COLONOSCOPY W/BIOPSY SINGLE/MULTIPLE 08/04/2006 EYE SURGERY HX JOINT REPLACEMENT HX Right 2017 information from the patient LASIK 2000 bilateral OTHER 03/21/2015 complete shoulder replacement R SKIN BIOPSY HX TONSILLECTOMY HX TONSILLECTOMY PRIMARY/SECONDARY Tonsillectomy VASECTOMY UNI/BI SPX W/POSTOP SEMEN EXAMS Bilateral 1988 ALLERGIES Cats, Ciprofloxacin, and Milk MEDICATIONS hydroCHLOROthiazide 12.5 mg capsule Take 1 capsule by mouth once daily. simvastatin (ZOCOR) 40 mg tablet Take 1 tablet by mouth daily at bedtime. losartan (COZAAR) 50 mg tablet Take 1 tablet by mouth once daily. finasteride (PROSCAR) 5 mg tablet Take 5 mg by mouth. lutein 20 mg tab Take 20 mg by mouth. potassium citrate ER (UROCIT-K) 10 mEq (1,080 mg) Take 1,080 mg by mouth twice daily. cholecalciferol, vitamin D3, (VITAMIN D3 ORAL) Take 1 tablet by mouth once daily. tamsulosin (FLOMAX) 0.4 mg Take 1 capsule by mouth once daily. B2/VIT A,C AND E/LUT/ZEAXANTH/MN (ICAPS ORAL) Take by mouth. psyllium Husk 0.52 gram capsule Take 1 capsule by mouth once daily. doxycycline (VIBRA-TABS) 100 mg tablet Take 1 tablet by mouth two times a day for 7 days. predniSONE (DELTASONE) 20 mg tablet Take 2 tablets by mouth once daily for 5 days, THEN 1 tablet once daily for 5 days. losartan (COZAAR) 50 mg tablet Take 1 tablet by mouth once daily. (Patient not taking: Reported on 09/22/2024) sertraline (ZOLOFT) 50 mg tablet Take 1 tablet by mouth once daily. (Patient not taking: Reported on 09/22/2024) FAMILY HISTORY Problem Relation Age of Onset Hypertension Mother other (macular degeneration) Mother Hypertension Father Heart Father other (macular degeneration) Father other (glaucoma) Brother Social History Tobacco Use Smoking status: Former Current packs/day: 0.00 Average packs/day: 2.0 packs/day for 10.0 years (20.0 ttl pk-yrs) Types: Cigarettes Start date: 04/07/1977 Quit date: 04/07/1987 Years since quittin.4 Smokeless tobacco: Never Vaping Use Vaping status: Never Used Substance Use Topics Alcohol use: Yes Comment: 1-2 drinks per month Drug use: No Physical Exam Constitutional: General: He is not in acute distress. Appearance: Normal appearance. He is normal weight. He is not ill-appearing or toxic-appearing. (more content not included)... Normal [facility] CNOVon 07-21-2024 CNOV Office Visit (UCWSTR ) MARSHAL BLUE ([id number]) 1945 M Date Time Provider Department 07/21/24 3:00 PM DAYRON RODRIGUEZ [facility] During your visit today, we recorded the following information about you: Temperature Pulse Respiration Blood pressure 97.3 degrees 60/minute 16/minute 128/74 Weight 113.3 kg Dayron Rodriguez MD 07/21/2024 3:24 PM Signed [facility] Subjective Marshal Blue is a 78 year old male. Patient presents with: Sore Throat: ST and PIMENTEL x 2 weeks Patient's had a couple weeks of nagging throat irritation. He does have some rhinorrhea and postnasal drainage with mild parietal headache. He denies any fever, chills, or significant cough. He has taken nothing for symptoms. He gets desensitization allergy shots. He had rheumatic fever remotely and would like to rule out strep throat. Sore Throat Review of Systems HENT: Positive for sore throat. Objective BP 128/74 Pulse 60 Temp 36.3 ?C (97.3 ?F) (Tympanic) Resp 16 Wt 113.3 kg (249 lb 12.5 oz) SpO2 99% BMI 32.96 kg/m? Physical Exam Constitutional: General: He is not in acute distress. Appearance: He is not ill-appearing. HENT: Right Ear: No middle ear effusion. Tympanic membrane is not erythematous, retracted or bulging. Left Ear: No middle ear effusion. Tympanic membrane is not erythematous, retracted or bulging. Ears: Comments: Hearing aids removed. Small cerumen right canal. Bilateral otosclerosis. Nose: Rhinorrhea present. Mouth/Throat: Pharynx: Posterior oropharyngeal erythema present. No oropharyngeal exudate. Eyes: Extraocular Movements: Extraocular movements intact. Conjunctiva/sclera: Conjunctivae normal. Pupils: Pupils are equal, round, and reactive to light. Cardiovascular: Rate and Rhythm: Normal rate and regular rhythm. Heart sounds: No murmur heard. Pulmonary: Effort: No respiratory distress. Breath sounds: No wheezing, rhonchi or rales. Musculoskeletal: Cervical back: Neck supple. Lymphadenopathy: Cervical: No cervical adenopathy. Neurological: Mental Status: He is alert. {ASSESSMENT/PLAN: 1. Sore throat - ICD9: 462, ICD10: J02.9 (primary diagnosis) 2. Allergic rhinitis, unspecified seasonality, unspecified trigger - ICD9: 477.9, ICD10: J30.9 - STREP A MOLECULAR (POC) - negative. Home COVID test was negative yesterday. Suspect environmental allergies. He is reassured his strep test was negative. He has Astepro nasal spray at home is not good at taking it routinely. Inguinal attempt reducing postnasal drainage and throat irritation by using it. Dayron Rodriguez MD MDM Procedures Allergies As of Date: 07/21/2024 Noted Allergy Reaction CATS 02/12/2005 9 - Itching 14 - Other: See Comments Comments: Swollen eyes, difficulty breathing CIPROFLOXACIN 01/11/2015 7 - Swelling MILK 02/12/2005 2 - Rash Date Reviewed: 07/21/2024 Reviewed by: oCnnie Rosado LPN - Fully Assessed Reason for Visit: Sore Throat [200] Cmt: ST and PIMENTEL x 2 weeks Primary Visit Diagnosis:Sore throat [J02.9] Other Visit Diagnosis:Allergic rhinitis, unspecified seasonality, unspecified trigger [J30.9] Order(s):STREP A MOLECULAR (POC) [[id number]] Order #: [id number] #:[id number] Prescriptions as of 07/21/2024 - losartan (COZAAR) 50 mg tablet Take 1 tablet by mouth once daily. - hydroCHLOROthiazide 12.5 mg capsule Take 1 capsule by mouth once daily. - simvastatin (ZOCOR) 40 mg tablet Take 1 tablet by mouth daily at bedtime. - losartan (COZAAR) 50 mg tablet Take 1 tablet by mouth once daily. - sertraline (ZOLOFT) 50 mg tablet Take 1 tablet by mouth once daily. - finasteride (PROSCAR) 5 mg tablet Take 5 mg by mouth. - lutein 20 mg tab Take 20 mg by mouth. - potassium citrate ER (UROCIT-K) 10 mEq (1,080 mg) Take 1,080 mg by mouth twice daily. - cholecalciferol, vitamin D3, (VITAMIN D3 ORAL) Take 1 tablet by mouth once daily. - tamsulosin (FLOMAX) 0.4 mg Take 1 capsule by mouth once daily. - B2/VIT A,C AND E/LUT/ZEAXANTH/MN (ICAPS ORAL) Take by mouth. - psyllium Husk 0.52 gram capsule Take 1 capsule by mouth once daily. 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 Normal [facility] STREP A MOLECULAR (POC)on Procedural Control Valid [facility] Strep A (POCT) Negative Negative [facility] CNPNon 05-19-2024 VAISHNAVIN Telephone (FPWADS) MIRZAMARSHAL ([id number]) 1945 M Date Time Provider Department 05/19/24 JAYLA FLORIAN During your visit today, we recorded the following information about you: Sandy JOSÉ Mallory 05/19/2024 3:35 PM Signed Received visit summary from [facility]. Placed in provider's inbox for review. Route to MA scanning Allergies As of Date: 05/19/2024 Noted Allergy Reaction CATS 02/12/2005 9 - Itching 14 - Other: See Comments Comments: Swollen eyes, difficulty breathing CIPROFLOXACIN 01/11/2015 7 - Swelling MILK 02/12/2005 2 - Rash Date Reviewed: 01/27/2024 Reviewed by: Trish Ramirez APRN.BIZTALK SOFTWARE DEVELOPER - Fully Assessed Reason for Visit: Received Outside Medical Records [[id number]] Cmt: [facility] Prescriptions as of 05/19/2024 - losartan (COZAAR) 50 mg tablet Take 1 tablet by mouth once daily. - hydroCHLOROthiazide 12.5 mg capsule Take 1 capsule by mouth once daily. - simvastatin (ZOCOR) 40 mg tablet Take 1 tablet by mouth daily at bedtime. - losartan (COZAAR) 50 mg tablet Take 1 tablet by mouth once daily. - sertraline (ZOLOFT) 50 mg tablet Take 1 tablet by mouth once daily. - finasteride (PROSCAR) 5 mg tablet Take 5 mg by mouth. - lutein 20 mg tab Take 20 mg by mouth. - potassium citrate ER (UROCIT-K) 10 mEq (1,080 mg) Take 1,080 mg by mouth twice daily. - cholecalciferol, vitamin D3, (VITAMIN D3 ORAL) Take 1 tablet by mouth once daily. - tamsulosin (FLOMAX) 0.4 mg Take 1 capsule by mouth once daily. - B2/VIT A,C AND E/LUT/ZEAXANTH/MN (ICAPS ORAL) Take by mouth. - psyllium Husk 0.52 gram capsule Take 1 capsule by mouth once daily. Problem List As Of Date 05/19/2024 Noted Resolved MIXED HYPERLIPIDEMIA [E78.2] 08/12/2005 Essential hypertension, benign [I10] 08/12/2005 PERS HX COLONIC POLYPS [Z86.0100] 06/02/2006 ALLERGIC RHINITIS NOS [J30.9] 06/02/2006 Impaired fasting glucose [R73.01] 12/23/2007 01/27/2024 Obstructive Sleep Apnea [G47.33] 07/17/2009 Screening for colon cancer [Z12.11] 02/26/2011 01/27/2024 BPH with obstruction/lower urinary tract sympto*02/26/2011 Frequency [[id number]] 02/26/2011 01/27/2024 Nocturia [R35.1] 02/26/2011 01/27/2024 Prostatitis [N41.9] 02/26/2011 01/27/2024 Straining on urination [R39.16] 02/26/2011 01/27/2024 Urgency of urination [R39.15] 02/26/2011 01/27/2024 Hematuria [R31.9] 02/26/2011 Arthritis of shoulder region, right, degenerati*04/15/2011 Diverticulosis of colon (without mention of hem*12/19/2011 Benign neoplasm of colon [D12.6] 12/19/2011 Urinary tract infection [N39.0] 01/17/2015 01/27/2024 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, N13.8] 01/17/2015 Elevated prostate specific antigen (PSA) [R97.2*05/22/2016 Adjustment disorder with mixed anxiety and depr*06/29/2019 Obesity, Class I, BMI 30-34.9 [E66.811] 01/27/2024 Prediabetes [R73.03] 01/27/2024 Encounter Status:Closed by MOHAMUD DORADO on 05/19/24 [facility] Koby 03-09-2024 VAISHNAVIN Telephone (FPWADS) MARSHAL BLUE ([id number]) 1945 M Date Time Provider Department 03/09/24 JAYLA FLORIAN During your visit today, we recorded the following information about you: Qi Abdi LPN 03/09/2024 3:15 PM Signed Received 03/09/2024 from [facility]. Placed in provider's inbox for review. Route to AL for scanning. Allergies As of Date: 03/09/2024 Noted Allergy Reaction CATS 02/12/2005 9 - Itching 14 - Other: See Comments Comments: Swollen eyes, difficulty breathing CIPROFLOXACIN 01/11/2015 7 - Swelling MILK 02/12/2005 2 - Rash Date Reviewed: 01/27/2024 Reviewed by: Trish Ramirez APRN.BIZTALK SOFTWARE DEVELOPER - Fully Assessed Reason for Visit: Received Outside Medical Records [[id number]] Cmt: [facility] PSA 0.93 03/09/2024 Order(s):PSA [[id number]] Order #: [id number] Prescriptions as of 03/09/2024 - losartan (COZAAR) 50 mg tablet Take 1 tablet by mouth once daily. - hydroCHLOROthiazide 12.5 mg capsule Take 1 capsule by mouth once daily. - simvastatin (ZOCOR) 40 mg tablet Take 1 tablet by mouth daily at bedtime. - losartan (COZAAR) 50 mg tablet Take 1 tablet by mouth once daily. - sertraline (ZOLOFT) 50 mg tablet Take 1 tablet by mouth once daily. - finasteride (PROSCAR) 5 mg tablet Take 5 mg by mouth. - lutein 20 mg tab Take 20 mg by mouth. - potassium citrate ER (UROCIT-K) 10 mEq (1,080 mg) Take 1,080 mg by mouth twice daily. - cholecalciferol, vitamin D3, (VITAMIN D3 ORAL) Take 1 tablet by mouth once daily. - tamsulosin (FLOMAX) 0.4 mg Take 1 capsule by mouth once daily. - B2/VIT A,C AND E/LUT/ZEAXANTH/MN (ICAPS ORAL) Take by mouth. - psyllium Husk 0.52 gram capsule Take 1 capsule by mouth once daily. Problem List As Of Date 03/09/2024 Noted Resolved MIXED HYPERLIPIDEMIA [E78.2] 08/12/2005 Essential hypertension, benign [I10] 08/12/2005 PERS HX COLONIC POLYPS [Z86.0100] 06/02/2006 ALLERGIC RHINITIS NOS [J30.9] 06/02/2006 Impaired fasting glucose [R73.01] 12/23/2007 01/27/2024 Obstructive Sleep Apnea [G47.33] 07/17/2009 Screening for colon cancer [Z12.11] 02/26/2011 01/27/2024 BPH with obstruction/lower urinary tract sympto*02/26/2011 Frequency [[id number]] 02/26/2011 01/27/2024 Nocturia [R35.1] 02/26/2011 01/27/2024 Prostatitis [N41.9] 02/26/2011 01/27/2024 Straining on urination [R39.16] 02/26/2011 01/27/2024 Urgency of urination [R39.15] 02/26/2011 01/27/2024 Hematuria [R31.9] 02/26/2011 Arthritis of shoulder region, right, degenerati*04/15/2011 Diverticulosis of colon (without mention of hem*12/19/2011 Benign neoplasm of colon [D12.6] 12/19/2011 Urinary tract infection [N39.0] 01/17/2015 01/27/2024 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 Values obtained with different assay methods cannot be used interchangably. When changing PSA assays in the course of monitoring a patient, additional sequential testing should be carried out to confirm baseline values. Performed By: #### L [phone] #### [facility] [address]. [place], [place], [address] Spine Lumbar (Routine)on Spine Lumbar (Routine) [facility] Imaging Services [address] [place] [address] Spine Lumbar (Routine) MR#: [id number] Acct: [id number] Name: MARSHAL BLUE Rep #: [id number] : 1945 M 78 From: Feliciano Piña MD PCP: Dr. Feliciano Florian MD Status: REG CLI Study: Spine Lumbar (Routine) Date of Exam: 11/10/23 Exam# [id number] Ordering Dr: [place] [id number] STUDY: MRI LUMBAR SPINE WITHOUT CONTRAST REASON FOR EXAM: Male, 78 years old. RADICULOPATHY TECHNIQUE: Standardized fat and water weighted pulse sequences were obtained in the sagittal and axial planes. COMPARISON: Lumbar spine x-rays May 07, 2023 FINDINGS: T12-L1: Normal endplates. Normal disc height, hydration and morphology. Normal bilateral facet joints. Normal central canal and bilateral lateral recesses. Normal bilateral intervertebral neural foramina. Normal lumbar lordosis. There is no substantial scoliosis. Normal conus medullaris that terminates at T12-L1 L1-2: Normal endplates. Normal disc height, hydration and morphology. Normal bilateral facet joints. Normal central canal and bilateral lateral recesses. Normal bilateral intervertebral neural foramina. L2-3: Anterior endplate spurring. Normal disc height, desiccation with minimal annular bulge and tiny central disc protrusion Normal bilateral facet joints. Normal central canal and bilateral lateral recesses. Normal bilateral intervertebral neural foramina. L3-4: Anterior endplate spurring. Normal disc height, hydration desiccation and minimal annular bulge. Facet arthropathy and thickening of the ligamenta flava slightly worse on the right Normal central canal and bilateral lateral recesses. Moderate left neural foraminal stenosis and moderate to severe narrowing on the right exaggerated by shortened pedicles. L4-5: Normal endplates. Normal disc height, hydration and minimal annular bulge. Facet arthropathy and thickening of ligamenta flava.. Normal central canal and bilateral lateral recesses. Moderate bilateral neural foraminal stenosis L5-S1: Normal endplates. Normal disc height, desiccation and minimal annular bulge with tiny central disc protrusion.. Facet arthropathy more pronounced on the left. Normal central canal and bilateral lateral recesses. Mild right neural foraminal stenosis and moderate stenosis on the left.. Normal visualized sacral ala. Normal visualized paraspinous soft tissue structures. No significant change since prior exam given inherent differences in imaging modality MRI/Spine Lumbar (Routine) IMPRESSION: No evidence for acute fracture or other significant bony pathology. Multilevel disc degeneration and spinal stenosis secondary to disc disease and bony hypertrophy most severe at L3-4 exaggerated by shortened pedicles Electronically Signed: Feliciano Piña MD at 17:54 EDT , CC: Dr. Feliciano Florian MD; Dr. Feliciano Gordon MD Shipping Room Helper: Signed Normal [facility] Colonoscopy Study observatio non 10-16-2023 [facility] Gastrointestinal Endoscopy Patient Name: Marshal Blue Procedure Date: 10/16/2023 10:16 AM Date of : 1945 Admit Type: Outpatient Age: 78 Gender: Male Note Status: Finalized Procedure: Colonoscopy Indications: High risk colon cancer surveillance: Personal history of colonic polyps Providers: Александр Castillo MD Patient Profile: This is a 78 year old male. Refer to note in patient chart for documentation of history and physical. Last Colonoscopy: September 2020. Referring Physician: Trish (vaishnavi) Dixie (Referring ) Medicines: Fentanyl 50 micrograms IV, Midazolam 3 mg IV, Diphenhydramine 50 mg IV Complications: No immediate complications. Estimated blood loss: Minimal. Requesting Provider: Procedure: Pre-Anesthesia Assessment: - Prior to the procedure, a History and Physical was performed, and patient medications and allergies were reviewed. The patient's tolerance of previous anesthesia was also reviewed. The risks and benefits of the procedure and the sedation options and risks were discussed with the patient. All questions were answered, and informed consent was obtained. Prior Anticoagulants: The patient has taken no anticoagulant or antiplatelet agents. ASA Grade Assessment: III - A patient with severe systemic disease. After reviewing the risks and benefits, the patient was deemed in satisfactory condition to undergo the procedure. After I obtained informed consent, the scope was passed under direct vision. Throughout the procedure, the patient's blood pressure, pulse, and oxygen saturations were monitored continuously. The Colonoscope was introduced through the anus and advanced to 3 cm into the ileum. The colonoscopy was performed without difficulty. The patient tolerated the procedure well. The quality of the bowel preparation was adequate to identify polyps greater than 5 mm in size. The terminal ileum, ileocecal valve, appendiceal orifice, and rectum were photographed. Moderate Sedation: The administration of moderate sedation was initiated at 10:23 AM. Moderate (conscious) sedation was personally administered by the endoscopist. The following parameters were monitored: oxygen saturation, heart rate, blood pressure, respiratory rate, EKG, adequacy of pulmonary ventilation, and response to care. Total physician intraservice time was 22 minutes. Findings: The perianal and digital rectal examinations were normal. Two sessile polyps were found in the transverse colon. The polyps were small in size. These polyps were removed with a hot snare. Resection and retrieval were complete. Non-bleeding internal hemorrhoids were found during retroflexion. The hemorrhoids were mild and small. The exam was otherwise without abnormality. The terminal ileum appeared normal. Impression: - Two small polyps in the transverse colon, removed with a hot snare. Resected and retrieved. - Non-bleeding internal hemorrhoids. - The examination was otherwise normal. - The examined portion of the ileum was normal. Recommendation: - Patient has a contact number available for emergencies. The signs and symptoms of potential delayed complications were discussed with the patient. Return to normal activities tomorrow. Written discharge instructions were provided to the patient. - Resume previous diet. - Continue present medications. - Await pathology results. - Repeat colonoscopy in 3 years for surveillance. - Return to referring physician at appointment to be scheduled. Procedure Code(s): --- Professional --- 74480, Colonoscopy, flexible; with removal of tumor(s), polyp(s), or other lesion(s) by snare technique G0500, Moderate jessica (more content not included)... PROVATION [facility] Radiology Study observation (narrative) [facility] Inital Evaluation (1) - PTon 06-25-2023 Inital Evaluation (1) - PT [facility] [address] [place] [address] / REHABILITATION SERVICES INITIAL EVALUATION MR#: [id number] Acct: [id number] Name: MARSHAL BLUE Rep #: [id number] : 1945 77 From: Shannen Jeffries PT. T, OCS Referring Dr.: Dr. Feliciano Gordon MD Status: REG R Insurance: [facility] MED[facility] PPO SELF PAY INSURANCE Patient's Visit Information Visit Information Visit Information: MARSHAL BLUE is a 77 year old M referred to Physical Therapy by Dr. Feliciano Gordon MD with a diagnosis of SPONDYLOSIS WITHOUT MYELOPATHY OR RADICULOPATHY ,INTERVERTEBRAL DISC DEG. Date of Evaluation: 06/25/23 Physical Therapist: Milo Okeefe PT, Cert T, OCS Visit Plan Frequency: 2x /Week Duration: 4 Weeks Plan: PT INTERVENTIONS DLS ,POSTURAL EX'S , LE FLEXABILITY AND MODALITIES NEEDED Subjective Subjective: This 77 y/o male presents to physical therapy with lumbar pain. Patient has had back pain many years . Patient was shoveling snow in April pain increase lumbar region with legs symptoms. Currently patient has occasional pain in right leg with weakness. Patient seen Dr Peraza did x-rays showed subtle L4-5 grade 1 spondylolisthesis without any significant instability. Multilevel facet arthrosis and disc degeneration noticed. Dr Peraza recommended PT and pain management and plan to do 1st epidural injection in 1 week. Aggravating factors bending ,lifting ,walking and standing and hard chair. Alleviating factors sitting and heat. Bowel/bladder -. Coughing/sneezing-. Denies paresthesia/tingling . Patient pain affects sleeping. Patient pain affects QOL and function . 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 Patient has no h/o trauma. Patient goals to decrease pain. SOCIAL: VOCATION: retired Pain Bilateral Back: Pain Intensity (Out of 10): 3 Pain Intensity Range: 10 Objective Objective: POSTURE: mild forward posture forward posture PALAPTION: unremarkable SYMMETRIES: align FLEXABILITY: hamstrings min/mod tight MMT: quads/hams 4/5 ,hip flexion 4-/5 ,ankle 4/5 LUMBAR ROM: flexion mod loss ,extension mod-severe loss ,side glides mod loss Special Tests L/S Slump test left side: Negative L/S Slump test right side: Negative L/S Left Straight Leg Raise: Negative L/S Right Straight Leg Raise: Negative Lumbar Standing: Flexion - Mechanical Response: No effect Lumbar Standing: Flexion - Symptoms During Testing: Increases Lumbar Standing: Flexion - Symptoms After Testing: No worse Lumbar Standing: Extension - Mechanical Response: No effect Lumbar Standing: Extension - Symptoms During Testing: Increases Lumbar Standing: Extension - Symptoms After Testing: No effect Lumbar Standing: Right Side Glides - Mechanical Response: No effect Lumbar Standing: Right Side Altura - Symptoms During Testing: No effect Lumbar Standing: Right Side [place] - Symptoms After Testing: No effect Lumbar Standing: Left Side [place] - Mechanical Response: No effect Lumbar Standing: Left Side [place] - Symptoms During Testing: No effect Lumbar Standing: Left Side [place] - Symptoms After Testing: No effect Balance/Special Test Scores Oswestry Low Back Score: 30 Goals Goal 1:: Patient to be I with HEP back Goal Time Frame: 4-6 Weeks Goal 2:: Patient to improve lumbar ROM for function of recovery to put on and tie shoes Goal Time Frame: 4-6 Weeks Goal 3:: Patient to improve back oswestry score by 5 point to improve function Goal Time Frame: 4-6 Weeks Goal 4:: Patient to demonstrate 50% improvement with less pain and improved function Goal Time Frame: 4-6 Weeks Goal 5:: Patient will be able to perform ADL and housework tasks with min limiations Goal Time Frame: 4-6 Weeks Rehabilitation Potential Physical Therapy Diagnosis: This patient has lumbar pain worse with walking and standing increases with positioning and motion testing thus recommend from PT Rehabilitation Potential: Good Anticipated Interventions Patient/Client Instruction: Educate patient on: Condition and Plan of Care For the Purpose of:: To decrease pain, To increase ROM, To improve muscle performance and motor function, To improve ability to perform ADL's, To increase tolerance to activity/condition/posi tion, To improve ability of physical actions for home/community/work/lei sure, To improve health of tissue, To decrease soft tissue restriction and To increase flexibility/ROM Therapeutic Exercise to Include: Strength training, Body mechanics, Postural training, Flexibilty training and Dynamic Lumbar Stabilization For the Purpose of:: To decrease pain, To decrease swelling/inflammation, To increase oxygenation perfusion, To improve ability to perform ADL's, To increase tolerance to activity/condit ion/position, To improve ability of physical actions for home/community/work/lei sure, To improve health (more content not included)... Normal [facility] L/S Spine Min 4 Viewson 04-09 L/S Spine Min 4 Views [facility] [address] [place] [address] L/S Spine Min 4 Views MR#: [id number] Acct: [id number] Name: MARSHAL BLUE Rep #: [id number] : 1945 M 77 From: Lino Partida MD PCP: Dr. Feliciano Florian MD Status: DEP AMB Study: L/S Spine Min 4 Views Date of Exam: 05/07/23 Exam# [id number] Ordering Dr: [place] [id number] STUDY: X-RAY - LUMBAR SPINE REASON FOR EXAM: Male, 77 years old. lbp -- pls do Upright AP, Lat, flex-ext views TECHNIQUE: 5 view(s) of the lumbar spine were obtained. COMPARISON: None FINDINGS: Normal lumbar lordosis. There is no substantial scoliosis. There is a normal alignment of the vertebrae. No subluxation on the flexion or extension views to suggest instability. There is multilevel endplate spondylosis of the lumbar vertebrae. There is multi-level degenerative disc disease with multi-level disc space narrowing. There is multilevel facet hypertrophy. The soft tissue structures are unremarkable. RAD/L/S Spine Min 4 Views IMPRESSION: Degenerative changes of the spine, as detailed above. No instability. Electronically Signed: Lino Partida MD at 23:04 EST , CC: Dr. Vikram Peraza MD; Dr. Feliciano Florian MD Shipping Room Helper: Signed Normal [facility] Orthopedic Visit Reporton Orthopedic Visit Report [facility] [address] [place] [address] [address] [place] [address] OFFICE VISIT Date of Service: 05/07/23 MR#: [id number] Acct: [id number] Name: MARSHAL BLUE Rep #: [id number] : 1945 Provider: Dr. Vikram Peraza MD Age/Sex: 77/M Location: [facility] Status: Signed Intake Vital Signs 01/07/22 11:06 05/07/23 14:33 Height 6 ft 1 in 6 ft 1 in Weight: 250 lb BMI 33.0 Intake Visit Reasons: LUMBAR SPINE Chief Complaint: low back pain Is patient in pain?: Yes Pain scale (1-10): 6 Allergies ciprofloxacin [From Cipro] Allergy (Verified 05/07/23 14:39) Swelling ciprofloxacin HCl [From Cipro] Allergy (Verified 05/07/23 14:39) Swelling Milk Containing Products (Dairy) [Milk Containing Products] Adverse Reaction (Verified 05/07/23 14:39) Other Medications hydrochlorothiazide 12.5 mg capsule 12.5 mg PO DAILY 03/08/15 [History Confirmed 05/07/23] simvastatin 40 mg tablet 40 mg PO QHS 03/08/15 [History Confirmed 05/07/23] tamsulosin 0.4 mg capsule 0.4 mg PO DAILY 03/08/15 [History Confirmed 05/07/23] acetaminophen 325 mg tablet (Tylenol) 650 mg (2 x 325 mg) PO Q6H PRN PRN PAIN ##0 03/22/15 [Rx Confirmed 12/26/21] finasteride 5 mg tablet 5 mg PO DAILY 09/09/19 [History Confirmed 05/07/23] sertraline 25 mg tablet 25 mg PO DAILY 09/09/19 [History Confirmed 05/07/23] losartan 50 mg tablet 50 mg PO DAILY 11/27/21 [History Confirmed 05/07/23] lutein 20 mg tablet 20 mg PO DAILY 11/27/21 [History Confirmed 05/07/23] omega-3 fatty acids 1,000 mg PO DAILY 11/27/21 [History Confirmed 05/07/23] vitamins A,C,Z-xewz-uwgagl 4,296 mcg-226 mg-90 mg capsule (PreserVision AREDS) 1 cap PO BID 11/27/21 [History Confirmed 05/07/23] allopurinol 100 mg tablet 100 mg PO DAILY #30 tabs 11/28/21 [Rx Confirmed 05/07/23] ibuprofen 600 mg tablet 600 mg PO Q6H PRN fever or pain #20 tabs 11/28/21 [Rx Confirmed 05/07/23] potassium citrate 15 mEq (1,620 mg) tablet,extended release (Urocit-K 15) 30 meq (2 x 15 mEq) PO BID #60 tabs 11/28/21 [Rx Confirmed 05/07/23] antiarthritic combination no.2 900 mg tablet (glucosamine-chondroiti n) mg PO 05/07/23 [History Confirmed 05/07/23] ascorbic acid (vitamin C) 500 mg tablet (Vitamin C) 1,000 mg PO DAILY 05/07/23 [History Confirmed 05/07/23] psyllium husk 0.52 gram capsule (Daily Fiber) 0.52 g PO DAILY 05/07/23 [History Confirmed 05/07/23] PFSH Medical History Arthritis Asthma Back pain Cancer CPAP (continuous positive airway pressure) dependence Former smoker High cholesterol History of rheumatic fever Hx of open-angle glaucoma Hypertension Wears hearing aid Wears partial dentures Surgical History History of carpal tunnel surgery of right wrist History of total shoulder replacement History of ureteroscopy History of vasectomy Hx of colonoscopy Hx of cystostomy Hx of knee surgery Hx of LASIK Hx of oral surgery Hx of sinus surgery Hx of tonsillectomy Social History Smoking Status: Former smoker HPI LUMBAR SPINE Details: This documentation accurately reflects the service provided and the decisions made by me, Dr. Vikram Peraza MD 05/07/23 [id number]. Part of today???s visit was documented by Meredith Hoskins ATC acting as scribe. MARSHAL BLUE is a 77 year old M here today for lumbar spine pain. He states his pain is 6/10 today. Patient states his lumbar spine pain has bothered him for years but this past Friday he really had a flare up of pain. He denies any prior injury or surgeries to his back. Patient states the pain is mostly lower right lumbar spine, sometimes going into the left. Patient states that any twisting movement increases his pain. Patient states that heat and rest decreases his pain. Patient states he has taken Ibuprofen for the pain. This weekend he had to take Hydrocodone-Acetaminoph en for the pain. Patient denies any physical therapy or injections recently. 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 He has not had any recent imaging done of lumbar spine. 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 Last Friday he suddenly started having severe pain radiating into the right lateral and posterior thigh without any radiation below the knee. He denies any left-sided symptoms. For the first 2 days he has severe difficulty to walk such that he had to use a walker. His pain is somewhat improved with muscle relaxants and pain medications. He has severe difficulty getting up from seated position. He has not had any recent physical therapy or epidural injections. He has had chiropractic treatment in the past. Ortho Exam General General: Yes no acute (more content not included)... Normal [facility] Automated blood hematocrit ( percentage)Ordered By: Twan Barakat on 03-06-2023 Hematocrit (Bld) [Volume fraction] 43.6 % 40-54 [facility] BMP - EXTERNALon 03-06-2023 GFR AFR AMER 79 mL/MIN [facility] GFR/1.73 sq M.predicted among non-blacks MDRD (S/P/Bld) [Vol rate/Area] 66 mL/min/{1.73_m2} [facility] HCO3 (Bld) [Moles/Vol] 28 mmol/L Cl [facility] Basophil percentageOrdered B y: Twan Barakat on 03-06-2023 Chloride [Moles/Vol] 105 mmol/L 98-107 [facility] Glucose [Mass/Vol] 123 mg/dL 74-106 [facility] Comment on above: Fasting Glucose resu lt from 100 to 125 mg/dL suggests IMPAIRED HOMEOSTASIS per A.D.A. criteria. Potassium [Moles/Vol] 4.2 mmol/L 3.5-5.1 [facility] Sodium [Moles/Vol] 139 mmol/L 136-145 [facility] WBC (Bld) [#/Vol] 9.7 10*3/uL 4.4-11.0 [facility] Blood erythrocytes count (nu mber/volume)Ordered By: Twan Barakat on 03-06-2023 RBC (Bld) [#/Vol] 4.70 10*6/uL 4.6-6.2 [facility] Blood hemoglobin measurement (mass/volume)Ordered By: Twan Barakat on 03-06-2023 Hemoglobin (Bld) [Mass/Vol] 14.0 g/dL 13.0-16.5 [facility] Blood platelet mean volumeOr dered By: Twan Barakat on 03-06-2023 Platelet mean volume (Bld) [Entitic vol] 10.3 fL 6.2-12.0 [facility] CBCon 03-06-2023 Hemoglobin (Bld) [Mass/Vol] 14 g/dL 14 - 16.5 g/dL [facility] Platelet mean volume (Bld) [Entitic vol] 10.3 % 7.3 - 11.1 % [facility] RBC (Bld) [#/Vol] 4.7 10*6/uL [facility] RDW-SD 48.1 [facility] Determination of erythrocyte mean corpuscular volume (MCV)Ordered By: Twan Barakat on 03-06-2023 MCV (RBC) [Entitic vol] 92.8 fL 80-94 [facility] Laboratory - Chemistry and C hemistry - challengeOrdered By: Twan Barakat on 03-06-2023 CO2 [Moles/Vol] 28.0 mmol/L 21.0-32.0 [facility] Urea nitrogen/Creatinine [Mass ratio] 17.4 mg/mg 10-20 [facility] Laboratory - Hematology and Cell countsOrdered By: Twan Barakat on 03-06-2023 Erythrocyte distribution width (RBC) [Entitic vol] 48.1 fL 35.1-43.9 [facility] Erythrocyte distribution width (RBC) [Ratio] 13.9 % 11.6-14.6 [facility] MCH (RBC) [Entitic mass] 29.8 pG 27.0-32.0 [facility] MCHC [Mass/volume] by Automa desmond countOrdered By: Twan Barakat on 03-06-2023 MCHC (RBC) [Mass/Vol] 32.1 g/dL 32- [facility] No Panel InformationOrdered By: Twan Barakat on 03-06-2023 Estimated GFR (MDRD) Amer 79 mL/min >60 [facility] Comment on above: GFR Calc Estimated GFR (MDRD) Non-Af Amer 66 mL/min >60 [facility] Comment on above: Non- GFR Calc Prostate Specific Antigen Screen 2.25 ng/mL 0.00-4.00 [facility] Comment on above: This test was perfor med using the TPSA assay method for the[facility] system. Values obtained with differentassay methods cannot be used interchangably.When changing PSA assays in the course of monitoring apatient, additional sequential testing should be carriedout to confirm baseline values. Platelets bldOrdered By: Alfredo Barakat on 03-06-2023 Platelets (Bld) [#/Vol] 247 10*3/uL 150-450 [facility] Serum or plasma calcium katelin urement (mass/volume)Ordered By: Twan Barakat on 03-06-2023 Calcium [Mass/Vol] 9.4 mg/dL 8.5-10.1 [facility] Serum or plasma creatinine m easurement (mass/volume)Ordered By: Twan Barakat on 03-06-2023 Creatinine [Mass/Vol] 1.15 mg/dL 0.70-1.30 [facility] Comment on above: The validity of the calculated GFR & GFRAA in patients over 70 years has not been determined. Clinical correlation is essential. Serum or plasma urea nitroge n measurement (mass/volume)Ordered By: Twan Barakat on 03-06-2023 Urea nitrogen [Mass/Vol] 20 mg/dL 7-18 [facility] Serum or plasma uric acid me asurement (mass/volume)Ordered By: Twan Barakat on 03-06-2023 Urate [Mass/Vol] 6.5 mg/dL 3.5-7.2 [facility] Comment on above: The drugs N-Acetylcy steine and Metamizole may falsely depress this assay. Thin prep Papanicolaou smear with manual screeningOrdered By: Twan Barakat on 03-06-2023 Thin prep Papanicolaou smear with manual screening 6 5-15 [facility] Basophil percentageon 2021 Chloride [Moles/Vol] 105 mmol/L 98-107 [facility] Work Phone: [phone] Glucose [Mass/Vol] 129 mg/dL 74-106 [facility] Work Phone: [phone] Comment on above: Fasting Glucose resu lt greater than or equal to 126 mg/dL suggests DIABETES MELLITUS per A.D.A. criteria. Potassium [Moles/Vol] 3.6 mmol/L 3.5-5.1 [facility] Work Phone: [phone] Sodium [Moles/Vol] 140 mmol/L 136-145 [facility] Work Phone: [phone] WBC (Bld) [#/Vol] 13.0 10*3/uL 4.4-11.0 [facility] Work Phone: [phone] Blood erythrocytes count (nu mber/volume)on 01-08-2022 RBC (Bld) [#/Vol] 2.37 10*6/uL 4.6-6.2 [facility] Work Phone: [phone] Blood hemoglobin measurement (mass/volume)on 01-08-2022 Hemoglobin (Bld) [Mass/Vol] 7.1 g/dL 13.0-16.5 [facility] Work Phone: [phone] Blood platelet mean volumeon 01-08-2022 Platelet mean volume (Bld) [Entitic vol] 10.0 fL 6.2-12.0 [facility] Work Phone: [phone] Determination of erythrocyte mean corpuscular volume (MCV)on 01-08-2022 MCV (RBC) [Entitic vol] 92.4 fL 80-94 [facility] Work Phone: [phone] Hematocrit Auto (Bld) [Volum e fraction]on 01-08-2022 Hematocrit (Bld) [Volume fraction] 21.9 % 40-54 [facility] Work Phone: [phone] Laboratory - Chemistry and C hemistry - challengeon 01-08-2022 CO2 [Moles/Vol] 29.0 mmol/L 21.0-32.0 [facility] Work Phone: [phone] Urea nitrogen/Creatinine [Mass ratio] 21.0 mg/mg 10-20 [facility] Work Phone: [phone] Laboratory - Hematology and Cell countson 01-08-2022 Erythrocyte distribution width (RBC) [Entitic vol] 47.7 fL 35.1-43.9 [facility] Work Phone: [phone] Erythrocyte distribution width (RBC) [Ratio] 14.2 % 11.6-14.6 [facility] Work Phone: [phone] MCH (RBC) [Entitic mass] 30.0 pg 27.0-32.0 [facility] Work Phone: [phone] MCHC Auto (RBC) [Mass/Vol]on 01-08-2022 MCHC (RBC) [Mass/Vol] 32.4 g/dL 32-36 [facility] Work Phone: [phone] No Panel Informationon 01-08 Estimated Creatinine Clearance Calc 60.62 ml/min [facility] Work Phone: [phone] Estimated GFR (MDRD) Amer 77 mL/min >60 [facility] Work Phone: [phone] Comment on above: GFR Calc Estimated GFR (MDRD) Non-Af Amer 63 mL/min >60 [facility] Work Phone: Comment on above: Non- GFR Calc Platelets bldon 01-08-2022 Platelets (Bld) [#/Vol] 227 10*3/uL 150-450 [facility] Work Phone: Serum or plasma calcium katelin urement (mass/volume)on 01-08-2022 Calcium [Mass/Vol] 9.2 mg/dL 8.5-10.1 [facility] Work Phone: Serum or plasma creatinine m easurement (mass/volume)on 01-08-2022 Creatinine [Mass/Vol] 1.19 mg/dL 0.70-1.30 [facility] Work Phone: Comment on above: The validity of the calculated GFR & GFRAA in patients over 70 years has not been determined. Clinical correlation is essential. Serum or plasma urea nitroge n measurement (mass/volume)on 01-08-2022 Urea nitrogen [Mass/Vol] 25 mg/dL 7-18 [facility] Work Phone: Thin prep Papanicolaou smear with manual screeningon 01-08-2022 Thin prep Papanicolaou smear with manual screening 6 5-15 [facility] Work Phone: BMP - EXTERNALon 12-27-2021 Anion gap [Moles/Vol] 7 mmol/L [facility] Calcium [Mass/Vol] 9.6 mg/dL 8.8 - 10. 5 MG/DL [facility] Chloride [Moles/Vol] 106 mmol/L 98 - 10 7 MEQ/L [facility] Creatinine [Mass/Vol] 0.94 mg/dL 0.6 - 1.3 MG/DL [facility] GFR AFR AMER 100 mL/MIN [facility] GFR/1.73 sq M.predicted among non-blacks MDRD (S/P/Bld) [Vol rate/Area] 83 mL/min/{1.73_m2} [facility] Glucose [Mass/Vol] 127 mg/dL Abnormal 74 - 106 MG/DL [facility] HCO3 (Bld) [Moles/Vol] 25 mmol/L Cl [facility] Potassium [Moles/Vol] 4.0 mmol/L 3.5 - 5.1 MEQ/L [facility] Sodium [Moles/Vol] 138 mmol/L 136 - 145 MEQ/L [facility] Urea nitrogen [Mass/Vol] 17 mg/dL 6 - 20 mg/dL [facility] Urea nitrogen/Creatinine [Mass ratio] 18.1 mg/mg 9 - 20 [facility] CBC panel Auto (Bld)on 12-27 Erythrocyte distribution width (RBC) [Ratio] 14.0 % 11.7 - 15.0 % [facility] Hematocrit (Bld) [Volume fraction] 40.2 % 33 - 42 % [facility] Hemoglobin (Bld) [Mass/Vol] 13.6 g/dL 12 - 16 g/dL [facility] MCH 30.2 pG 27 - 34 pG [facility] MCHC 33.8 % 32 - 36 % [facility] MCV (RBC) [Entitic vol] 89.3 fL 80 - 100 fL [facility] MPV 10.4 % 7.3 - 11.1 % [facility] Platelets (Bld) [#/Vol] 236 10*3/uL 150 - 400 k/uL [facility] RBC (Bld) [#/Vol] 4.5 10*6/uL 4.5 - 6.0 M/uL [facility] RDW-SD 45.3 Abnormal 35.1 - 43.9 [facility] WBC (Bld) [#/Vol] 9.2 10*3/uL 4.0 - 11.0 K/uL [facility] Basophil percentageon 2021 Basophil percentage < 0.9 mg/dL 0.70-1.30 [facility] Work Phone: No Panel Informationon 11-13 Prostate Specific Antigen Total 1.02 ng/mL 0.0-4.0 [facility] Work Phone: Comment on above: This test was perfor med using the TPSA assay method for the[employer] chemistry system. Values obtained with differentassay methods cannot be used interchangably.When changing PSA assays in the course of monitoring apatient, additional sequential testing should be carriedout to confirm baseline values. Vital Signs Date Time Vital Sign Value Performing Clinician Facility 09-22-2024 09:53-0400 Body mass index (BMI) [Ratio] 31.51 kg/m2 Joni Covarrubiasank [employer]OACH SETTER.[employer] Work Phone: [facility] 09-22-2024 09:53-0400 Body temperature 98.49 [degF] Joni Swank BROACH SETTER.[employer]EL[employer] Work Phone: [facility] 09-22-2024 09:53-0400 Body weight 108.3 kg Joni Swank BROACH SETTER.[employer]EL[employer] Work Phone: [facility] 09-22-2024 09:53-0400 Diastolic blood pressure 73 mm[Hg] Joni Swank BROACH SETTER.[employer]EL[employer] Work Phone: [facility] 09-22-2024 09:53-0400 Heart rate 87 /min Joni Swank BROACH SETTER.[employer]EL[employer] Work Phone: [facility] 09-22-2024 09:53-0400 Respiratory rate 18 /min Joni Swank BROACH SETTER.[employer]EL[employer] Work Phone: [facility] 09-22-2024 09:53-0400 SaO2% (BldA) [Mass fraction] 97 % Joni Swank BROACH SETTER.[employer]EL[employer] Work Phone: [facility] 09-22-2024 09:53-0400 Systolic blood pressure 122 mm[Hg] Joni Swank BROACH SETTER.[employer]EL[employer] Work Phone: [facility] 07-21-2024 15:06-0400 Body mass index (BMI) [Ratio] 32.96 kg/m2 Dayron Rodriguez MD Work Phone: [facility] 07-21-2024 15:06-0400 Body temperature 97.3 [degF] Dayron Rodriguez MD Work Phone: [facility] 07-21-2024 15:06-0400 Body weight 113.3 kg Dayron Rodriguez MD Work Phone: [facility] 07-21-2024 15:06-0400 Diastolic blood pressure 74 mm[Hg] Dayron Rodriguez MD Work Phone: [facility] 07-21-2024 15:06-0400 Heart rate 60 /min Dayron Rodriguez MD Work Phone: [facility] 07-21-2024 15:06-0400 Respiratory rate 16 /min Dayron Rodriguez MD Work Phone: [facility] 07-21-2024 15:06-0400 SaO2% (BldA) [Mass fraction] 99 % Dayron Rodriguez MD Work Phone: [facility] 07-21-2024 15:06-0400 Systolic blood pressure 128 mm[Hg] Dayron Rodriguez MD Work Phone: [facility] 01-27-2024 10:57-0400 Diastolic blood pressure 74 mm[Hg] Trish James [employer]OACH SETTER.[employer] DEVELOPER Work Phone: [facility] Comment on above: manual 01-27-2024 10:57-0400 Systolic blood pressure 128 mm[Hg] Trish James [employer]OACH SETTER.[employer] DEVEL[employer] Work Phone: [facility] Comment on above: manual 01-27-2024 10:33-0400 Body height 185.4 cm Trish James BROACH SETTER.[employer] DEVEL[employer] Work Phone: [facility] 01-27-2024 10:33-0400 Body mass index (BMI) [Ratio] 31.42 kg/m2 Trish James BROACH SETTER.[employer] DEVELOPER Work Phone: [facility] 01-27-2024 10:33-0400 Body weight 108 kg Trish James BROACH SETTER.[employer] DEVELOPER Work Phone: [facility] 01-27-2024 10:33-0400 Heart rate 60 /min Trish James BROACH SETTER.[employer]ELOPER Work Phone: [facility] 10-16-2023 11:19-0400 Diastolic blood pressure 78 mm[Hg] Александр Castillo MD Work Phone: [facility] 10-16-2023 11:19-0400 Heart rate 61 /min Александр Castillo MD Work Phone: [facility] 10-16-2023 11:19-0400 Respiratory rate 16 /min Александр Castillo MD Work Phone: [facility] 10-16-2023 11:19-0400 SaO2% (BldA) [Mass fraction] 96 % Александр Castillo MD Work Phone: [facility] 10-16-2023 11:19-0400 Systolic blood pressure 152 mm[Hg] Александр Castillo MD Work Phone: [facility] 10-16-2023 10:03-0400 Body mass index (BMI) [Ratio] 33.05 kg/m2 Александр Castillo MD Work Phone: [facility] 10-16-2023 10:03-0400 Body temperature 96.21 [degF] Александр Castillo MD Work Phone: [facility] 10-16-2023 10:03-0400 Body weight 113.6 kg Александр Castillo MD Work Phone: [facility] 08-31-2023 10:23-0400 Body mass index (BMI) [Ratio] 33.05 kg/m2 Sandra Athy PA-C Work Phone: [facility] 08-31-2023 10:23-0400 Body temperature 97.9 [degF] Sandra Athy PA-C Work Phone: [facility] 08-31-2023 10:23-0400 Body weight 113.6 kg Sandra Athy PA-C Work Phone: [facility] 08-31-2023 10:23-0400 Diastolic blood pressure 64 mm[Hg] Sandra Athy PA-C Work Phone: [facility] 08-31-2023 10:23-0400 Heart rate 80 /min Sandra Athy PA-C Work Phone: [facility] 08-31-2023 10:23-0400 Respiratory rate 20 /min Sandra Athy PA-C Work Phone: [facility] 08-31-2023 10:23-0400 SaO2% (BldA) [Mass fraction] 98 % Sandra Athy PA-C Work Phone: [facility] 08-31-2023 10:23-0400 Systolic blood pressure 120 mm[Hg] Sandra Verduzco PA-C Work Phone: [facility] 05-07-2023 14:33-0500 Body height 185.[address] Feliciano Florian Work Phone: [facility] 05-07-2023 14:33-0500 Body mass index (BMI) [Ratio] 33 kg/m2 Dr. Feliciano Florian Work Phone: [facility] 05-07-2023 14:33-0500 Body weight 113.[address] Feliciano Florian Work Phone: [facility] 01-24-2023 10:50-0400 Body height 185.4 cm Jayla Florian MD Work Phone: [facility] 01-24-2023 10:50-0400 Body weight 112.95 kg Jayla Florian MD Work Phone: [facility] 01-24-2023 10:50-0400 Diastolic blood pressure 80 mm[Hg] Jayla Florian MD Work Phone: [facility] 01-24-2023 10:50-0400 Heart rate 65 /min Jayla Florian MD Work Phone: [facility] 01-24-2023 10:50-0400 Systolic blood pressure 129 mm[Hg] Jayla Florian MD Work Phone: [facility] 07-18-2022 10:39-0400 Body height 185.4 cm Jayla Florian MD Work Phone: [facility] 07-18-2022 10:39-0400 Body weight 109.77 kg Jayla Florian MD Work Phone: [facility] 07-18-2022 10:39-0400 Diastolic blood pressure 55 mm[Hg] Jayla Florian MD Work Phone: [facility] 07-18-2022 10:39-0400 Heart rate 64 /min Jayla Florian MD Work Phone: [facility] 07-18-2022 10:39-0400 SaO2% (BldA) [Mass fraction] 97 % Jayla Florian MD Work Phone: [facility] 07-18-2022 10:39-0400 Systolic blood pressure 132 mm[Hg] Jayla Florian MD Work Phone: [facility] 05-15-2022 12:00-0500 Body temperature 97 [degF] Dayron Rodriguez MD Work Phone: [facility] 05-15-2022 12:00-0500 Body weight 109.95 kg Dayron Rodriguez MD Work Phone: [facility] 05-15-2022 12:00-0500 Diastolic blood pressure 62 mm[Hg] Dayron Rodriguez MD Work Phone: [facility] 05-15-2022 12:00-0500 Heart rate 70 /min Dayron Rodriguez MD Work Phone: [facility] 05-15-2022 12:00-0500 Respiratory rate 20 /min Dayron Rodriguez MD Work Phone: [facility] 05-15-2022 12:00-0500 SaO2% (BldA) [Mass fraction] 97 % Dayron Rodriguez MD Work Phone: [facility] 05-15-2022 12:00-0500 Systolic blood pressure 126 mm[Hg] Dayron Rodriguez MD Work Phone: [facility] 01-08-2022 09:48-0400 Inhaled oxygen flow rate 2 L/min [facility] Work Phone: 01-08-2022 09:48-0400 SaO2% (BldA) [Mass fraction] 96 % [facility] Work Phone: 01-08-2022 07:38-0400 Body temperature 97.9 [degF] [facility] Work Phone: 01-08-2022 07:38-0400 Diastolic blood pressure 77 mm[Hg] [facility] Work Phone: 01-08-2022 07:38-0400 Heart rate 67 /min [facility] Work Phone: 01-08-2022 07:38-0400 Respiratory rate 16 /min [facility] Work Phone: 01-08-2022 07:38-0400 Systolic blood pressure 144 mm[Hg] [facility] Work Phone: 01-07-2022 11:06-0400 Body height 185.42 cm [facility] Work Phone: 01-07-2022 11:06-0400 Body weight 113.2 kg [facility] Work Phone: 01-04-2022 19:51-0400 Body mass index (BMI) [Ratio] 32.9 kg/m2 [facility] Work Phone: 11-28-2021 17:30-0400 Body temperature 97.8 [degF] [facility] Work Phone: 11-28-2021 17:30-0400 Diastolic blood pressure 69 mm[Hg] [facility] Work Phone: 11-28-2021 17:30-0400 Heart rate 60 /min [facility] Work Phone: 11-28-2021 17:30-0400 Respiratory rate 16 /min [facility] Work Phone: 11-28-2021 17:30-0400 SaO2% (BldA) [Mass fraction] 96 % [facility] Work Phone: 11-28-2021 17:30-0400 Systolic blood pressure 148 mm[Hg] [facility] Work Phone: 11-28-2021 13:12-0400 Body height 185.42 cm [facility] Work Phone: 11-28-2021 13:12-0400 Body mass index (BMI) [Ratio] 31.6 kg/m2 [facility] Work Phone: 11-28-2021 13:12-0400 Body weight 109 kg [facility] Work Phone: 09-21-2021 10:16-0400 Body height 185.4 cm Jayla Florian MD Work Phone: [facility] 09-21-2021 10:16-0400 Body weight 109.77 kg Jayla Florian MD Work Phone: [facility] 09-21-2021 10:16-0400 Diastolic blood pressure 58 mm[Hg] Jayla Florian MD Work Phone: [facility] 09-21-2021 10:16-0400 Heart rate 64 /min Jayla Florian MD Work Phone: [facility] 09-21-2021 10:16-0400 Systolic blood pressure 125 mm[Hg] Jayla Florian MD Work Phone: [facility] Encounters Encounter Date Encounter Type Care Provider Facility Start: 02-15-2025 End: 02-15-2025 ambulatory JAYLA FLORIAN Facility:[facility] Start: 02-15-2025 Patient encounter procedure JAYLA FLORIAN [facility] Start: 01-11-2025 End: 01-11-2025 ambulatory JAYLA FLORIAN Facility:[facility] Start: 11-12-2024 End: 11-16-2024 Refill Jayla Florian MD Work Phone: [facility] Comment on above: Refill Request (See Rx notes) Start: 09-22-2024 End: 09-22-2024 Patient encounter procedure Joni Leavitt APRN.[employer]EL[employer] Work Phone: [facility] Comment on above: Allergic contact isai matitis, unspecified trigger (Primary Dx); Sinobronchitis Start: 09-22-2024 End: 09-22-2024 ambulatory JAYLA FLORIAN Facility:[facility] Start: 07-21-2024 End: 07-21-2024 ambulatory JAYLA FLORIAN Facility:[facility] Start: 07-21-2024 End: 07-21-2024 Office outpatient visit 15 minutes Dayron Rodriguez MD Work Phone: [facility] Comment on above: Sore throat (Primary Dx); Allergic rhinitis, unspecified seasonality, unspecified trigger Start: 05-19-2024 End: 05-19-2024 Telephone encounter Jayla Florian MD Work Phone: [facility] Comment on above: Received Outside Med ical Records ([facility]) Start: 05-11-2024 End: 05-18-2024 ambulatory Jayla Florian MD Work Phone: [facility] Comment on above: Zoloft RX Start: 03-09-2024 End: 03-09-2024 Telephone encounter [facility] MD [facility] [facility] [place] Comment on above: Received Outside Med ical Records ([facility] PSA 0.93 03/09/2024) Start: 03-09-2024 End: 03-09-2024 ambulatory Luci Saranac Facility:[facility] Start: 02-16-2024 End: 02-16-2024 Refill Jayla Florian MD Work Phone: [facility] Comment on above: Refill Request (Out of medication; waiting on mail order; short-term request) Start: 01-27-2024 End: 01-27-2024 Patient encounter procedure Trish Ramirez APRN.CNP Work Phone: [facility] [place] Comment on above: Medicare annual well ness visit, subsequent (Primary Dx); Obesity, Class I, BMI 30-34.9; Essential hypertension, benign; Obstructive sleep apnea; BPH with obstruction/lower urinary tract symptoms; Adjustment disorder with mixed anxiety and depressed mood; Mixed hyperlipidemia; Prediabetes Start: 01-13-2024 End: 01-16-2024 ambulatory Jayla Florian MD Work Phone: Internal Medicine [facility] Start: 12-26-2023 End: 01-13-2024 Telephone encounter Jayla Florian MD Work Phone: [facility] [place] Comment on above: Patient Question (Mi ld Cognitive impairment) Start: 11-11-2023 Telephone encounter Jayla Florian MD Work Phone: [facility] [place] Comment on above: [facility] MRI lumbar spine without contrast. 11/10/2023) Start: 11-10-2023 End: 11-10-2023 ambulatory Feliciano Gordon Facility:[facility] Start: 10-16-2023 End: 10-16-2023 Subsequent hospital visit by physician Александр Castillo MD Work Phone: Ambulatory Surgery Comment on above: Screening for colon cancer [Z12.11] Start: 10-14-2023 ambulatory Justine Hou [facility] [place] Start: 10-14-2023 Patient encounter procedure Justine Hou MA [facility] [place] Comment on above: Population Health Na vigation Outreach ([facility] CURRENT ROSTER workbench - AWV[facility] Start: 10-09-2023 ambulatory Jayla israel MD Work Phone: [facility] [place] Comment on above: bowel prep Start: 09-29-2023 Telephone encounter Jayla Florian MD Work Phone: [facility] [place] Comment on above: Orders (Screening co lonoscopy) Start: 08-31-2023 End: 08-31-2023 Patient encounter procedure Sandra Verduzco PA-C Work Phone: [facility] Comment on above: Skin infection (Prim neil Dx) Start: 08-05-2023 ambulatory Jayla israel MD Work Phone: [facility] [place] Comment on above: zoloft 25mg Start: 08-04-2023 Refill Jayla israel MD Work Phone: [facility] [place] Comment on above: Refill Request Start: 07-30-2023 Telephone encounter Jayla Florian MD Work Phone: [facility] [place] Comment on above: Patient Update Start: 07-03-2023 End: 07-03-[address] Feliciano Florian Work Phone: [facility] Work Phone: Start: 07-03-2023 End: 07-03-[address] Feliciano Florian Work Phone: [facility] Work Phone: Start: 06-26-2023 Telephone encounter Jayla Florian MD Work Phone: [facility] [place] Comment on above: Received Outside Med ical Records ([facility] Rehabilitation Services Initial Evaluation 06/25/2023) Start: 05-14-2023 ambulatory Jayla israel MD Work Phone: [facility] [place] Comment on above: Nurse Triage Call Start: 05-08-2023 Telephone encounter Jayla Florian MD Work Phone: [facility] [place] Comment on above: Received Outside Med ical Records ([facility] 05/07/23) Start: 05-07-2023 End: 05-07-[address] Feliciano Florian Work Phone: [facility] Work Phone: Start: 05-07-2023 End: 05-07-2023 ambulatory Feliciano Florian Facility:[facility] Start: 03-07-2023 Telephone encounter Jayla Florian MD Work Phone: [facility] [place] Comment on above: Received Outside Med ical Records ([facility] Office visit summary 03/06/2023 Partial right nephrectomy and stone removal.) Received Outside Med ical Records ([facility] 03/06/2023) Start: 03-06-2023 End: 03-06-2023 ambulatory [facility] Work Phone: Start: 03-06-2023 End: 03-06-2023 Patient encounter procedure [facility] Work Phone: Start: 01-24-2023 End: 01-24-2023 Patient encounter procedure Jayla Florian MD Work Phone: [facility] [place] Comment on above: Essential hypertensi on, benign (Primary Dx); Mixed hyperlipidemia; History of kidney stones; AIXA on CPAP; Trigger middle finger of right hand; Adjustment disorder with mixed anxiety and depressed mood Start: 01-10-2023 Refill Trish Dixie A PRN.BI[employer] SOFTWARE DEVELOPER Work Phone: [facility] [place] Comment on above: Refill Request Start: 12-03-2022 Telephone encounter Jayla Florian MD Work Phone: [facility] [place] Comment on above: Received Outside [facility] Records (Dr Valdivia Visit summary 12/03/2022 Sleep apnea) Start: 10-01-2022 Refill Jayla israel MD Work Phone: [facility] [place] Comment on above: Refill Request Start: 09-24-2022 Refill Jayla israel MD Work Phone: [facility] [place] Comment on above: Refill Request Start: 07-31-2022 ambulatory Jayla israel MD Work Phone: [facility] Comment on above: Allied Health Visit (Medication Adherence Outreach/) Start: 07-18-2022 End: 07-18-2022 Patient encounter procedure Jayla Florian MD Work Phone: [facility] [place] Comment on above: Medicare annual well ness visit, subsequent (Primary Dx); Essential hypertension, benign; Adjustment disorder with mixed anxiety and depressed mood; Hyperglycemia; Benign renal tumor, right Start: 06-21-2022 Refill Trish Dixie A PRN.BIZTALK SOFTWARE DEVELOPER Work Phone: [facility] [place] Comment on above: Refill Request Start: 05-15-2022 End: 05-15-2022 Patient encounter procedure Dayron Rodriguez MD Work Phone: [facility] Comment on above: Acute non-recurrent sinusitis, unspecified location (Primary Dx) Start: 04-17-2022 Refill Augusta gonzales PA-C Work Phone: [facility] [place] Comment on above: Refill Request Start: 03-20-2022 Refill Trish Dixie A PRN.BIZTALK SOFTWARE DEVELOPER Work Phone: [facility] [place] Comment on above: Refill Request Start: 01-22-2022 Telephone encounter Jayla Florian MD Work Phone: [facility] Comment on above: Received Outside Med ical Records ([facility]) Start: 01-12-2022 Refill Trish Dixie A PRN.BIZTALK SOFTWARE DEVELOPER Work Phone: [facility] Comment on above: Refill Request Start: 01-08-2022 Telephone encounter Jayla Florian MD Work Phone: [facility] [place] Comment on above: Received Outside Med ical Records (Discharge Summary [facility]) Start: 01-07-2022 Telephone encounter Jayla Florian MD Work Phone: [facility] [place] Comment on above: Received Outside Med ical Records (Operative report) Start: 01-04-2022 End: 01-08-2022 Evaluation and management of inpatient [facility] 3 Start: 12-27-2021 Orders Only Trish Dixie A PRN.BIZTALK SOFTWARE DEVELOPER Work Phone: [facility] [place] Comment on above: Mixed hyperlipidemia (Primary Dx); Hyperglycemia Start: 12-27-2021 Refill Trish Dixie A PRN.BIZTALK SOFTWARE DEVELOPER Work Phone: [facility] [place] Comment on above: Refill Request Start: 12-03-2021 Telephone encounter Jayla Florian MD Work Phone: [facility] [place] Comment on above: Received Outside Med ical Records (Labs and imaging [facility]) Start: 12-03-2021 End: 12-03-2021 ambulatory [facility] Work Phone: Start: 12-03-2021 End: 12-03-2021 Patient encounter procedure [facility]-Cat Scan, [facility] Start: 11-29-2021 Telephone encounter Jayla Florian MD Work Phone: [facility] [place] Comment on above: Received Outside Med ical Records (H&P [facility]) Start: 11-28-2021 Telephone encounter Jayla Florian MD Work Phone: [facility] [place] Comment on above: Received Outside Med ical Records (Abdomen xray [facility]) Start: 11-28-2021 End: 11-28-2021 Admission to same day surgery center [facility] Start: 11-28-2021 End: 11-28-2021 ambulatory [facility] Work Phone: Start: 11-27-2021 Telephone encounter Jayla Florian MD Work Phone: [facility] [place] Comment on above: Received Outside Med ical Records ([facility]) Start: 11-27-2021 End: 11-27-2021 ambulatory [facility] Work Phone: Start: 11-27-2021 End: 11-27-2021 Patient encounter procedure [facility]-Radiology, [facility] Start: 11-23-2021 Telephone encounter Jayla Florian MD Work Phone: [facility] [place] Comment on above: Received Outside Med ical Records ([facility] CT abdomen and pelvis 11/23/2021) Start: 11-23-2021 End: 11-23-2021 ambulatory [facility] Work Phone: Start: 11-23-2021 End: 11-23-2021 Patient encounter procedure [facility]-Cat Scan, [facility] Start: 11-13-2021 End: 11-13-2021 Patient encounter procedure [facility] Start: 09-21-2021 End: 09-21-2021 Patient encounter procedure Jayla Florian MD Work Phone: [facility] [place] Comment on above: Essential hypertensi on, benign (Primary Dx); Mixed hyperlipidemia; Adjustment disorder with mixed anxiety and depressed mood; Mild cognitive impairment, so stated; History of 2019 novel coronavirus disease (COVID-19); Hyperglycemia Start: 07-27-2021 Telephone encounter Jayla Florian MD Work Phone: [facility] [place] Comment on above: Appointment Start: 07-10-2021 Refill Cristino Joyce Work Phone: [facility] [place] Comment on above: Refill Request Procedures Date Procedure Procedure Detail Performing Clinician Start: 07-21-2024 STREP A MOLECULAR (POC) Dayron Rodriguez MD Work Phone: Start: 03-09-2024 PSA screening [facility] Provi isai Start: 10-16-2023 Colonoscopy flx dx w /collj spec when pfrmd Trish Dixie BROACH SETTER.BIZTALK SOFTWARE DEVELOPER Work Phone: Start: 05-07-2023 X-ray of lumbosacral spine Dr. Feliciano Florian Work Phone: Start: 03-06-2023 BMP - EXTERNAL [facility] Prov ider Start: 03-06-2023 CBC panel - Blood by Automated count [facility] Provider Start: 03-06-2023 PSA screening Jayla aponte MD Work Phone: Start: 01-04-2022 Partial nephrectomy Start: 12-27-2021 BMP - EXTERNAL [facility] Prov ider Start: 12-27-2021 CBC panel - Blood by Automated count [facility] Provider Start: 12-03-2021 Computed tomography of abdomen and pelvis with intravenous contrast Start: 11-28-2021 Extracorporeal shock wave lithotripsy Start: 11-27-2021 Diagnostic radiograp hy of abdomen Start: 11-23-2021 CT of abdomen and pe lvis without contrast Start: 09-21-2021 Adult depression scr eening assessment Jayla Florian MD Work Phone: Start: 09-11-2020 Colonoscopy Cristino fajardo PA-C Work Phone: Start: 06-23-2019 Adult depression scr eening assessment Cristino Samuel PA-C Work Phone: Plan of Treatment Date Care Activity Detail Author Start: 01-18-2027 Diabetes Screening Diabetes Screenin [facility] Start: 07-16-2026 LIPID SCREEN LIPID SCREEN [facility] Start: 01-01-2026 Diabetes Screening Diabetes Screenin g [facility] Start: 07-21-2025 BP Controlled (<130/80) BP Controlle d (<130/80) [facility] Start: 02-21-2025 LIPID SCREEN LIPID SCREEN [facility] Start: 01-26-2025 Annual PCP Team Barrel Straightener emily Disease Visit Annual PCP Team Chronic Disease Visit [facility] Start: 01-26-2025 BP Controlled (<130/80) BP Controlle d (<130/80) [facility] Start: 01-26-2025 Covid-19 Vaccine ( season) Covid-19 Vaccine ( season) [facility] Comment on above: Postponed from 12/06 (Declined at this time) Start: 01-05-2025 End: 04-05-2025 Comprehensive metabolic 2000 panel - Serum or Plasma COMPREHENSIVE METABOLIC PANEL Lab Routine Prediabetes Essential hypertension, benign Expected: 01/05/2025, Expires: 04/05/2025 [facility] Work Phone: Comment on above: Expected: 01/05/2025 , Expires: 04/05/2025 Start: 01-05-2025 End: 04-05-2025 Hemoglobin A1c in Blood HEMOGLOBIN A1C Lab Routine Prediabetes Expected: 01/05/2025, Expires: 04/05/2025 [facility] Comment on above: Expected: 01/05/2025 , Expires: 04/05/2025 Start: 01-05-2025 End: 04-05-2025 Lipid 1996 panel - Serum or Plasma LIPID PANEL, FASTING Lab Routine Mixed hyperlipidemia Expected: 01/05/2025, Expires: 04/05/2025 [facility] Comment on above: Expected: 01/05/2025 , Expires: 04/05/2025 Start: 12-28-2024 DIABETES SCREEN DIABETES SCREEN [facility] Start: 12-28-2024 Diabetes Screening Diabetes Screenin g [facility] Start: 12-06-2024 Influenza vaccination C [facility] Start: 10-04-2024 Influenza vaccination Influenza Vacc ine (#1) [facility] Comment on above: Postponed from 12/06 (Declined at this time) Start: 08-30-2024 BP Controlled (<130/80) BP Controlle d (<130/80) [facility] Start: 04-08-2024 BP Controlled (<130/80) BP Controlle d (<130/80) [facility] Start: 04-07-2024 Advance Directive Discussion Advance Directive Discussion [facility] Start: 04-07-2024 Medicare Advantage Annual Wellness Visit Medicare Advantage Annual Wellness Visit [facility] Start: 01-27-2024 End: 01-27-2024 Patient encounter procedure [facility] Comment on above: Annual Medicare Visi t due Start: 01-25-2024 Annual PCP Team Barrel Straightener emily Disease Visit Annual PCP Team Chronic Disease Visit [facility] Start: 01-13-2024 End: 04-13-2024 Basic metabolic 2000 panel - Serum or Plasma BASIC METABOLIC PANEL Lab Routine Essential hypertension, benign Expected: 01/13/2024, Expires: 04/13/2024 [facility] Work Phone: Comment on above: Expected: 01/13/2024 , Expires: 04/13/2024 Start: 01-13-2024 End: 04-13-2024 Hemoglobin A1c in Blood HEMOGLOBIN A1C Lab Routine Impaired fasting glucose Expected: 01/13/2024, Expires: 04/13/2024 [facility] Comment on above: Expected: 01/13/2024 , Expires: 04/13/2024 Start: 01-13-2024 End: 04-13-2024 Lipid 1996 panel - Serum or Plasma LIPID PANEL BASIC Lab Routine Mixed hyperlipidemia Expected: 01/13/2024, Expires: 04/13/2024 [facility] Comment on above: Expected: 01/13/2024 , Expires: 04/13/2024 Start: 12-09-2023 DIABETES SCREEN DIABETES SCREEN [facility] Start: 12-07-2023 Covid-19 Vaccine ( season) Covid-19 Vaccine () [facility] Start: 12-07-2023 Influenza vaccination C [facility] Start: 10-16-2023 End: 10-16-2023 Patient encounter procedure 10/16/2023 11:00 AM EDT Appointment Ambulatory Surgery [address] [place] [address] Александр Castillo MD [address] [place], [place] [id number] Screening for colon cancer [Z12.11] Ambulatory Surgery Comment on above: Screening for colon cancer [Z12.11] Start: 09-12-2023 Colonoscopy COLONOSCOPY [facility] Start: 09-12-2023 COLORECTAL CANCER SCREENING COLORECTAL CANCER SCREENING [facility] Start: 07-19-2023 ANNUAL PCP TEAM LUG BREAKER AND WIRE PULLER EMILY DISEASE VISIT ANNUAL PCP TEAM CHRONIC DISEASE VISIT [facility] Start: 07-19-2023 COVID-19 VACCINE (4 - Booster for Moderna series) COVID-19 VACCINE (4 - Booster for Moderna series) [facility] Comment on above: Postponed from 03/30 (Declined at this time) Start: 07-19-2023 Covid-19 Vaccine (4 - Moderna series) Covid-19 Vaccine (4 - Moderna series) [facility] Comment on above: Postponed from 03/30 (Declined at this time) Start: 05-15-2023 BP CONTROLLED (<130/80) BP CONTROLLE D (<130/80) [facility] Start: 04-07-2023 Advance Directive Discussion Advance Directive Discussion [facility] Start: 04-07-2023 Behavioral Health Screening Behavioral Health Screening [facility] Start: 04-07-2023 Depression Assessment Depression Ass essment [facility] Start: 02-15-2023 Urine microalbumin profile [facility] Start: 12-16-2022 End: 02-15-2023 Comprehensive metabolic 2000 panel - Serum or Plasma COMP METABOLIC PANEL Lab Routine Hyperglycemia Expected: 12/16/2022, Expires: 02/15/2023 [facility] Work Phone: Comment on above: Expected: 12/16/2022 , Expires: 02/15/2023 Start: 12-16-2022 End: 02-15-2023 Hemoglobin A1c in Blood HGB A1C Lab Routine Hyperglycemia Expected: 12/16/2022, Expires: 02/15/2023 [facility] Work Phone: Comment on above: Expected: 12/16/2022 , Expires: 02/15/2023 Start: 12-16-2022 End: 02-15-2023 Lipid 1996 panel - Serum or Plasma LIPID PANEL BASIC Lab Routine Hyperglycemia Expected: 12/16/2022, Expires: 02/15/2023 [facility] Work Phone: Comment on above: Expected: 12/16/2022 , Expires: 02/15/2023 Start: 12-06-2022 Covid-19 Vaccine ( season) Covid-19 Vaccine () [facility] Start: 12-06-2022 Influenza vaccination Influenza Vacc ine (#1) [facility] Start: 09-21-2022 Adult depression screening assessment DEPRESSION SCREENING [facility] Start: 09-21-2022 ANNUAL PCP TEAM LUG BREAKER AND WIRE PULLER EMILY DISEASE VISIT ANNUAL PCP TEAM CHRONIC DISEASE VISIT [facility] Start: 09-21-2022 BP CONTROLLED (<130/80) BP CONTROLLE D (<130/80) [facility] Start: 04-07-2022 ADVANCE DIRECTIVE DISCUSSION ADVANCE DIRECTIVE DISCUSSION [facility] Start: 04-07-2022 DEPRESSION ASSESSMENT DEPRESSION ASS ESSMENT [facility] Start: 01-08-2022 Patient discharge [facility] Work Phone: Start: 01-07-2022 [facility] Work Phone: Start: 01-06-2022 [facility] Work Phone: Start: 01-05-2022 Following clinical pathway protocol [facility] Work Phone: Start: 01-05-2022 End: 03-07-2022 Comprehensive metabolic 2000 panel - Serum or Plasma COMP METABOLIC PANEL Lab Routine Essential hypertension, benign Expected: 01/05/2022, Expires: 03/07/2022 [facility] Work Phone: Comment on above: Expected: 01/05/2022 , Expires: 03/07/2022 Start: 01-04-2022 Application of intermittent pneumatic compression device [facility] Work Phone: Start: 01-04-2022 Following clinical pathway protocol [facility] Work Phone: Start: 01-04-2022 Admission procedure [facility] Work Phone: Start: 01-04-2022 Deep breathing and coughing exercises [facility] Work Phone: Start: 01-04-2022 Incentive spirometry [facility] Work Phone: Start: 01-04-2022 Measuring intake and output [facility] Work Phone: Start: 01-04-2022 Oxygen therapy [facility] Work Phone: Start: 01-04-2022 Provision of activit y privileges [facility] Work Phone: Start: 01-04-2022 Taking patient vital signs [facility] Work Phone: Start: 01-04-2022 Vital signs measurements [facility] Work Phone: Start: 01-04-2022 [facility] Work Phone: Start: 12-27-2021 End: 02-26-2022 Hemoglobin A1c in Blood HGB A1C Lab Routine Hyperglycemia Expected: 12/27/2021, Expires: 02/26/2022 [facility] Work Phone: Comment on above: Expected: 12/27/2021 , Expires: 02/26/2022 Start: 12-27-2021 End: 02-26-2022 Hepatic function 2000 panel - Serum or Plasma HEPATIC FUNCTION PNL Lab Routine Mixed hyperlipidemia Expected: 12/27/2021, Expires: 02/26/2022 [facility] Work Phone: Comment on above: Expected: 12/27/2021 , Expires: 02/26/2022 Start: 12-07-2021 ANNUAL PCP TEAM LUG BREAKER AND WIRE PULLER EMILY DISEASE VISIT ANNUAL PCP TEAM CHRONIC DISEASE VISIT [facility] Start: 12-06-2021 Influenza vaccination C [facility] Start: 11-28-2021 Patient discharge [facility] Work Phone: Start: 11-28-2021 Taking patient vital signs [facility] Work Phone: Start: 11-28-2021 End: 11-28-2021 [facility] Work Phone: Start: 11-28-2021 Ambulation without limitation [facility] Work Phone: Start: 11-28-2021 Medication education [facility] Work Phone: Start: 11-28-2021 Anes lithotrp xtrcor p shock wave w/o water bath ANESTH KIDNEY STONE DESTRUCT [facility] Work Phone: Start: 09-21-2021 End: 01-05-2022 Hemoglobin A1c in Blood HGB A1C Lab Routine Hyperglycemia Expected: 09/21/2021, Expires: 01/05/2022 [facility] Work Phone: Comment on above: Expected: 09/21/2021 , Expires: 01/05/2022 Start: 06-04-2021 COVID-19 VACCINE (4 - Booster for Moderna series) COVID-19 VACCINE (4 - Booster for Moderna series) [facility] Start: 04-07-2021 ADVANCE DIRECTIVE DISCUSSION ADVANCE DIRECTIVE DISCUSSION [facility] Start: 04-07-2021 DEPRESSION ASSESSMENT DEPRESSION ASS ESSMENT [facility] Start: 03-30-2021 COVID-19 VACCINE (4 - Booster for Moderna series) COVID-19 VACCINE (4 - Booster for Moderna series) [facility] Start: 11-20-2020 COVID-19 VACCINE (3 - Booster for Moderna series) COVID-19 VACCINE (3 - Booster for Moderna series) [facility] Start: 06-22-2020 Adult depression screening assessment DEPRESSION SCREENING [facility] Start: 2006 RSV Vaccine (1 - 1-d ose 60+ series) RSV Vaccine (1 - 1-dose 60+ series) [facility] Start: 08-08-1991 COLOGUARD (FIT-DNA) COLOGUARD (FIT-D NA) [facility] Start: 08-08-[address] COLONOGRAPHY [facility] Start: 08-08-1991 FECAL OCCULT BLOOD FECAL OCCULT BLOO D [facility] Start: 08-08-1991 SIGMOIDOSCOPY SIGMOIDOSCOPY [facility] Start: 1964 Anxiety Screening Anxiety Screening [facility] Start: 1963 BP CONTROLLED (<130/80) BP CONTROLLE D (<130/80) [facility] Start: 1963 Depression Screening Depression Scre ening [facility] Patient Education [facility] Work Phone: Patient referral [facility] Work Phone: End: 09-28-2024 Screening colonoscopy COLONOSCOPY SCREENING Endoscopy Routine Screening for colon cancer Personal history of colonic polyps 1 Occurrences starting 09/29/2023 until 09/28/2024 [facility] Work Phone: Comment on above: 1 Occurrences starti ng 09/29/2023 until 09/28/2024 SURGICAL PATHOLOGY [facility] Work Phone: Comment on above: Release Upon Orderin g for 1 Occurrences starting 10/16/2023, 1 completed End: 02-23-2024 XR HAND GENERAL 3V PA/LAT/OBL RIGHT XR HAND GENERAL 3V PA/LAT/OBL RIGHT Radiology Routine Trigger middle finger of right hand 1 Occurrences starting 01/24/2023 until 02/23/2024 [facility] Work Phone: Comment on above: 1 Occurrences starti ng 01/24/2023 until 02/23/2024 [facility] Immunizations Immunization Date Immunization Notes Care Provider [facility] 12-28-2021 influenza virus vacc ine, unspecified formulation Jayla Florian MD Work Phone: [facility] 06-20-2020 COVID-19 vaccine, fu ll dose (MODERNA) Cristino Samuel PA-C Work Phone: [facility] Work Phone: 05-27-2020 COVID-19 vaccine, fu ll dose (MODERNA) Cristino Samuel PA-C Work Phone: [facility] Work Phone: 01-10-2020 zoster vaccine recombinant Cristino Samuel PA-C Work Phone: [facility] 12-31-2019 influenza virus vacc ine, unspecified formulation Cristino Samuel PA-C Work Phone: [facility] 09-16-2019 zoster vaccine recombinant Cristino Samuel PA-C Work Phone: [facility] 01-15-2019 influenza virus vacc ine, unspecified formulation Cristino Samuel PA-C Work Phone: [facility] 12-29-2015 zoster vaccine, live Cristino Samuel PA-C Work Phone: [facility] 05-16-2015 pneumococcal conjuga te vaccine, 13 valent Cristino Samuel PA-C Work Phone: [facility] 02-15-2013 tetanus toxoid, redu berna diphtheria toxoid, and acellular pertussis vaccine, adsorbed Cristino Samuel PA-C Work Phone: [facility] 08-19-2011 pneumococcal polysaccharide vaccine, 23 valent Cristino Samuel PA-C Work Phone: [facility] Work Phone: 12-02-2005 diphtheria and tetan us toxoids, adsorbed for pediatric use Cristino Samuel PA-C Work Phone: [facility] Work Phone: 04-07-1992 diphtheria and tetan us toxoids, adsorbed for pediatric use Cristino Samuel PA-C Work Phone: [facility] Work Phone: Payers Date Payer Category Payer Self-pay [id number] [id number] 2015 Medicare (Managed Care) ASYA MCKINNEY PPO [id number] 2015 Unknown ASYA THOMAS S AND BLUE ROGELIO ELMORE ACCESS [id number] 2015-Present [phone] [address] [place] [address] PPO [id number] 2015 Unknown [id number] 2015 Medicare [id number] Unknown [id number] Unknown [id number] Unknown [id number] Unknown [id number] Unknown [id number] Social History Date Type Detail Facility Start: 07-29-2011 End: 09-22-2024 Tobacco smoking status NHIS Ex-smoker [facility] Start: 04-07-1977 End: 04-07-1987 History of tobacco use Current smoker [facility] Start: 04-07-1977 End: 04-07-1987 History of tobacco use Cigarette Smoker [facility] Start: 12-07-2020 End: 09-22-2024 Alcohol intake Current drinker of alcohol (finding) [facility] Start: 06-23-2019 End: 07-14-2022 History SDOH Alcohol Frequency 3 [facility] Start: 06-23-2019 End: 09-20-2021 History SDOH Alcohol Std Drinks 1 [facility] Start: 02-25-2011 History SDOH Alcohol Comment 1-2 drinks per month [facility] Start: 06-23-2019 End: 07-14-2022 History SDOH Social Connections Phone 2 [facility] Start: 06-23-2019 History SDOH Physica l Activity MPS 6 [facility] Start: 06-23-2019 End: 09-20-2021 History SDOH Financial 5 [facility] Start: 06-23-2019 Education 17 [facility] Start: 1945 Sex Assigned At Male C [facility] Start: 07-17-2021 End: 09-21-2021 Exposure to SARS-CoV-2 (event) Not sure [facility] Start: 09-20-2021 End: 07-14-2022 History SDOH Social Connections Hinduism 98 [facility] Start: 09-20-2021 History SDOH Physica l Activity MPS 4 [facility] Start: 09-09-2019 End: 05-07-2023 Tobacco smoking status NHIS Unknown if ever smoked [facility] Start: 07-29-2011 End: 01-24-2023 Cigarettes smoked current (pack per day) - Reported 2 [facility] Start: 07-29-2011 End: 09-22-2024 Tobacco use and exposure Smokeless tobacco non-user [facility] Work Phone: Start: 07-14-2022 End: 01-24-2023 Social connection and isolation panel [facility] Start: 03-08-2012 In a typical week, h ow many times do you talk on the telephone with family, friends, or neighbors? Patient refused [facility] Are you now , , , , never or living with a partner? [facility] How often to you hav e a drink containing alcohol? 2-4 times a month [facility] How many standard dr inks containing alcohol do you have on a typical day? 1 or 2 [facility] How often do you hav e 6 or more drinks on 1 occasion? Never [facility] Do you feel stress - tense, restless, nervous, or anxious, or unable to sleep at night because your mind is troubled all the time - these days [OSQ] Not at all [facility] (I/We) worried raymundo er (my/our) food would run out before (I/we) got money to buy more. Never true [facility] In the past 12 month s, was there a time when you were not able to pay the mortgage or rent on time? No [facility] Start: 06-24-2019 Gender identity Identifies as male gender (finding) [facility] Do you belong to any clubs or organizations such as scientologist groups, unions, fraternal or athletic groups, or school groups? Yes [facility] Medical Equipment Procedure Code Equipment Code Equipment Origin al Text Equipment Identifier Dates Robot-assisted partial nephrectomy CLIP,HEMEMERY CH FDA Start: 01-04-2022 Robot-assisted partial nephrectomy Ligation clip, synthetic polymer, non-bioabsorbable [id number] FDA Start: 01-04-2022 Robot-assisted partial nephrectomy CLIP,HEMOLOCK MARIAN CH FDA Start: 01-04-2022 Robot-assisted partial nephrectomy CLIP,HEMOLOCK LG DIMA FDA Start: 01-04-2022 Robot-assisted partial nephrectomy CLIP,LAPRA-TY FDA Start: 01-04-2022 Robot-assisted partial nephrectomy CLIP,LAPRA-TY FDA Start: 01-04-2022 Robot-assisted partial nephrectomy DRESSING,SURGICEL 4x8 FDA Start: 01-04-2022 Robot-assisted partial nephrectomy ([id number]) Collagen haemostatic agent, non-antimicrobial [id number] FDA Start: 01-04-2022 Robot-assisted partial nephrectomy CLIP,HEMOLOCK MARIAN CH FDA Start: 01-04-2022 Robot-assisted partial nephrectomy CLIP,HEMOLOCK MARIAN CH FDA Start: 01-04-2022 Robot-assisted partial nephrectomy CLIP,HEMOLOCK LG DIMA FDA Start: 01-04-2022 Robot-assisted partial nephrectomy CLIP,LAPRA-TY FDA Start: 01-04-2022 Robot-assisted partial nephrectomy CLIP,LAPRA-TY FDA Start: 01-04-2022 Robot-assisted partial nephrectomy DRESSING,SURGICEL 4x8 FDA Start: 01-04-2022 Robot-assisted partial nephrectomy CLIP,HEMOLOCK MARIAN CH FDA Start: 01-04-2022 Robot-assisted partial nephrectomy CLIP,HEMOLOCK LG DIMA FDA Start: 01-04-2022 Robot-assisted partial nephrectomy CLIP,HEMOLOCK LG DIMA FDA Start: 01-04-2022 Robot-assisted partial nephrectomy CLIP,LAPRA-TY FDA Start: 01-04-2022 Robot-assisted partial nephrectomy CLIP,LAPRA-TY FDA Start: 01-04-2022 Robot-assisted partial nephrectomy DRESSING,SURGICEL 4x8 FDA Start: 01-04-2022 Lithotripsy, ESWL STENT,URETERAL PIGTAIL 6FRx26 FDA Start: 11-28-2021 Lithotripsy, ESWL STENT,URETERAL PIGTAIL 6FRx26 FDA Start: 11-28-2021 Lithotripsy, ESWL STENT,URETERAL PIGTAIL 6FRx26 FDA Start: 11-28-2021 Lithotripsy, ESWL STENT,URETERAL PIGTAIL 6FRx26 FDA Start: 11-28-2021 Lithotripsy, ESWL STENT,URETERAL PIGTAIL 6FRx26 FDA Start: 11-28-2021 Lithotripsy, ESWL STENT,URETERAL PIGTAIL 6FRx26 FDA Start: 11-28-2021 Goals Date Patient Goal Desired Activity /State Functional Status Date Assessment Result Facility 01-08-2022 Functional status Ambulates;Bath room Privilege [facility] Work Phone: 04-04-2014 Are you deaf, or do you have serious difficulty hearing No 04/04/2014 9:50 AM Rama Milan Ma No [facility] 04-04-2014 Are you blind, or do you have serious difficulty seeing, even when wearing glasses No 04/04/2014 9:50 AM Rama Milan Ma No [facility] 04-04-2014 Do you have serious difficulty walking or climbing stairs No 04/04/2014 9:50 AM Rama Milan Ma No [facility] 04-04-2014 Do you have difficul ty dressing or bathing No 04/04/2014 9:50 AM Rama Milan Ma No [facility] 04-04-2014 Because of a physica l, mental, or emotional condition, do you have difficulty doing errands alone such as visiting a physician's office or shopping No 04/04/2014 9:50 AM Rama Milan Ma No [facility] Mental Status Date Assessment Result Facility 01-08-2022 Cognitive function Appropriate [facility] Work Phone: 01-07-2022 Cognitive function Touch/Shaking [facility] Work Phone: 11-28-2021 Cognitive function Voice/Name [facility] Work Phone: 04-04-2014 Because of a physica l, mental, or emotional condition, do you have serious difficulty concentrating, remembering, or making decisions No 04/04/2014 9:50 AM JERRY Rama Luong Ma No [facility] Clinical Notes 07-10-2021 to 02-15-2025 Telephone Encounter - Jayla Florian MD - 11/15/2024 9:47 AM EDTTelephone Encounter - Jayla Florian MD - 11/15/2024 9:47 AM Joni Bustamante APRN.[employer] SOFTWARE DEVELOPER - 09/22/2024 10:08 AM EDT Note Date & Type Note Facility 02-15-2025 Note HNO ID: [id number] Author: JAYLA FLORIAN MD Service: ? Author Type: Physician Type: Progress Notes Filed: 02/15/2025 17:11 Note Text: Marshal Blue is a 79 year old male here for a Medicare Wellness visit. Servando Blue is a 79-year-old male with a history of AIXA, allergies, and back pain, presenting for an annual wellness visit, with additional concerns about recent finger numbness and elevated blood glucose levels. Servando Blue is a 79-year-old male with a history of AIXA, allergies, and back pain, presenting for an annual wellness visit, with additional concerns about recent finger numbness and elevated blood glucose levels. Annual Wellness Exam: - Family history of diabetes in both parents during their 80s and 90s. - Two children with diabetes. - Exercises by mowing the grass twice a week and walking once a week. - Denies current gym attendance since . - Recent travel to [place] for hiking. - Received flu shot at [facility]. - Reports occasional word-finding difficulties. - Denies significant bowel or bladder issues. - Has living will. AIXA: - Managed with CPAP x15 years. - Follows up with Dr. Milner twice a year. 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 - Considering retesting for dust mites. - Denies recent use of emergency inhaler. Back Pain: - Chronic back pain managed by Dr. Alfredo at [facility]. - Received steroid injections with minimal relief. - Underwent ablation 9 months ago, which provided more relief than steroids. - Recent severe sciatica episode after bending over, requiring use of a walker. Finger Numbness: - New onset numbness in fingers of both hands, noticed in the mornings over the past week. Prediabetes: - Concerned about recent blood glucose level of 142 mg/dL. - Recent A1c of 6.1%. Hypercalcemia: - Recent calcium level of 10.5 mg/dL. - Takes vitamin D supplementation during winter months. - On hydrochlorothiazide. Hyperlipidemia: - Managed with simvastatin. - Recent labs show low HDL levels. Medicare Health Risk Assessment General Health Good Exercise: Minutes/Day 50 min Exercise: Days/Week 1 day Alcohol: Daily Use 2-4 times a month Alcohol: Drinks/Day 1 or 2 Alcohol: 6 or more drinks Never Feel off balance Yes Concerns: Teeth/Dentures Yes Concerns: Sexual function No Troubled by feelings Irritable Frequency: Eating healthy diet Several days ADLs requiring help None of the above Safety precautions in home/vehicle Yes Smoke, vape, chews tobacco No Difficulty hearing Yes, I wear a hearing aid Difficulty seeing Yes Current Providers Specialists: I have reviewed specialist-related care of the patient in the medical record. Medical/Family history review Reviewed and updated problem list, medical/surgical/family/social history, medications, and allergies. Opioid use review Prescribed: No opioid use on file in the last 90 days Patient-reported: No opioid use on file in the last 90 days Depression screening PHQ-2 Score: 0 PHQ-9 Score: 4 Anxiety screening MAGALYS-2 Score: 0 MAGALYS-7 Score: 1 Cognitive screening Mini Cog Score: 5 Cognitive screening reviewed and No further action needed (score 3-5). Functional Observation Was the patient's Timed Up AND Go test unsteady or >= 12 seconds? No Advance Directives Patient did not wish or was not able to name a surrogate decision maker or provide an advance care plan Measurements BP 128/68 Pulse 68 Ht 185.4 cm (6' 1) Wt 108 kg (238 lb) SpO2 98% BMI 31.40 kg/m? . General: No acute distress. CV: Regular rate and rhythm, no murmurs. Resp: Lungs clear to auscultation bilaterally. Abd: No abnormalities noted. Assessment/Plan 1. Medicare annual wellness visit, subsequent (Z00.00) - Completed annual wellness visit. - Encouraged patient to provide copies of living will and advance directives for clinic records. - Discussed my planned senior care in approximately 2 years; advised patient to consider establishing care with a new provider in advance. - Follow-up in 1 year. 2. Mixed hyperlipidemia (E78.2) - LDL at goal; HDL remains low, which is a risk factor for heart disease. - Continue simvastatin as prescribed. - Discussed importance of regular exercise to help increase HDL levels. 3. Essential hypertension, benign (I10) - Blood pressure well controlled on current regimen. - Continue losartan as prescribed. - Advised patient to maintain adequate hydration. 4. Prediabetes (R73.03) - Glucose 142 mg/dL, A1c 6.1%. - Discussed importance of diet and exercise in preventing progression to diabetes. - Encouraged patient to avoid excessive intake of high-sugar foods. 5. Obstructive sleep apnea on CPAP (G47.33) - Condition stable; patient continues to use CPAP. - Continue current management. Jayla Florian MD [facility] 11-15-2024 Telephone encounter Note Due for visit/ lab by January. The following approved medication requests have been transmitted electronically. Requested Prescriptions Signed Prescriptions Disp Refills losartan (COZAAR) 50 mg tablet 14 tablet 0 Sig: Take 1 tablet by mouth once daily for 14 days. Authorizing Provider: JAYLA FLORIAN losartan (COZAAR) 50 mg tablet 90 tablet 0 Sig: Take 1 tablet by mouth once daily. Authorizing Provider: JAYLA FLORIAN Fasting labs ordered for January Refill on 11/12/24 COMPREHENSIVE METABOLIC PANEL LIPID PANEL, FASTING HEMOGLOBIN A1C Jayla Florian MD [facility] 11-15-2024 Miscellaneous Notes Due for visit/ lab by January. The following approved medication requests have been transmitted electronically. Requested Prescriptions Signed Prescriptions Disp Refills losartan (COZAAR) 50 mg tablet 14 tablet 0 Sig: Take 1 tablet by mouth once daily for 14 days. Authorizing Provider: JAYLA FLORIAN losartan (COZAAR) 50 mg tablet 90 tablet 0 Sig: Take 1 tablet by mouth once daily. Authorizing Provider: JAYLA FLORIAN Fasting labs ordered for January Refill on 11/12/24 COMPREHENSIVE METABOLIC PANEL LIPID PANEL, FASTING HEMOGLOBIN A1C Jayla Florian MD Prescription Refill Information The patient has been identified by name and date of : Yes Caregiver verified no other encounters exist for this prescription request: Yes Caregiver confirmed with patient/requestor that no other refills are due, in the near future, with this provider at this time: Yes The last office visit in the department: Does the patient have a future office visit with this provider/department: Yes Requested Prescriptions Pending Prescriptions Disp Refills losartan (COZAAR) 50 mg tablet 14 tablet 0 Sig: Take 1 tablet by mouth once daily. losartan (COZAAR) 50 mg tablet 90 tablet 3 Sig: Take 1 tablet by mouth once daily. Patient stated out of medication before mail order will arrive. He requested: 14 days to [facility]; made copy attached to correct pharmacy 90 days to [facility] mail order; attached to correct pharmacy. Leia Baxter [facility] November 12, 2024 2:48 PM documented in this encounter [facility] 11-12-2024 Telephone encounter Note Prescription Refill Information The patient has been identified by name and date of : Yes Caregiver verified no other encounters exist for this prescription request: Yes Caregiver confirmed with patient/requestor that no other refills are due, in the near future, with this provider at this time: Yes The last office visit in the department: Does the patient have a future office visit with this provider/department: Yes Requested Prescriptions Pending Prescriptions Disp Refills losartan (COZAAR) 50 mg tablet 14 tablet 0 Sig: Take 1 tablet by mouth once daily. losartan (COZAAR) 50 mg tablet 90 tablet 3 Sig: Take 1 tablet by mouth once daily. Patient stated out of medication before mail order will arrive. He requested: 14 days to [facility]; made copy attached to correct pharmacy 90 days to [facility] mail order; attached to correct pharmacy. Leia Baxter [facility] November 12, 2024 2:48 PM [facility] 09-22-2024 Note HNO ID: [id number] Author: JONI LEAVITT APRN.VAISHNAVI Service: ? Author Type: Nurse Practitioner Type: Progress Notes Filed: 09/22/2024 10:17 Note Text: [facility] Subjective Marshal Blue is a 79 year old male. Patient presents with: Cough: Chest congestion, ST x4 days Rash: L lower leg x1 week Patient is a 79-year-old male with a chronic history of allergies that presents with cough congestion sore throat body aches for the last 4 days. He states he is coughing up sputum. He also has a rash on bilateral lower legs that is linear and pustular. He states is terribly itchy he has used topical calamine and hydrocortisone with some relief. He denies any swelling of his hands and feet no fevers no chest pain or shortness of breath. Cough Associated symptoms include rhinorrhea and sore throat. Pertinent negatives include no chest pain, no shortness of breath and no wheezing. Rash Associated symptoms include congestion, coughing, rhinorrhea and a sore throat. Pertinent negatives include no fatigue, fever or shortness of breath. Review of Systems Constitutional: Negative for fatigue and fever. HENT: Positive for congestion, rhinorrhea, sinus pressure and sore throat. Respiratory: Positive for cough. Negative for shortness of breath and wheezing. Cardiovascular: Negative for chest pain, palpitations and leg swelling. Skin: Positive for rash. Objective BP 122/73 Pulse 87 Temp 36.9 ?C (98.5 ?F) Resp 18 Wt 108.3 kg (238 lb 12.1 oz) SpO2 97% BMI 31.51 kg/m? PAST MEDICAL HISTORY Diagnosis Date Achilles bursitis or tendinitis 05/11/2001 Allergic rhinitis, cause unspecified Arthritis Asthma (HCC) Benign neoplasm of colon Diverticulosis of colon (without mention of hemorrhage) Essential hypertension, benign Other and unspecified hyperlipidemia Personal history of colonic polyps Colon polyps Sleep apnea Snoring Unspecified asthma, with status asthmaticus PAST SURGICAL HISTORY Procedure Laterality Date CARPAL TUNNEL Right 06/2015 COLONOSCOPY FLX DX W/COLLJ SPEC WHEN PFRMD 05/16/2003 Colonoscopy-polyps removed COLONOSCOPY FLX DX W/COLLJ SPEC WHEN PFRMD 12/19/2011 Colonoscopy COLONOSCOPY FLX DX W/COLLJ SPEC WHEN PFRMD 05/20/2017 adenomatous polyps, repeat in 5 years COLONOSCOPY GEN ANES 09/11/2020 Repeat in 3 years COLONOSCOPY W/BIOPSY SINGLE/MULTIPLE 08/04/2006 EYE SURGERY HX JOINT REPLACEMENT HX Right 2017 information from the patient TEA 2000 bilateral OTHER 03/21/2015 complete shoulder replacement R SKIN BIOPSY HX TONSILLECTOMY HX TONSILLECTOMY PRIMARY/SECONDARY Tonsillectomy VASECTOMY UNI/BI SPX W/POSTOP SEMEN EXAMS Bilateral 1988 ALLERGIES Cats, Ciprofloxacin, and Milk MEDICATIONS hydroCHLOROthiazide 12.5 mg capsule Take 1 capsule by mouth once daily. simvastatin (ZOCOR) 40 mg tablet Take 1 tablet by mouth daily at bedtime. losartan (COZAAR) 50 mg tablet Take 1 tablet by mouth once daily. finasteride (PROSCAR) 5 mg tablet Take 5 mg by mouth. lutein 20 mg tab Take 20 mg by mouth. potassium citrate ER (UROCIT-K) 10 mEq (1,080 mg) Take 1,080 mg by mouth twice daily. cholecalciferol, vitamin D3, (VITAMIN D3 ORAL) Take 1 tablet by mouth once daily. tamsulosin (FLOMAX) 0.4 mg Take 1 capsule by mouth once daily. B2/VIT A,C AND E/LUT/ZEAXANTH/MN (ICAPS ORAL) Take by mouth. psyllium Husk 0.52 gram capsule Take 1 capsule by mouth once daily. doxycycline (VIBRA-TABS) 100 mg tablet Take 1 tablet by mouth two times a day for 7 days. predniSONE (DELTASONE) 20 mg tablet Take 2 tablets by mouth once daily for 5 days, THEN 1 tablet once daily for 5 days. losartan (COZAAR) 50 mg tablet Take 1 tablet by mouth once daily. (Patient not taking: Reported on 09/22/2024) sertraline (ZOLOFT) 50 mg tablet Take 1 tablet by mouth once daily. (Patient not taking: Reported on 09/22/2024) FAMILY HISTORY Problem Relation Age of Onset Hypertension Mother other (macular degeneration) Mother Hypertension Father Heart Father other (macular degeneration) Father other (glaucoma) Brother Social History Tobacco Use Smoking status: Former Current packs/day: 0.00 Average packs/day: 2.0 packs/day for 10.0 years (20.0 ttl pk-yrs) Types: Cigarettes Start date: 04/07/1977 Quit date: 04/07/1987 Years since quittin.4 Smokeless tobacco: Never Vaping Use Vaping status: Never Used Substance Use Topics Alcohol use: Yes Comment: 1-2 drinks per month Drug use: No Physical Exam Constitutional: General: He is not in acute distress. Appearance: Normal appearance. He is normal weight. He is not ill-appearing or toxic-appearing. HENT: Head: Normocephalic and atraumatic. Jaw: No trismus, tenderness or swelling. Right Ear: Ear canal and external ear normal. A middle ear effusion is present. Left Ear: Ear canal and external ear normal. A middle ear effusion is present. Nose: Mucosal edema, congestion an (more content not included)... 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 Patient presents with: Cough: Chest congestion, ST x4 days Rash: L lower leg x1 week Patient is a 79-year-old male with a chronic history of allergies that presents with cough congestion sore throat body aches for the last 4 days. He states he is coughing up sputum. He also has a rash on bilateral lower legs that is linear and pustular. He states is terribly itchy he has used topical calamine and hydrocortisone with some relief. He denies any swelling of his hands and feet no fevers no chest pain or shortness of breath. Cough Associated symptoms include rhinorrhea and sore throat. Pertinent negatives include no chest pain, no shortness of breath and no wheezing. Rash Associated symptoms include congestion, coughing, rhinorrhea and a sore throat. Pertinent negatives include no fatigue, fever or shortness of breath. Review of Systems Constitutional: Negative for fatigue and fever. HENT: Positive for congestion, rhinorrhea, sinus pressure and sore throat. Respiratory: Positive for cough. Negative for shortness of breath and wheezing. Cardiovascular: Negative for chest pain, palpitations and leg swelling. Skin: Positive for rash. Objective BP 122/73 Pulse 87 Temp 36.9 C (98.5 F) Resp 18 Wt 108.3 kg (238 lb 12.1 oz) SpO2 97% BMI 31.51 kg/m PAST MEDICAL HISTORY Diagnosis Date Achilles bursitis or tendinitis 05/11/2001 Allergic rhinitis, cause unspecified Arthritis Asthma (HCC) Benign neoplasm of colon Diverticulosis of colon (without mention of hemorrhage) Essential hypertension, benign Other and unspecified hyperlipidemia Personal history of colonic polyps Colon polyps Sleep apnea Snoring Unspecified asthma, with status asthmaticus PAST SURGICAL HISTORY Procedure Laterality Date CARPAL TUNNEL Right 06/2015 COLONOSCOPY FLX DX W/COLLJ SPEC WHEN PFRMD 05/16/2003 Colonoscopy-polyps removed COLONOSCOPY FLX DX W/COLLJ SPEC WHEN PFRMD 12/19/2011 Colonoscopy COLONOSCOPY FLX DX W/COLLJ SPEC WHEN PFRMD 05/20/2017 adenomatous polyps, repeat in 5 years COLONOSCOPY GEN ANES 09/11/2020 Repeat in 3 years COLONOSCOPY W/BIOPSY SINGLE/MULTIPLE 08/04/2006 EYE SURGERY HX JOINT REPLACEMENT HX Right 2017 information from the patient JUAN ANTONIOIK 2000 bilateral OTHER 03/21/2015 complete shoulder replacement R SKIN BIOPSY HX TONSILLECTOMY HX TONSILLECTOMY PRIMARY/SECONDARY <AGE 13 Tonsillectomy VASECTOMY UNI/BI SPX W/POSTOP SEMEN EXAMS Bilateral 1988 ALLERGIES Cats, Ciprofloxacin, and Milk MEDICATIONS hydroCHLOROthiazide 12.5 mg capsule Take 1 capsule by mouth once daily. simvastatin (ZOCOR) 40 mg tablet Take 1 tablet by mouth daily at bedtime. losartan (COZAAR) 50 mg tablet Take 1 tablet by mouth once daily. finasteride (PROSCAR) 5 mg tablet Take 5 mg by mouth. lutein 20 mg tab Take 20 mg by mouth. potassium citrate ER (UROCIT-K) 10 mEq (1,080 mg) Take 1,080 mg by mouth twice daily. cholecalciferol, vitamin D3, (VITAMIN D3 ORAL) Take 1 tablet by mouth once daily. tamsulosin (FLOMAX) 0.4 mg Take 1 capsule by mouth once daily. B2/VIT A,C & E/LUT/ZEAXANTH/MN (ICAPS ORAL) Take by mouth. psyllium Husk 0.52 gram capsule Take 1 capsule by mouth once daily. doxycycline (VIBRA-TABS) 100 mg tablet Take 1 tablet by mouth two times a day for 7 days. predniSONE (DELTASONE) 20 mg tablet Take 2 tablets by mouth once daily for 5 days, THEN 1 tablet once daily for 5 days. losartan (COZAAR) 50 mg tablet Take 1 tablet by mouth once daily. (Patient not taking: Reported on 09/22/2024) sertraline (ZOLOFT) 50 mg tablet Take 1 tablet by mouth once daily. (Patient not taking: Reported on 09/22/2024) FAMILY HISTORY Problem Relation Age of Onset Hypertension Mother other (macular degeneration) Mother Hypertension Father Heart Father other (macular degeneration) Father other (glaucoma) Brother Social History Tobacco Use Smoking status: Former Current packs/day: 0.00 Average packs/day: 2.0 packs/day for 10.0 years (20.0 ttl pk-yrs) Types: Cigarettes Start date: 04/07/1977 Quit date: 04/07/1987 Years since quittin.4 Smokeless tobacco: Never Vaping Use Vaping status: Never Used Substance Use Topics Alcohol use: Yes Comment: 1-2 drinks per month Drug use: No Physical Exam Constitutional: General: He is not in acute distress. Appearance: Normal appearance. He is normal weight. He is not ill-appearing or toxic-appearing. HENT: Head: Normocephalic and atraumatic. Jaw: No trismus, tenderness or swelling. Right Ear: Ear canal and external ear normal. A middle ear effusion is present. Left Ear: Ear canal and external ear normal. A middle ear effusion is present. Nose: Mucosal edema, congestion and rhinorrhea present. Right Sinus: Maxillary sinus tenderness present. Left Sinus: Maxillary sinus tenderness present. Mouth/Throat: Pharynx: Pharyngeal swelling, posterior oropharyngeal erythema and postnasal drip present. No oropharyngeal exudate. Cardiovascular: Rate and Rhythm: Normal rate and regular rhythm. Skin: Findings: Rash present. Rash is pustular. Rash is not crusting, nodular, purpuric, urticarial or vesicular. Comments: Pustular linear erythremic pruritic rash No lymphangitic streaking Neurological: Mental Status: He is alert. {ASSESSMENT/PLAN: 1. Allergic contact dermatitis, unspecified trigger - ICD9: 692.9, ICD10: L23.9 (primary diagnosis) - Oral Steriod tx -Prednisone taper - Anti itch therapy of OTC 1% Hydrocortisone cream and Calomine lotion recommended prn - discussed skin care of rash - follow up if symptoms persist or worsen. - ER if any facial swelling 2. Sinobronchitis - ICD9: 473.9, 490, ICD10: J32.9, J40 - Will begin treatment with Doxycycline - The patient should also be given OTC decongestants prn and OTC cough and cold meds as needed for the first 5-7 days of treatment. - Supportive care with plenty of fluids, rest, and analgesia prn. - Follow up in 3-5 days if symptoms persist or worsen. Joni Leavitt APRN.[employer] SOFTWARE DEVELOPER Disposition The patient was discharged. Patient well-appearing nontoxic in no acute respiratory distress 79-year-old male. He presents with sinobronchitis no concerns of acute pneumonia today but did discuss chest x-ray as this is his biggest concern patient declines chest x-ray at this time. No concerns of acute cardiopulmonary process. he also has a bilateral lower leg rash consistent with allergic with contact dermatitis patient has taken steroids for this in the past started on prednisone. Follow-up with primary care this last week. He is also following up with ENT for allergy shots. ER if any chest pain or shortness of breath patient verbalized understanding and agreement this plan. No concerns of acute cardiopulmonary process. documented in this encounter [facility] 07-21-2024 Note HNO ID: [id number] Author: DAYRON RODRIGUEZ MD Service: ? Author Type: Physician Type: Progress Notes Filed: 07/21/2024 15:24 Note Text: [facility] Subjective Marshal Blue is a 78 year old male. Patient presents with: Sore Throat: ST and PIMENTEL x 2 weeks Patient's had a couple weeks of nagging throat irritation. He does have some rhinorrhea and postnasal drainage with mild parietal headache. He denies any fever, chills, or significant cough. He has taken nothing for symptoms. He gets desensitization allergy shots. He had rheumatic fever remotely and would like to rule out strep throat. Sore Throat Review of Systems HENT: Positive for sore throat. Objective BP 128/74 Pulse 60 Temp 36.3 ?C (97.3 ?F) (Tympanic) Resp 16 Wt 113.3 kg (249 lb 12.5 oz) SpO2 99% BMI 32.96 kg/m? Physical Exam Constitutional: General: He is not in acute distress. Appearance: He is not ill-appearing. HENT: Right Ear: No middle ear effusion. Tympanic membrane is not erythematous, retracted or bulging. Left Ear: No middle ear effusion. Tympanic membrane is not erythematous, retracted or bulging. Ears: Comments: Hearing aids removed. Small cerumen right canal. Bilateral otosclerosis. Nose: Rhinorrhea present. Mouth/Throat: Pharynx: Posterior oropharyngeal erythema present. No oropharyngeal exudate. Eyes: Extraocular Movements: Extraocular movements intact. Conjunctiva/sclera: Conjunctivae normal. Pupils: Pupils are equal, round, and reactive to light. Cardiovascular: Rate and Rhythm: Normal rate and regular rhythm. Heart sounds: No murmur heard. Pulmonary: Effort: No respiratory distress. Breath sounds: No wheezing, rhonchi or rales. Musculoskeletal: Cervical back: Neck supple. Lymphadenopathy: Cervical: No cervical adenopathy. Neurological: Mental Status: He is alert. {ASSESSMENT/PLAN: 1. Sore throat - ICD9: 462, ICD10: J02.9 (primary diagnosis) 2. Allergic rhinitis, unspecified seasonality, unspecified trigger - ICD9: 477.9, ICD10: J30.9 - STREP A MOLECULAR (POC) - negative. Home COVID test was negative yesterday. Suspect environmental allergies. He is reassured his strep test was negative. He has Astepro nasal spray at home is not good at taking it routinely. Inguinal attempt reducing postnasal drainage and throat irritation by using it. 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 Patient presents with: Sore Throat: ST and PIMENTEL x 2 weeks Patient's had a couple weeks of nagging throat irritation. He does have some rhinorrhea and postnasal drainage with mild parietal headache. He denies any fever, chills, or significant cough. He has taken nothing for symptoms. He gets desensitization allergy shots. He had rheumatic fever remotely and would like to rule out strep throat. Sore Throat Review of Systems HENT: Positive for sore throat. Objective BP 128/74 Pulse 60 Temp 36.3 C (97.3 F) (Tympanic) Resp 16 Wt 113.3 kg (249 lb 12.5 oz) SpO2 99% BMI 32.96 kg/m Physical Exam Constitutional: General: He is not in acute distress. Appearance: He is not ill-appearing. HENT: Right Ear: No middle ear effusion. Tympanic membrane is not erythematous, retracted or bulging. Left Ear: No middle ear effusion. Tympanic membrane is not erythematous, retracted or bulging. Ears: Comments: Hearing aids removed. Small cerumen right canal. Bilateral otosclerosis. Nose: Rhinorrhea present. Mouth/Throat: Pharynx: Posterior oropharyngeal erythema present. No oropharyngeal exudate. Eyes: Extraocular Movements: Extraocular movements intact. Conjunctiva/sclera: Conjunctivae normal. Pupils: Pupils are equal, round, and reactive to light. Cardiovascular: Rate and Rhythm: Normal rate and regular rhythm. Heart sounds: No murmur heard. Pulmonary: Effort: No respiratory distress. Breath sounds: No wheezing, rhonchi or rales. Musculoskeletal: Cervical back: Neck supple. Lymphadenopathy: Cervical: No cervical adenopathy. Neurological: Mental Status: He is alert. {ASSESSMENT/PLAN: 1. Sore throat - ICD9: 462, ICD10: J02.9 (primary diagnosis) 2. Allergic rhinitis, unspecified seasonality, unspecified trigger - ICD9: 477.9, ICD10: J30.9 - STREP A MOLECULAR (POC) - negative. Home COVID test was negative yesterday. Suspect environmental allergies. He is reassured his strep test was negative. He has Astepro nasal spray at home is not good at taking it routinely. Inguinal attempt reducing postnasal drainage and throat irritation by using it. Dayron Rodriguez MD MDM Procedures documented in this encounter [facility] 05-19-2024 Telephone encounter Note Received visit summary from [facility]. Placed in provider's inbox for review. Route to MA scanning [facility] 05-19-2024 Miscellaneous Notes Received visit summary from [facility]. Placed in provider's inbox for review. Route to MA scanning documented in this encounter [facility] 05-13-2024 Telephone encounter Note Servando, I'm not familiar with potential ocular effects of the antidepressants. It hasn't come up in my practice before. Im going to request a [facility] pharmacist review and see if there are antidepressnats that do not have eye effects. Sometimes these listed side effects are assigned to a whole class of medications. Will let you know what they turn up. Jayla Florian MD [facility] 05-13-2024 Miscellaneous Notes Servando, I'm not familiar with potential ocular effects of the antidepressants. It hasn't come up in my practice before. Im going to request a [facility] pharmacist review and see if there are antidepressnats that do not have eye effects. Sometimes these listed side effects are assigned to a whole class of medications. Will let you know what they turn up. Jayla Florian MD documented in this encounter [facility] 03-09-2024 Telephone encounter Note Received 03/09/2024 from [facility]. Placed in provider's inbox for review. Route to MA for scanning. [facility] 03-09-2024 Miscellaneous Notes Received 03/09/2024 from [facility]. Placed in provider's inbox for review. Route to MA for scanning. documented in this encounter [facility] 02-16-2024 Telephone encounter Note Prescription Refill Information The patient has been identified by name and date of : Yes Caregiver verified no other encounters exist for this prescription request: Yes Caregiver confirmed with patient/requestor that no other refills are due, in the near future, with this provider at this time: Yes The last office visit in the department: 01/27/24 Does the patient have a future office visit with this provider/department: No Requested Prescriptions Pending Prescriptions Disp Refills losartan (COZAAR) 50 mg tablet 14 tablet 0 Sig: Take 1 tablet by mouth once daily. Patient called and stated the mail order cannot send his medication for several days. Made a copy of the prescription, attached to local [facility]. Patient is out for 3 days now. Pleas send today. Please notify him once submitted on [employer]. Leia Hardening [facility] February 16, 2024 9:55 AM [facility] 02-16-2024 Miscellaneous Notes Prescription Refill Information The patient has been identified by name and date of : Yes Caregiver verified no other encounters exist for this prescription request: Yes Caregiver confirmed with patient/requestor that no other refills are due, in the near future, with this provider at this time: Yes The last office visit in the department: 01/27/24 Does the patient have a future office visit with this provider/department: No Requested Prescriptions Pending Prescriptions Disp Refills losartan (COZAAR) 50 mg tablet 14 tablet 0 Sig: Take 1 tablet by mouth once daily. Patient called and stated the mail order cannot send his medication for several days. Made a copy of the prescription, attached to local [facility]. Patient is out for 3 days now. Pleas send today. Please notify him once submitted on [employer]. Leia Hardening [facility] February 16, 2024 9:55 AM documented in this encounter [facility] 01-27-2024 Instructions Trish Ramirez APRN.[employer] SOFTWARE DEVELOPER - 01/27/2024 10:40 AM EDT Screening schedule The following prevention plan is recommended: Depression Screening Never done Anxiety Screening Never done DTaP,Tdap,Td Vaccine(4 - Td or Tdap) due on 02/15/2023 Advance Directive Discussion Never done Influenza Vaccine(1) due on 12/07/2023 Covid-19 Vaccine( - 2023- season) due on 12/07/2023 Annual PCP Team Chronic Disease Visit due on 01/25/2024 WHAT YOU CAN DO TO PREVENT FALLS Many falls can be prevented. By making some changes, you can lower your chances of falling. Four things YOU can do to prevent falls for you* and your caregiver 1. Begin a regular exercise program Exercise is one of the most important ways to lower your chances of falling. It makes you stronger and helps you feel better. Exercises that improve balance and coordination (like Alex Chi) are the most helpful. Lack of exercise leads to weakness and increases your chances of falling. Ask your doctor or health care provider about the best type of exercise program for you. 2. Have your health care provider review your medicines Have your doctor or pharmacist review all the medicines you take, even [id number]-[id number] medicines. As you get older, the way medicines work in your body can change. Some medicines, or combinations of medicines, can make you sleepy or dizzy and can cause you to fall. 3. Have your vision checked Have your eyes checked by an eye doctor at least once a year. You may be wearing the wrong glasses or have a condition like glaucoma or cataracts that limits your vision. Poor vision can increase your chances of falling. 4. Make your home safer About half of all falls happen at home. To make your home safer: Remove things you can trip over (like papers, books, clothes, and shoes) from stairs and places where you walk. Remove small throw rugs or use double-sided tape to keep the rugs from slipping. Keep items you use often in cabinets you can reach easily without using a step stool. Have grab bars put in next to your toilet and in the tub or shower. Use non-slip mats in the bathtub and on shower floors. Improve the lighting in your home. As you get older, you need brighter lights to see well. Hang light-weight curtains or shades to reduce glare. Have handrails and lights put in on all staircases. Wear shoes both inside and outside the house. Avoid going barefoot or wearing slippers. For more information, contact: Centers for Disease Control and Prevention www.cdc.gov/injury * This information may not apply if you have certain medical conditions. documented in this encounter [facility] 01-27-2024 History of Present illness Narrative Images from the original note were not included. Marshal Blue is a 78 year old male here for a Medicare wellness visit. Medicare Health Risk Assessment General Health Very good Exercise: Minutes/Day 50 min Exercise: Days/Week 2 days Alcohol: Daily Use 2-4 times a month Alcohol: Drinks/Day 1 or 2 Alcohol: 6 or more drinks Never Feel off balance Yes Concerns: Teeth/Dentures No Concerns: Sexual function Yes Troubled by feelings None of the above Frequency: Eating healthy diet Several days ADLs requiring help None of the above Safety precautions in home/vehicle Yes Smoke, vape, chews tobacco No Difficulty hearing Yes, I wear a hearing aid Difficulty seeing No Current Providers Specialists: I have reviewed specialist-related care of the patient in the medical record. Pulmonology for sleep apnea [facility]-Dr. Dayron Alfredo -pain management Medical/Family history review Reviewed and updated problem list, medical/surgical/family/social history, medications, and allergies. Opioid use review Opioid Medications (last 90 days) No data to display Anxiety/Depression screening PHQ-9 Score: 0. Recommendation: no further intervention at this time Cognitive screening Mini Cog Score: 5 Cognitive screening reviewed and No further action needed (score 3-5). Functional Observation Was the patient's Timed Up & Go test unsteady or >= 12 seconds? No Advance Care Planning Patient reports that paperwork is completed, declined brining in to have copy scanned into chart. Measurements BP 138/76 Pulse 60 Ht 185.4 cm (6' 0.99) Wt 108 kg (238 lb 1.6 oz) BMI 31.42 kg/m BP 128/74 (BP Site: Right Arm, BP Position: Sitting, BP Cuff Size: Large Adult) Pulse 60 Ht 185.4 cm (6' 0.99) Wt 108 kg (238 lb 1.6 oz) BMI 31.42 kg/m Vision Screening: Follows with optometry/ophthalmology Assessment/Plan 1. Medicare annual wellness visit, subsequent - Counseled on healthy diet and regular exercise - Fall avoidance information provided - Personalized prevention plan provided 2. Obesity, Class I, BMI 30-34.9 Encourage regular exercise, low carb/low fat diet. 3. Essential hypertension, benign Controlled, continue current medications. - hydroCHLOROthiazide 12.5 mg capsule; Take 1 capsule by mouth once daily. Dispense: 90 capsule; Refill: 3 4. Obstructive sleep apnea Follows with pulmonology, stable on CPAP. 5. BPH with obstruction/lower urinary tract symptoms Follows with urology, stable on current medication. 6. Adjustment disorder with mixed anxiety and depressed mood Takes Zoloft PRN a few months at at time, then trials off for a few months. Encouraged daily use, may cut down on dose and try 25 every day. 7. Mixed hyperlipidemia Controlled on current medication, continue. - simvastatin (ZOCOR) 40 mg tablet; Take 1 tablet by mouth daily at bedtime. Dispense: 90 tablet; Refill: 3 8. Prediabetes Slightly worse than previous check. Encourage low carb diet, regular exercise. Trish Ramirez APRN.CNP documented in this encounter [facility] 01-09-2024 Telephone encounter Note JUNO Aguilar to fax paperwork and to call office. [facility] 01-09-2024 Miscellaneous Notes JUNO Aguilar to fax paperwork and to call office. Can you call [employer] to see what additional documentation is requested? Can we forward office notes? Trish Ramirez APRN.CNP Do not see the form, call [employer] and ask them to fax to us. Trish Ramirez APRN.CNP Mandi is calling Jayla Florian MD today with concern regarding Patient Question (Mild Cognitive impairment). Patient was denied supplemental insurance from [employer] due to a note in chart from 09-21-21 regarding mild cognitive decline. She is asking if we received a form from [email or web address] to further explain the diagnoses. She states she gave them the physical address and they would be mailing it to Dr. Florian. [employer]'s phone number is [phone] or can speak to [employer] at [phone] Patient has been identified by name and birthdate. Duration of symptoms: N/A Person calling: self Call patient at: at home [phone] (home) [phone] (cell) Was an appointment scheduled: No Closing statement: Leeanna Schwartz documented in this encounter [facility] 01-08-2024 Telephone encounter Note Can you call [email or web address] to see what additional documentation is requested? Can we forward office notes? Trish Ramirez APRN.CNP [facility] 01-08-2024 Telephone encounter Note Do not see the form, call [employer] and ask them to fax to us. Trish Ramirez APRN.CNP [facility] 12-26-2023 Telephone encounter Note Mandi is calling Jayla Florian MD today with concern regarding Patient Question (Mild Cognitive impairment). Patient was denied supplemental insurance from [employer] due to a note in chart from 09-21-21 regarding mild cognitive decline. She is asking if we received a form from [employer] to further explain the diagnoses. She states she gave them the physical address and they would be mailing it to Dr. Florian. [employer]'s phone number is [phone] or can speak to Lauren at [phone] Patient has been identified by name and birthdate. Duration of symptoms: N/A Person calling: self Call patient at: at home [phone] (home) [phone] (cell) Was an appointment scheduled: No Closing statement: Leeanna Schwartz [facility] Work Phone: 11-11-2023 Telephone encounter Note Received 11/11/2023 from [facility]. Placed in provider's inbox for review. Route to MA for scanning. [facility] 11-11-2023 Miscellaneous Notes Received 11/11/2023 from [facility]. Placed in provider's inbox for review. Route to MA for scanning. documented in this encounter [facility] 10-16-2023 Note Formatting of this n ote might be different from the original. The patient received a copy of Colonoscopy discharge instructions that contain information for how to contact the physician who performed the procedure and when to seek medical care. [facility] 10-16-2023 Miscellaneous Notes The patient received a copy of Colonoscopy discharge instructions that contain information for how to contact the physician who performed the procedure and when to seek medical care. documented in this encounter [facility] 10-16-2023 Nurse Note Note to be passing air rectally while resting on left side. remains at bedside [facility] 10-16-2023 Nurse Note Note to be passing air rectally while resting on left side. remains at bedside Patient received in phase II via cart in left lateral position, eyes open, alert to self and event, skin warm and dry, respirations regular and unlabored, abdomen slightly rounded and distended, reports feels 'some abdominal aching warm blanket applied to abdomen. at bedside and Dr Castillo reviewed results of procedure with patient present. Encouraged to pass air rectally while resting. documented in this encounter [facility] 10-16-2023 Nurse Note Patient received in phase II via cart in left lateral position, eyes open, alert to self and event, skin warm and dry, respirations regular and unlabored, abdomen slightly rounded and distended, reports feels 'some abdominal aching warm blanket applied to abdomen. at bedside and Dr Castillo reviewed results of procedure with patient present. Encouraged to pass air rectally while resting. [facility] 10-16-2023 History and physical note HISTORY OF PRESENT ILLNESS Marshal Blue is a 77 year old male who presents here today for 6 month follow up on labs. I last saw this patient on 07/18/22. HTN -Controlled with HCTZ 12.5 mg capsule, tolerating it well. -Denies chest pain, dyspnea, palpitation and edema. Last 3 Encounter BP Readings: Date: BP: 01/24/2023 129/80 07/18/2022 132/55 05/15/2022 126/62 Anxiety/Depression -Finds benefit with taking Sertraline 25 mg tablet. Hyperglycemia Last labs indicate: BS 133 (H), HgA1c 5.8%, was 5.9 % Hx of kidney/bladder stone Was prescribed Allopurinol by Urologist for kidney and bladder stones. Servando is unaware of having uric acid lab work done. Did not find results in Epic. 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 It was stated that doctor is 90% certain it is not cancer. Will f/u with Urologist in 2 weeks for US. AIXA Follow up sleep study was performed that noted apnea is too severe for Hyoid lift Servando states that Inspire is cost prohibitive. Has a CPAP for 14 years, and does not like using it. BL Trigger finger Started in thumbs which are better now. Second finger is the worst. Wakes with hand clinched and painful. Health Maintenance BP Controlled (<130/80) Never done RSV Vaccine(1 - 1-dose 60+ series) Never done Advance Directive Discussion Never done Influenza Vaccine(1) due on 12/06/2022- He states that he already received the FLU vaccine. Covid-19 Vaccine( - 2022-24 season) due on 12/06/2022 DTaP,Tdap,Td Vaccine(4 - Td or Tdap) due on 02/15/2023 Labs reviewed. Past medical history, appointments, medications, allergies reviewed. REVIEW OF SYSTEMS General: Feels well, no weight changes, fevers or chills. HEENT: No sinus congestion, earache, sore throat. Cardiac: No chest pain, palpitations Resp: No cough, wheeze, shortness of breath GI: No reflux symptoms, food intolerance, bowel changes. : No urinary frequency, dysuria. MS: +Aches/pain and joint complaints. PAST MEDICAL HISTORY PAST MEDICAL HISTORY PAST MEDICAL HISTORY Diagnosis Date Achilles bursitis or tendinitis 05/11/01 Allergic rhinitis, cause unspecified Asthma Benign neoplasm of colon Diverticulosis of colon (without mention of hemorrhage) Essential hypertension, benign Other and unspecified hyperlipidemia Personal history of colonic polyps Colon polyps Snoring Unspecified asthma, with status asthmaticus PHYSICAL EXAMINATION BP 129/80 Pulse 65 Ht 185.4 cm (6' 0.99) Wt 112.9 kg (249 lb) BMI 32.86 kg/m General: Alert, well developed, well nourished, no distress, pleasant and cooperative. Obese. Heart: Regular rate and rhythm. Normal S1 and S2. No murmurs, rubs, or gallops. Lungs: Clear to auscultation bilaterally. No respiratory distress. No wheezes, rales, or rhonchi. Abdomen: Soft, non-tender, no distention. Extremities: Feet/ankles without edema, posterior tibial pulses full and symmetrical. Trigger finger R hand, slight catch on flex/ extend, mild pain on palpation long mid phalanx Data Reviewed Component Latest Ref Rng & Units 01/01/2023 Protein, Total 6.3 - 8.0 g/dL 7.8 Albumin 3.9 - 4.9 g/dL 4.8 Calcium 8.5 - 10.2 mg/dL 10.0 Bilirubin, Total 0.2 - 1.3 mg/dL 0.6 Alkaline Phosphatase 38 - 113 U/L 78 AST 14 - 40 U/L 27 ALT 10 - 54 U/L 39 Glucose 74 - 99 mg/dL 133 (H) BUN 9 - 24 mg/dL 19 Creatinine 0.73 - 1.22 mg/dL 1.02 Sodium 136 - 144 mmol/L 138 Potassium 3.7 - 5.1 mmol/L 4.5 Chloride 97 - 105 mmol/L 102 CO2 22 - 30 mmol/L 23 Anion Gap 9 - 18 mmol/L 13 eGFR >=60 mL/min/1.73m 76 Cholesterol, Total <200 mg/dL 110 Triglyceride <150 mg/dL 159 (H) HDL Cholesterol >39 mg/dL 24 (L) Non HDL Cholesterol <130 mg/dL 86 Fasting Time hrs 14 VLDL Cholesterol <30 mg/dL 32 (H) TC:HDL Ratio <5.10 4.58 LDL Cholesterol <100 mg/dL 54 LDL:HDL Ratio <2.54 2.25 Hemoglobin A1C 4.3 - 5.6 % 5.8 (H) Estimated Average Glucose mg/dL 120 Assessment/Plan 1. Mixed hyperlipidemia Controlled - Continue simvastatin (ZOCOR) 40 mg tablet; Take 1 tablet by mouth daily at bedtime. Dispense: 90 tablet; Refill: 3 2. Essential hypertension, benign Controlled - Continue hydroCHLOROthiazide 12.5 mg capsule; Take 1 capsule by mouth once daily. Dispense: 90 capsule; Refill: 3 3. History of kidney stones -Continue to follow with Urology. -Advised pt to ask if Uric acid lab work has been done. 4. AIXA on CPAP Continue use of CPAP. 5. Trigger middle finger of right hand Referring to Dr Rosado of Orthopedics for trigger finger treatment options. Ordering Xray of hand. - CONSULT TO ORTHOPAEDICS; Future - XR HAND GENERAL 3V PA/LAT/OBL RIGHT; Future 6. Adjustment disorder with mixed anxiety and depressed mood Stable - sertraline (ZOLOFT) 25 mg tablet; Take one tablet by mouth daily Dispense: 90 tablet; Refill: 3 Encouraged to lose weight. Advised to reduce sugar/carbohydrate consumption to bring down blood sugar. Will get RSV vaccine from pharmacy. RTO: 1 year Scribe Attestation: By signing my name below, Adelaida George, attest that this documentation has been prepared under the direction and in the presence of Feliciano Florian M.D. Electronically Signed: Amadeo Wright. January 24, 2023 10:48 AM Provider Attestation: Jayla George MD UPDATED HISTORY AND PHYSICAL EXAMINATION SERVICE DATE: 10/16/2023 SERVICE TIME: 10:23 AM PHYSICAL EXAM MUST BE COMPLETED ON ADMISSION The History and Physical (completed in the past 30 days) has been reviewed and the patient has been examined. The contents accurately reflect the patient's condition with the following additions or revisions since the H&P was completed. Examination indicates no changes. This H&P can be found in the attached. SIGNATURE: Александр Castillo III, MD PATIENT NAME: Marshal Blue DATE: October 16, 2023 TIME: 10:23 AM [facility] 10-16-2023 History and physical note HISTORY OF PRESENT ILLNESS Marshal Blue is a 77 year old male who presents here today for 6 month follow up on labs. I last saw this patient on 07/18/22. HTN -Controlled with HCTZ 12.5 mg capsule, tolerating it well. -Denies chest pain, dyspnea, palpitation and edema. Last 3 Encounter BP Readings: Date: BP: 01/24/2023 129/80 07/18/2022 132/55 05/15/2022 126/62 Anxiety/Depression -Finds benefit with taking Sertraline 25 mg tablet. Hyperglycemia Last labs indicate: BS 133 (H), HgA1c 5.8%, was 5.9 % Hx of kidney/bladder stone Was prescribed Allopurinol by Urologist for kidney and bladder stones. Servando is unaware of having uric acid lab work done. Did not find results in Epic. 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 It was stated that doctor is 90% certain it is not cancer. Will f/u with Urologist in 2 weeks for US. AIXA Follow up sleep study was performed that noted apnea is too severe for Hyoid lift Servando states that Inspire is cost prohibitive. Has a CPAP for 14 years, and does not like using it. BL Trigger finger Started in thumbs which are better now. Second finger is the worst. Wakes with hand clinched and painful. Health Maintenance BP Controlled (<130/80) Never done RSV Vaccine(1 - 1-dose 60+ series) Never done Advance Directive Discussion Never done Influenza Vaccine(1) due on 12/06/2022- He states that he already received the FLU vaccine. Covid-19 Vaccine( - 2022-24 season) due on 12/06/2022 DTaP,Tdap,Td Vaccine(4 - Td or Tdap) due on 02/15/2023 Labs reviewed. Past medical history, appointments, medications, allergies reviewed. REVIEW OF SYSTEMS General: Feels well, no weight changes, fevers or chills. HEENT: No sinus congestion, earache, sore throat. Cardiac: No chest pain, palpitations Resp: No cough, wheeze, shortness of breath GI: No reflux symptoms, food intolerance, bowel changes. : No urinary frequency, dysuria. MS: +Aches/pain and joint complaints. PAST MEDICAL HISTORY PAST MEDICAL HISTORY PAST MEDICAL HISTORY Diagnosis Date Achilles bursitis or tendinitis 05/11/01 Allergic rhinitis, cause unspecified Asthma Benign neoplasm of colon Diverticulosis of colon (without mention of hemorrhage) Essential hypertension, benign Other and unspecified hyperlipidemia Personal history of colonic polyps Colon polyps Snoring Unspecified asthma, with status asthmaticus PHYSICAL EXAMINATION BP 129/80 Pulse 65 Ht 185.4 cm (6' 0.99) Wt 112.9 kg (249 lb) BMI 32.86 kg/m General: Alert, well developed, well nourished, no distress, pleasant and cooperative. Obese. Heart: Regular rate and rhythm. Normal S1 and S2. No murmurs, rubs, or gallops. Lungs: Clear to auscultation bilaterally. No respiratory distress. No wheezes, rales, or rhonchi. Abdomen: Soft, non-tender, no distention. Extremities: Feet/ankles without edema, posterior tibial pulses full and symmetrical. Trigger finger R hand, slight catch on flex/ extend, mild pain on palpation long mid phalanx Data Reviewed Component Latest Ref Rng & Units 01/01/2023 Protein, Total 6.3 - 8.0 g/dL 7.8 Albumin 3.9 - 4.9 g/dL 4.8 Calcium 8.5 - 10.2 mg/dL 10.0 Bilirubin, Total 0.2 - 1.3 mg/dL 0.6 Alkaline Phosphatase 38 - 113 U/L 78 AST 14 - 40 U/L 27 ALT 10 - 54 U/L 39 Glucose 74 - 99 mg/dL 133 (H) BUN 9 - 24 mg/dL 19 Creatinine 0.73 - 1.22 mg/dL 1.02 Sodium 136 - 144 mmol/L 138 Potassium 3.7 - 5.1 mmol/L 4.5 Chloride 97 - 105 mmol/L 102 CO2 22 - 30 mmol/L 23 Anion Gap 9 - 18 mmol/L 13 eGFR >=60 mL/min/1.73m 76 Cholesterol, Total <200 mg/dL 110 Triglyceride <150 mg/dL 159 (H) HDL Cholesterol >39 mg/dL 24 (L) Non HDL Cholesterol <130 mg/dL 86 Fasting Time hrs 14 VLDL Cholesterol <30 mg/dL 32 (H) TC:HDL Ratio <5.10 4.58 LDL Cholesterol <100 mg/dL 54 LDL:HDL Ratio <2.54 2.25 Hemoglobin A1C 4.3 - 5.6 % 5.8 (H) Estimated Average Glucose mg/dL 120 Assessment/Plan 1. Mixed hyperlipidemia Controlled - Continue simvastatin (ZOCOR) 40 mg tablet; Take 1 tablet by mouth daily at bedtime. Dispense: 90 tablet; Refill: 3 2. Essential hypertension, benign Controlled - Continue hydroCHLOROthiazide 12.5 mg capsule; Take 1 capsule by mouth once daily. Dispense: 90 capsule; Refill: 3 3. History of kidney stones -Continue to follow with Urology. -Advised pt to ask if Uric acid lab work has been done. 4. AIXA on CPAP Continue use of CPAP. 5. Trigger middle finger of right hand Referring to Dr Rosado of Orthopedics for trigger finger treatment options. Ordering Xray of hand. - CONSULT TO ORTHOPAEDICS; Future - XR HAND GENERAL 3V PA/LAT/OBL RIGHT; Future 6. Adjustment disorder with mixed anxiety and depressed mood Stable - sertraline (ZOLOFT) 25 mg tablet; Take one tablet by mouth daily Dispense: 90 tablet; Refill: 3 Encouraged to lose weight. Advised to reduce sugar/carbohydrate consumption to bring down blood sugar. Will get RSV vaccine from pharmacy. RTO: 1 year Scribe Attestation: By signing my name below, Adelaida George, attest that this documentation has been prepared under the direction and in the presence of Feliciano Florian M.D. Electronically Signed: Amadeo Wright. January 24, 2023 10:48 AM Provider Attestation: Jayla George MD UPDATED HISTORY AND PHYSICAL EXAMINATION SERVICE DATE: 10/16/2023 SERVICE TIME: 10:23 AM PHYSICAL EXAM MUST BE COMPLETED ON ADMISSION The History and Physical (completed in the past 30 days) has been reviewed and the patient has been examined. The contents accurately reflect the patient's condition with the following additions or revisions since the H&P was completed. Examination indicates no changes. This H&P can be found in the attached. SIGNATURE: Александр Castillo III, MD PATIENT NAME: Marshal Blue DATE: October 16, 2023 TIME: 10:23 AM documented in this encounter [facility] 10-14-2023 History of Present illness Narrative POPULATION HEALTH NAVIGATION OUTREACH Action/FYI Patient is on [facility] CURRENT ROSTER Workbench list for below and needs appointment to address: Covid-19 Vaccine(2022- season) DTaP,Tdap,Td Vaccine(4 - Td or Tdap) Advance Directive Discussion Behavioral Health Screening Hemoglobin A1C (%) Date Value 01/01/2023 5.8 02/22/2020 5.8 Patient due for: Medicare Annual Wellness Visit Patient already scheduled for AWV. Updated notes for AWV to please address due care gaps and HCC gap closure. Reason for Outreach Care Gap/HCC or Scheduling Wellness Visits Care Gaps due: Medicare Annual Wellness Visit Patient Contacted: Unable or unnecessary to reach patient: Patient already scheduled Updated appointment notes Navigation Signature: Justine Hou MA October 14, 2023 7:29 AM documented in this encounter [facility] 09-29-2023 Telephone encounter Note I spoke with Servando, and his colonoscopy is scheduled for October 15 at [facility]. Rosmery Hillman [facility] 09-29-2023 Miscellaneous Notes I spoke with Servando, and his colonoscopy is scheduled for October 15 at [facility]. Rosmery Hillman Please assist in scheduling colonoscopy in [place] Trish Colin APRN.VAISHNAVI Servando is calling Jayla Florian MD today to request Orders for colonoscopy Please call to schedule when orders have been placed. His normal location is [place]. Patient has been identified by name and birthdate. Duration of symptoms: N/A Person calling: self Call patient at: at home [phone] (home) [phone] (cell) Was an appointment scheduled: No Closing statement: Leeanna Schwartz documented in this encounter [facility] 09-29-2023 Telephone encounter Note Please assist in scheduling colonoscopy in [place] Trish Colin APRN.BIZTALK SOFTWARE DEVELOPER [facility] 09-29-2023 Instructions Trish Colin APRN.CNP - 09/29/2023 11:41 AM EDT Images from the original note were not included. Bowel Preparation Instructions for: Miralax-Gatorade Preparations IF YOU DO NOT FOLLOW THESE DIRECTIONS, YOUR COLONOSCOPY WILL BE CANCELLED. Valente Instructions: Your bowel must be empty so that your doctor can clearly view your colon. Follow all of the instructions in this handout EXACTLY as they are written. Do NOT eat any solid food the ENTIRE day before your colonoscopy. Buy your bowel preparation at least 5 days before your colonoscopy. Four (4) Dulcolax laxative tablets containing 5mg of bisacodyl each (NOT Dulcolax stool softener) One (1) 8.3oz. bottle Miralax (238 grams) or generic equivalent 2 x 32oz. Bottles of Gatorade (NOT RED) Diabetic Patients: Use G2 (Gatorade 2) TRANSPORTATION on the Day of Your Exam A responsible adult MUST be present with you at Check In prior to your colonoscopy and REMAIN in the endoscopy area until you are discharged. You are NOT ALLOWED to drive, take a taxi or bus, or leave the Endoscopy Center ALONE. If you do not have a responsible cattle driver (family member or friend) with you to take you home, your exam cannot be done with sedation and will be cancelled. Please bring a list of all of your current medications, including any Jibp-tsl-Pgzdxxo medications with you. Medications If you take insulin, diabetic medications or blood thinners such as Coumadin (warfarin), Plavix (clopidogrel), Ticlid (ticlopidine hydrochloride), Agrylin (anagrelide), Xarelto (Rivaroxaban), Pradaxa (Dabigatran), Eliquis (Apixaban), and Effient (Prasugrel). You MUST call the doctors who orders those medicines for instructions on altering the dosage before your colonoscopy. All other medications should be taken the day of the exam with a sip of water including ASPIRIN. Five (5) Days Before Your Colonoscopy Do NOT take medicines that stop diarrhea - such as Imodium, Kaopectate, or Pepto Bismol. Do NOT take fiber supplements - such as Metamucil, Citrucel, or Perdiem. Do NOT take products that contain iron - such as multi-vitamins (the label lists what is in the products). Three (3) Days Before Your Colonoscopy Do NOT eat high-fiber foods - such as popcorn, beans, seeds (flax, sunflower, quinoa), multigrain bread, nuts, salad/vegetables, or fresh and dried fruit. 1 Bowel Preparation Instructions for: Miralax-Gatorade Preparations One (1) Day Before Your Colonoscopy Only drink clear liquids the ENTIRE DAY before your colonoscopy. Do NOT eat any solid foods. Drink at least 8 ounces of clear liquids every hour after waking up. The clear liquids you can drink include: Clear Liquid (NO RED LIQUIDS) DO NOT DRINK Gatorade, Pedialyte or Powerade Clear broth or bouillon Coffee or tea (no milk or non-dairy creamer) Carbonated and non-carbonated soft drinks Gerson-Aid or other fruit flavored drinks Strained fruit juices (no pulp) Jell-O, popsicles, hard candy Water Alcohol Milk or non-dairy creamers Noodles or vegetables in soup Juice with pulp Liquid you cannot see through Do not use tobacco/vaping products Mix 1/2 of Miralax bottle (119 grams) in each 32 ounces of Gatorade bottle until dissolved. Keep cool in the refrigerator. DO NOT ADD ICE. The bowel preparation solution will be consumed in two parts. Part 1 5:00 PM - Evening before your colonoscopy Take 4 Dulcolax tablets. 6 PM - Evening before your colonoscopy Drink 32 oz. of the mixed solution. Drink an 8 oz. glass of bowel preparation every 15 minutes for a total of 4 glasses. Fifteen (15) minutes later, drink an 8 oz. glass of of clear liquids every 15 minutes for a total of 2 glasses. You may continue to drink clear liquids till midnight. Part 2 On the day of your colonoscopy you may drink clear liquids up to (three) 3 hours prior to procedure. 4 1/2 hours before your colonoscopy Take another 32 oz. bottle of mixed solution. Drink an 8 oz. glass of bowel prep every 15 minutes for a total of 4 glasses. Fifteen (15) minutes later, drink an 8 oz. glass of clear liquids every 15 minutes for a total of 2 glasses. You may continue to drink clear liquids up to (three) 3 hours before your exam. 2 03/2019 documented in this encounter [facility] 09-29-2023 Telephone encounter Note Servando is calling Jayla Florian MD today to request Orders for colonoscopy Please call to schedule when orders have been placed. His normal location is [place]. Patient has been identified by name and birthdate. Duration of symptoms: N/A Person calling: self Call patient at: at home [phone] (home) [phone] (cell) Was an appointment scheduled: No Closing statement: Leeanna Schwartz [facility] Work Phone: 08-31-2023 History of Present illness Narrative Images from the original note were not included. This note was created using [employer]. Subjective Marshal Blue is a 78 year old male. HPI Presents with a sore on his right ankle over the past week. He had rubbed the side of his ankle with a hose while he was pressure washing. Started to get some redness and swelling. Put Neosporin on it for few days and thought maybe it had improved but was still swollen so came in for evaluation. Denies history of MRSA or staph infection. Review of Systems Musculoskeletal: Right ankle wound and redness All other systems reviewed and are negative. PAST MEDICAL HISTORY Diagnosis Date Achilles bursitis or tendinitis 05/11/01 Allergic rhinitis, cause unspecified Asthma Benign neoplasm of colon Diverticulosis of colon (without mention of hemorrhage) Essential hypertension, benign Other and unspecified hyperlipidemia Personal history of colonic polyps Colon polyps Snoring Unspecified asthma, with status asthmaticus Current Outpatient Medications Medication Sig Dispense Refill losartan (COZAAR) 50 mg tablet Take 1 tablet by mouth once daily. 90 tablet 3 sertraline (ZOLOFT) 50 mg tablet Take 1 tablet by mouth once daily. 90 tablet 3 losartan (COZAAR) 50 mg tablet Take 1 tablet by mouth once daily. 10 tablet 0 simvastatin (ZOCOR) 40 mg tablet Take 1 tablet by mouth daily at bedtime. 90 tablet 3 hydroCHLOROthiazide 12.5 mg capsule Take 1 capsule by mouth once daily. 90 capsule 3 finasteride (PROSCAR) 5 mg tablet Take 5 mg by mouth. lutein 20 mg tab Take 20 mg by mouth. potassium citrate ER (UROCIT-K) 10 mEq (1,080 mg) Take 1,080 mg by mouth twice daily. Udcxj-5-TJX-EPA-Fish Oil 1,000 mg (120 mg-180 mg) cap Take 2 g by mouth once daily. cholecalciferol, vitamin D3, (VITAMIN D3 ORAL) Take 1 tablet by mouth once daily. tamsulosin (FLOMAX) 0.4 mg Take 1 capsule by mouth once daily. 90 capsule 3 cyclobenzaprine (FLEXERIL) 10 mg tablet Take 1 tablet by mouth three times daily as needed for muscle spasm. 30 tablet 0 B2/VIT A,C & E/LUT/ZEAXANTH/MN (ICAPS ORAL) Take by mouth. psyllium Husk 0.52 gram capsule Take 1 capsule by mouth once daily. 0 cephALEXin (KEFLEX) 500 mg capsule Take 1 capsule by mouth three times a day for 7 days. 21 capsule 0 No current facility-administered medications for this visit. PAST SURGICAL HISTORY Procedure Laterality Date CARPAL TUNNEL Right 06/2015 COLONOSCOPY FLX DX W/COLLJ SPEC WHEN PFRMD 05/16/2003 Colonoscopy-polyps removed COLONOSCOPY FLX DX W/COLLJ SPEC WHEN PFRMD 12/19/2011 Colonoscopy COLONOSCOPY FLX DX W/COLLJ SPEC WHEN PFRMD 05/20/2017 adenomatous polyps, repeat in 5 years COLONOSCOPY GEN ANES 09/11/2020 Repeat in 3 years COLONOSCOPY W/BIOPSY SINGLE/MULTIPLE 08/04/2006 EYE SURGERY HX JOINT REPLACEMENT HX Right 2017 information from the patient LASIK 2000 bilateral OTHER 03/21/2015 complete shoulder replacement R TONSILLECTOMY HX TONSILLECTOMY PRIMARY/SECONDARY <AGE 12 Tonsillectomy VASECTOMY UNI/BI SPX W/POSTOP SEMEN EXAMS Bilateral 1988 FAMILY HISTORY Problem Relation Age of Onset Hypertension Mother other (macular degeneration) Mother Hypertension Father Heart Father other (macular degeneration) Father other (glaucoma) Brother Social History Tobacco Use Smoking status: Former Packs/day: 2.00 Years: 10.00 Additional pack years: 0.00 Total pack years: 20.00 Types: Cigarettes Quit date: 04/07/1987 Years since quittin.4 Smokeless tobacco: Never Vaping Use Vaping Use: Never used Substance Use Topics Alcohol use: Yes Comment: 1-2 drinks per month Drug use: No Objective BP 120/64 Pulse 80 Temp 36.6 C (97.9 F) Resp 20 Wt 113.6 kg (250 lb 7.1 oz) SpO2 98% BMI 33.05 kg/m Physical Exam Vitals reviewed. Constitutional: Appearance: Normal appearance. HENT: Head: Normocephalic and atraumatic. Musculoskeletal: Legs: Comments: Patient has a wound to the lateral malleolus of the right ankle with some mild surrounding erythema and warmth with swelling. No sign of abscess. No lymphangitic streaking. Full range of motion of the ankle. No sign of septic joint. Skin: General: Skin is warm and dry. Neurological: Mental Status: He is alert. Assessment and Plan ASSESSMENT/PLAN: 1. Skin infection - ICD9: 686.9, ICD10: L08.9 -Will treat with Keflex. Discussed red flags to be seen again. Patient agreeable with plan. Sandra Verduzco PA-C documented in this encounter [facility] 08-06-2023 Telephone encounter Note The Zoloft is usually prescribed at 50 or 100 mg, I think it's easiest to just increase the dose to 50 mg and if you feel it's too strong you could take a half pill some days. Resubmitted the losartan Rx to [facility], will send new Rx for Zoloft 50 mg there as well The following approved medication requests have been transmitted electronically. Requested Prescriptions Signed Prescriptions Disp Refills losartan (COZAAR) 50 mg tablet 90 tablet 3 Sig: Take 1 tablet by mouth once daily. sertraline (ZOLOFT) 50 mg tablet 90 tablet 3 Sig: Take 1 tablet by mouth once daily. Jayla Florian MD [facility] 08-06-2023 Miscellaneous Notes The Zoloft is usually prescribed at 50 or 100 mg, I think it's easiest to just increase the dose to 50 mg and if you feel it's too strong you could take a half pill some days. Resubmitted the losartan Rx to [facility], will send new Rx for Zoloft 50 mg there as well The following approved medication requests have been transmitted electronically. Requested Prescriptions Signed Prescriptions Disp Refills losartan (COZAAR) 50 mg tablet 90 tablet 3 Sig: Take 1 tablet by mouth once daily. sertraline (ZOLOFT) 50 mg tablet 90 tablet 3 Sig: Take 1 tablet by mouth once daily. Jayla Florian MD documented in this encounter [facility] 08-04-2023 Telephone encounter Note Patient said [facility] has not record of his losartan rx that was sent back in January. They need a new rx and he needs a 10 day supply to [facility] in [place]. He would like a call at [phone] when sent to pharmacies. [facility] 08-04-2023 Miscellaneous Notes Patient said [facility] has not record of his losartan rx that was sent back in January. They need a new rx and he needs a 10 day supply to [facility] in [place]. He would like a call at [phone] when sent to pharmacies. Patient has been identified by name and date of : Yes Requested Prescriptions Pending Prescriptions Disp Refills losartan (COZAAR) 50 mg tablet 90 tablet 3 Sig: Take 1 tablet by mouth once daily. losartan (COZAAR) 50 mg tablet 10 tablet 0 Sig: Take 1 tablet by mouth once daily. RX INSTRUCTIONS: Patient aware RX will be sent to pharmacy. No need to notify patient. Patient aware RX escripted to mail away pharmacy. No need to notify patient. Mandi Schwartz documented in this encounter [facility] 08-04-2023 Telephone encounter Note Patient has been identified by name and date of : Yes Requested Prescriptions Pending Prescriptions Disp Refills losartan (COZAAR) 50 mg tablet 90 tablet 3 Sig: Take 1 tablet by mouth once daily. losartan (COZAAR) 50 mg tablet 10 tablet 0 Sig: Take 1 tablet by mouth once daily. RX INSTRUCTIONS: Patient aware RX will be sent to pharmacy. No need to notify patient. Patient aware RX escripted to mail away pharmacy. No need to notify patient. Mandi Schwartz [facility] 07-30-2023 Telephone encounter Note Sent to scanning [facility] 07-30-2023 Miscellaneous Notes Sent to scanning Received 07-30-23 from [facility]. Placed in provider's inbox for review. Route to [place] scanning documented in this encounter [facility] 07-30-2023 Telephone encounter Note Received 07-30-23 from [facility]. Placed in provider's inbox for review. Route to [place] scanning [facility] 07-29-2023 Discharge summary Note Date/Time July 29, 2023 3:27pm [facility] [address] [place] [address]. [address] [place] [address] / REHABILITATION SERVICES DISCHARGE SUMMARY MR#: [id number] Acct: [id number] Name: MARSHAL BLUE Rep #: [id number] 23 : 1945 77 From: [place]. SRIRAM, OCS Referring Dr.: Dr. Feliciano Gordon MD Status: REG RCR Insurance: [employer] PPO SELF PAY INSURANCE Patient Information Patient Information: MARSHAL BLUE was seen in my office for initial evaluation on 06/25/23. The following Plan of Care was established for this patient: POC Established Initial Frequency: 2x /Week Initial Duration: 4 Weeks Anticipated Interventions Patient/Client Instruction: Educate patient on: Condition and Plan of Care For the Purpose of:: To decrease pain, To increase ROM, To improve muscle performance and motor function, To improve ability to perform ADL's, To increasetolerance to activity/condition/position, To improve ability of physical actionsfor home/community/work/leisure, To improve health of tissue, To decrease soft tissue restriction and To increase flexibility/ROM Therapeutic Exercise to Include: Strength training, Body mechanics, Postural training, Flexibilty training and Dynamic Lumbar Stabilization For the Purpose of:: To decrease pain, To decrease swelling/inflammation, To increase oxygenation perfusion, To improve ability to perform ADL's, To increasetolerance to activity/condition/position, To improve ability of physical actionsfor home/community/work/leisure, To improve health of tissue, To decrease soft tissue restriction and To increase flexibility/ROM TENS: Yes IF ES: Yes Cryotherapy (ice pack, ice massage): Yes Thermo therapy (hot pack): Yes Ultrasound (thermal/non thermal): Yes For the Purpose of:: To decrease pain, To increase ROM, To improve health of tissue and To decrease soft tissue restriction Last Seen Last Seen: This patient was last seen in our office . Pertinent comments regarding their Physical therapy will appear below: Patient seen for PT for lumbar radiculopathy focus on DLS and postural ex's dongwell d/c to HEP At this point I will be discontinuing this patient from physical therapy. I would be happy to see this patient again in the future if found appropriate by the physician. Thank you! Milo Okeefe, PT, Cert MDT, OCS Balance/Gait/Functional tests Balance/Special Test Scores Oswestry Low Back Score: 30 <Electronically signed by Milo Okeefe PT, Cert. MDT, OCS> 07/29/23 1827 CC: Dr. Feliciano Florian MD; Dr. Feliciano Gordon MD ~ ENRIQUE Signed [facility] Work Phone: 1(131) 228-499403-21-2024 Miscellaneous Notes* Telephone Encounter - Qi Abdi LPN - 06/26/2023 4:24 PM EDT Received 06/26/2023 from [facility]. Placed in provider's inbox for review. Route to [place] for faxing. documented in this [facility] Miscellaneous Notes* Telephone Encounter - Jayla Florian MD - 05/14/2023 4:50 PM EST Will give him a few days of Malakoff. The following approved medication requests have been transmitted electronically. Requested Prescriptions Signed Prescriptions Disp Refills HYDROcodone-acetaminophen (NORCO) 5-325 mg per tablet 20 tablet 0 Sig: Take 1 tablet by mouth every 6 hours as needed for pain for up to 5 days. Jayla Florian MD * Telephone Encounter - Idania Bynum RN - 05/14/2023 4:10 PM EST Triaged patient. Lower back pain started 1.5 weeks ago. Has had this pain in the past, but never to this extent. Saw spinal surgeon at [place] last week-he advised PT and Pain management. States xrays showed severe calcifications and vertebrae out of alignment. Has Pain management OV 06/21. Pain has worsened since that OV- barely able to walk at all. Has old flexeril that is not helping. Took an old Malakoff that helped when he took it with the Flexeril. Took an old Oxy that did not help. Asking for pain meds until seen by Pain. Advised needs assessed for pain meds- does not think he can come in. Advise ER if pain is that severe. He states he will see if it gets worse to go to ER- just had hernia surgery and can not drive. Any further recommendations? Idania Bynum RN Reason for Disposition Unable to walk Answer Assessment - Initial Assessment Questions 1. ONSET: When did the pain begin? 1.5 weeks ago 2. LOCATION: Where does it hurt? (upper, mid or lower back) Lower back 3. SEVERITY: How bad is the pain? (e.g., Scale 1-10; mild, moderate, or severe) - MILD (1-3): Doesn't interfere with normal activities. - MODERATE (4-7): Interferes with normal activities or awakens from sleep. - SEVERE (8-10): Excruciating pain, unable to do any normal activities. Moderate to severe-at times can not walk 4. PATTERN: Is the pain constant? (e.g., yes, no; constant, intermittent) Constant dullness but intensity changes 5. RADIATION: Does the pain shoot into your legs or somewhere else? sometimes 6. CAUSE: What do you think is causing the back pain? unsure 7. BACK OVERUSE: Any recent lifting of heavy objects, strenuous work or exercise? no 8. MEDICINES: What have you taken so far for the pain? (e.g., nothing, acetaminophen, NSAIDS) Muscle relaxer-ineffective 9. NEUROLOGIC SYMPTOMS: Do you have any weakness, numbness, or problems with bowel/bladder control? no 10. OTHER SYMPTOMS: Do you have any other symptoms? (e.g., fever, abdomen pain, burning with urination, blood in urine) no 11. : Is there any chance you are ? When was your last menstrual period? no Protocols used: Back [id number] * Telephone Encounter - Loli Baltazar - 05/14/2023 2:46 PM EST Servando is calling Jayla Florian MD today to request Pain, Back (Lower back pain getting worse more persistent )muscle relaxers not working this time and he is asking for something for the pain to be called in for him. He did contact pain management but that appointment is not until the middle of June. Please advise Patient has been identified by name and birthdate. Duration of symptoms: 1 weeks Person calling: self Call patient at: at home [phone] (home) [phone] (cell) Was an appointment scheduled: No Closing statement: Symptom Call: Thank you for calling [facility], your call is very important. A nurse will call in approximately 2-4 hours during business hours. If this is an emergency, please contact 911. Loli Gaspar Pss documented in this [facility]02-01-2024 Miscellaneous Notes* Telephone Encounter - Mohamud Dorado LPN - 05/08/2023 6:09 PM EST Received visit summary for lumbar spine from [facility]. Placed in provider's inbox for review. Route to [place] scanning. documented in this [facility]12-01-2023 Miscellaneous Notes* Telephone Encounter - Qi Abdi LPN - 03/07/2023 1:09 PM EST Received 03/07/2023 from [facility]. Placed in provider's inbox for review. Route to [place] for scanning documented in this [facility]12-01-2023 Miscellaneous Notes* Telephone Encounter - Qi Abdi LPN - 03/07/2023 1:04 PM EST Received 03/07/2023 from [facility]. Placed in provider's inbox for review. Route to [place] for scanning. New med Flomax 0.4 mg daily documented in this [facility]10-20-2023 History of Present illness Narrative* Jayla Florian MD - 01/24/2023 10:48 AM EDT CHIEF COMPLAINT No chief complaint on file. HISTORY OF PRESENT ILLNESS Marshal Blue is a 77 year old male who presents here today for 6 month follow up on labs. I last saw this patient on 07/18/22. HTN -Controlled with HCTZ 12.5 mg capsule, tolerating it well. -Denies chest pain, dyspnea, palpitation and edema. Last 3 Encounter BP Readings: Date: BP: 01/24/2023 129/80 07/18/2022 132/55 05/15/2022 126/62 Anxiety/Depression -Finds benefit with taking Sertraline 25 mg tablet. Hyperglycemia Last labs indicate: BS 133 (H), HgA1c 5.8%, was 5.9 % Hx of kidney/bladder stone Was prescribed Allopurinol by Urologist for kidney and bladder stones. Servando is unaware of having uric acid lab work done. Did not find results in Epic. 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 It was stated that doctor is 90% certain it is not cancer. Will f/u with Urologist in 2 weeks for US. AIXA Follow up sleep study was performed that noted apnea is too severe for Hyoid lift Servando states that Inspire is cost prohibitive. Has a CPAP for 14 years, and does not like using it. BL Trigger finger Started in thumbs which are better now. Second finger is the worst. Wakes with hand clinched and painful. Health Maintenance BP Controlled (<130/80) Never done RSV Vaccine(1 - 1-dose 60+ series) Never done Advance Directive Discussion Never done Influenza Vaccine(1) due on 12/06/2022- He states that he already received the FLU vaccine. Covid-19 Vaccine( - 2022-24 season) due on 12/06/2022 DTaP,Tdap,Td Vaccine(4 - Td or Tdap) due on 02/15/2023 Labs reviewed. Past medical history, appointments, medications, allergies reviewed. REVIEW OF SYSTEMS General: Feels well, no weight changes, fevers or chills. HEENT: No sinus congestion, earache, sore throat. Cardiac: No chest pain, palpitations Resp: No cough, wheeze, shortness of breath GI: No reflux symptoms, food intolerance, bowel changes. : No urinary frequency, dysuria. MS: +Aches/pain and joint complaints. PAST MEDICAL HISTORY PAST MEDICAL HISTORY Diagnosis Date Achilles bursitis or tendinitis 05/11/01 Allergic rhinitis, cause unspecified Asthma Benign neoplasm of colon Diverticulosis of colon (without mention of hemorrhage) Essential hypertension, benign Other and unspecified hyperlipidemia Personal history of colonic polyps Colon polyps Snoring Unspecified asthma, with status asthmaticus PHYSICAL EXAMINATION BP 129/80 Pulse 65 Ht 185.4 cm (6' 0.99) Wt 112.9 kg (249 lb) BMI 32.86 kg/m General: Alert, well developed, well nourished, no distress, pleasant and cooperative. Obese. Heart: Regular rate and rhythm. Normal S1 and S2. No murmurs, rubs, or gallops. Lungs: Clear to auscultation bilaterally. No respiratory distress. No wheezes, rales, or rhonchi. Abdomen: Soft, non-tender, no distention. Extremities: Feet/ankles without edema, posterior tibial pulses full and symmetrical. Trigger finger R hand, slight catch on flex/ extend, mild pain on palpation long mid phalanx Data Reviewed Component Latest Ref Rng & Units 01/01/2023 Protein, Total 6.3 - 8.0 g/dL 7.8 Albumin 3.9 - 4.9 g/dL 4.8 Calcium 8.5 - 10.2 mg/dL 10.0 Bilirubin, Total 0.2 - 1.3 mg/dL 0.6 Alkaline Phosphatase 38 - 113 U/L 78 AST 14 - 40 U/L 27 ALT 10 - 54 U/L 39 Glucose 74 - 99 mg/dL 133 (H) BUN 9 - 24 mg/dL 19 Creatinine 0.73 - 1.22 mg/dL 1.02 Sodium 136 - 144 mmol/L 138 Potassium 3.7 - 5.1 mmol/L 4.5 Chloride 97 - 105 mmol/L 102 CO2 22 - 30 mmol/L 23 Anion Gap 9 - 18 mmol/L 13 eGFR >=60 mL/min/1.73m 76 Cholesterol, Total <200 mg/dL 110 Triglyceride <150 mg/dL 159 (H) HDL Cholesterol >39 mg/dL 24 (L) Non HDL Cholesterol <130 mg/dL 86 Fasting Time hrs 14 VLDL Cholesterol <30 mg/dL 32 (H) TC:HDL Ratio <5.10 4.58 LDL Cholesterol <100 mg/dL 54 LDL:HDL Ratio <2.54 2.25 Hemoglobin A1C 4.3 - 5.6 % 5.8 (H) Estimated Average Glucose mg/dL 120 Assessment/Plan 1. Mixed hyperlipidemia Controlled - Continue simvastatin (ZOCOR) 40 mg tablet; Take 1 tablet by mouth daily at bedtime. Dispense: 90 tablet; Refill: 3 2. Essential hypertension, benign Controlled - Continue hydroCHLOROthiazide 12.5 mg capsule; Take 1 capsule by mouth once daily. Dispense: 90 capsule; Refill: 3 3. History of kidney stones -Continue to follow with Urology. -Advised pt to ask if Uric acid lab work has been done. 4. AIXA on CPAP Continue use of CPAP. 5. Trigger middle finger of right hand Referring to Dr Rosado of Orthopedics for trigger finger treatment options. Ordering Xray of hand. - CONSULT TO ORTHOPAEDICS; Future - XR HAND GENERAL 3V PA/LAT/OBL RIGHT; Future 6. Adjustment disorder with mixed anxiety and depressed mood Stable - sertraline (ZOLOFT) 25 mg tablet; Take one tablet by mouth daily Dispense: 90 tablet; Refill: 3 Encouraged to lose weight. Advised to reduce sugar/carbohydrate consumption to bring down blood sugar. Will get RSV vaccine from pharmacy. RTO: 1 year Scribe Attestation: By signing my name below, Adelaida George, attest that this documentation has been prepared underthe direction and in the presence of Feliciano Florian M.D. Electronically Signed: Amadeo Wright. January 24, 2023 10:48 AM Provider Attestation: Jayla George MD, personally performed the services described in this documentation. All medical record entries made by the scribe were at my direction and in my presence. I have reviewed the chart and discharge instructions (if applicable), and agree that the record reflects my personal performance and is accurate and complete. Electronically Signed: Jayla Florian MD January 24, 2023 2:29PM documented in this encounterUniversity [facility]-29-2023 Miscellaneous Notes* Telephone Encounter - Qi Abdi LPN - 12/03/2022 3:30 PM EDT Received 12/03/[address] Valdivia. Placed in provider's inbox for review. Route to [place] for scanning. documented in this encounterUniversity Hospitals [facility]06-27-2023 Miscellaneous Notes* Telephone Encounter - Qi Abdi LPN - 10/01/2022 1:59 PM EDT Spoke with pharmacy. They have refills ready for patient. Patient needs to authorize release. Patient aware. * Telephone Encounter - Belkis Mosher - 10/01/2022 1:42 PM EDT Patient has been identified by name and date of : Yes Requested Prescriptions Pending Prescriptions Disp Refills sertraline (ZOLOFT) 25 mg tablet 90 tablet 3 Sig: Take one tablet by mouth daily RX INSTRUCTIONS: Patient aware RX will be sent to pharmacy. No need to notify patient. Belkis Mosher documented in this encounterUniversity Hospitals [facility]04-26-2023 History of Present illness Narrative* Grazyna Castillo - 07/31/2022 11:20 AM EDT Marshal Blue is identified through a medication adherence outreach initiative based on pharmacy claims data from [employer] (insurer) for YASMIN medication(s) and Statin medication(s). Patient is reviewed 07/31/22 due to medication adherence concerns with the following medications (name, strength, sig): Losartan 50mg every day; Simvastatin 40mg every day . Per data/report, last fill date and days supply: Both Due 07/20/22 Per reconcile dispense, last fill date and days supply: Losartan filled 07/30/22 for 90 days; Simvastatin filled 07/13/22 for 90 days Outcome of review/outreach: (choose outcome source and status) Losartan- Filled later than 7 days after Next fill date per reconcile dispense Simvastatin- Filled before Next fill date per reconcile dispense Grazyna Castillo documented in this encounterUniversity Hospitals [facility]04-13-2023 History of Present illness Narrative* Jayla Florian MD - 07/18/2022 10:40 AM EDT Medicare Yearly Visit Medical B eligibilty date: 08/08/2011 Date of last exam: 09/21/2021 HPI: Cardiac Managed on HCTZ and losartan for hypertension Managed on simvastatin for hyperlipidemia Adherent to regimen Trying to get some more exercise Having a little trouble going up stairs BPH Managed on finasteride and flomax Adherent to regimen Growth on Kidney Was found to have a growth on his Kidney He was told it was non cancerous and is slow growing Will be having surgery on it in December 2022 PAST MEDICAL HISTORY Diagnosis Date Achilles bursitis or tendinitis 05/11/01 Allergic rhinitis, cause unspecified Asthma Benign neoplasm of colon Diverticulosis of colon (without mention of hemorrhage) Essential hypertension, benign Other and unspecified hyperlipidemia Personal history of colonic polyps Colon polyps Snoring Unspecified asthma, with status asthmaticus PAST SURGICAL HISTORY Procedure Laterality Date CARPAL TUNNEL Right 06/2015 COLONOSCOPY FLX DX W/COLLJ SPEC WHEN PFRMD 05/16/2003 Colonoscopy-polyps removed COLONOSCOPY FLX DX W/COLLJ SPEC WHEN PFRMD 12/19/2011 Colonoscopy COLONOSCOPY FLX DX W/COLLJ SPEC WHEN PFRMD 05/20/2017 adenomatous polyps, repeat in 5 years COLONOSCOPY GEN ANES 09/11/2020 Repeat in 3 years COLONOSCOPY W/BIOPSY SINGLE/MULTIPLE 08/04/2006 EYE SURGERY HX JOINT REPLACEMENT HX Right 2017 information from the patient LASIK 2000 bilateral OTHER 03/21/2015 complete shoulder replacement R TONSILLECTOMY HX TONSILLECTOMY PRIMARY/SECONDARY <AGE 12 Tonsillectomy VASECTOMY UNI/BI SPX W/POSTOP SEMEN EXAMS Bilateral 1988 ALLERGIES: Cats, Ciprofloxacin, and Milk Medications reviewed: Yes FAMILY HISTORY Problem Relation Age of Onset Hypertension Mother other (macular degeneration) Mother Hypertension Father Heart Father other (macular degeneration) Father other (glaucoma) Brother SOCIAL HISTORY: Social History Tobacco Use Smoking status: Former Packs/day: 2.00 Years: 10.00 Pack years: 20.00 Types: Cigarettes Quit date: 04/07/1987 Years since quittin.3 Smokeless tobacco: Never Vaping Use Vaping Use: Never used Substance Use Topics Alcohol use: Yes Comment: 1-2 drinks per month Drug use: No Marshal likes to exercise by walking. He watches his diet for sodium, low fat and low cholesterol most of the time. List of current specialists seen: Urology Neohrology End of Live Planning discussed including patients advanced directive wishes: Yes I am willing to follow Marshal's advanced directives. PHQ-2 / Depression screen He in the past two weeks denies having felt down, depressed, hopeless, or with little interest or pleasure in doing things. Functional Ability/Safety Screen 1. Was the patient's timed Up and Go test unsteady or longer than 30 seconds? No 2. Does the patient need help with the phone, transportation, shopping,preparing meals, housework, laundry, medications or managing money? No 3. Does your home have rugs in the hallway, lack of grab bars in the bathroom, lack of handrails onthe stairs or have poor lighting? No Hearing Evaluation:some hearing loss of right ear, wears one hearing aid PHYSICAL EXAM BP 132/55 Pulse 64 Ht 185.4 cm (6' 0.99) Wt 109.8 kg (242 lb) SpO2 97% BMI 31.94 kg/m Alert and oriented X 3: YES Body mass index is 31.94 kg/m . Hearing aids in place. Regular rate and rhythm. S1 and S2 normal, no murmurs, clicks, gallops or rubs. No edema or JVD. Chest is clear; no wheezes or rales. The abdomen is soft without tenderness, guarding, mass or organomegaly. Bowel sounds are normal. Extremities without deformity. No pain, swelling. No edema. Normal peripheral pulses. Assessment/Plan: (Z00.00) Medicare annual wellness visit, subsequent (primary encounter diagnosis) Comment: he is pretty well up to date on . Plan: discuss helhty diet. 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 Plan: follow up with the urologist. Requested Prescriptions Signed Prescriptions Disp Refills hydroCHLOROthiazide 12.5 mg capsule 90 capsule 3 Sig: Take 1 capsule by mouth once daily. sertraline (ZOLOFT) 25 mg tablet 90 tablet 3 Sig: Take one tablet by mouth daily RTO: 6 mo Jayla Florian MD RTO: 6 months Scribe Attestation: By signing my name below, I, Camila Saucedo, attest that this documentation has been prepared under the direction and in the presence of Feliciano Florian M.D. Electronically Signed: Amadeo Whitten. July 18, 2022 10:46 AM documented in this encounterUniversity Hospitals [facility] Center03-17-2023 Miscellaneous Notes* Telephone Encounter - Jayla Florian MD - 06/21/2022 11:02 AM EDT Bmp checked at [facility] in January The following approved medication requests have been transmitted electronically. Requested Prescriptions Signed Prescriptions Disp Refills hydroCHLOROthiazide 12.5 mg capsule 90 capsule 0 Sig: TAKE 1 CAPSULE ONCE DAILY Authorizing Provider: JAYLA FLORIAN MD * Telephone Encounter - Qi Abdi LPN - 06/21/2022 8:39 AM EDT Pharmacy verified in Epic Patient has been identified by name and date of : Yes Patient aware RX will be sent to pharmacy. No need to notify patient. Pharmacy phones for refill(s): Requested Prescriptions Pending Prescriptions Disp Refills hydroCHLOROthiazide 12.5 mg capsule [Pharmacy Med Name: HYDROCHLOROT CAP 12.5MG] 90 capsule 0 Sig: TAKE 1 CAPSULE ONCE DAILY Date of last office visit : 09/21/2021 Date of next office visit : Visit date not found Last 2 Encounter Wt Readings: Date: Wt: 05/15/2022 110 kg (242 lb 6.4 oz) 09/21/2021 109.8 kg (242 lb) Blood Pressure: BUN (mg/dL) Date Value 12/08/2020 16 Creatinine Date Value 12/27/2021 0.94 MG/DL 12/08/2020 0.86 mg/dL Sodium Date Value 12/27/2021 138 MEQ/L 12/08/2020 139 mmol/L Potassium Date Value 12/27/2021 4.0 MEQ/L 12/08/2020 4.1 mmol/L Last 1 Encounter BP Readings: Date: BP: 05/15/2022 126/62 Please advise. Qi Abdi LPN documented in this encounterUniversity Hospitals [facility]02-08-2023 History of Present illness Narrative* Dayron Rodriguez MD - 05/15/2022 12:07 PM EST Patient presents with: Sore Throat: Chest congestion, head cold x 7 days HPI: Feeling sick for 7 days. He is improving slightly. Positive symptoms: Cough, Sore throat, Nasal Congestion, Rhinorrhea, Post nasal drainage, Sinus pressure, fever 101 over the weekend, some Shortness of breath/Wheezing/Chest tightness Negative symptoms: Nausea, Vomiting, Diarrhea, , OTC: Cold Medicine, not using albuterol Had COVID illness August 2021. No COVID test during this illness. PAST MEDICAL HISTORY Diagnosis Date Achilles bursitis or tendinitis 05/11/01 Allergic rhinitis, cause unspecified Asthma Benign neoplasm of colon Diverticulosis of colon (without mention of hemorrhage) Essential hypertension, benign Other and unspecified hyperlipidemia Personal history of colonic polyps Colon polyps Snoring Unspecified asthma, with status asthmaticus MEDICATIONS: Current Outpatient Medications Medication Sig finasteride (PROSCAR) 5 mg tablet Take 5 mg by mouth. lutein 20 mg tab Take 20 mg by mouth. potassium citrate ER (UROCIT-K) 10 mEq (1,080 mg) Take 1,080 mg by mouth twice daily. allopurinol (ZYLOPRIM) 100 mg tablet losartan (COZAAR) 50 mg tablet TAKE 1 TABLET ONCE DAILY hydroCHLOROthiazide (HYDRODIURIL, ESIDRIX) 12.5 mg capsule TAKE 1 CAPSULE ONCE DAILY simvastatin (ZOCOR) 40 mg tablet Take 1 tablet by mouth daily at bedtime. Flqik-3-ABY-EPA-Fish Oil 1,000 mg (120 mg-180 mg) cap Take 2 g by mouth once daily. cholecalciferol, vitamin D3, (VITAMIN D3 ORAL) Take 1 tablet by mouth once daily. tamsulosin (FLOMAX) 0.4 mg Take 1 capsule by mouth once daily. sertraline (ZOLOFT) 25 mg tablet Take one tablet by mouth daily B2/VIT A,C & E/LUT/ZEAXANTH/MN (ICAPS ORAL) Take by mouth. psyllium Husk 0.52 gram capsule Take 1 capsule by mouth once daily. cyclobenzaprine (FLEXERIL) 10 mg tablet Take 1 tablet by mouth three times daily as needed for muscle spasm. (Patient not taking: Reported on 05/15/2022) No current facility-administered medications for this visit. ALLERGIES: ALLERGIES Allergen Reactions Cats Itching, Other: See Comments Swollen eyes, difficulty breathing Ciprofloxacin Swelling Milk Rash VITALS: BP 126/62 Pulse 70 Temp 36.1 C (97 F) Resp 20 Wt 110 kg (242 lb 6.4 oz) SpO2 97% BMI 31.99 kg/m PHYSICAL EXAM: GEN: Pleasant, in no acute distress. HEENT: PERRL, EOMI, conjunctiva clear Ears: canals clear. TMs with sclerosis but without erythema, bulge, or effusion Sinuses: pressure over sinuses Throat: moist mucous membranes, no erythema, no exudate Neck: supple, no thyromegaly, no lymphadenopathy HEART: regular rate and rhythm, no murmurs LUNGS: clear to auscultation, no wheezes or crackles, no increased WOB ASSESSMENT/PLAN: 1. Acute non-recurrent sinusitis, unspecified location - ICD9: 461.9, ICD10: J01.90 - suspect viral URI, differential includes COVID-19. - Discussed supportive care treatment with rest, cold medicine, and analgesia. Start using albuterol. He has not needed steroid for asthma in the past that he can recall. He would like to defer steroid after discussing common side effects of it. - Red flags to seek further treatment include chest pain, shortness of breath, and lethargy; in theER if severe. Printed - AMOXICILLIN 875 MG-POTASSIUM CLAVULANATE 125 MG TABLET to fill if sinus symptoms do not continue to improve. Dayron Rodriguez MD documented in this encounterUniversity Hospitals Tripoint [facility] Center12-14-2022 Miscellaneous Notes* Telephone Encounter - Qi Abdi LPN - 03/20/2022 9:48 AM EST Pharmacy verified in [facility] Patient has been identified by name and date of : Yes Patient aware RX will be sent to pharmacy. No need to notify patient. Pharmacy phones for refill(s): Requested Prescriptions Pending Prescriptions Disp Refills hydroCHLOROthiazide (HYDRODIURIL, ESIDRIX) 12.5 mg capsule [Pharmacy Med Name: HYDROCHLOROT CAP 12.5MG] 90 capsule 0 Sig: TAKE 1 CAPSULE ONCE DAILY Date of last office visit : 09/21/2021 Date of next office visit : Visit date not found Last 2 Encounter Wt Readings: Date: Wt: 09/21/2021 109.8 kg (242 lb) 08/31/2021 109.6 kg (241 lb 9.6 oz) Blood Pressure: BUN (mg/dL) Date Value 12/08/2020 16 Creatinine Date Value 12/27/2021 0.94 MG/DL 12/08/2020 0.86 mg/dL Sodium Date Value 12/27/2021 138 MEQ/L 12/08/2020 139 mmol/L Potassium Date Value 12/27/2021 4.0 MEQ/L 12/08/2020 4.1 mmol/L Last 1 Encounter BP Readings: Date: BP: 09/21/2021 125/58 Please advise. Qi Abdi LPN documented in this encounterUniversity Hospitals Tripoint Medical Center10-18-2022 Miscellaneous Notes* Telephone Encounter - Mohamud Dorado - 01/22/2022 2:46 PM EDT Received discharge summary for lap robotic partial nephrectomy from [facility]. Placed in provider's inboxfor review. Route to [place] scanning. documented in this encounterUniversity Hospitals Tripoint Medical Center10-04-2022 Miscellaneous Notes* Telephone Encounter - Mohamud Dorado - 01/08/2022 1:12 PM EDT Received discharge summary for lap robotic partial nephrectomy from [facility]. Placed in provider's inboxfor review. Route to MA scanning. documented in this encounterUniversity Hospitals Tripoint Medical Center10-03-2022 Miscellaneous Notes* Telephone Encounter - Mohamud Dorado - 01/07/2022 10:43 AM EDT Received operative report and labs from [facility]. Placed in provider's inbox for review. Route to MA scanning. documented in this encounterUniversity Hospitals Tripoint Medical Center09-22-2022 Miscellaneous Notes* Telephone Encounter - Mohamud Dorado - 12/27/2021 12:59 PM EDT Called pt and informed him of need for fasting labs. Pt indicated understanding. Outside lab ordersreceived from [facility]. Entered into pt chart. * Telephone Encounter - Trish Colin APRN.CNP - 12/27/2021 10:27 AM EDT Patient due for fasting labs, ordered in September, please get done soon. Trish Colin APRN.CNP * Telephone Encounter - Laisha Gan MA - 12/27/2021 10:19 AM EDT Fredi: 09/21/21 Last labs: 09/21/21 Future appt: none Pharmacy calls in requesting the following refill(s): Requested Prescriptions Pending Prescriptions Disp Refills hydroCHLOROthiazide (HYDRODIURIL, ESIDRIX) 12.5 mg capsule [Pharmacy Med Name: HYDROCHLOROT CAP 12.5MG] 90 capsule 1 Sig: TAKE 1 CAPSULE ONCE DAILY documented in this encounterUniversity Hospitals Tripoint Medical Center08-29-2022 Miscellaneous Notes* Telephone Encounter - Mohamud Confer - 12/03/2021 2:47 PM EDT Received creatinine (0.9) and abdomen CT and pelvis from [facility]. Placed in provider's inbox for review. Route to MA scanning. documented in this encounterUniversity Hospitals Tripoint Medical Center08-25-2022 Miscellaneous Notes* Telephone Encounter - Trish Colin APRN.CNP - 11/29/2021 11:16 AM EDT Provider reviewed [facility] history and physical exam dated 11/28/[address] abdomen and pelvis. Patient had lithotripsy procedure and stent placement on left side. Urology will see him next week for stent removal and plans to repeat the CT scan because of a concern for mass in right kidney. Trish Colin APRN.CNP * Telephone Encounter - Mohamud Confer - 11/29/2021 9:32 AM EDT Received H&P exam report from [facility]. Placed in provider's inbox for review. Route to MA scanning. documented in this encounterUniversity Hospitals Tripoint Medical Center08-24-2022 Miscellaneous Notes* Telephone Encounter - Mohamud Confer - 11/28/2021 8:11 AM EDT Received abdomen xray for urinary calculi from [facility]. Placed in provider's inbox for review. Route to [place] scanning. documented in this encounterPatricia [place]ille [address]-23-2022 Miscellaneous Notes* Telephone Encounter - Mohamud Dorado - 11/27/2021 3:40 PM EDT Received visit note from [facility]. Placed in provider's inbox for review. Route to MA scanning. documented in this encounterUniversity Hospitals Tripoint Medical Center08-19-2022 Miscellaneous Notes* Telephone Encounter - Qi Abdi LPN - 11/23/2021 4:01 PM EDT Received 11/23/2021 from [facility]. Placed in provider's inbox for review. Route to [place] for scanning CT abd and pelvis hematuria 5 mm calculus in the proximal portion of the left ureter causing mild degree of left hydronephrosis Nonobstructive right intrarenal calculi. Solid mass in the anterior medial portion of the left kidney. Correlation with the enchanced CT scan or ultrasound recomended documented in this encounterUniversity Hospitals Tripoint Medical Center06-17-2022 History of Present illness Narrative* Jayla Florian MD - 09/21/2021 10:20 AM EDT CHIEF COMPLAINT Patient presents with: Yearly Exam: covid 3 weeks ago cough HISTORY OF PRESENT ILLNESS Marshal Blue is a 76 year old male who presents here today for follow up management of multiple medical issues. I last saw this patient on 12/07/20. BPH Patient is managed on Flomax 0.4 mg Patient has not been experiencing any symptoms. He has a follow up with urology. Cough Patient tested positive for COVID 3 weeks ago His symptoms included headache, body aches, body weakness, sore throat, cough, congestion, vertigo and a fever Patient took OTC Mucinex which cleared up his sinuses. Hypertension Patient is managed on HCTZ 12.5 mg and Cozaar 50 mg adherent to current regimen without side effects from medication. No current symptoms. AIXA Patient had trouble with his CPAP machine. He was having trouble breathing because of the ozone. Problems have since resolved Health Maintenance Due for depression screening. Due for advance directive discussion. Due for COVID booster Labs reviewed. Past medical history, appointments, medications, allergies reviewed. REVIEW OF SYSTEMS Pertinent positives/ negatives: General: Feels well, no fever, no chills, +obesity. +memory loss HEENT: No sinus congestion, earache, sore throat. Cardiac: No chest pain, palpitations Resp: No wheeze, shortness of breath +cough +AIXA GI: No reflux symptoms, food intolerance, bowel changes. : No urinary frequency, dysuria. MS: No pain or joint complaints. PAST MEDICAL HISTORY PAST MEDICAL HISTORY Diagnosis Date Achilles bursitis or tendinitis 05/11/01 Allergic rhinitis, cause unspecified Asthma Benign neoplasm of colon Diverticulosis of colon (without mention of hemorrhage) Essential hypertension, benign Other and unspecified hyperlipidemia Personal history of colonic polyps Colon polyps Snoring Unspecified asthma, with status asthmaticus PHYSICAL EXAMINATION Ht 185.4 cm (6' 0.99) Wt 109.8 kg (242 lb) BMI 31.94 kg/m General: Alert, well developed, well nourished, no distress, pleasant and cooperative. Obese Heart: Regular rate and rhythm. Normal S1 and S2. No murmurs, rubs, or gallops. Lungs: Clear to auscultation bilaterally. No respiratory distress. No wheezes, rales, or rhonchi. Abdomen: Soft, non-tender, no distention. Extremities: Feet/ankles without edema, posterior tibial pulses full and symmetrical. Data Reviewed 08/31/21 COVID- positive 07/16/21 Lipid- VLDL (35 high). Triglyceride (177 high) HDL (26 low) 12/08/20 Vitamin D-26.7 low TSH- within normal limits PSA- within normal limits Testosterone- within normal limits CBC- within normal limits CMP- glucose (121 high) Assessment/Plan (I10) Essential hypertension, benign (primary encounter diagnosis) Comment: blood pressure well controlled in office Plan: hydroCHLOROthiazide (HYDRODIURIL, ESIDRIX) 12.5 mg capsule, COMP METABOLIC PANEL (E78.2) Mixed hyperlipidemia Comment: well controlled Plan: simvastatin (ZOCOR) 40 mg tablet (F43.23) Adjustment disorder with mixed anxiety and depressed mood Comment: mood is well controlled Plan: sertraline (ZOLOFT) 25 mg tablet (G31.84) Mild cognitive impairment, so stated Comment: patient states memory has not worsened Plan: continue to monitor (Z86.16) History of 2019 novel coronavirus disease (COVID-19) Comment: patient has a residual COVID cough Plan: continue to monitor (R73.9) Hyperglycemia Comment: per labs Plan: HGB A1C Signed Prescriptions Disp Refills simvastatin (ZOCOR) 40 mg tablet 90 tablet 1 Sig: Take 1 tablet by mouth daily at bedtime. THAI: No tamsulosin (FLOMAX) 0.4 mg 90 capsule 3 Sig: Take 1 capsule by mouth once daily. THAI: No hydroCHLOROthiazide (HYDRODIURIL, ESIDRIX) 12.5 mg capsule 90 capsule 1 Sig: Take 1 capsule by mouth once daily. THAI: No losartan (COZAAR) 50 mg tablet 90 tablet 3 Sig: Take 1 tablet by mouth once daily. THAI: No sertraline (ZOLOFT) 25 mg tablet 90 tablet 3 Sig: Take one tablet by mouth daily THAI: No RTO: 1 year Scribe Attestation: By signing my name below, I, Sarah Santos, attest that this documentation has been prepared under the direction and in the presence of Feliciano Florian M.D. Electronically Signed: Amadeo Cowan. September 21, 2021 8:23 AM Provider Attestation: I, Jayla lForian MD, personally performed the services described in this documentation. All medical record entries made by the scribe were at my direction and in my presence. I have reviewed the chart and discharge instructions (if applicable) and agree that the record reflects my personal performance and is accurate and complete. Electronically Signed: Jayla Florian MD. September 21, 2021 1:27 PM ; documented in this encounterUniversity Hospitals Tripoint Medical Center04-22-2022 Miscellaneous Notes* Telephone Encounter - Kayy Doll - 07/27/2021 10:45 AM EDT 1st attempt. Called patient to reschedule for 08/17. LM on VM. documented in this encounterUniversity Hospitals Tripoint Medical Center04-05-2022 Miscellaneous Notes* Telephone Encounter - Kayy Avalos Ma - 07/10/2021 3:19 PM EDT Called and spoke to patient (identified by name and )- below message was given with verbal understanding. Patient notified fasting lab order/order's placed and advised to fast for 12 hours- Verbal understanding received. Patient also notified to schedule 6 month appointment per message- Verbal understanding received. * Telephone Encounter - Trish Colin APRN.CNP - 07/10/2021 8:57 AM EDT Patient is overdue for fasting lab work. Order placed, please get this done soon. Also due for a 6 month follow up visit. Trish Colin APRN.CNP * Telephone Encounter - Irving Escobar LPN - 07/10/2021 8:52 AM EDT Pharmacy calls in requesting the following refill(s): Pending Prescriptions Disp Refills SIMVASTATIN 40 MG TABLET 90 tablet 0 Sig: TAKE 1 TABLET DAILY AT BEDTIME THAI: Yes Irving Escobar LPN July 10, 2021 8:52 AM documented in this encounterCh[facility]* Diagnosis Mixed hyperlipidemia documented in this encounter [facility]* Diagnosis Essential hypertension, benign- Primary Mixed hyperlipidemia Adjustment disorder with mixed anxiety and depressed mood Mild cognitive impairment, so stated History of 2019 novel coronavirus disease (COVID-19) Hyperglycemia Other abnormal glucose documented in this encounter [facility] noteNo assessment information availableWSumma Health [facility] Work Phone: Evaluation note* Diagnosis Mixed hyperlipidemia documented in this [facility]* Diagnosis Essential hypertension, benign documented in this [facility]* Diagnosis Mixed hyperlipidemia- Primary Hyperglycemia Other abnormal glucose documented [facility] this [facility]* Diagnosis Essential hypertension, benign [facility] Diagnosis Acute non-recurrent sinusitis, unspecified location- Primary documented in this encounter [facility] CenterEvaluation [facility]* Diagnosis Essential hypertension, benign documented in this encounter [facility] CenterEvaluation [facility]* Diagnosis Medicare annual wellness visit, subsequent- Primary Routine general medical examination at a health care facility Essential hypertension, benign Adjustment disorder with mixed anxiety and depressed mood Hyperglycemia Other abnormal glucose Benign renal tumor, right documented in this encounter [facility] CenterEvaluation [facility]* Diagnosis Adjustment disorder with mixed anxiety and depressed mood documented in this encounter [facility] CenterEvaluation [facility]* Diagnosis Adjustment disorder with mixed anxiety and depressed mood [facility] Diagnosis Mixed hyperlipidemia documented in this encounter [facility]Eval[facility]* Diagnosis Essential hypertension, benign- Primary Mixed hyperlipidemia History of kidney stones Personal history of urinary calculi AIXA on CPAP Obstructive sleep apnea (adult) (pediatric) Trigger middle finger of right hand Trigger finger (acquired) Adjustment disorder with mixed anxiety and depressed mood documented in this encounter [facility] CenterEvaluation [facility]* Diagnosis Chronic low back pain, unspecified back pain laterality, unspecified whether sciatica present- Primary [facility]* Diagnosis Onset Date Resolution Status Spondylolisthesis, lumbar region acute [facility] Work Phone: Evaluation note* Diagnosis Skin infection- Primary Unspecified local infection of skin and subcutaneous tissue documented [facility] this encounter [facility]* Diagnosis Screening for colon cancer- Primary Special screening for malignant neoplasms, colon Personal history of colonic polyps documented in this encounter [facility] CenterEvalutidal[facility]* Diagnosis Encounter for screening colonoscopy- Primary Special screening for malignant neoplasms, colon Screening for colon cancer Special screening for malignant neoplasms, colon Personal history of colonic polyps [facility]* Diagnosis Essential hypertension, benign Impaired fasting glucose Mixed hyperlipidemia documented in this encounter [facility] CenterEvalutidal[facility]* Diagnosis Medicare annual wellness visit, subsequent- Primary Routine general medical examination at a health care facility Obesity, Class I, BMI 30-34.9 Obesity, unspecified Essential hypertension, benign Obstructive sleep apnea Obstructive sleep apnea (adult) (pediatric) BPH with obstruction/lower urinary tract symptoms Hypertrophy of prostate with urinary obstruction and other lower urinary tract symptoms (LUTS) Adjustment disorder with mixed anxiety and depressed mood Mixed hyperlipidemia Prediabetes Other abnormal glucose documented in this encounter [facility] CenterEvaluation [facility]* Diagnosis Sore throat- Primary Acute pharyngitis Allergic rhinitis, unspecified seasonality, unspecified trigger documented in this encounter [facility]Eval[facility]* Diagnosis Allergic contact dermatitis, unspecified trigger- Primary Sinobronchitis Unspecified sinusitis (chronic) documented in this encounter [facility] CenterEvw[facility]emed [facility] note* Diagnosis Mixed hyperlipidemia- Primary Prediabetes Other abnormal glucose Essential hypertension, benign [facility] Additional Instructions Implant Used?: YesWSumma [facility] Work Phone: Hospital Discharge instructions Additional Instructions Date of Discharge: 01/08/22[facility] Work Phone: Reason for referral (narrative)* Diagnostic Procedure Only (Routine) - Pending Review Specialty Diagnoses / Procedures Referred By Clarisse rogers Referred To Contact XR IMAGING Diagnoses Trigger middle finger of right hand Procedures XR HAND GENERAL 3V PA/LAT/OBL RIGHT RADEX HAND MINIMUM 3 VIEWS Jayla Florian MD [address] [place] [address] [place] [address] [place] [address] Referral ID Status Reason Start Date Expiration Date Visits Requested Visits Authorized [id number] Pending Review Auto-Generat ed Referral 3 02/23/2024 1 1 * Consult, Test, Treat (Routine) - Pending Review Specialty Diagnoses / Procedures Referred By Clarisse rogers Referred To Contact Orthopedics Diagnoses Trigger middle finger of right hand Procedures CONSULT TO ORTHOPAEDICS OFFICE/OUTPATIENT [facility] 60-74 MINUTES Jayla Florian MD [address] [facility] [address] Sam Rosado MD [address] [place] [address] Referral ID Status Reason Start Date Expiration Date Visits Requested Visits Authorized [id number] Pending Review PCP Requested Referral 3 01/24/2024 1 1 [facility] for referral (narrative)* Outpatient Procedure (Routine) - Authorized Specialty Diagnoses / Procedures Referred By Contac t Referred To Contact [facility] Diagnoses Screening for colon cancer Personal history of colonic polyps Procedures COLONOSCOPY SCREENING COLONOSCOPY FLX DX W/COLLJ SPEC WHEN Trish Avendaño APRN.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 SOFTWARE 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 [address] [facility] [address] [address] Referral ID Status Reason Start Date Expiration Date Visits Requested Visits Authorized [id number] Authorized Auto-Generat ed Referral 09/29/2023 09/28/2024 1 1 T [facility] for referral (narrative)* Outpatient Procedure (Routine) - Closed Specialty Diagnoses / Procedures Referred By Contac t Referred To Contact [facility] Diagnoses Screening for colon cancer Personal history of colonic polyps Procedures COLONOSCOPY SCREENING COLONOSCOPY FLX DX W/COLLJ SPEC WHEN Trish Avendaño APRN.BIZTALK SOFTWARE DEVELOPER [address] [facility] [address] [address] Referral ID Status Reason Start Date Expiration Date V isits Requested Visits Authorized [id number] Closed Auto-Generate d Referral 09/29/2023 09/28/2024 1 1 T [facility] for visit Narrative* Outpatient Procedure (Routine) - Closed Specialty Diagnoses / Procedures Referred By Contac t Referred To Contact [facility] Diagnoses Screening for colon cancer Personal history of colonic polyps Procedures COLONOSCOPY SCREENING COLONOSCOPY FLX DX W/COLLJ SPEC WHEN Trish Avendaño APRN.BIZTALK SOFTWARE DEVELOPER [address] [facility] [address] [address] Referral ID Status Reason Start Date Expiration Date V isits Requested Visits Authorized [id number] Closed Auto-Generate d Referral 09/29/2023 09/28/2024 1 1 [facility] Advance Directives No Advanced Directives Records FoundDocuments on File Type Date 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 Advance Directive(s) 09/11/2020 12:58 PM Advance Directive(s) 09/07/2020 9:12 AM Advance Directive(s) 05/20/2017 8:37 AM Advance Directive Response Recorded Date/ Time Advance Directives Yes February 08, 2016 8:41am Living Will Yes September 09, 2019 1 2:15pm Power of Preservationist No September 09, 2019 12:15pm Advance Directive Response Recorded Date/ Time Name of Medical Power of Preservationist MANDI BLUE November 27, 2021 1:14pm Advance Directives Yes February 08, 2016 8:41am Living Will Yes November 27 1:14pm Power of Preservationist Yes November 27 022 1:14pm Advance Directive Response Recorded Date/ Time Name of Medical Power of Preservationist MANDI BLUE November 27, 2021 1:14pm Name of Medical Power of Preservationist Mandi Blue January 04, 2022 8:13pm Advance Directives Yes February 08, 2016 8:41am Living Will Yes January 04, 2022 8:13pm Power of Preservationist Yes December 8:13pm Advance Directive Response Recorded Date/ Time Advance Directives Yes February 08, 2016 7:41am Living Will Yes January 04, 2022 7:13pm Power of Preservationist Yes December 7:13pm Advance Directive Response Recorded Date/ Time Advance Directives Yes February 08, 2016 8:41am Living Will Yes January 04, 2022 8:13pm Power of Preservationist Yes December 8:13pm Chief Complaint and Reason for Visit Chief Complaint CT SCAN KUB Chief Complaint CT SCAN KUB RIGHT KIDNEY CA Chief Complaint CT SCAN KUB RIGHT KIDNEY CA LAP ROBOTIC PARTIAL NEPHRECTOMY Chief Complaint LUMBAR SPINE room 3 DDD. RX HERE Reason for Visit Spondylolisthesis, l umbar region Summary Purpose Family History No Family History Records FoundNo Family History Records Found Additional Source Comments Source Comments (unrecognize d section and content) In the event this informatio n is protected by the Federal Confidentiality of Alcohol and Drug Abuse Patient Records regulations: The Federal rules restrict any use of the information to criminally investigate or prosecute any alcohol or drug abuse patient.[facility] CenterIn the event this information is protected by the Federal Confidentiality of Alcohol and Drug Abuse Patient Records regulations: The Federal rules restrict any use of the information to criminally investigate or prosecute any alcohol or drug abuse patient.[facility] CenterIn the event this information is protected by the Federal Confidentiality of Alcohol and Drug Abuse Patient Records regulations: The Federal rules restrict any use of the information to criminally investigate or prosecute any alcohol or drug abuse patient.[facility] CenterIn the event this information is protected by the Federal Confidentiality of Alcohol and Drug Abuse Patient Records regulations: The Federal rules restrict any use of the information to criminally investigate or prosecute any alcohol or drug abuse patient.[facility] CenterIn the event this information is protected by the Federal Confidentiality of Alcohol and Drug Abuse Patient Records regulations: The Federal rules restrict any use of the information to criminally investigate or prosecute any alcohol or drug abuse patient.[facility] CenterIn the event this information is protected by the Federal Confidentiality of Alcohol and Drug Abuse Patient Records regulations: The Federal rules restrict any use of the information to criminally investigate or prosecute any alcohol or drug abuse patient.[facility] CenterIn the event this information is protected by the Federal Confidentiality of Alcohol and Drug Abuse Patient Records regulations: The Federal rules restrict any use of the information to criminally investigate or prosecute any alcohol or drug abuse patient.[facility] CenterIn the event this information is protected by the Federal Confidentiality of Alcohol and Drug Abuse Patient Records regulations: The Federal rules restrict any use of the information to criminally investigate or prosecute any alcohol or drug abuse patient.[facility] CenterIn the event this information is protected by the Federal Confidentiality of Alcohol and Drug Abuse Patient Records regulations: The Federal rules restrict any use of the information to criminally investigate or prosecute any alcohol or drug abuse patient.[facility] CenterIn the event this information is protected by the Federal Confidentiality of Alcohol and Drug Abuse Patient Records regulations: The Federal rules restrict any use of the information to criminally investigate or prosecute any alcohol or drug abuse patient.[facility] CenterIn the event this information is protected by the Federal Confidentiality of Alcohol and Drug Abuse Patient Records regulations: The Federal rules restrict any use of the information to criminally investigate or prosecute any alcohol or drug abuse patient.[facility] CenterIn the event this information is protected by the Federal Confidentiality of Alcohol and Drug Abuse Patient Records regulations: The Federal rules restrict any use of the information to criminally investigate or prosecute any alcohol or drug abuse patient.[facility] CenterIn the event this information is protected by the Federal Confidentiality of Alcohol and Drug Abuse Patient Records regulations: The Federal rules restrict any use of the information to criminally investigate or prosecute any alcohol or drug abuse patient.[facility] CenterIn the event this information is protected by the Federal Confidentiality of Alcohol and Drug Abuse Patient Records regulations: The Federal rules restrict any use of the information to criminally investigate or prosecute any alcohol or drug abuse patient.[facility] CenterIn the event this information is protected by the Federal Confidentiality of Alcohol and Drug Abuse Patient Records regulations: The Federal rules restrict any use of the information to criminally investigate or prosecute any alcohol or drug abuse patient.[facility] CenterIn the event this information is protected by the Federal Confidentiality of Alcohol and Drug Abuse Patient Records regulations: The Federal rules restrict any use of the information to criminally investigate or prosecute any alcohol or drug abuse patient.[facility] CenterIn the event this information is protected by the Federal Confidentiality of Alcohol and Drug Abuse Patient Records regulations: The Federal rules restrict any use of the information to criminally investigate or prosecute any alcohol or drug abuse patient.[facility] CenterIn the event this information is protected by the Federal Confidentiality of Alcohol and Drug Abuse Patient Records regulations: The Federal rules restrict any use of the information to criminally investigate or prosecute any alcohol or drug abuse patient.[facility] CenterIn the event this information is protected by the Federal Confidentiality of Alcohol and Drug Abuse Patient Records regulations: The Federal rules restrict any use of the information to criminally investigate or prosecute any alcohol or drug abuse patient.[facility] CenterIn the event this information is protected by the Federal Confidentiality of Alcohol and Drug Abuse Patient Records regulations: The Federal rules restrict any use of the information to criminally investigate or prosecute any alcohol or drug abuse patient.[facility] CenterIn the event this information is protected by the Federal Confidentiality of Alcohol and Drug Abuse Patient Records regulations: The Federal rules restrict any use of the information to criminally investigate or prosecute any alcohol or drug abuse patient.[facility] CenterIn the event this information is protected by the Federal Confidentiality of Alcohol and Drug Abuse Patient Records regulations: The Federal rules restrict any use of the information to criminally investigate or prosecute any alcohol or drug abuse patient.[facility] CenterIn the event this information is protected by the Federal Confidentiality of Alcohol and Drug Abuse Patient Records regulations: The Federal rules restrict any use of the information to criminally investigate or prosecute any alcohol or drug abuse patient.[facility] CenterIn the event this information is protected by the Federal Confidentiality of Alcohol and Drug Abuse Patient Records regulations: The Federal rules restrict any use of the information to criminally investigate or prosecute any alcohol or drug abuse patient.[facility] CenterIn the event this information is protected by the Federal Confidentiality of Alcohol and Drug Abuse Patient Records regulations: The Federal rules restrict any use of the information to criminally investigate or prosecute any alcohol or drug abuse patient.[facility] CenterIn the event this information is protected by the Federal Confidentiality of Alcohol and Drug Abuse Patient Records regulations: The Federal rules restrict any use of the information to criminally investigate or prosecute any alcohol or drug abuse patient.[facility] CenterIn the event this information is protected by the Federal Confidentiality of Alcohol and Drug Abuse Patient Records regulations: The Federal rules restrict any use of the information to criminally investigate or prosecute any alcohol or drug abuse patient.[facility] CenterIn the event this information is protected by the Federal Confidentiality of Alcohol and Drug Abuse Patient Records regulations: The Federal rules restrict any use of the information to criminally investigate or prosecute any alcohol or drug abuse patient.[facility] CenterIn the event this information is protected by the Federal Confidentiality of Alcohol and Drug Abuse Patient Records regulations: The Federal rules restrict any use of the information to criminally investigate or prosecute any alcohol or drug abuse patient.[facility] CenterIn the event this information is protected by the Federal Confidentiality of Alcohol and Drug Abuse Patient Records regulations: The Federal rules restrict any use of the information to criminally investigate or prosecute any alcohol or drug abuse patient.[facility] CenterIn the event this information is protected by the Federal Confidentiality of Alcohol and Drug Abuse Patient Records regulations: The Federal rules restrict any use of the information to criminally investigate or prosecute any alcohol or drug abuse patient.[facility] CenterIn the event this information is protected by the Federal Confidentiality of Alcohol and Drug Abuse Patient Records regulations: The Federal rules restrict any use of the information to criminally investigate or prosecute any alcohol or drug abuse patient.[facility] CenterIn the event this information is protected by the Federal Confidentiality of Alcohol and Drug Abuse Patient Records regulations: The Federal rules restrict any use of the information to criminally investigate or prosecute any alcohol or drug abuse patient.[facility] CenterIn the event this information is protected by the Federal Confidentiality of Alcohol and Drug Abuse Patient Records regulations: The Federal rules restrict any use of the information to criminally investigate or prosecute any alcohol or drug abuse patient.[facility] CenterIn the event this information is protected by the Federal Confidentiality of Alcohol and Drug Abuse Patient Records regulations: The Federal rules restrict any use of the information to criminally investigate or prosecute any alcohol or drug abuse patient.[facility] CenterIn the event this information is protected by the Federal Confidentiality of Alcohol and Drug Abuse Patient Records regulations: The Federal rules restrict any use of the information to criminally investigate or prosecute any alcohol or drug abuse patient.[facility] CenterIn the event this information is protected by the Federal Confidentiality of Alcohol and Drug Abuse Patient Records regulations: The Federal rules restrict any use of the information to criminally investigate or prosecute any alcohol or drug abuse patient.[facility] CenterIn the event this information is protected by the Federal Confidentiality of Alcohol and Drug Abuse Patient Records regulations: The Federal rules restrict any use of the information to criminally investigate or prosecute any alcohol or drug abuse patient.[facility] CenterIn the event this information is protected by the Federal Confidentiality of Alcohol and Drug Abuse Patient Records regulations: The Federal rules restrict any use of the information to criminally investigate or prosecute any alcohol or drug abuse patient.[facility] CenterIn the event this information is protected by the Federal Confidentiality of Alcohol and Drug Abuse Patient Records regulations: The Federal rules restrict any use of the information to criminally investigate or prosecute any alcohol or drug abuse patient.[facility] CenterIn the event this information is protected by the Federal Confidentiality of Alcohol and Drug Abuse Patient Records regulations: The Federal rules restrict any use of the information to criminally investigate or prosecute any alcohol or drug abuse patient.[facility] CenterIn the event this information is protected by the Federal Confidentiality of Alcohol and Drug Abuse Patient Records regulations: The Federal rules restrict any use of the information to criminally investigate or prosecute any alcohol or drug abuse patient.[facility] CenterIn the event this information is protected by the Federal Confidentiality of Alcohol and Drug Abuse Patient Records regulations: The Federal rules restrict any use of the information to criminally investigate or prosecute any alcohol or drug abuse patient.[facility] CenterIn the event this information is protected by the Federal Confidentiality of Alcohol and Drug Abuse Patient Records regulations: The Federal rules restrict any use of the information to criminally investigate or prosecute any alcohol or drug abuse patient.[facility] CenterIn the event this information is protected by the Federal Confidentiality of Alcohol and Drug Abuse Patient Records regulations: The Federal rules restrict any use of the information to criminally investigate or prosecute any alcohol or drug abuse patient.[facility] CenterIn the event this information is protected by the Federal Confidentiality of Alcohol and Drug Abuse Patient Records regulations: The Federal rules restrict any use of the information to criminally investigate or prosecute any alcohol or drug abuse patient.[facility] CenterIn the event this information is protected by the Federal Confidentiality of Alcohol and Drug Abuse Patient Records regulations: The Federal rules restrict any use of the information to criminally investigate or prosecute any alcohol or drug abuse patient.[facility] CenterIn the event this information is protected by the Federal Confidentiality of Alcohol and Drug Abuse Patient Records regulations: The Federal rules restrict any use of the information to criminally investigate or prosecute any alcohol or drug abuse patient.[facility] CenterIn the event this information is protected by the Federal Confidentiality of Alcohol and Drug Abuse Patient Records regulations: The Federal rules restrict any use of the information to criminally investigate or prosecute any alcohol or drug abuse patient.[facility] CenterIn the event this information is protected by the Federal Confidentiality of Alcohol and Drug Abuse Patient Records regulations: The Federal rules restrict any use of the information to criminally investigate or prosecute any alcohol or drug abuse patient.[facility] Reason for Visit (unrecogniz ed section and content) Reason Comments Refill Request Reason Comments Appointment Reason Comments Yearly Exam covid 3 weeks ago [facility] Reason Comments Received Outside Medical Records [facility] Reason Comments Received Outside Medical Records Abdomen xray [facility] Reason Comments Received Outside Medical Records [facility] CT abdomen and pelvis 11/23/2021 Reason Comments Received Outside Medical Records H&P [facility] Reason Comments Received Outside Medical Records Labs an d imaging [facility] Reason Comments Received Outside Medical Records Operati ve report Reason Comments Received Outside Medical Records Dischar ge Summary [facility] Reason Comments Received Outside Medical Records [facility] Reason Comments Sore Throat Chest congestion, he ad cold x 7 days Reason Comments Medicare Wellness Exam Reason Onset Date Comments Allied Health Visit 07/31/2022 Medication A dherence Outreach Reason Onset Date Comments Refill Request 10/01/2022 Reason Comments Received Outside Medical Records Dr Lulu juarez Visit summary 12/03/2022 Sleep apnea Reason Comments Follow Up 6 month Reason Comments Received Outside Medical Records [facility] Office visit summary 03/06/2023 Partial right nephrectomy and stone removal. Reason Comments Received Outside Medical Records [facility] 03/06/2023 Reason Comments Received Outside Medical Records [facility] 05/07/23 Reason Comments Nurse Triage Call Reason Comments Received Outside Medical Records [facility] Rehabilitation Services Initial Evaluation 06/25/2023 Reason Comments Patient Update Reason Onset Date Comments Refill Request 08/04/2023 Reason Comments Rash Sore/rash on right a nkle x 1 week Reason Comments Orders Screening colonoscop y Reason Onset Date Comments Population Health Navigation Outreach 10/14/2023 [facility] Reason Comments Received Outside Medical Records [facility] MRI lumbar spine without contrast. 11/10/2023 Reason Comments Patient Question Mild Cognitive impai rment Reason Onset Date Comments Refill Request 02/16/2024 Out of medicatio n; waiting on mail order; short-term request Reason Comments Received Outside Medical Records [facility] PSA 0.93 03/09/2024 Reason Comments Sore Throat ST and PIMENTEL x 2 weeks Reason Comments Cough Chest congestion, ST x4 days Rash L lower leg x1 week Reason Onset Date Comments Refill Request 11/12/2024 See Rx notes Care Teams (unrecognized sec tion and content) Barrel Maker Relationship Specialty Start Date End Date Jayla Florian MD [address] [place] [address] PCP - General 07/19/09 Barrel Maker Relationship Specialty Start Date End Date Jayla Florian MD [address] [place] [address] PCP - General 07/19/09 Barrel Maker Relationship Specialty Start Date End Date Jayla Florian MD [address] [place] [address], [place] [address] PCP - General 07/19/09 Barrel Maker Relationship Specialty Start Date End Date Jayla Florian MD [address] [place] [address], [place] [address] PCP - General 07/19/09 Barrel Maker Relationship Specialty Start Date End Date Jayla Florian MD [address] [place] [address], [place] [address] PCP - General 07/19/09 Barrel Maker Relationship Specialty Start Date End Date Jayla Florian MD [address] [place] [address], [place] [address] PCP - General 07/19/09 Barrel Maker Relationship Specialty Start Date End Date Jayla Florian MD [address] [place] [address], [place] [address] PCP - General 07/19/09 Barrel Maker Relationship Specialty Start Date End Date Jayla Florian MD [address] [place] [address], [place] [address] PCP - General 07/19/09 Barrel Maker Relationship Specialty Start Date End Date Jayla Florian MD [address] [place] [address], [place] [address] PCP - General 07/19/09 Barrel Maker Relationship Specialty Start Date End Date Jayla Florian MD [address] [place] [address], [place] [address] PCP - General 07/19/09 Barrel Maker Relationship Specialty Start Date End Date Jayla Florian MD [address] [place] [address] PCP - General 07/19/09 Barrel Maker Relationship Specialty Start Date End Date Jayla Florian MD [address] [place] [address] PCP - General 07/19/09 Barrel Maker Relationship Specialty Start Date End Date Jayla Florian MD [address] [place] [address] PCP - General 07/19/09 Team Status: Active Member Role Status Dates Dr. Feliciano Florian MD Family Provider Active Dr. Feliciano Florian MD Primary Care Provider Active Team Status: Inactive Member Role Status Dates Dr. Feliciano Florian MD Primary Care Provider Active Dr. Twan Barakat MD Attending Provider, Referr ing Provider Active Barrel Maker Relationship Specialty Start Date End Date Jayla Florian MD [address] [place] [address] PCP - General 07/19/09 Team Status: Inactive Member Role Status Dates Dr. Feliciano Florian MD Primary Care Provider, Referri ng Provider Active Dr. Vikram Peraza MD Attending Provider Active Team Status: Inactive Member Role Status Dates Dr. Feliciano Florian MD Primary Care Provider Active Dr. Trev Reese MD Attending Provider Active Team Status: Inactive Member Role Status Dates Dr. Feliciano Florian MD Primary Care Provider Active Dr. Feliciano Gordon MD Attending Provider, Referring Provider Active Barrel Maker Relationship Specialty Start Date End Date Jayla Florian MD [address] [place], [place] [id number] PCP - General 07/19/09 Barrel Maker Relationship Specialty Start Date End Date Jayla Florian MD [address] [place], [place] [id number] PCP - General 07/19/09 Barrel Maker Relationship Specialty Start Date End Date Jayla Florian MD [address] [place], [place] [id number] PCP - General 07/19/09 Barrel Maker Relationship Specialty Start Date End Date Jayla Florian MD [address] [place] [address] PCP - General 07/19/09 Barrel Maker Relationship Specialty Start Date End Date Jayla Florian MD [address] [place], [place] [address] PCP - General 07/19/09 Barrel Maker Relationship Specialty Start Date End Date Jayla Florian MD [address] [place], [place] [address] PCP - General 07/19/09 Barrel Maker Relationship Specialty Start Date End Date Jayla Florian MD [address] [place], [place] [address]65[address] PCP - General 07/19/09 Trish Ramirez APRN.[employer] SOFTWARE DEVELOPER [address] [place] [address] [address] [place], [place] [id number] [employer] Internal Medicine 03/14/24 Barrel Maker Relationship Specialty Start Date End Date Jayla Florian MD [address] [place], [place] [id number] PCP - General 07/19/09 Trish Ramirez APRN.[employer] SOFTWARE DEVELOPER [address] [facility] [address] [place], [place] [id number] [facility] Internal Medicine 03/14/24 Barrel Maker Relationship Specialty Start Date End Date Jayla Florian MD [address] [place], [place] [id number] PCP General 07/19/09 Trish Ramirez APRN.[employer] SOFTWARE DEVELOPER [address] [facility] [address] [place], [place] [address] [facility] 03/14/24 Barrel Maker Relationship Specialty Start Date End Date Jayla Florian MD [address] [place], [place] 1764[address] PCP General 07/19/09 Trish Ramirez BROACH SETTER.[employer] SOFTWARE DEVELOPER [address] [facility] [address] [place], [place] [id number] [facility] 03/14/24 Barrel Maker Relationship Specialty Start Date End Date Jayla Florian MD [address] [place], [place] [id number] [facility] General 07/19/09 Trish Ramirez APRN.[employer] SOFTWARE DEVELOPER [address] [facility] [address] [place] [id number] [facility] Internal Medicine 03/14/24 Goals (unrecognized section and content) Goals may be documented in a n alternate sectionGoals may be documented in an alternate sectionGoals may be documented in an alternate section (unrecognized sect ion and content) No Status Records FoundNo Status Records Found INFORMATION SOURCE (unrecogn ized section and content) DATE CREATED AUTHOR 04/15/2024 [facility] DATE CREATED AUTHOR AUTHOR'S CAMMIE TAYLOR 02/17/2025 [facility] FOR RECORDS PERTAINING TO PATIENTS WHO ARE OR HAVE BEEN ENROLLED IN A CHEMICAL DEPENDENCY/SUBSTANCEABUSE PROGRAM, SOME INFORMATION MAY BE OMITTED. This clinical summary was aggregated from multiple sources. Caution should be exercised in using it in the provision of clinical care. This summary normalizes information from multiple sources, and as a consequence, information in this document may materially change the coding, format and clinical context of patient data. In addition, data may be omitted in some cases. CLINICAL DECISIONS SHOULD BE BASED ON THE PRIMARY CLINICAL RECORDS. [employer] [facility]. provides no warranty or guarantee of the accuracy or completeness of information in this document.
--- NOTE | 2025-03-02 21:51 | ED.VIS.LOWEX ---
HPI History of Present Illness Chief Complaint: Lower Extremity Injury Narrative Narrative: Patient is a 79-year-old male presenting to the emergency department for a left calf injury. Patient states that he was told a few weeks ago that his good cholesterol was low and he has started to workout more. He states that he feels like his left calf right underneath the knee has not been right since then. States that has been very sore and tender. States that tonight he was walking downstairs and felt a sudden pop in the back of his knee. States he cannot put any weight on his leg and sat down. He denies any other injury. Denies any numbness or weakness in his leg. Denies any ankle or foot pain. [facility] Medical History Cancer Wears hearing aid Wears partial dentures Arthritis High cholesterol Back pain Former smoker CPAP (continuous positive airway pressure) dependence Asthma Hypertension History of rheumatic fever Hx of open-angle glaucoma Home Medications ?Medication ?Instructions ?Recorded ?Last Taken ?Type hydrochlorothiazide 12.5 mg capsule 12.5 mg PO DAILY 03/08/15 01/03/22 History simvastatin 40 mg tablet 40 mg PO QHS 03/08/15 01/03/22 History tamsulosin 0.4 mg capsule 0.4 mg PO DAILY 03/08/15 01/03/22 History acetaminophen 325 mg tablet 650 mg (2 x 325 mg) PO Q6H PRN PRN 03/22/15 01/03/22 Rx (Tylenol) PAIN ##0 finasteride 5 mg tablet 5 mg PO DAILY 09/09/19 01/03/22 History sertraline 25 mg tablet 25 mg PO DAILY 09/09/19 01/03/22 History losartan 50 mg tablet 50 mg PO DAILY 11/27/21 01/04/22 08:30 History lutein 20 mg tablet 20 mg PO DAILY 11/27/21 01/03/22 History omega-3 fatty acids 1,000 mg PO DAILY 11/27/21 01/03/22 History vitamins A,C,L-hutv-cjhjsd 4,296 1 cap PO BID 11/27/21 01/03/22 History mcg-226 mg-90 mg capsule (PreserVision AREDS) allopurinol 100 mg tablet 100 mg PO DAILY #30 tabs 11/28/21 01/03/22 Rx ibuprofen 600 mg tablet 600 mg PO Q6H PRN fever or pain 11/28/21 01/03/22 Rx #20 tabs potassium citrate 15 mEq (1,620 30 meq (2 x 15 mEq) PO BID #60 tabs 11/28/21 01/03/22 Rx mg) tablet,extended release (Urocit-K 15) antiarthritic combination no.2 900 mg PO 05/07/23 Unknown History mg tablet (glucosamine-chondroitin) ascorbic acid (vitamin C) 500 mg 1,000 mg PO DAILY 05/07/23 Unknown History tablet (Vitamin C) psyllium husk 0.52 gram capsule 0.52 g PO DAILY 05/07/23 Unknown History (Daily Fiber) Allergy/AdvReac Type Severity Reaction Status Date / Time ciprofloxacin (From Cipro) Allergy Swelling Verified 03/02/25 20:15 ciprofloxacin HCl (From Allergy Swelling Verified 03/02/25 20:15 Cipro) Milk Containing Products AdvReac Other Verified 03/02/25 20:15 (Dairy) (Milk Containing Products) Surgical History Hx of oral surgery History of ureteroscopy History of carpal tunnel surgery of right wrist Hx of sinus surgery Hx of knee surgery Hx of cystostomy History of vasectomy Hx of tonsillectomy Hx of colonoscopy Hx of LASIK History of total shoulder replacement Social History Smoking Status: Former smoker ROS ROS ED ROS Narrative see HPI EXAM Physical Exam Narrative Exam Narrative: Vital signs: Reviewed General: Alert and orientedx3. No acute distress HEENT: Head is normocephalic and atraumatic, sinuses nontender, pupils equal round and reactive. Nares are patent. Oropharynx and throat exams normal. Neck: Supple without lymphadenopathy nontender Cardiovascular: Regular rate and rhythm, no murmurs. No rubs or gallops. Normal S1 and S2 Respiratory: Clear to auscultation bilaterally. No wheezes, rales, rhonchi Abdominal: Soft and nontender. Normal bowel sounds. No guarding or rebound. Nonsurgical abdomen Extremities: There is mild swelling and tenderness to palpation of the left proximal calf posterior to the knee. No palpable defects of the gastrocnemius felt. Stone test negative. Pain with plantar flexion. DP and PT pulses intact. Sensation intact. Patient able to flex and extend at the knee however with pain. There is no tenderness to palpation of the mid or distal calf. No tenderness to palpation of the anterior knee. Patient able to flex and extend at the knee and hip. No tenderness palpation of the medial or lateral malleolus. No tenderness to palpation of the midfoot. Skin: No rash or redness. The rest of the physical exam is unremarkable Const Vital Signs: 03/02/25 20:15 Temperature 97.9 F Temperature Source Oral Pulse Rate 71 Respiratory Rate 16 Blood Pressure 159/69 H Blood Pressure Mean 99 Pulse Ox 98 Oxygen Delivery Method Room Air MDM MDM MDM Narrative Medical decision making narrative: Patient is a 79-year-old male presenting to the emergency department for a left lower extremity injury. Patient was seen and examined. Vitals are stable. Patient resting bed comfortably in no acute distress. Before my evaluation of the patient a tib-fib x-ray was ordered by nursing staff. This was reviewed by myself and there is no evidence of fracture or dislocation. Radiology read with moderate degenerative changes of the ankle joint. Subtle fracture can not be excluded. Soft tissue swelling. Small calcific density in the anterior soft tissue of the knee joint. This could be from injury of the indeterminate age. Correlation with point tenderness is recommended. Once I evaluated the patient, he does not have any tenderness to palpation of the anterior knee or ankle. Clinically I do not think that the patient has the subtle fracture but cannot be excluded on x-ray imaging. With the patient's calf pain and swelling I did obtain a DVT ultrasound. This was negative. Given the patient's description of the injury I do think this is a gastrocnemius muscle strain vs rupture. States that he was having pain for the past few weeks in that area and then felt an abrupt pop behind his knee this evening. He was given Toradol here for pain control. Ice was applied. Patient was given RICE instructions for home. Weightbearing as tolerated. Patient states that he does have both a walker and crutches at home to help him ambulate. Patient discharged from the Emergency Department. I do not feel that the patient's evaluation reveals any acute reason for admission at this time. I instructed them to either follow-up with their primary care physician or promptly return to the Emergency Department for reevaluation should symptoms worsen or new symptoms develop. I explained what symptoms would indicate the need to return to the emergency department. Shared decision making was used. The patient voiced understanding of the treatment plan and is agreeable with it. Clinical impression Gastrocnemius sprain Sutton cyst History & Record Review Discussion w/independent historian: Patient and Significant other Radiography X-Ray: Read by ED Physician and No Fracture Diagnostic Testing: Clinical Impression(s) from Imaging Studies Tibia/Fibula X-Ray 03/02/25 20:20 IMPRESSION: 1. Moderate degenerative changes of the ankle joint. Subtle fracture can not be excluded. 2. Soft tissue swelling. 3. Small calcific density in the anterior soft tissue of the knee joint. This could be from injury of the indeterminate age. Correlation with point tenderness is recommended. Reading Location: [id number] Venous Duplex 03/02/25 22:11 IMPRESSION: No DVT within the left lower extremity. Reading Location: [id number] Discharge Plan Triage Chief Complaint: Lower Extremity Injury ED Provider: Karen Cordova Dx/Rx/DC Orders Clinical Impression: Sprain, gastrocnemius, Sutton cyst Instructions: Self-Care for Strains and Sprains, Sutton's Cyst Popliteal, ED RICE Prescriptions: No Action psyllium husk [Daily Fiber] 0.52 gram capsule 0.52 g PO DAILY glucosamine-chondroitin 900 mg tablet PO simvastatin 40 MG tablet 40 mg PO QHS Patient Comments: cholesterol tamsulosin 0.4 MG capsule 0.4 mg PO DAILY Patient Comments: urine flow hydrochlorothiazide 12.5 MG capsule 12.5 mg PO DAILY Patient Comments: blood pressure acetaminophen [Tylenol] 325 MG tablet 650 mg PO Q6H PRN PRN (Reason: PAIN) Qty: 0 0RF Patient Comments: pain sertraline 25 MG tablet 25 mg PO DAILY finasteride 5 MG tablet 5 mg PO DAILY losartan 50 mg tablet 50 mg PO DAILY omega-3 fatty acids Capsule 1,000 mg PO DAILY PreserVision AREDS [id number] Capsule 1 cap PO BID lutein 20 mg Tablet 20 mg PO DAILY Rx Instructions: give with meal/snack potassium citrate [Urocit-K 15] 15 mEq tablet extended release 30 meq PO BID Qty: 60 11RF allopurinol 100 mg tablet 100 mg PO DAILY Qty: 30 11RF ibuprofen 600 mg tablet 600 mg PO Q6H PRN (Reason: fever or pain) Qty: 20 0RF ascorbic acid (vitamin C) [Vitamin C] 500 mg tablet 1,000 mg PO DAILY Primary Care Provider: Feliciano Vega Referrals: Feliciano Vega MD [Primary Care Provider, [facility]] - As soon as possible Activity Restrictions/Additional Instructions: Refer to the RICE therapy for pain and swelling control. Patient discharged from the Emergency Department. I do not feel that the patient's evaluation reveals any acute reason for admission at this time. I instructed them to either follow-up with their primary care physician or promptly return to the Emergency Department for reevaluation should symptoms worsen or new symptoms develop. I explained what symptoms would indicate the need to return to the emergency department. Shared decision making was used. The patient voiced understanding of the treatment plan and is agreeable with it. Print Language: Congolese Disposition Disposition: Home, Self Care Discharge Date/Time: 03/02/25 23:53
[2025-03-02] MEDS: Ketorolac 30 MG/ML Syringe IM (21:54)
[2025-03-02 21:57] VITALS: BMI 69.8
--- NOTE | 2025-03-02 22:11 | US_ITS ---
PROCEDURE: VENOUS DUPLEX IMAG/LIMITED/UNI 03/02/2025 REASON FOR EXAM: M 79 y/o TECHNIQUE: Procedure Code: USVDUL Modality: US Procedure: VENOUS DUPLEX IMAG/LIMITED/UNI FINDINGS: There is no intraluminal echogenicity to suggest the presence of a deep venous thrombosis. Appropriate respiratory variation, augmentation and venous compression is noted. A cystic structure measuring 6.1 x 2.2 x 1.7 cm is noted within the left popliteal fossa, compatible with a Sutton's cyst. US/Venous Duplex Imag/Limited/Uni IMPRESSION: No DVT within the left lower extremity. Reading Location: [id number]
[2025-03-02 23:50] VITALS: BP 162/67; PULSE 108; RESP 16; TEMP 36.6; O2SAT 98
== END 2025-03-02 23:53 | disposition home or self-care (01) ==
PROVIDERS: Emergency Provider Student in an Organized Health Care Education/Training Program; PCP Family Medicine; Visit Provider Student in an Organized Health Care Education/Training Program
DX: S86.112A Strain of other muscle(s) and tendon(s) of posterior muscle group at lower leg level, left leg, initial encounter (principal); M19.072 Primary osteoarthritis, left ankle and foot; Z87.891 Personal history of nicotine dependence; E78.00 Pure hypercholesterolemia, unspecified; M25.862 Other specified joint disorders, left knee; I10 Essential (primary) hypertension; J45.909 Unspecified asthma, uncomplicated; M71.22 Synovial cyst of popliteal space [Baker], left knee; M79.89 Other specified soft tissue disorders; X50.0XXA Overexertion from strenuous movement or load, initial encounter
CPT/HCPCS: 73590; 93971; 96372; 99282

== ENCOUNTER → 2025-03-16 | Outpatient (CLI) | payer MEDICARE, SELFPAY ==
[2025-03-16 15:49] LABS: PSA,Total - Annual Screen 1.06 ng/mL (0.02-4.00)
== END | disposition home or self-care (01) ==
LOC: LAB 15:11
PROVIDERS: PCP Family Medicine; Referring Provider Nurse Practitioner; Visit Provider Nurse Practitioner
DX: Z12.5 Encounter for screening for malignant neoplasm of prostate (principal)
CPT/HCPCS: 36415; 84153; G0103